=== PATIENT | female | born 1990 | race African-American/Black ===

== ENCOUNTER 2016-11-22 09:21 | Inpatient (IN) | payer OTHER ==
[~2016-11-22] VITALS: Ht 162.6 cm; Wt 89.6 kg
[2016-11-22] VITALS (9 sets, daily range): BP systolic 104–138; BP diastolic 71–83; PULSE 87–123; TEMP 36.5–39.8; O2SAT 94–100; BMI 30.5
[~2016-11-22 09:21] MED LIST: ALBUAER2 INH; GLIP2.5T11 PO; METF-384 PO; PSEU60TA80 PO; SYMIN160 INH; [UNRECOGNIZED DRUG - CODE] PO; [UNRECOGNIZED DRUG - CODE] PO
[2016-11-22] MEDS ORDERED: SODIUM CHLORIDE 0.9% 1000ML 1,000 ML IV STA ×2 (09:39→10:06)
[2016-11-22 09:48] LABS: HEMATOCRIT 37.8 % (37-47); MEAN CELL VOLUME 74.3 fL (80-100); MEAN CORPUSCULAR HEMOGLOBIN 25.1 pg (25-34); MEAN CORPUSCULAR HGB CONC 33.9 g/dl (32-36); MEAN PLATELET VOLUME 9.8 fL (7.4-10.4); PLATELET COUNT 249 K/uL (130-400); RED BLOOD COUNT 5.09 M/uL (4.2-5.4); WHITE BLOOD COUNT 23.49 K/uL (4.8-10.8)
--- NOTE | 2016-11-22 09:56 | DIAGNOSTIC IMAGING REPORT ---
CHEST ONE VIEW PORTABLE CLINICAL HISTORY: EVALUATE WEAKNESS dyspnea COMPARISON STUDY: 05/19/2016 FINDINGS: The bones soft tissues and hemidiaphragms are normal. The cardiomediastinal silhouette is normal. The lungs are clear. The pulmonary vasculature is normal. IMPRESSION: Negative chest. Electronically signed by: Steven Be M.D. 11/22/2016 9:55 AM Dictated Date/Time: 11/22/2016 9:54 AM
[2016-11-22 09:59] LABS: CALCIUM 9.1 mg/dl (8.5-10.1)
[2016-11-22 10:01] LABS: BUN/CREATININE RATIO 8.9 (10-20); POTASSIUM 3.1 mmol/L (3.5-5.1)
[2016-11-22] MEDS ORDERED: SODIUM CHLORIDE 0.9% 500ML 500 ML IV STA (10:06)
[2016-11-22] MEDS ORDERED: ACETAMINOPHEN 500 MG TAB PO STA (10:07)
[2016-11-22 10:13] LABS: THYROID STIMULATING HORMONE 0.262 uIu/ml (0.300-4.500)
[2016-11-22 10:19] LABS: BASO % 0.1 %; BASO ABS # 0.02 K/uL (0-0.2); COMPLETE YES; IG% 0.5 %; LYMPH % 7.8 %; LYMPH ABS # 1.83 K/uL (1.2-3.4); MONO % 9.3 %; NEUT % 82.3 %
[2016-11-22 10:20] LABS: BETA-HYDROXYBUTYRATE 17.79 mg/dL (0.2-2.81)
[2016-11-22 10:34] LABS: URINE APPEARANCE CLOUDY (CLEAR); URINE BILIRUBIN NEG (NEG); URINE COLOR YELLOW; URINE NITRITE NEG (NEG); URINE SPECIFIC GRAVITY 1.028 (1.000-1.030); UROBILINOGEN NEG (NEG)
[2016-11-22] MEDS ORDERED: INSULIN IV INFUSION PROTOCOL STA ×2 (10:34→11:27)
[2016-11-22 10:36] LABS: MANUAL MICROSCOPIC REQUIRED? NO; REVIEW REQ? NO
[2016-11-22 10:39] LABS: PREG INTERNAL NEGATIVE QC NEG CLEAR BACKGROUND; PREG INTERNAL POSITIVE QC POS CONTROL LINE
[2016-11-22] MEDS ORDERED: DAPTOmycin IV 500 MG in SODIUM CHLORIDE 0.9% 50ML 50 ML IV STA (10:39)
[2016-11-22] MEDS ORDERED: PIPERACILLIN/TAZOBACTAM 4.5 GM/100ML D5W IV STA (10:39)
[2016-11-22] MEDS ORDERED: DKA GOAL RANGE 150-250 mg/dl 1 EA ONE ×2 (10:45→11:30)
[2016-11-22] MEDS ORDERED: MODERATE STRESS LEVEL ONE ×2 (10:45→11:30)
[2016-11-22] MEDS ORDERED: OPTIRAY 320 IV PRN (10:45)
[2016-11-22] MEDS ORDERED: INSULIN IV INFUSION PROTOCOL SCH (10:45)
[2016-11-22] MEDS ORDERED: VNTHFA/IN INH (10:46)
[2016-11-22] MEDS ORDERED: BCPILLS PO (10:47)
[2016-11-22] MEDS ORDERED: POTASSIUM CHLORIDE 10 MEQ / 100ML WTR IV STA (11:04)
[2016-11-22] MEDS ORDERED: GLUCAGON FOR INJ 1 MG VIAL SQ PRN (11:15)
[2016-11-22] MEDS ORDERED: GLUCOSE 10 TABS/TUBE PO PRN (11:15)
[2016-11-22] MEDS ORDERED: DEXTROSE 50% 50 ML SYR IV PRN (11:15)
[2016-11-22] MEDS ORDERED: GLUCOSE 40% GEL 15 GM TUBE PO PRN (11:15)
--- NOTE | 2016-11-22 11:17 | DIAGNOSTIC IMAGING REPORT ---
ABDOMEN AND PELVIS CT WITH IV CONTRAST CT DOSE: 859.30 mGycm HISTORY: DKA, right flank and abd pain, 24K wbc, +UA TECHNIQUE: Multiaxial CT images of the abdomen and pelvis were performed following the use of intravenous contrast. COMPARISON STUDY: None. FINDINGS: Lung bases are clear. Fatty infiltration of liver. Spleen and pancreas are unremarkable. Left kidney enhances uniformly. Right kidney is moderately enlarged and heterogeneous in terms of enhancement. Findings of mild right renal hydronephrosis. Mild right renal perinephric changes. Appearances consistent with that of diffuse polyarthritis. Uterus is enlarged heterogeneous and bulky raising the possibility of diffuse fibroid involvement. Pelvic ultrasonography is suggested as follow-up. Extrinsic impact from the enlarged uterus potentially relates in part to the right renal hydronephrosis. An obstructing calculus is not appreciated. The appendix is top limits of normal. Bowel pattern overall is nonobstructive. IMPRESSION: 1. Diffuse heterogeneity and edematous change of the right kidney. 2. Appearance is highly suggestive of right renal pyelonephritis. 3. Mild right renal hydronephrosis and hydroureter possibly on the basis of a rather markedly enlarged and heterogeneous uterus. Fibroid involvement is considered with pelvic ultrasonography is suggested. 4. Top normal appendix in terms of diameter. 5. 1.8 cm left ovarian cyst. Electronically signed by: Steven Be M.D. 11/22/2016 11:16 AM Dictated Date/Time: 11/22/2016 11:10 AM
[2016-11-22] MEDS ORDERED: PENDING NSS+20mEq KCL IVF SCH (11:30)
[2016-11-22] MEDS ORDERED: INSULIN HUMAN REGULAR IV BOLUS 2 UNIT in SYRINGE 0 ML IV ONE (11:30)
[2016-11-22] MEDS ORDERED: PHARMACY GLYCEMIC MGMT CONSULT PRN (11:30)
[2016-11-22] MEDS ORDERED: CONSULT PHARMACY STA (11:33)
[2016-11-22] MEDS: INSULIN REGULAR 250 UNITS in SODIUM CHLORIDE 0.9% 250ML 250 ML IV SCH ×4 (11:36→20:22)
[2016-11-22] MEDS ORDERED: MONT1TAB3 PO (11:37)
[2016-11-22] MEDS ORDERED: PLMINSR5 INH (11:37)
--- NOTE | 2016-11-22 11:55 | History and Physical ---
History & Physical Date & Time of Service: November 22, 2016 at 11:39 Chief Complaint: Illness Primary Care Physician: Jeanette Bailey DO History of Present Illness Source: patient, clinic records, hospital records Patient seen and examined. 26 year old female with PMHx of DM2, and asthma presents to the ED complaining of flu like symptoms x 2 days. Patient reports 2 days ago she began feeling generally weak and lightheaded. She reports she felt fatigued and over heated. She took her temperature and it was 100 F. She states she went to bed and has been trying to rest in bed as much as possible since then. She reports diffuse muscle aches. She also reports nausea and some dry heaving. She states she has been trying to stay hydrated but has noticed very poor urine output. She reports dysuria and suprapubic abdominal cramping. She reports because of the illness she has not taken her DM medications in 2 days. She denies URI symptoms, chest pain, SOB, diarrhea, calf pain and edema. She reports her asthma seems to be at baseline. She reports she has not taken her BSG in the last few days. She states she has had diabetes for about a year but has never really been taught a diabetic diet so she has been trying to do her own research. In the ED patient is febrile, tachycardic. WBC count is 23K, K+ is 3.1, bicarb is 19. Glucose is 331. UA shows infection and +[address] a/p is consistent with right sided pyelonephritis. She received IVFs, potassium and was started on an insulin drip. Blood cultures and urine cultures were obtained and patient was started on daptomycin and zosyn. She will be admitted for further workup and treatment. Past Medical/Surgical History Medical Problems: (1) Asthma, moderate persistent Status: Chronic (2) DM2 (diabetes mellitus, type 2) Status: Chronic (3) Nasal polyp Status: Chronic Surgical Problems: (1) History of nasal surgery Status: Chronic Family History Asthma Social History Smoking Status: Never Smoker Drug Use: none Marital Status: single Housing status: lives alone Occupational Status: student Immunizations History of Influenza Vaccine: N/A History of Tetanus Vaccine?: Unknown History of Pneumococcal: No History of Hepatitis B Vaccine: Unknown Multi-Drug Resistant Organisms History of MDRO: No Allergies Coded Allergies: No Known Allergies (Verified , 11/22/16) Home Medications Scheduled Albuterol Hfa (Ventolin Hfa), 2-4 PUFFS INH Q6H Budesonide (Pulmicort Respules 0.5MG/2ML), 2 ML INH BID Budesonide/Formoterol Fumarate (Symbicort 160/4.5 Inhaler ), 2 PUFFS INH BID Glipizide (Glipizide Er), 5 MG PO DAILY Metformin Hcl (Glucophage), 1,000 MG PO BID Montelukast Sodium (Singulair), 1 TAB PO HS Review of Systems Constitutional: + chills, + fatigue, + fever, + weakness Eyes: No worsening of vision ENT: No nasal symptoms Respiratory: No cough, No shortness of breath Cardiovascular: No chest pain, No edema Abdomen: + nausea, + pain, No constipation, No diarrhea Musculoskeletal: + muscle pain, No calf pain, No swelling Genitourinary - Female: + dysuria Neurologic: No numbness/tingling, No vertigo Psychiatric: No depression symptoms Endocrine: + fatigue, No excessive thirst, No excessive urination Hematologic / Lymphatic: No night sweats, No swollen lymph nodes Integumentary: No itch, No rash Allergic / Immunologic: No environmental allergies Physical Exam Vital Signs Date Time Temp Pulse Resp B/P Pulse Ox O2 Delivery O2 Flow Rate FiO2 11/22/16 10:18 116 20 130/82 99 Room Air 11/22/16 09:26 38.8 130 24 136/84 99 Room Air General Appearance: + pertinent finding (Pleasant WD/WN 26 year old female lying in bed in NAD ) Head: normocephalic, atraumatic Eyes: PERRL, EOMI, sclerae normal ENT: hearing grossly normal, pharynx normal Neck: supple, no JVD Respiratory/Chest: chest non-tender, normal breath sounds, no respiratory distress, no accessory muscle use, + wheezing (scattered ) Cardiovascular: no edema, no gallop, no JVD, no murmur, normal peripheral pulses, + tachycardia (low 100s, regular ) Abdomen/GI: normal bowel sounds, soft, + tenderness (mild suprapubic ) Back: normal inspection, no muscle spasm, + right CVA tenderness Extremities/Musculoskelatal: no calf tenderness, normal capillary refill, no pedal edema Neurologic/Psych: no motor/sensory deficits, alert, oriented x 3 Skin: normal color, warm/dry, no rash Lymphatic: no adenopathy Diagnostics Laboratory Results Results Past 24 Hours Test 11/22/16 09:30 11/22/16 09:37 11/22/16 10:15 11/22/16 10:20 Range/Units White Blood Count 23.49 4.8-10.8 K/uL Red Blood Count 5.09 4.2-5.4 M/uL Hemoglobin 12.8 12.0-16.0 g/dL Hematocrit 37.8 37-47 % Mean Corpuscular Volume 74.3 80-100 fL Mean Corpuscular Hemoglobin 25.1 25-34 pg Mean Corpuscular Hemoglobin Concent 33.9 32-36 g/dl Platelet Count 249 130-400 K/uL Mean Platelet Volume 9.8 7.4-10.4 fL Neutrophils (%) (Auto) 82.3 % Lymphocytes (%) (Auto) 7.8 % Monocytes (%) (Auto) 9.3 % Eosinophils (%) (Auto) 0.0 % Basophils (%) (Auto) 0.1 % Neutrophils # (Auto) 19.34 1.4-6.5 K/uL Lymphocytes # (Auto) 1.83 1.2-3.4 K/uL Monocytes # (Auto) 2.18 0.11-0.59 K/uL Eosinophils # (Auto) 0.00 0-0.5 K/uL Basophils # (Auto) 0.02 0-0.2 K/uL RDW Standard Deviation 40.0 36.4-46.3 fL RDW Coefficient of Variation 14.6 11.5-14.5 % Immature Granulocyte % (Auto) 0.5 % Immature Granulocyte # (Auto) 0.12 0.00-0.02 K/uL Red Blood Cell Morphology Unremarkable Sodium Level 129 136-145 mmol/L Potassium Level 3.1 3.5-5.1 mmol/L Chloride Level 97 98-107 mmol/L Carbon Dioxide Level 19 21-32 mmol/L Anion Gap 13.0 3-11 mmol/L Blood Urea Nitrogen 9 7-18 mg/dl Creatinine 1.00 0.60-1.20 mg/dl Est Creatinine Clear Calc Drug Dose 86.8 ml/min Estimated GFR () 89.4 Estimated GFR (Non- 77.2 BUN/Creatinine Ratio 8.9 10-20 Random Glucose 328 70-99 mg/dl Calcium Level 9.1 8.5-10.1 mg/dl Magnesium Level 2.0 1.8-2.4 mg/dl Total Bilirubin 0.6 0.2-1 mg/dl Direct Bilirubin 0.2 0-0.2 mg/dl Aspartate Amino Transf (AST/SGOT) 11 15-37 U/L Alanine Aminotransferase (ALT/SGPT) 17 12-78 U/L Alkaline Phosphatase 77 45-117 U/L Total Protein 7.6 6.4-8.2 gm/dl Albumin 3.2 3.4-5.0 gm/dl Lipase 119 73-393 U/L Beta-Hydroxybutyric Acid 17.79 0.2-2.81 mg/dL Thyroid Stimulating Hormone (TSH) 0.262 0.300-4.500 uIu/ml Human Chorionic Gonadotropin, Qual NEG NEG Bedside Glucose 331 70-90 mg/dl Influenza Type A Antigen Neg for Influ A NEG Influenza Type B Antigen Neg for Influ B NEG Urine Color YELLOW Urine Appearance CLOUDY CLEAR Urine pH 6.0 4.5-7.5 Urine Specific [place] 1.028 1.000-1.030 Urine Protein 2+ NEG Urine Glucose (UA) 3+ NEG Urine Ketones 3+ NEG Urine Occult Blood 2+ NEG Urine Nitrite NEG NEG Urine Bilirubin NEG NEG Urine Urobilinogen NEG NEG Urine Leukocyte Esterase TRACE NEG Urine WBC (Auto) >30 0-5 /hpf Urine RBC (Auto) 5-10 0-4 /hpf Urine Hyaline Casts (Auto) 1-5 0-5 /lpf Urine Epithelial Cells (Auto) 10-20 0-5 /lpf Urine Bacteria (Auto) 4+ NEG Test 11/22/16 10:45 Range/Units Bedside Glucose 277 70-90 mg/dl Microbiology Results 11/22/16 Blood Culture, Received Pending 11/22/16 Blood Culture, Received Pending 11/22/16 Urine Culture, Received Pending Diagnostic Radiology CXR Per radiologist read: IMPRESSION: Negative chest. CT A/P Per radiologist read: IMPRESSION: 1. Diffuse heterogeneity and edematous change of the right kidney. 2. Appearance is highly suggestive of right renal pyelonephritis. 3. Mild right renal hydronephrosis and hydroureter possibly on the basis of a rather markedly enlarged and heterogeneous uterus. Fibroid involvement is considered with pelvic ultrasonography is suggested. 4. Top normal appendix in terms of diameter. 5. 1.8 cm left ovarian cyst. Impression Assessment and Plan 26 year old female presents to the ED complaining of flu like symptoms, abdominal pain, dysuria. URINARY TRACT INFECTION - ACUTE RIGHT PYELONEPHRITIS -Admit to tele -Presents with fever, tachycardia, leukocytosis, UA with infection, CT a/p consistent with pyelonephritis -Lactate pending -Blood cultures, urine cultures obtained -empirically treat with Zosyn - pharmacy consulted for dosing -received Daptomycin as well in ED, which will cover patient for 24 hours will hold off on additional dosing until cultures come back tomorrow. Defer to day- time attending. -IVF hydration -CBC, PRP, Mg in AM DIABETIC KETOACIDOSIS -known DM2 -presents with BSG 331, bicarb 19, AG 13, UA with + 3 ketones -likely secondary to infection and not taking medications secondary to illness -hold metformin and glipizide -Insulin gtt started in ED, will continue for now -IVF hydration, potassium supplementation -Pharmacy consult placed for glycemic control -follow lytes q6H, and replace as needed - update A1c -Diabetes education consult placed - states she has never had any diabetes education before - Treat UTI as outlined above -monitor in tele HYPOKALEMIA -replace -follow q6H while on insulin drip ASTHMA -stable per patient, does have wheezing on exam -continue home inhalers, nebs, Singulair ENLARGED UTERUS -on CT A/P -radiologist recommends pelvic US - defer to attending for inpatient versus outpatient US DVT PROPHYLAXIS: SCDs, ambulate CODE STATUS: FULL CODE DISPO:In my clinical judgment this beneficiary meets acute admission criteria, established by [facility], that includes being hospitalized through two midnights. Patient seen in collaboration with Dr. Duncan Attending Addendum: The patient was seen and examined in ER Admitted with generalized weakness followed by Dysuria,back pain and chills No chest pain,palpitation or SOB Noted to have Increased WCC,decreased CO2,Tachycardia and Blood sugar of 330 O/E Looks flushed Hemodynamically stable Chest -clear Heart-regular Abdomen-benign,no masses,left renal angle tender Labs and Imaging studies were reviewed Has DKA secondary to pyelonephritis Agree with the assessment and plan. Dr M Perla VTE Prophylaxis VTE Risk Assessment Done? Y/N: Yes Risk Level: Low
[2016-11-22] MEDS ORDERED: PENDING D5NS+20mEq KCL IVF SCH (12:45)
[2016-11-22] MEDS ORDERED: INSULIN ASPART 100 UNITS/ML 3 ML PEN SC SCH (13:00)
--- NOTE | 2016-11-22 13:45 | EMERGENCY ROOM VISIT NOTE ---
History Report prepared by Merlin: Yani Cabral Under the Supervision of: Dr. Mehdi Bell M.D. First contact with patient: 09:39 Chief Complaint: FLU LIKE SX Stated Complaint: ILLNESS History of Present Illness The patient is a 26 year old female who presents to the Emergency Room with complaints of worsening flu-like symptoms starting 2 days ago. The patient reports fevers, chills, headache, sinus congestion, diffuse abdominal cramps, and generalized body aches. She has nausea with eating but denies vomiting. She also reports decreased urinary output even with increased fluid intake. She has a history of diabetes. Her blood sugar level was 238 this morning prior to arrival. She denies any recent known ill-contacts. Pt denies LOC, diaphoresis, visual changes, cough, sore throat, neck pain, chest pain, breathing difficulties, back pain, melena, hematochezia, numbness, weakness, lymphadenopathy, rash, or other complaints. Source of History: patient Onset: 2 days ago Position: other (global) Quality: other (flu-like symptoms) Timing: worsening Associated Symptoms: + abdominal pain, + chills, + fevers, + headache, + nausea Review of Systems See HPI for pertinent positives and negatives. A total of ten systems were reviewed and were otherwise negative. Past Medical & Surgical Medical Problems: (1) Asthma, moderate persistent (2) DKA (diabetic ketoacidoses) (3) DM2 (diabetes mellitus, type 2) (4) Nasal polyp (5) Pyelonephritis Surgical Problems: (1) History of nasal surgery Family History Patient reports no known family medical history. Social History Smoking Status: Never Smoker Alcohol Use: none Drug Use: none Marital Status: single Housing Status: lives with roommate Occupation Status: unemployed Current/Historical Medications Scheduled Albuterol Hfa (Ventolin Hfa), 2-4 PUFFS INH Q6H Budesonide (Pulmicort Respules 0.5MG/2ML), 2 ML INH BID Budesonide/Formoterol Fumarate (Symbicort 160/4.5 Inhaler ), 2 PUFFS INH BID Glipizide (Glipizide Er), 5 MG PO DAILY Metformin Hcl (Glucophage), 1,000 MG PO BID Montelukast Sodium (Singulair), 1 TAB PO HS Allergies Coded Allergies: No Known Allergies (Verified , 11/22/16) Physical Exam Vital Signs Date Time Temp Pulse Resp B/P Pulse Ox O2 Delivery O2 Flow Rate FiO2 11/22/16 13:20 36.9 109 20 107/74 99 Room Air 11/22/16 11:39 38.9 98 18 115/67 97 Room Air 11/22/16 10:18 116 20 130/82 99 Room Air 11/22/16 09:26 38.8 130 24 136/84 99 Room Air Physical Exam GENERAL: Awake, alert, mildly ill appearing, no distress HEAD: Normocephalic, atraumatic. No edema. EYES: Normal conjunctiva. Sclera non-icteric. EARS: Right TM normal. Left TM normal. NOSE: Mild congestion. OROPHARYNX: Lips, tongue, and mucosa unremarkable. No erythema or exudate. NECK: Supple. No nuchal rigidity. FROM. No adenopathy. Negative jolt accentuation test. RESPIRATORY: CTA bilaterally. No wheezes rales or rhonchi. CARDIAC: Tachycardic rate, normal rhythm. ABDOMEN: Soft, non distended. Mild diffuse tenderness to palpation. BACK: Right CVA tenderness to percussion. NEURO: Normal sensorium. SKIN: No rash or jaundice noted Medical Decision & Procedures ER Provider Diagnostic Interpretation: CT results as stated below per my review and radiologist interpretation: ABDOMEN AND PELVIS CT WITH IV CONTRAST CT DOSE: 859.30 mGycm HISTORY: DKA, right flank and abd pain, 24K wbc, +UA TECHNIQUE: Multiaxial CT images of the abdomen and pelvis were performed following the use of intravenous contrast. COMPARISON STUDY: None. FINDINGS: Lung bases are clear. Fatty infiltration of liver. Spleen and pancreas are unremarkable. Left kidney enhances uniformly. Right kidney is moderately enlarged and heterogeneous in terms of enhancement. Findings of mild right renal hydronephrosis. Mild right renal perinephric changes. Appearances consistent with that of diffuse polyarthritis. Uterus is enlarged heterogeneous and bulky raising the possibility of diffuse fibroid involvement. Pelvic ultrasonography is suggested as follow-up. Extrinsic impact from the enlarged uterus potentially relates in part to the right renal hydronephrosis. An obstructing calculus is not appreciated. The appendix is top limits of normal. Bowel pattern overall is nonobstructive. IMPRESSION: 1. Diffuse heterogeneity and edematous change of the right kidney. 2. Appearance is highly suggestive of right renal pyelonephritis. 3. Mild right renal hydronephrosis and hydroureter possibly on the basis of a rather markedly enlarged and heterogeneous uterus. Fibroid involvement is considered with pelvic ultrasonography is suggested. 4. Top normal appendix in terms of diameter. 5. 1.8 cm left ovarian cyst. Electronically signed by: Steven Be M.D. 11/22/2016 11:16 AM Dictated Date/Time: 11/22/2016 11:10 AM Xray results as stated below per my and radiologist interpretation: CHEST ONE VIEW PORTABLE CLINICAL HISTORY: EVALUATE WEAKNESS dyspnea COMPARISON STUDY: 05/19/2016 FINDINGS: The bones soft tissues and hemidiaphragms are normal. The cardiomediastinal silhouette is normal. The lungs are clear. The pulmonary vasculature is normal. IMPRESSION: Negative chest. Electronically signed by: Steven Be M.D. 11/22/2016 9:55 AM Dictated Date/Time: 11/22/2016 9:54 AM Laboratory Results 11/22/16 09:30 Red Blood Count 5.09, Mean Corpuscular Volume 74.3, Mean Corpuscular Hemoglobin 25.1, Mean Corpuscular Hemoglobin Concent 33.9, Mean Platelet Volume 9.8, Neutrophils (%) (Auto) 82.3, Lymphocytes (%) (Auto) 7.8, Monocytes (%) (Auto) 9.3, Eosinophils (%) (Auto) 0.0, Basophils (%) (Auto) 0.1, Neutrophils # (Auto) 19.34, Lymphocytes # (Auto) 1.83, Monocytes # (Auto) 2.18, Eosinophils # (Auto) 0.00, Basophils # (Auto) 0.02 Test 11/22/16 09:30 11/22/16 10:15 11/22/16 10:20 11/22/16 12:33 White Blood Count 23.49 K/uL (4.8-10.8) Red Blood Count 5.09 M/uL (4.2-5.4) Hemoglobin 12.8 g/dL (12.0-16.0) Hematocrit 37.8 % (37-47) Mean Corpuscular Volume 74.3 fL (80-100) Mean Corpuscular Hemoglobin 25.1 pg (25-34) Mean Corpuscular Hemoglobin Concent 33.9 g/dl (32-36) Platelet Count 249 K/uL (130-400) Mean Platelet Volume 9.8 fL (7.4-10.4) Neutrophils (%) (Auto) 82.3 % Lymphocytes (%) (Auto) 7.8 % Monocytes (%) (Auto) 9.3 % Eosinophils (%) (Auto) 0.0 % Basophils (%) (Auto) 0.1 % Neutrophils # (Auto) 19.34 K/uL (1.4-6.5) Lymphocytes # (Auto) 1.83 K/uL (1.2-3.4) Monocytes # (Auto) 2.18 K/uL (0.11-0.59) Eosinophils # (Auto) 0.00 K/uL (0-0.5) Basophils # (Auto) 0.02 K/uL (0-0.2) RDW Standard Deviation 40.0 fL (36.4-46.3) RDW Coefficient of Variation 14.6 % (11.5-14.5) Immature Granulocyte % (Auto) 0.5 % Immature Granulocyte # (Auto) 0.12 K/uL (0.00-0.02) Red Blood Cell Morphology Unremarkable Est Creatinine Clear Calc Drug Dose 86.8 ml/min Total Bilirubin 0.6 mg/dl (0.2-1) Direct Bilirubin 0.2 mg/dl (0-0.2) Aspartate Amino Transf (AST/SGOT) 11 U/L (15-37) Alanine Aminotransferase (ALT/SGPT) 17 U/L (12-78) Alkaline Phosphatase 77 U/L (45-117) Total Protein 7.6 gm/dl (6.4-8.2) Albumin 3.2 gm/dl (3.4-5.0) Lipase 119 U/L (73-393) Beta-Hydroxybutyric Acid 17.79 mg/dL (0.2-2.81) Thyroid Stimulating Hormone (TSH) 0.262 uIu/ml (0.300-4.500) Human Chorionic Gonadotropin, Qual NEG (NEG) Influenza Type A Antigen Neg for Influ A (NEG) Influenza Type B Antigen Neg for Influ B (NEG) Urine Color YELLOW Urine Appearance CLOUDY (CLEAR) Urine pH 6.0 (4.5-7.5) Urine Specific [place] 1.028 (1.000-1.030) Urine Protein 2+ (NEG) Urine Glucose (UA) 3+ (NEG) Urine Ketones 3+ (NEG) Urine Occult Blood 2+ (NEG) Urine Nitrite NEG (NEG) Urine Bilirubin NEG (NEG) Urine Urobilinogen NEG (NEG) Urine Leukocyte Esterase TRACE (NEG) Urine WBC (Auto) >30 /hpf (0-5) Urine RBC (Auto) 5-10 /hpf (0-4) Urine Hyaline Casts (Auto) 1-5 /lpf (0-5) Urine Epithelial Cells (Auto) 10-20 /lpf (0-5) Urine Bacteria (Auto) 4+ (NEG) Bedside Glucose 296 mg/dl (70-90) Test 11/22/16 13:30 Laboratory results reviewed by me Medications Administered Medications (Trade) Dose Ordered Sig/Ronald Route Start Time Stop Time Status Last Admin Dose Admin Sodium Chloride 1,000 ml @ 999 mls/hr Q1H1M STAT IV 11/22/16 09:39 11/22/16 10:39 DC 11/22/16 09:39 999 MLS/HR Sodium Chloride 1,000 ml @ 999 mls/hr Q1H1M STAT IV 11/22/16 10:06 11/22/16 11:06 DC 11/22/16 10:15 999 MLS/HR Sodium Chloride (Nss 500ml) 500 ml @ 999 mls/hr Q31M STAT IV 11/22/16 10:06 11/22/16 10:36 DC 11/22/16 10:06 999 MLS/HR Acetaminophen (Tylenol Tab) 1,000 mg NOW STAT PO 11/22/16 10:07 11/22/16 10:09 DC 11/22/16 10:14 1,000 MG Piperacillin Sod/ Tazobactam Sod 4.5 gm 4.5 gm NOW STAT IV 11/22/16 10:39 11/22/16 10:42 DC 11/22/16 11:36 4.5 GM Daptomycin/Sodium Chloride (Cubicin IV/Nss 50ml) 60 ml @ 100 mls/hr NOW STAT IV 11/22/16 10:39 11/22/16 11:14 DC 11/22/16 11:38 100 MLS/HR Potassium Chloride 10 meq 10 meq NOW STAT IV 11/22/16 11:04 11/22/16 11:05 DC 11/22/16 12:24 10 MEQ Insulin Human Regular 2 unit/ Syringe 2 ml @ 1 mls/min TODAY@1130 ONCE IV 11/22/16 11:30 11/22/16 11:31 DC 11/22/16 11:34 1 MLS/MIN Insulin Human Regular/Sodium Chloride (novoLIN-R/Nss 250ml) 252.5 ml @ 0 mls/hr DAILY@1130 IV 11/22/16 11:30 11/23/16 11:29 11/22/16 11:36 2 MLS/HR ED Course 0939: The patient was evaluated in room A02. A complete history and physical exam was performed. Sodium Chloride 1000 ml @ 999 mls/hr IV 1006: Sodium Chloride 500 ml @ 999 mls/hr IV, Sodium Chloride 1000 ml @ 999 mls/ hr IV 1007: Tylenol Tab 1000 mg PO 1034: Insulin Human Regular 1 ea N/A 1039: Daptomycin 500 mg/Sodium Chloride 60 ml @ 100 mls/hr IV, Zosyn IV 4.5 mg IV 1045: Insulin Human Regular 1 ea N/A, Insulin Protocol Moderate Stress Level 1 ea N/A, Insulin Protocol DKA Goal Range 1 ea N/A 1046: Upon reexamination, the patient was resting comfortably. I discussed the test results and treatment plan with her. The patient will be evaluated for further management. 1051: I discussed the patient's case with Dr. Duncan, from [facility]. 1104: Potassium Chloride 10 meq IV 1115: Glucagon Inj 1 mg SQ, Dextrose 50 ml IV, Glucose 1 tabs PO 1211: I updated the patient on the CT scan results. She is starting to feel better. Medical Decision Triage Nursing notes reviewed. The patient's presentation and history were concerning for flulike symptoms. Etiologies such as viral syndrome, otitis, pharyngitis, pneumonia, urinary tract infection, sepsis, bacteremia, meningitis, as well as others were entertained. The patient was evaluated and she was febrile with tachycardia. She was not hypotensive. She appeared generally ill. The patient was hydrated. Blood work was obtained. She had a marked leukocytosis, hyperglycemia, and acidosis. Beta hydroxybutyrate were elevated. This is concerning for DKA. The patient' s urinalysis was abnormal. She was given additional fluid and also given broad- spectrum antibiotics due to concerns for possible sepsis. CT imaging was performed and revealed pyelonephritis as well as a uterine fibroid. The patient has no history of this but does state that she has heavy menstrual cycles. She was gradually feeling better with the above treatment. She was started on insulin drip and also given IV potassium and she was mildly hypokalemic. Internal medicine was consulted. The patient was evaluated in the Emergency Room for further management. The chart was completed utilizing [employer] Speech voice recognition software. Grammatical errors, random word insertions, pronoun errors, and incomplete sentences are an occasional consequence of this system due to software limitations, ambient noise, and hardware issues. Any formal questions or concerns about the content, text, or information contained within the body of this dictation should be directly addressed to the physician for clarification. Consults Time Called: 1050 Consulting Physician: Dr. Duncan, from [facility] Returned Call: 1051 I discussed the patient's case with Dr. Duncan, from [facility]. Impression Primary Impression: Sepsis Additional Impressions: DKA (diabetic ketoacidoses) UTI (urinary tract infection) Fever Critical Care I have personally spent greater than 30 minutes of critical care time in the direct management of this patient. This includes bedside care, interpretation of diagnostic studies, and testing, discussion with consultants, patient, and other required patient management activities. This 30 minutes is in excess of all separately billable procedures. Scribe Attestation The scribe's documentation has been prepared under my direction and personally reviewed by me in its entirety. I confirm that the note above accurately reflects all work, treatment, procedures, and medical decision making performed by me. Departure Information Dispostion Being Evaluated By Hospitalist Referrals Jeanette Bailey DO (PCP) Patient Instructions My [facility] Problem Qualifiers
[2016-11-22] MEDS ORDERED: DAPTOMYCIN CONSULT ACTIVE PRN ×2 (15:00)
[2016-11-22] MEDS ORDERED: PIPERACILL/TAZOBAC CONSULT ACTIVE PRN (15:00)
--- NOTE | 2016-11-22 15:00 | Pharmacy Progress Note ---
Glycemic Control Intl Consult Date of Service November 22, 2016. Scope Glycemic Pharmacist consulted by Angelica Guerra PA-C on 11/22/16 for glycemic control and to write orders per [facility] inpatient glycemic control protocol Objective Weight (Kilograms): 80.600 Accuchecks BSG (last 24hrs): Test 11/22/16 09:30 11/22/16 09:37 11/22/16 10:45 11/22/16 11:32 Random Glucose 328 mg/dl (70-99) Bedside Glucose 331 mg/dl (70-90) 277 mg/dl (70-90) 310 mg/dl (70-90) Test 11/22/16 12:33 11/22/16 14:15 Bedside Glucose 296 mg/dl (70-90) Laboratory Data (last 24hrs) Test 11/22/16 09:30 11/22/16 14:15 Anion Gap 13.0 mmol/L BUN/Creatinine Ratio 8.9 Blood Urea Nitrogen 9 mg/dl Creatinine 1.00 mg/dl Potassium Level 3.1 mmol/L Sodium Level 129 mmol/L White Blood Count 23.49 K/uL Red Blood Count 5.09 M/uL Hemoglobin 12.8 g/dL Hematocrit 37.8 % Mean Corpuscular Volume 74.3 fL Mean Corpuscular Hemoglobin 25.1 pg Mean Corpuscular Hemoglobin Concent 33.9 g/dl Platelet Count 249 K/uL Mean Platelet Volume 9.8 fL Neutrophils (%) (Auto) 82.3 % Lymphocytes (%) (Auto) 7.8 % Monocytes (%) (Auto) 9.3 % Eosinophils (%) (Auto) 0.0 % Basophils (%) (Auto) 0.1 % Neutrophils # (Auto) 19.34 K/uL Lymphocytes # (Auto) 1.83 K/uL Monocytes # (Auto) 2.18 K/uL Eosinophils # (Auto) 0.00 K/uL Basophils # (Auto) 0.02 K/uL HbA1c Test 11/22/16 14:15 Recent Pertinent Medications Outpatient Anti-diabetic Regimen: * Glipizide ER 5 mg PO daily * Metformin 1000 mg PO BIDM * A1c unknown Risk Factors for Insulin Resistance: * Infection * IVF * Diet Assessment & Plan ASSESSMENT: * 26 yo T2D F presents to the ED with symptoms consistent with pyelonephritis and hyperglycemia * Upon admission, BSG = 331 and insulin drip initiated per provider per moderate stress protocol * Pt admits to not feeling well the past few days, not checking BSGs and not taking oral medications * A1c unknown so baseline resistance not easily assessed * Plan will be to continue insulin drip and fluids at this time * She will likely meet criteria to transition off insulin drip fairly quickly as this is not DKA * If that happens through the evening, I recommend Lantus 15 units BID, CF 30, CR 10 (wt based-stress of 2 basal bolus regimen) * Change drip goal range to 150-200 mg/dL to make transition off drip easier PLAN FOR INPATIENT GLYCEMIC CONTROL: * Continue IV insulin infusion per moderate stress protocol * Goal Range 150 - 200 mg/dl * Transition off insulin drip when: Serum glucose below 200 mg/dL, Serum anion gap <12 meq/L, Serum bicarbonate = 15 meq/L * IF transition occurs between 1500 today and 0700 tomorrow, utilize weight- based dosing with stress of 2 * Hold outpatient oral diabetes medications LOOKING AHEAD TO DISCHARGE: * Patient admits to not checking BSGs past two days or taking medication * She also states she is unfamiliar with diabetic diet * Would recommend at least a CDE visit and once we obtain A1c results, go from there * Please note that the plan above was derived based on current level of insulin resistance and hospital stress. These recommendations are appropriate for inpatient admission only. Plan of care upon discharge will need to be reassessed to avoid potential outpatient hypo/hyperglycemia. Thank you.
[2016-11-22 15:10] LABS: BUN/CREATININE RATIO 10.3 (10-20); CALCIUM 7.8 mg/dl (8.5-10.1); CREATININE 0.92 mg/dl (0.60-1.20); MAGNESIUM 1.8 mg/dl (1.8-2.4); POTASSIUM 3.3 mmol/L (3.5-5.1)
[2016-11-22 15:27] LABS: BETA-HYDROXYBUTYRATE 4.56 mg/dL (0.2-2.81)
[2016-11-22 15:29] LABS: PHOSPHORUS 1.3 mg/dl (2.5-4.9)
[2016-11-22] MEDS: NSS + 20MEQ KCL 1000ML 1,000 ML IV SCH ×2 (15:37→22:09)
[2016-11-22] MEDS: POTASSIUM CHLR 10 MEQ / WTR 10 MEQ in PREMIXED WATER 100 ML IV SCH ×4 (15:38→20:08)
[2016-11-22] MEDS: ONDANSETRON INJ 2 MG/ML 2 ML VIAL IV PRN ×2 (16:48→23:29)
[2016-11-22] MEDS: ACETAMINOPHEN 325 MG TAB PO PRN ×2 (16:49→23:21)
[2016-11-22] MEDS ORDERED: POTASSIUM PHOS 3 MMOL/1 ML INFUSION IV STA (17:11)
[2016-11-22] MEDS ORDERED: POTASSIUM PHOSPHATE INJ 30 MMOL in SODIUM CHLORIDE 0.9% 500ML 500 ML IV ONE (18:00)
[2016-11-22] MEDS: INSULIN ASPART 100 UNITS/ML 3 ML PEN SC SCH ×2 (19:25→21:00)
[2016-11-22] MEDS: BUDESONIDE 0.5 MG/2 ML VIAL (PULMICORT) INH SCH (19:25)
[2016-11-22 20:20] LABS: BUN/CREATININE RATIO 9.6 (10-20); CALCIUM 7.7 mg/dl (8.5-10.1); CREATININE 0.75 mg/dl (0.60-1.20); POTASSIUM 3.7 mmol/L (3.5-5.1)
[2016-11-22 20:26] LABS: PHOSPHORUS 0.8 mg/dl (2.5-4.9)
[2016-11-22 20:32] LABS: BETA-HYDROXYBUTYRATE 8.53 mg/dL (0.2-2.81)
[2016-11-22] MEDS: MONTELUKAST SOD 10 MG TAB PO SCH (21:59)
[2016-11-22] MEDS: PIPERACILL/TAZOBAC IV 3.375 GM in DEXTROSE 5% 100ML IV SCH (21:59)
[2016-11-22] MEDS: BUDESONIDE/FORMOTEROL FUMARATE 160/4.5 60 PUFFS/INHALER INH SCH (22:00)
[2016-11-22] MEDS: POT PHOSPHATE MONOBASIC W/ SOD TAB PO SCH (22:50)
[2016-11-23] VITALS (12 sets, daily range): BP systolic 104–120; BP diastolic 69–78; PULSE 84–109; TEMP 36.9–39.6; O2SAT 92–100
[2016-11-23] MEDS ORDERED: NURSING VERBAL MED ORDER ONE (00:30)
[2016-11-23] MEDS ORDERED: PANTOprazole INJ 40 MG in SYRINGE 0 ML IV ONE (00:45)
[2016-11-23] MEDS: KETOROLAC TROMETHAMINE 30 MG/ML VIAL IV. PRN ×2 (01:10→15:22)
[2016-11-23 01:59] LABS: BUN/CREATININE RATIO 6.1 (10-20); CALCIUM 7.6 mg/dl (8.5-10.1); CREATININE 0.69 mg/dl (0.60-1.20); MAGNESIUM 1.9 mg/dl (1.8-2.4); POTASSIUM 3.4 mmol/L (3.5-5.1)
[2016-11-23] MEDS: D5NSS + 20MEQ KCL 1,000 ML IV SCH ×2 (02:11→09:39)
[2016-11-23] MEDS: PIPERACILL/TAZOBAC IV 3.375 GM in DEXTROSE 5% 100ML IV SCH ×3 (02:16→17:54)
[2016-11-23 02:17] LABS: PHOSPHORUS 1.2 mg/dl (2.5-4.9)
[2016-11-23] MEDS ORDERED: POTASSIUM PHOS 3 MMOL/1 ML INFUSION IV STA (02:40)
[2016-11-23] MEDS ORDERED: POTASSIUM PHOSPHATE INJ 30 MMOL in SODIUM CHLORIDE 0.9% 500ML 500 ML IV SCH (03:00)
[2016-11-23] MEDS: BUDESONIDE 0.5 MG/2 ML VIAL (PULMICORT) INH SCH ×2 (07:10→19:15)
[2016-11-23 07:14] LABS: ESTIMATED AVERAGE GLUCOSE 266 mg/dl; HA1C FLAG Normal (Normal)
[2016-11-23] MEDS ORDERED: INSULIN GLARGINE SOLOSTAR 100 UNITS/ML 3 ML PEN SC SCH (08:00)
[2016-11-23] MEDS: INSULIN ASPART 100 UNITS/ML 3 ML PEN SC SCH ×4 (08:03→21:53)
[2016-11-23 08:12] LABS: HEMATOCRIT 32.2 % (37-47); MEAN CELL VOLUME 72.7 fL (80-100); MEAN CORPUSCULAR HEMOGLOBIN 24.4 pg (25-34); MEAN CORPUSCULAR HGB CONC 33.5 g/dl (32-36); MEAN PLATELET VOLUME 9.9 fL (7.4-10.4); PLATELET COUNT 174 K/uL (130-400); RED BLOOD COUNT 4.43 M/uL (4.2-5.4)
[2016-11-23] MEDS: ACETAMINOPHEN 325 MG TAB PO PRN ×2 (08:12→23:38)
[2016-11-23 09:02] LABS: BLOOD UREA NITROGEN 4 mg/dl (7-18); BUN/CREATININE RATIO 5.5 (10-20); CALCIUM 7.3 mg/dl (8.5-10.1); CARBON DIOXIDE 11 mmol/L (21-32); CHLORIDE 119 mmol/L (98-107); CREATININE 0.73 mg/dl (0.60-1.20); GLUCOSE 149 mg/dl (70-99); SODIUM 142 mmol/L (136-145)
--- NOTE | 2016-11-23 09:23 | Pharmacy Progress Note ---
Glycemic Control: Progress Nt Date of Service November 23, 2016. Scope Glycemic Pharmacist consulted by Mann Guerra on 11/22/16 for glycemic control and to write orders per [facility] inpatient glycemic control protocol. Objective Accuchecks BSG (last 24hrs): Test 11/22/16 09:30 11/22/16 09:37 11/22/16 10:45 11/22/16 11:32 Random Glucose 328 mg/dl (70-99) Bedside Glucose 331 mg/dl (70-90) 277 mg/dl (70-90) 310 mg/dl (70-90) Test 11/22/16 12:33 11/22/16 13:43 11/22/16 14:15 11/22/16 14:48 Bedside Glucose 296 mg/dl (70-90) 326 mg/dl (70-90) 347 mg/dl (70-90) Random Glucose 348 mg/dl (70-99) Test 11/22/16 16:09 11/22/16 17:18 11/22/16 18:15 11/22/16 19:21 Bedside Glucose 310 mg/dl (70-90) 293 mg/dl (70-90) 278 mg/dl (70-90) 299 mg/dl (70-90) Test 11/22/16 19:33 11/22/16 20:19 11/22/16 21:11 11/22/16 22:32 Random Glucose 303 mg/dl (70-99) Bedside Glucose 350 mg/dl (70-90) 299 mg/dl (70-90) 274 mg/dl (70-90) Test 11/22/16 23:31 11/23/16 01:30 11/23/16 01:41 11/23/16 03:23 Bedside Glucose 226 mg/dl (70-90) 182 mg/dl (70-90) 159 mg/dl (70-90) Random Glucose 196 mg/dl (70-99) Test 11/23/16 05:35 11/23/16 07:51 11/23/16 08:04 Bedside Glucose 149 mg/dl (70-90) 140 mg/dl (70-90) Random Glucose 149 mg/dl (70-99) Laboratory Data (last 24hrs) Test 11/22/16 09:30 11/22/16 14:15 11/22/16 19:33 11/23/16 01:30 Anion Gap 13.0 mmol/L 10.0 mmol/L 9.0 mmol/L 9.0 mmol/L BUN/Creatinine Ratio 8.9 10.3 9.6 6.1 Blood Urea Nitrogen 9 mg/dl 9 mg/dl 7 mg/dl 4 mg/dl Creatinine 1.00 mg/dl 0.92 mg/dl 0.75 mg/dl 0.69 mg/dl Potassium Level 3.1 mmol/L 3.3 mmol/L 3.7 mmol/L 3.4 mmol/L Sodium Level 129 mmol/L 135 mmol/L 136 mmol/L 139 mmol/L White Blood Count 23.49 K/uL Red Blood Count 5.09 M/uL Hemoglobin 12.8 g/dL Hematocrit 37.8 % Mean Corpuscular Volume 74.3 fL Mean Corpuscular Hemoglobin 25.1 pg Mean Corpuscular Hemoglobin Concent 33.9 g/dl Platelet Count 249 K/uL Mean Platelet Volume 9.8 fL Neutrophils (%) (Auto) 82.3 % Lymphocytes (%) (Auto) 7.8 % Monocytes (%) (Auto) 9.3 % Eosinophils (%) (Auto) 0.0 % Basophils (%) (Auto) 0.1 % Neutrophils # (Auto) 19.34 K/uL Lymphocytes # (Auto) 1.83 K/uL Monocytes # (Auto) 2.18 K/uL Eosinophils # (Auto) 0.00 K/uL Basophils # (Auto) 0.02 K/uL Hemoglobin A1c 10.9 % Test 11/23/16 08:04 11/23/16 09:01 Anion Gap 12.0 mmol/L BUN/Creatinine Ratio 5.5 Blood Urea Nitrogen 4 mg/dl Creatinine 0.73 mg/dl Potassium Level mmol/L Sodium Level 142 mmol/L White Blood Count 18.30 K/uL HbA1c: Test 11/22/16 14:15 Hemoglobin A1c 10.9 %(4.5-5.6) H Recent Pertinent Medications Outpatient Anti-diabetic Regimen: * Glipizide ER 5mg PO daily * Metformin 1000mg PO BID * A1c = 10.9 % 11/22/16 The patient is currently receiving: * IV insulin infusion * moderate stress protocol * Goal 150-200mg/dL * NovoLog PC and HS to cover PO intake Risk Factors for Insulin Resistance: * Infection: suspected pyelonephritis - current ABX with Zosyn IV, day #2 * IVF: NSS bolus in ED --> NS+20mEq KCl @ 150mL/hr --> D5NW + 20mEq KCl @ 150mL /hr * Diet: T2DM * Other: elevated A1c Assessment & Plan ASSESSMENT: Initial: * 26 yo T2D F presents to the ED with symptoms consistent with pyelonephritis and hyperglycemia * Upon admission, BSG = 331 and insulin drip initiated per provider per moderate stress protocol * Pt admits to not feeling well the past few days, not checking BSGs and not taking oral medications * A1c unknown so baseline resistance not easily assessed * Plan will be to continue insulin drip and fluids at this time * She will likely meet criteria to transition off insulin drip fairly quickly as this is not DKA Currently: * Ms Melendez has met criteria for transitioning off of IV insulin infusion * Anion gap normalized, however is slightly out of range at this time, but patient is euglycemic * BSGs are within desired goal * serum creatinine normalized * Will transition (with continued IV insulin infusion overlap)to SQ basal/bolus insulin regimen based on the patient's weight and a stress of 2 * One time dose of Lantus this AM will be based on a stress of 3 as patients are generally insulin resistant directly following IV insulin administration * NovoLog will be scheduled for AC and HS - may consider overnight Accu-checks if hyperglycemia persists - Goal range will be 140-180mg/dL as patient is not accustomed to having BSG 100-140mg/dL and this may feel hypoglycemic * A1c reviewed - poor outpatient control with two oral agents * will likely need review of medications on discharge * may require insulin PLAN FOR INPATIENT GLYCEMIC CONTROL: * IV insulin infusion per moderate stress protocol until transition complete * Goal Range 150 - 200 mg/dl --> LOWER GOAL RANGE to 140-180mg/dL * Basal insulin: * Lantus 20 units SQ x1 dose now, follow up with further orders once PRP results ~16:00 - consider Lantus 10/15/20 units based on BSG * Bolus insulin: * NovoLog SQ AC and HS - Add Accu-checks overnight PRN - Correction factor: 30mg/dL/unit; if dextrose infusion continues, use 20mg/dL/unit - Carb ratio: 1 unit per 10 g of CHO consumed; if dextrose continues, use 1:7 - Goal range: 140-180mg/dL per ADA recommendations * Oral medications: * Hold at this time. * A1c - * add to discharge instructions LOOKING AHEAD TO DISCHARGE: * Patient admits to not checking BSGs past two days or taking medication * otherwise, BSGs checked and range from 150-170mg/dL per patient --> A1c may reflect higher values * She also states she is unfamiliar with diabetic diet * RD consulted to help discuss DM diet * Consider further review of DM meds at discharge - however, currently not enough data to recommend specific regimen. * Please note that the plan above was derived based on current level of insulin resistance and hospital stress. These recommendations are appropriate for inpatient admission only. Plan of care upon discharge will need to be reassessed to avoid potential outpatient hypo/hyperglycemia. Thank you.
[2016-11-23] MEDS: POT PHOSPHATE MONOBASIC W/ SOD TAB PO SCH ×4 (09:40→21:48)
[2016-11-23] MEDS: BUDESONIDE/FORMOTEROL FUMARATE 160/4.5 60 PUFFS/INHALER INH SCH ×2 (09:41→21:49)
--- NOTE | 2016-11-23 09:42 | Progress Note ---
Internal Med Progress Note Date of Service: November 23, 2016. Provider Documentation: SUBJECTIVE: Patient is seen and examined at bedside. States feeling tired, has nausea and generalized abdominal pain. Had 1 episode of vomiting this morning. Denies chest pain, SOB, wheezing. Offers no other complaints. OBJECTIVE: Vital Signs-as noted below Physical Exam: Vitals signs as noted above General Appearance:Moderately built and nourished, no apparent distress Head: normocephalic, Atraumatic Eyes: normal inspection, EOMI, PERRL Neck: supple, Trachea midline Respiratory/Chest: Normal breath sounds, CTA Cardiovascular: S1, S2, No murmur Abdomen/GI:Soft, Non tender, Bowel sounds present Extremities/Musculoskelatal:normal inspection, no edema Neurologic/Psych:AAOX3, grossly no focal neurological deficits Skin: normal color, warm Lab data as noted below. ASSESSMENT & PLAN: ACUTE PYELONEPHRITIS Presented with fever, tachycardia, leukocytosis, UA with infection, CT a/p consistent with pyelonephritis Urine culture:GNB Blood culture:pending Continue Zosyn Continue IV fluids DIABETIC KETOACIDOSIS known DM II likely secondary to UTI and not taking medications secondary to illness Hold metformin and glipizide Continue Insulin gtt till DKA resolves A1C:10.9 Continue IVF fluids: change to D5 1/2 NSS Monitor electrolytes Appreciate Pharmacy consult for for glycemic control Diabetes education consult HYPOKALEMIA Replace and monitor ASTHMA Stable continue home inhalers, nebs, Singulair ENLARGED UTERUS Incidental finding on CT scan Follow up as outpatient: May need Vaginal USD DVT PX: SCDs, ambulate CODE STATUS: FULL CODE DISPOSITION: Continue to monitor in Tele Vital Signs: Date Time Temp Pulse Resp B/P Pulse Ox O2 Delivery O2 Flow Rate FiO2 11/23/16 07:15 84 14 92 Room Air 11/23/16 04:00 Room Air 11/23/16 03:07 37.3 103 19 107/71 99 Room Air 11/23/16 00:16 39.6 11/22/16 23:59 Room Air 11/22/16 23:11 39.5 123 24 124/81 98 Room Air 11/22/16 21:12 37.4 116 18 118/71 100 Room Air 11/22/16 20:00 Room Air 11/22/16 19:25 118 14 98 Room Air 11/22/16 18:42 39.0 11/22/16 17:00 39.8 120 120/79 11/22/16 16:20 36.5 11/22/16 16:00 98 Room Air 11/22/16 16:00 98 Room Air 11/22/16 15:44 36.8 105 18 104/71 100 Room Air 11/22/16 14:09 36.8 114 18 131/83 96 Room Air 11/22/16 13:20 36.9 109 20 107/74 99 Room Air 11/22/16 11:39 38.9 98 18 115/67 97 Room Air Lab Results: Results Past 24 Hours Test 11/22/16 10:20 11/22/16 10:45 11/22/16 11:32 11/22/16 12:33 Range/Units Urine Color YELLOW Urine Appearance CLOUDY CLEAR Urine pH 6.0 4.5-7.5 Urine Specific [place] 1.028 1.000-1.030 Urine Protein 2+ NEG Urine Glucose (UA) 3+ NEG Urine Ketones 3+ NEG Urine Occult Blood 2+ NEG Urine Nitrite NEG NEG Urine Bilirubin NEG NEG Urine Urobilinogen NEG NEG Urine Leukocyte Esterase TRACE NEG Urine WBC (Auto) >30 0-5 /hpf Urine RBC (Auto) 5-10 0-4 /hpf Urine Hyaline Casts (Auto) 1-5 0-5 /lpf Urine Epithelial Cells (Auto) 10-20 0-5 /lpf Urine Bacteria (Auto) 4+ NEG Bedside Glucose 277 310 296 70-90 mg/dl Test 11/22/16 13:43 11/22/16 14:15 11/22/16 14:48 11/22/16 16:09 Range/Units Bedside Glucose 326 347 310 70-90 mg/dl Venous Blood pH 7.39 7.36-7.41 Sodium Level 135 136-145 mmol/L Potassium Level 3.3 3.5-5.1 mmol/L Chloride Level 108 98-107 mmol/L Carbon Dioxide Level 17 21-32 mmol/L Anion Gap 10.0 3-11 mmol/L Blood Urea Nitrogen 9 7-18 mg/dl Creatinine 0.92 0.60-1.20 mg/dl Est Creatinine Clear Calc Drug Dose 94.4 ml/min Estimated GFR () 98.9 Estimated GFR (Non- 85.3 BUN/Creatinine Ratio 10.3 10-20 Random Glucose 348 70-99 mg/dl Estimated Average Glucose 266 mg/dl Hemoglobin A1c 10.9 4.5-5.6 % Calcium Level 7.8 8.5-10.1 mg/dl Phosphorus Level 1.3 2.5-4.9 mg/dl Magnesium Level 1.8 1.8-2.4 mg/dl Beta-Hydroxybutyric Acid 4.56 0.2-2.81 mg/dL Free Thyroxine 0.95 0.80-1.60 ng/dl Free Triiodothyronine 1.04 2.30-4.20 pg/ml Test 11/22/16 17:18 11/22/16 18:15 11/22/16 19:21 11/22/16 19:33 Range/Units Bedside Glucose 293 278 299 70-90 mg/dl Venous Blood pH 7.45 7.36-7.41 Sodium Level 136 136-145 mmol/L Potassium Level 3.7 3.5-5.1 mmol/L Chloride Level 108 98-107 mmol/L Carbon Dioxide Level 19 21-32 mmol/L Anion Gap 9.0 3-11 mmol/L Blood Urea Nitrogen 7 7-18 mg/dl Creatinine 0.75 0.60-1.20 mg/dl Est Creatinine Clear Calc Drug Dose 115.8 ml/min Estimated GFR () 126.6 Estimated GFR (Non- 109.2 BUN/Creatinine Ratio 9.6 -20 Random Glucose 303 70-99 mg/dl Calcium Level 7.7 8.5-10.1 mg/dl Phosphorus Level 0.8 2.5-4.9 mg/dl Magnesium Level 2.0 1.8-2.4 mg/dl Beta-Hydroxybutyric Acid 8.53 0.2-2.81 mg/dL Test 11/22/16 20:19 11/22/16 21:11 11/22/16 22:32 11/22/16 23:31 Range/Units Bedside Glucose 350 299 274 226 70-90 mg/dl Test 11/23/16 01:30 11/23/16 01:41 11/23/16 03:23 11/23/16 05:35 Range/Units Venous Blood pH 7.46 7.36-7.41 Sodium Level 139 136-145 mmol/L Potassium Level 3.4 3.5-5.1 mmol/L Chloride Level 110 98-107 mmol/L Carbon Dioxide Level 20 21-32 mmol/L Anion Gap 9.0 3-11 mmol/L Blood Urea Nitrogen 4 7-18 mg/dl Creatinine 0.69 0.60-1.20 mg/dl Est Creatinine Clear Calc Drug Dose 125.8 ml/min Estimated GFR () 138.3 Estimated GFR (Non- 119.3 BUN/Creatinine Ratio 6.1 10-20 Random Glucose 196 70-99 mg/dl Calcium Level 7.6 8.5-10.1 mg/dl Phosphorus Level 1.2 2.5-4.9 mg/dl Magnesium Level 1.9 1.8-2.4 mg/dl Bedside Glucose 182 159 149 70-90 mg/dl Test 11/23/16 07:45 11/23/16 07:51 11/23/16 08:04 11/23/16 09:37 Range/Units Venous Blood pH 7.25 7.36-7.41 Bedside Glucose 140 200 70-90 mg/dl White Blood Count 18.30 4.8-10.8 K/uL Red Blood Count 4.43 4.2-5.4 M/uL Hemoglobin 10.8 12.0-16.0 g/dL Hematocrit 32.2 37-47 % Mean Corpuscular Volume 72.7 80-100 fL Mean Corpuscular Hemoglobin 24.4 25-34 pg Mean Corpuscular Hemoglobin Concent 33.5 32-36 g/dl RDW Standard Deviation 40.7 36.4-46.3 fL RDW Coefficient of Variation 15.1 11.5-14.5 % Platelet Count 174 130-400 K/uL Mean Platelet Volume 9.9 7.4-10.4 fL Sodium Level 142 136-145 mmol/L Potassium Level 3.5-5.1 mmol/L Chloride Level 119 98-107 mmol/L Carbon Dioxide Level 11 21-32 mmol/L Anion Gap 12.0 3-11 mmol/L Blood Urea Nitrogen 4 7-18 mg/dl Creatinine 0.73 0.60-1.20 mg/dl Est Creatinine Clear Calc Drug Dose 124.3 ml/min Estimated GFR () 130.8 Estimated GFR (Non- 112.9 BUN/Creatinine Ratio 5.5 10-20 Random Glucose 149 70-99 mg/dl Calcium Level 7.3 8.5-10.1 mg/dl Phosphorus Level 2.0 2.5-4.9 mg/dl Magnesium Level 1.8-2.4 mg/dl Test 11/23/16 10:06 Range/Units Microbiology Results 11/22/16 Urine Culture - Preliminary, Resulted Gram Negative Bacilli
[2016-11-23] MEDS: INSULIN REGULAR 250 UNITS in SODIUM CHLORIDE 0.9% 250ML 250 ML IV SCH ×3 (10:00→19:18)
[2016-11-23] MEDS: D5W AND 1/2NSS + 20MEQ KCL 1,000 ML IV SCH ×2 (10:08→20:05)
[2016-11-23 10:33] LABS: MAGNESIUM 1.8 mg/dl (1.8-2.4); POTASSIUM 3.4 mmol/L (3.5-5.1)
[2016-11-23] MEDS: FAMOTIDINE IV INJ 20 MG in DEXTROSE 5% 100ML 100 ML IV SCH ×2 (10:50→23:37)
[2016-11-23] MEDS ORDERED: INSULIN ASPART 100 UNITS/ML 3 ML PEN SC SCH (11:00)
[2016-11-23] MEDS ORDERED: PANTOprazole INJ 40 MG in SYRINGE 0 ML IV SCH (11:00)
[2016-11-23 16:29] LABS: BUN/CREATININE RATIO 6.5 (10-20); CALCIUM 7.1 mg/dl (8.5-10.1); CREATININE 0.68 mg/dl (0.60-1.20); MAGNESIUM 1.7 mg/dl (1.8-2.4); POTASSIUM 3.1 mmol/L (3.5-5.1)
[2016-11-23 16:45] LABS: PHOSPHORUS 0.9 mg/dl (2.5-4.9)
[2016-11-23] MEDS ORDERED: SODIUM PHOSPHATE 3 MMOL/1 ML INFUSION IV ONE (17:00)
[2016-11-23] MEDS ORDERED: MAGNESIUM SULFATE 1GM / D5W 1 GM in PREMIXED IN D5W 100 ML IV ONE (17:00)
[2016-11-23] MEDS ORDERED: POTASSIUM CHLORIDE 10 MEQ TABCR PO ONE (17:00)
[2016-11-23] MEDS ORDERED: SODIUM PHOSPHATE INJ 21 MMOL in SODIUM CHLORIDE 0.9% 500ML 500 ML IV SCH (17:15)
[2016-11-23] MEDS: INSULIN GLARGINE SOLOSTAR 100 UNITS/ML 3 ML PEN SC SCH (17:56)
[2016-11-23 20:56] LABS: BUN/CREATININE RATIO 6.9 (10-20); CALCIUM 6.8 mg/dl (8.5-10.1); CREATININE 0.67 mg/dl (0.60-1.20); MAGNESIUM 2.1 mg/dl (1.8-2.4); POTASSIUM 3.1 mmol/L (3.5-5.1)
[2016-11-23 21:01] LABS: PHOSPHORUS 1.6 mg/dl (2.5-4.9)
[2016-11-23] MEDS: MONTELUKAST SOD 10 MG TAB PO SCH (21:47)
[2016-11-24] VITALS (10 sets, daily range): BP systolic 99–136; BP diastolic 68–82; PULSE 86–111; TEMP 36.7–39.4; O2SAT 96–100
[2016-11-24] MEDS: INSULIN ASPART 100 UNITS/ML 3 ML PEN SC SCH ×6 (00:55→21:07)
[2016-11-24] MEDS: PIPERACILL/TAZOBAC IV 3.375 GM in DEXTROSE 5% 100ML IV SCH ×2 (02:40→09:46)
[2016-11-24] MEDS: D5W AND 1/2NSS + 20MEQ KCL 1,000 ML IV SCH (05:39)
[2016-11-24 06:55] LABS: BASO % 0.1 %; BASO ABS # 0.01 K/uL (0-0.2); COMPLETE YES; EOS % 0.6 %; IG% 0.7 %; LYMPH % 11.9 %; LYMPH ABS # 1.27 K/uL (1.2-3.4); MEAN CORPUSCULAR HEMOGLOBIN 24.9 pg (25-34); MEAN CORPUSCULAR HGB CONC 34.1 g/dl (32-36); MEAN PLATELET VOLUME 10.2 fL (7.4-10.4); MONO % 7.2 %; NEUT % 79.5 %; PLATELET COUNT 164 K/uL (130-400); WHITE BLOOD COUNT 10.65 K/uL (4.8-10.8)
[2016-11-24] MEDS: BUDESONIDE 0.5 MG/2 ML VIAL (PULMICORT) INH SCH (07:06)
[2016-11-24 07:38] LABS: BUN/CREATININE RATIO 5.4 (10-20); CALCIUM 6.6 mg/dl (8.5-10.1); CREATININE 0.58 mg/dl (0.60-1.20); POTASSIUM 3.2 mmol/L (3.5-5.1)
[2016-11-24] MEDS: ACETAMINOPHEN 325 MG TAB PO PRN ×3 (07:39→23:34)
[2016-11-24] MEDS: INSULIN GLARGINE SOLOSTAR 100 UNITS/ML 3 ML PEN SC SCH ×2 (08:00→21:06)
[2016-11-24 08:08] LABS: PHOSPHORUS 1.3 mg/dl (2.5-4.9)
[2016-11-24] MEDS ORDERED: POTASSIUM CHLORIDE 10 MEQ TABCR PO ONE (08:45)
[2016-11-24] MEDS: BUDESONIDE/FORMOTEROL FUMARATE 160/4.5 60 PUFFS/INHALER INH SCH ×2 (08:53→21:01)
[2016-11-24] MEDS: POT PHOSPHATE MONOBASIC W/ SOD TAB PO SCH ×4 (08:54→21:03)
[2016-11-24] MEDS: KETOROLAC TROMETHAMINE 30 MG/ML VIAL IV. PRN (08:54)
--- NOTE | 2016-11-24 08:55 | Progress Note ---
Internal Med Progress Note Date of Service: November 24, 2016. Provider Documentation: SUBJECTIVE: Patient is seen and examined at bedside. States feeling better today. Able to tolerate diet. Denies chest pain, SOB, wheezing. Offers no other complaints. OBJECTIVE: Vital Signs-as noted below Physical Exam: Vitals signs as noted above General Appearance:Moderately built and nourished, no apparent distress Head: normocephalic, Atraumatic Eyes: normal inspection, EOMI, PERRL Neck: supple, Trachea midline Respiratory/Chest: Normal breath sounds, CTA Cardiovascular: S1, S2, + Tachycardia, No murmur Abdomen/GI:Soft, Non tender, Bowel sounds present Extremities/Musculoskelatal:normal inspection, no edema Neurologic/Psych:AAOX3, grossly no focal neurological deficits Skin: normal color, warm Lab data as noted below. ASSESSMENT & PLAN: ACUTE PYELONEPHRITIS Presented with fever, tachycardia, leukocytosis, UA with infection, CT a/p consistent with pyelonephritis Urine culture:Klebsiella Blood culture:No growth to date On Zosyn >>>Rocephin DC IV fluids DIABETIC KETOACIDOSIS known DM II likely secondary to UTI and not taking medications secondary to illness Hold metformin and glipizide Continue Insulin gtt till DKA resolves A1C:10.9 S/P IVF fluids Monitor electrolytes Appreciate Pharmacy consult for for glycemic control Diabetes education consult HYPOKALEMIA/HYPOPHOSPHATEMIA Replace and monitor ASTHMA Stable continue home inhalers, nebs, Singulair ENLARGED UTERUS Incidental finding on CT scan ? fibroid and 1.8 cm left ovarian cyst Follow up as outpatient with OBGYN DVT PX: SCDs, ambulate CODE STATUS: FULL CODE DISPOSITION: Continue to monitor in Tele Vital Signs: Date Time Temp Pulse Resp B/P Pulse Ox O2 Delivery O2 Flow Rate FiO2 11/24/16 12:00 97 Room Air 11/24/16 11:04 36.7 86 17 99/68 97 Room Air 11/24/16 08:00 96 Room Air 11/24/16 07:25 38.9 101 20 114/77 96 Room Air 11/24/16 07:08 101 14 98 Room Air 11/24/16 04:00 Room Air 11/24/16 03:50 37.1 104 20 115/78 100 Room Air 11/23/16 23:59 Room Air 11/23/16 23:07 38.0 101 20 120/78 99 Room Air 11/23/16 20:00 Room Air 11/23/16 19:15 99 14 98 Room Air 11/23/16 19:07 36.9 96 16 104/69 100 Room Air 11/23/16 16:00 98 Room Air 11/23/16 15:42 109 18 116/78 98 Room Air 11/23/16 15:18 37.9 Lab Results: Results Past 24 Hours Test 11/23/16 15:12 11/23/16 15:58 11/23/16 16:15 11/23/16 16:49 Range/Units Bedside Glucose 145 108 103 70-90 mg/dl Sodium Level 142 136-145 mmol/L Potassium Level 3.1 3.5-5.1 mmol/L Chloride Level 113 98-107 mmol/L Carbon Dioxide Level 18 21-32 mmol/L Anion Gap 11.0 3-11 mmol/L Blood Urea Nitrogen 4 7-18 mg/dl Creatinine 0.68 0.60-1.20 mg/dl Est Creatinine Clear Calc Drug Dose 133.5 ml/min Estimated GFR () 138.9 Estimated GFR (Non- 119.9 BUN/Creatinine Ratio 6.5 10-20 Random Glucose 117 70-99 mg/dl Calcium Level 7.1 8.5-10.1 mg/dl Phosphorus Level 0.9 2.5-4.9 mg/dl Magnesium Level 1.7 1.8-2.4 mg/dl Test 11/23/16 17:52 11/23/16 19:04 11/23/16 20:16 11/23/16 20:24 Range/Units Bedside Glucose 164 216 226 70-90 mg/dl Sodium Level 141 136-145 mmol/L Potassium Level 3.1 3.5-5.1 mmol/L Chloride Level 111 98-107 mmol/L Carbon Dioxide Level 19 21-32 mmol/L Anion Gap 11.0 3-11 mmol/L Blood Urea Nitrogen 5 7-18 mg/dl Creatinine 0.67 0.60-1.20 mg/dl Est Creatinine Clear Calc Drug Dose 135.5 ml/min Estimated GFR () 139.6 Estimated GFR (Non- 120.5 BUN/Creatinine Ratio 6.9 10-20 Random Glucose 227 70-99 mg/dl Calcium Level 6.8 8.5-10.1 mg/dl Phosphorus Level 1.6 2.5-4.9 mg/dl Magnesium Level 2.1 1.8-2.4 mg/dl Test 11/23/16 21:26 11/23/16 22:21 11/23/16 23:14 11/24/16 00:18 Range/Units Bedside Glucose 231 202 165 189 70-90 mg/dl Test 11/24/16 01:20 11/24/16 02:27 11/24/16 03:15 11/24/16 04:29 Range/Units Bedside Glucose 194 183 186 187 70-90 mg/dl Test 11/24/16 05:21 11/24/16 06:15 11/24/16 07:06 11/24/16 11:02 Range/Units Bedside Glucose 213 222 223 70-90 mg/dl White Blood Count 10.65 4.8-10.8 K/uL Red Blood Count 3.70 4.2-5.4 M/uL Hemoglobin 9.2 12.0-16.0 g/dL Hematocrit 27.0 37-47 % Mean Corpuscular Volume 73.0 80-100 fL Mean Corpuscular Hemoglobin 24.9 25-34 pg Mean Corpuscular Hemoglobin Concent 34.1 32-36 g/dl Platelet Count 164 130-400 K/uL Mean Platelet Volume 10.2 7.4-10.4 fL Neutrophils (%) (Auto) 79.5 % Lymphocytes (%) (Auto) 11.9 % Monocytes (%) (Auto) 7.2 % Eosinophils (%) (Auto) 0.6 % Basophils (%) (Auto) 0.1 % Neutrophils # (Auto) 8.47 1.4-6.5 K/uL Lymphocytes # (Auto) 1.27 1.2-3.4 K/uL Monocytes # (Auto) 0.77 0.11-0.59 K/uL Eosinophils # (Auto) 0.06 0-0.5 K/uL Basophils # (Auto) 0.01 0-0.2 K/uL RDW Standard Deviation 41.8 36.4-46.3 fL RDW Coefficient of Variation 15.5 11.5-14.5 % Immature Granulocyte % (Auto) 0.7 % Immature Granulocyte # (Auto) 0.07 0.00-0.02 K/uL Sodium Level 137 136-145 mmol/L Potassium Level 3.2 3.5-5.1 mmol/L Chloride Level 108 98-107 mmol/L Carbon Dioxide Level 18 21-32 mmol/L Anion Gap 11.0 3-11 mmol/L Blood Urea Nitrogen 3 7-18 mg/dl Creatinine 0.58 0.60-1.20 mg/dl Est Creatinine Clear Calc Drug Dose 157.0 ml/min Estimated GFR () 146.4 Estimated GFR (Non- 126.3 BUN/Creatinine Ratio 5.4 10-20 Random Glucose 218 70-99 mg/dl Calcium Level 6.6 8.5-10.1 mg/dl Phosphorus Level 1.3 2.5-4.9 mg/dl Magnesium Level 2.0 1.8-2.4 mg/dl
[2016-11-24] MEDS ORDERED: SODIUM PHOSPHATE 3 MMOL/1 ML INFUSION IV ONE (09:00)
[2016-11-24] MEDS ORDERED: SODIUM PHOSPHATE INJ 15 MMOL in SODIUM CHLORIDE 0.9% 250ML 250 ML IV SCH (09:15)
[2016-11-24] MEDS: FAMOTIDINE IV INJ 20 MG in DEXTROSE 5% 100ML 100 ML IV SCH ×2 (11:10→23:34)
[2016-11-24] MEDS ORDERED: INSULIN REGULAR 5 UNITS in SYRINGE 4.95 ML IV SCH ×2 (13:00→15:30)
--- NOTE | 2016-11-24 13:50 | Pharmacy Progress Note ---
Glycemic Control: Progress Nt Date of Service November 24, 2016. Scope Glycemic Pharmacist consulted by Mann Guerra on 11/22/16 for glycemic control and to write orders per [facility] inpatient glycemic control protocol. Objective Accuchecks BSG (last 24hrs): Test 11/23/16 14:11 11/23/16 15:12 11/23/16 15:58 11/23/16 16:15 Bedside Glucose 157 mg/dl (70-90) 145 mg/dl (70-90) 108 mg/dl (70-90) Random Glucose 117 mg/dl (70-99) Test 11/23/16 16:49 11/23/16 17:52 11/23/16 19:04 11/23/16 20:16 Bedside Glucose 103 mg/dl (70-90) 164 mg/dl (70-90) 216 mg/dl (70-90) 226 mg/dl (70-90) Test 11/23/16 20:24 11/23/16 21:26 11/23/16 22:21 11/23/16 23:14 Random Glucose 227 mg/dl (70-99) Bedside Glucose 231 mg/dl (70-90) 202 mg/dl (70-90) 165 mg/dl (70-90) Test 11/24/16 00:18 11/24/16 01:20 11/24/16 02:27 11/24/16 03:15 Bedside Glucose 189 mg/dl (70-90) 194 mg/dl (70-90) 183 mg/dl (70-90) 186 mg/dl (70-90) Test 11/24/16 04:29 11/24/16 05:21 11/24/16 06:15 11/24/16 07:06 Bedside Glucose 187 mg/dl (70-90) 213 mg/dl (70-90) 222 mg/dl (70-90) Random Glucose 218 mg/dl (70-99) Test 11/24/16 11:02 Bedside Glucose 223 mg/dl (70-90) Laboratory Data (last 24hrs) Test 11/23/16 15:58 11/23/16 20:24 11/24/16 06:15 Anion Gap 11.0 mmol/L 11.0 mmol/L 11.0 mmol/L BUN/Creatinine Ratio 6.5 6.9 5.4 Blood Urea Nitrogen 4 mg/dl 5 mg/dl 3 mg/dl Creatinine 0.68 mg/dl 0.67 mg/dl 0.58 mg/dl Potassium Level 3.1 mmol/L 3.1 mmol/L 3.2 mmol/L Sodium Level 142 mmol/L 141 mmol/L 137 mmol/L White Blood Count 10.65 K/uL Red Blood Count 3.70 M/uL Hemoglobin 9.2 g/dL Hematocrit 27.0 % Mean Corpuscular Volume 73.0 fL Mean Corpuscular Hemoglobin 24.9 pg Mean Corpuscular Hemoglobin Concent 34.1 g/dl Platelet Count 164 K/uL Mean Platelet Volume 10.2 fL Neutrophils (%) (Auto) 79.5 % Lymphocytes (%) (Auto) 11.9 % Monocytes (%) (Auto) 7.2 % Eosinophils (%) (Auto) 0.6 % Basophils (%) (Auto) 0.1 % Neutrophils # (Auto) 8.47 K/uL Lymphocytes # (Auto) 1.27 K/uL Monocytes # (Auto) 0.77 K/uL Eosinophils # (Auto) 0.06 K/uL Basophils # (Auto) 0.01 K/uL HbA1c: Test 11/22/16 14:15 Hemoglobin A1c 10.9 % (4.5-5.6) H Recent Pertinent Medications Outpatient Anti-diabetic Regimen: * Glipizide ER 5mg PO daily * Metformin 1000mg PO BID * A1c = 10.9 % 11/22/16 The patient is currently receiving: * IV insulin infusion * moderate stress protocol * Goal 150-200mg/dL * NovoLog PC and HS to cover PO intake * Transition to SQ basal/bolus regimen last evening (around dinner time) * Lantus 20 units SQ BID * NovoLog AC/HS/ - CF: 20 mg/dL/unit - CR: 1 unit per 7g of CHO consumed - Goal: 140-180mg/dL Risk Factors for Insulin Resistance: * Infection: suspected pyelonephritis - current ABX with Zosyn IV, day #3 * IVF: Pepcid (mixed in dextrose); D5 1/2NS + 20mEq KCl @ 100mL/hr --> d/c'd today ~09:00 * Diet: T2DM * Other: elevated A1c Assessment & Plan ASSESSMENT: Initial: * 26 yo T2D F presents to the ED with symptoms consistent with pyelonephritis and hyperglycemia * Upon admission, BSG = 331 and insulin drip initiated per provider per moderate stress protocol * Pt admits to not feeling well the past few days, not checking BSGs and not taking oral medications * A1c unknown so baseline resistance not easily assessed * Plan will be to continue insulin drip and fluids at this time Currently: * Ms Melendez met criteria for transitioning off of IV insulin infusion and has begun SQ basal/bolus insulin * BSGs continue to be elevated - It is not abnormal to have high level of insulin resistance post insulin infusion * Dextrose IV fluids stopped this AM * this will likely help with insulin resistance * Currently, BSGs elevated * continue to increase insulin accordingly - will likely reach a point where insulin resistance is overcome and titration down is warranted - not yet there. * A1c reviewed - poor outpatient control with two oral agents * will likely need review of medications on discharge * may require insulin PLAN FOR INPATIENT GLYCEMIC CONTROL: * Basal insulin: * Lantus SQ BID - 10 units if BSG is below 100mg/dL - 15 units if BSG is 100-140mg/dL - 20 units if BSG is above 140mg/dL * Bolus insulin: * NovoLog SQ AC/HS/ - Correction factor: 18mg/dL/unit - Carb ratio: 1 unit per 6g of CHO consumed - Goal range: 140-180mg/dL per ADA recommendations * Elevated BSG pre-lunch despite additional NovoLog * give a one time dose of IV regular insulin 5 units to help augment SQ insulin * re-check BSG at 15:00 (2 hours after last dose to ensure we are heading in the right direction) * Oral medications: * Hold at this time. * A1c - * add to discharge instructions RECOMMENDATIONS FOR DISCHARGE: * Patient admits to not checking BSGs past two days or taking medication * otherwise, BSGs checked and range from 150-170mg/dL per patient --> A1c may reflect higher values * She also states she is unfamiliar with diabetic diet * RD consulted to help discuss DM diet * Consider further review of DM meds at discharge - however, currently not enough data to recommend specific regimen. * Please note that the plan above was derived based on current level of insulin resistance and hospital stress. These recommendations are appropriate for inpatient admission only. Plan of care upon discharge will need to be reassessed to avoid potential outpatient hypo/hyperglycemia. Thank you.
[2016-11-24] MEDS ORDERED: INSULIN ASPART 100 UNITS/ML 3 ML PEN SC SCH (15:00)
[2016-11-24] MEDS: CEFTRIAXONE SOD INJ 1000 MG in DEXTROSE 5% 50ML IV SCH (15:31)
[2016-11-24] MEDS ORDERED: INSULIN GLARGINE SOLOSTAR 100 UNITS/ML 3 ML PEN SC SCH (16:45)
[2016-11-24] MEDS: MONTELUKAST SOD 10 MG TAB PO SCH (21:02)
[2016-11-24 21:35] LABS: BUN/CREATININE RATIO 6.1 (10-20); CREATININE 0.67 mg/dl (0.60-1.20); POTASSIUM 3.1 mmol/L (3.5-5.1)
[2016-11-25] VITALS (12 sets, daily range): BP systolic 99–119; BP diastolic 64–78; PULSE 94–102; TEMP 36.8–39.5; O2SAT 90–99; BMI 33.9
[2016-11-25] MEDS: ACETAMINOPHEN 325 MG TAB PO PRN ×3 (03:57→21:33)
[2016-11-25] MEDS: INSULIN ASPART 100 UNITS/ML 3 ML PEN SC SCH ×7 (04:00→23:50)
[2016-11-25 06:53] LABS: BASO % 0.1 %; BASO ABS # 0.01 K/uL (0-0.2); COMPLETE YES; EOS % 0.7 %; HEMATOCRIT 26.6 % (37-47); IG% 0.7 %; LYMPH % 19.4 %; LYMPH ABS # 1.67 K/uL (1.2-3.4); MEAN CELL VOLUME 72.3 fL (80-100); MEAN CORPUSCULAR HEMOGLOBIN 24.7 pg (25-34); MEAN CORPUSCULAR HGB CONC 34.2 g/dl (32-36); MEAN PLATELET VOLUME 10.4 fL (7.4-10.4); MONO % 7.3 %; NEUT % 71.8 %; PLATELET COUNT 205 K/uL (130-400); RED BLOOD COUNT 3.68 M/uL (4.2-5.4)
[2016-11-25 07:31] LABS: BUN/CREATININE RATIO 5.3 (10-20); CALCIUM 7.1 mg/dl (8.5-10.1); CREATININE 0.6 mg/dl (0.60-1.20); PHOSPHORUS 1.6 mg/dl (2.5-4.9); POTASSIUM 2.8 mmol/L (3.5-5.1)
[2016-11-25] MEDS: INSULIN GLARGINE SOLOSTAR 100 UNITS/ML 3 ML PEN SC SCH ×2 (07:53→18:27)
[2016-11-25] MEDS: BUDESONIDE/FORMOTEROL FUMARATE 160/4.5 60 PUFFS/INHALER INH SCH ×2 (07:57→20:00)
[2016-11-25] MEDS: POT PHOSPHATE MONOBASIC W/ SOD TAB PO SCH ×4 (07:57→21:28)
[2016-11-25] MEDS: KETOROLAC TROMETHAMINE 30 MG/ML VIAL IV. PRN (08:00)
[2016-11-25] MEDS ORDERED: SODIUM PHOSPHATE 3 MMOL/1 ML INFUSION IV ONE (09:30)
--- NOTE | 2016-11-25 09:30 | Progress Note ---
Internal Med Progress Note Date of Service: November 25, 2016. Provider Documentation: SUBJECTIVE: Seen and examined at bedside. Has been febrile overnight and this morning. States feeling well otherwise. Denies chest pain, SOB, wheezing, cough. Tolerating diet. Offers no other complaints. OBJECTIVE: Vital Signs-as noted below Physical Exam: Vitals signs as noted above General Appearance:Moderately built and nourished, no apparent distress Head: normocephalic, Atraumatic Eyes: normal inspection, EOMI, PERRL Neck: supple, Trachea midline Respiratory/Chest: Normal breath sounds, CTA Cardiovascular: S1, S2, + Tachycardia, No murmur Abdomen/GI:Soft, Non tender, Bowel sounds present Extremities/Musculoskelatal:normal inspection, no edema Neurologic/Psych:AAOX3, grossly no focal neurological deficits Skin: normal color, warm Lab data as noted below. ASSESSMENT & PLAN: ACUTE PYELONEPHRITIS Presented with fever, tachycardia, leukocytosis, UA with infection, CT a/p consistent with pyelonephritis Urine culture:Klebsiella Blood culture:No growth to date On Zosyn >>>Rocephin Persistent fever: Check lactate, procalcitonin, repeat blood cultures Check renal USD DIABETIC KETOACIDOSIS known DM II likely secondary to UTI and not taking medications secondary to illness Hold metformin and glipizide Continue Insulin gtt till DKA resolves A1C:10.9 S/P IVF fluids Monitor electrolytes Appreciate Pharmacy consult for for glycemic control Diabetes education consult HYPOKALEMIA/HYPOPHOSPHATEMIA Replace and monitor ASTHMA Stable continue home inhalers, nebs, Singulair ENLARGED UTERUS Incidental finding on CT scan ? fibroid and 1.8 cm left ovarian cyst Follow up as outpatient with OBGYN DVT PX: SCDs, ambulate CODE STATUS: FULL CODE DISPOSITION: Transfer to medical floor Vital Signs: Date Time Temp Pulse Resp B/P Pulse Ox O2 Delivery O2 Flow Rate FiO2 11/25/16 08:00 95 Room Air 11/25/16 07:18 38.3 97 18 110/72 95 Room Air 11/25/16 04:00 Room Air 11/25/16 03:28 38.6 98 22 119/78 94 Room Air 11/25/16 00:33 37.2 11/24/16 23:59 Room Air 11/24/16 23:20 39.4 111 20 136/82 98 Room Air 11/24/16 20:00 Room Air 11/24/16 19:27 37.3 104 16 116/75 97 Room Air 11/24/16 16:00 100 Room Air 11/24/16 15:29 36.9 105 16 120/76 100 Room Air 11/24/16 12:00 97 Room Air 11/24/16 11:04 36.7 86 17 99/68 97 Room Air Lab Results: Results Past 24 Hours Test 11/24/16 11:02 11/24/16 15:00 11/24/16 16:15 11/24/16 20:11 Range/Units Bedside Glucose 223 283 220 204 70-90 mg/dl Test 11/24/16 21:08 11/25/16 00:29 11/25/16 04:26 11/25/16 06:45 Range/Units Sodium Level 140 139 136-145 mmol/L Potassium Level 3.1 2.8 3.5-5.1 mmol/L Chloride Level 107 108 98-107 mmol/L Carbon Dioxide Level 22 23 21-32 mmol/L Anion Gap 11.0 8.0 3-11 mmol/L Blood Urea Nitrogen 4 3 7-18 mg/dl Creatinine 0.67 0.60 0.60-1.20 mg/dl Est Creatinine Clear Calc Drug Dose 136.0 152.7 ml/min Estimated GFR () 139.6 144.8 Estimated GFR (Non- 120.5 124.9 BUN/Creatinine Ratio 6.1 5.3 10-20 Random Glucose 199 131 70-99 mg/dl Calcium Level 7.0 7.1 8.5-10.1 mg/dl Bedside Glucose 158 127 70-90 mg/dl White Blood Count 8.60 4.8-10.8 K/uL Red Blood Count 3.68 4.2-5.4 M/uL Hemoglobin 9.1 12.0-16.0 g/dL Hematocrit 26.6 37-47 % Mean Corpuscular Volume 72.3 80-100 fL Mean Corpuscular Hemoglobin 24.7 25-34 pg Mean Corpuscular Hemoglobin Concent 34.2 32-36 g/dl Platelet Count 205 130-400 K/uL Mean Platelet Volume 10.4 7.4-10.4 fL Neutrophils (%) (Auto) 71.8 % Lymphocytes (%) (Auto) 19.4 % Monocytes (%) (Auto) 7.3 % Eosinophils (%) (Auto) 0.7 % Basophils (%) (Auto) 0.1 % Neutrophils # (Auto) 6.17 1.4-6.5 K/uL Lymphocytes # (Auto) 1.67 1.2-3.4 K/uL Monocytes # (Auto) 0.63 0.11-0.59 K/uL Eosinophils # (Auto) 0.06 0-0.5 K/uL Basophils # (Auto) 0.01 0-0.2 K/uL RDW Standard Deviation 41.9 36.4-46.3 fL RDW Coefficient of Variation 15.5 11.5-14.5 % Immature Granulocyte % (Auto) 0.7 % Immature Granulocyte # (Auto) 0.06 0.00-0.02 K/uL Venous Blood pH 7.48 7.36-7.41 Phosphorus Level 1.6 2.5-4.9 mg/dl Magnesium Level 2.0 1.8-2.4 mg/dl Test 11/25/16 06:53 11/25/16 09:28 Range/Units Bedside Glucose 136 70-90 mg/dl Microbiology Results 11/25/16 Blood Culture, Krysta Batch Pending 11/25/16 Blood Culture, Krysta Batch Pending
[2016-11-25] MEDS ORDERED: SODIUM PHOSPHATE INJ 15 MMOL in SODIUM CHLORIDE 0.9% 250ML 250 ML IV SCH (10:15)
[2016-11-25] MEDS: FAMOTIDINE IV INJ 20 MG in DEXTROSE 5% 100ML 100 ML IV SCH ×2 (11:00→23:08)
[2016-11-25] MEDS: POTASSIUM CHLORIDE 10 MEQ TABCR PO SCH ×2 (11:08→21:28)
--- NOTE | 2016-11-25 14:35 | Pharmacy Progress Note ---
Glycemic Control: Progress Nt Date of Service November 25, 2016. Scope Glycemic Pharmacist consulted by Mann Guerra PA-C on 11/22/16 for glycemic control and to write orders per [facility] inpatient glycemic control protocol. Objective Accuchecks BSG (last 24hrs): Test 11/24/16 15:00 11/24/16 16:15 11/24/16 20:11 11/24/16 21:08 Bedside Glucose 283 mg/dl (70-90) 220 mg/dl (70-90) 204 mg/dl (70-90) Random Glucose 199 mg/dl (70-99) Test 11/25/16 00:29 11/25/16 04:26 11/25/16 06:45 11/25/16 06:53 Bedside Glucose 158 mg/dl (70-90) 127 mg/dl (70-90) 136 mg/dl (70-90) Random Glucose 131 mg/dl (70-99) Test 11/25/16 11:39 Bedside Glucose 141 mg/dl (70-90) Laboratory Data (last 24hrs) Test 11/24/16 21:08 11/25/16 06:45 Anion Gap 11.0 mmol/L 8.0 mmol/L BUN/Creatinine Ratio 6.1 5.3 Blood Urea Nitrogen 4 mg/dl 3 mg/dl Creatinine 0.67 mg/dl 0.60 mg/dl Potassium Level 3.1 mmol/L 2.8 mmol/L Sodium Level 140 mmol/L 139 mmol/L White Blood Count 8.60 K/uL Red Blood Count 3.68 M/uL Hemoglobin 9.1 g/dL Hematocrit 26.6 % Mean Corpuscular Volume 72.3 fL Mean Corpuscular Hemoglobin 24.7 pg Mean Corpuscular Hemoglobin Concent 34.2 g/dl Platelet Count 205 K/uL Mean Platelet Volume 10.4 fL Neutrophils (%) (Auto) 71.8 % Lymphocytes (%) (Auto) 19.4 % Monocytes (%) (Auto) 7.3 % Eosinophils (%) (Auto) 0.7 % Basophils (%) (Auto) 0.1 % Neutrophils # (Auto) 6.17 K/uL Lymphocytes # (Auto) 1.67 K/uL Monocytes # (Auto) 0.63 K/uL Eosinophils # (Auto) 0.06 K/uL Basophils # (Auto) 0.01 K/uL HbA1c: Test 11/22/16 14:15 Hemoglobin A1c 10.9 % (4.5-5.6) H Recent Pertinent Medications Outpatient Anti-diabetic Regimen: * Glipizide ER 5mg PO daily * Metformin 1000mg PO BID * A1c = 10.9 % 11/22/16 The patient is currently receiving: * Basal insulin: Lantus 20 units every 12 hours (plus additional 5 units around dinnertime) * Correctional Insulin: Novolog Correction per scale ACHS Goal Range: Low 140 mg/dL - High 180 mg/dL Correction Factor: 15 mg/dL/unit * Prandial insulin: Per carb ratio of 1 unit per 5 grams CHO consumed * Oral Agents: on hold Risk Factors for Insulin Resistance: * Infection: suspected pyelonephritis - antibiotics changed to ceftriaxone IV on 11/24 * Diet: T2DM * Other: elevated A1c Assessment & Plan ASSESSMENT: * 26 yr T2DM F admitted with pyelonephritis & severe hyperglycemia. * Patient was started on an insulin drip per moderate stress protocol. She was titrated off the insulin drip on 11/24. * ADA & AACE recommend a goal blood sugar range 140-180 mg/dl for the majority of critically ill & non-critically ill patients. However, more stringent targets may be selected in individual cases. Will utilize more stringent goal of 120-160 mg/dl based on patient age & comorbidities. Additionally, tighter glycemic control is warranted to facilitate wound/infection healing. 11/25/16 * Glycemic control improved today. * Patient required 81 units of insulin over the last 24 hours. BSGs ranging 158 to 283 over the past 24hrs * Insulin resistance has been overcome since Lantus dose is now at steady state. * Infection is being adequately treated/Pt status improving * Anticipating insulin regimen will need decreased for the next 24hrs d/t : * AM Fasting BSG = 146 - value remains elevated, however, it has significantly improved since fasting on 11/24. There is concern for hypoglycemia with marked downward trend. Will empirically decrease basal insulin and change to once daily dosing as we prepare for discharge. * BSGs trending downwards throughout the day (insulin stacking) therefore Loosen CF/CR PLAN FOR INPATIENT GLYCEMIC CONTROL: * Holding outpatient oral diabetes medications - will consider resuming metformin on 11/26 * Basal insulin with LANTUS SQ BID * 12 units for BSG 120 mg/dL or less * 15 units for BSG 121 - 180 mg/dL * 18 units for BSG greater than 180 mg/dL * Bolus insulin with NOVOLOG per scale ACHS * Goal Range: Low 120 mg/dL - High 160 mg/dL * Correction Factor: 20 mg/dL/unit * Nutritional / Prandial insulin per carb ratio of 1 unit per 7 grams CHO consumed * Continue overnight checks with coverage at 00 and 04 RECOMMENDATIONS FOR DISCHARGE: * Patient evaluated by Java Developer and Certified Diabetes Educators and is willing to utilize basal/bolus insulin regimen as an outpatient * Glycemic Pharmacist will finalize discharge recommendations on 11/26 * Please note that the plan above was derived based on current level of insulin resistance and hospital stress. These recommendations are appropriate for inpatient admission only. Plan of care upon discharge will need to be reassessed to avoid potential outpatient hypo/hyperglycemia. Thank you.
[2016-11-25] MEDS: CEFTRIAXONE SOD INJ 1000 MG in DEXTROSE 5% 50ML IV SCH (14:54)
--- NOTE | 2016-11-25 14:55 | DIAGNOSTIC IMAGING REPORT ---
RENAL ULTRASOUND HISTORY: Pyelonephritis. Pain. Pyelonephritis COMPARISON: None. FINDINGS: Right kidney: Maximum dimension 14 cm. Slight fullness right renal collecting system and renal pelvis. Normal corticomedullary differentiation and cortical thickness. Left kidney: Maximum dimension 13.6 cm. No evidence for hydronephrosis Bladder: No bladder wall thickening. The bilateral ureteral jets were identified. IMPRESSION: Slight fullness right renal collecting system. Otherwise negative study of the kidneys. Electronically signed by: Steven Be M.D. 11/25/2016 2:54 PM Dictated Date/Time: 11/25/2016 2:53 PM
[2016-11-25] MEDS ORDERED: IBUPROFEN 200 MG TAB PO ONE (16:15)
[2016-11-25] MEDS ORDERED: SODIUM CHLORIDE 0.9% 500ML 500 ML IV SCH (16:15)
[2016-11-25] MEDS ORDERED: POTASSIUM CHLORIDE 10 MEQ TABCR PO ONE (21:00)
[2016-11-25] MEDS: ALBUTEROL HFA 8 GM INHALER INH PRN (21:26)
[2016-11-25] MEDS: MONTELUKAST SOD 10 MG TAB PO SCH (21:34)
[2016-11-26] VITALS (9 sets, daily range): BP systolic 106–133; BP diastolic 50–83; PULSE 73–99; TEMP 36.7–37.8; O2SAT 93–97; Ht 162.6 cm; Wt 89.6 kg
[2016-11-26] MEDS: INSULIN ASPART 100 UNITS/ML 3 ML PEN SC SCH ×5 (04:00→20:39)
[2016-11-26] MEDS: BUDESONIDE/FORMOTEROL FUMARATE 160/4.5 60 PUFFS/INHALER INH SCH ×2 (07:33→20:26)
[2016-11-26] MEDS: POT PHOSPHATE MONOBASIC W/ SOD TAB PO SCH ×4 (07:33→20:25)
[2016-11-26] MEDS: ALBUTEROL HFA 8 GM INHALER INH PRN ×2 (07:34→20:26)
[2016-11-26] MEDS: ACETAMINOPHEN 325 MG TAB PO PRN ×2 (07:36→17:02)
[2016-11-26 08:32] LABS: HEMATOCRIT 27.4 % (37-47); MEAN CELL VOLUME 72.3 fL (80-100); MEAN CORPUSCULAR HEMOGLOBIN 24.8 pg (25-34); MEAN CORPUSCULAR HGB CONC 34.3 g/dl (32-36); MEAN PLATELET VOLUME 10.3 fL (7.4-10.4); PLATELET COUNT 260 K/uL (130-400); RED BLOOD COUNT 3.79 M/uL (4.2-5.4); WHITE BLOOD COUNT 9.22 K/uL (4.8-10.8)
[2016-11-26] MEDS: INSULIN GLARGINE SOLOSTAR 100 UNITS/ML 3 ML PEN SC SCH (08:38)
[2016-11-26 08:57] LABS: BASO % 0.1 %; BASO ABS # 0.01 K/uL (0-0.2); COMPLETE YES; EOS % 0.5 %; IG% 0.8 %; LYMPH % 20.5 %; LYMPH ABS # 1.89 K/uL (1.2-3.4); MONO % 8.6 %; NEUT % 69.5 %
[2016-11-26 09:00] LABS: CALCIUM 7.8 mg/dl (8.5-10.1); CREATININE 0.65 mg/dl (0.60-1.20); PHOSPHORUS 1.7 mg/dl (2.5-4.9); POTASSIUM 2.9 mmol/L (3.5-5.1)
[2016-11-26] MEDS ORDERED: POTASSIUM PHOS 3 MMOL/1 ML INFUSION IV STA (09:17)
[2016-11-26] MEDS ORDERED: INSULIN GLARGINE SOLOSTAR 100 UNITS/ML 3 ML PEN SC ONE (09:45)
[2016-11-26] MEDS: POTASSIUM CHLORIDE 10 MEQ TABCR PO SCH ×2 (09:53→12:07)
[2016-11-26] MEDS ORDERED: POTASSIUM PHOSPHATE INJ 15 MMOL in SODIUM CHLORIDE 0.9% 250ML 250 ML IV SCH (10:00)
--- NOTE | 2016-11-26 10:10 | Pharmacy Progress Note ---
Glycemic Control: Progress Nt Date of Service November 26, 2016. Scope Glycemic Pharmacist consulted by Maria Del Rosario Guerra PA-C on 11/22/16 for glycemic control and to write orders per [facility] inpatient glycemic control protocol. Objective Accuchecks BSG (last 24hrs): Test 11/25/16 11:39 11/25/16 16:19 11/25/16 20:04 11/25/16 23:47 Bedside Glucose 141 mg/dl (70-90) 159 mg/dl (70-90) 163 mg/dl (70-90) 153 mg/dl (70-90) Test 11/26/16 04:50 11/26/16 08:11 Bedside Glucose 148 mg/dl (70-90) Random Glucose 135 mg/dl (70-99) Laboratory Data (last 24hrs) HbA1c: Test 11/22/16 14:15 Hemoglobin A1c 10.9 % (4.5-5.6) H Recent Pertinent Medications Outpatient Anti-diabetic Regimen: * Glipizide ER 5mg PO daily * Metformin 1000mg PO BID * A1c = 10.9 % 11/22/16 The patient is currently receiving: * Basal insulin: Lantus 18 units every morning and 15 units at bedtime * Correctional Insulin: Novolog Correction per scale ACHS Goal Range: Low 120 mg/dL - High 160 mg/dL Correction Factor: 20 mg/dL/unit * Prandial insulin: Per carb ratio of 1 unit per 7 grams CHO consumed * Oral Agents: on hold Risk Factors for Insulin Resistance: * Infection: suspected pyelonephritis - antibiotics changed to ceftriaxone IV on 11/24 * Diet: T2DM * Other: elevated A1c Assessment & Plan ASSESSMENT: * 26 yr T2DM F admitted with pyelonephritis & severe hyperglycemia. * Patient was started on an insulin drip per moderate stress protocol. She was titrated off the insulin drip on 11/24. SQ basal bolus insulin dosing regimen has been titrated daily based on risk factors for hyperglycemia/insulin resistance, total daily insulin dose, and BSG trends. * Lantus dosing now reaching steady state and empirically reducing dosing to prevent hypoglycemia. * Pt seems to be requiring ~ 50 units of insulin per day with adequate glycemic control * BSGs over the past 24hrs; 127,136,141,159,163,148,135 * A1c is > 10% patient will need combination injectable insulin therapy in addition to metformin at discharge * Will start preparing for discharge; convert to once daily Lantus dosing for less injections as an outpatient & change CR 10 for easier calculations of CHO coverage. PLAN FOR INPATIENT GLYCEMIC CONTROL: Change regimen based on total daily dose of ~ 50 units. Change Lantus to once daily dosing to minimize injections. * Holding outpatient oral diabetes medications - will consider resuming metformin on 11/26 * Basal insulin * Lantus 25 units SQ Daily in AM * Bolus insulin * NovoLog per scale ACHS * LOWER Goal Range: Low 110 mg/dL - High 140 mg/dL * LOOSEN Correction Factor: 30 mg/dL/unit * LOOSEN Nutritional / Prandial insulin per carb ratio of 1 unit per 10 grams CHO consumed RECOMMENDATIONS FOR DISCHARGE: * Patient evaluated by Digital Learning Platforms Manager and Certified Diabetes Educators and is willing to utilize basal/bolus insulin regimen as an outpatient * Pt is receptive to starting both basal and prandial insulin. DM educator met with patient yesterday and discussed CHO counting. Pt is comfortable with this technique and willing to continue as an outpatient. Pt administered her own insulin yesterday. OUTPATIENT ANTIDIABETIC REGIMEN RECOMMENDATIONS: * Continuing Metformin 1,000mg PO BIDM (typically the ER version is better tolerated and is still on $4 list at [facility]) * Discontinuing Glipizide since NovoLog is being started * Basal insulin: Lantus 25 units SQ daily in AM * Bolus insulin: Apidra (Insulin Glulisine) three times daily with meals and at bedtime {if willing to do 4 injections/day, otherwise just 2-3 times per day with meals} DM educator checked pt insurance and Apidra is covered under her insurance (novoLog is not) Copay card provided to patient for Lantus & Apidra to help with cost. * Meal coverage: Administer 1 unit for every 10g carbohydrate consumed * Administer additional insulin for pre-meal hyperglycemia per scale: Blood Sugar 70-130 Administer 0 units Apidra Blood Sugar 131-180 Administer 4 units Apidra Blood Sugar 181-240 Administer 8 units Apidra Blood Sugar 241-300 Administer 10 units Apidra Blood Sugar 301-350 Administer 12 units Apidra Blood Sugar 351-400 Administer 16 units Apidra Blood Sugar >400 Administer 20 units Apidra and call Thank you.
[2016-11-26] MEDS: FAMOTIDINE IV INJ 20 MG in DEXTROSE 5% 100ML 100 ML IV SCH (11:00)
[2016-11-26] MEDS: CEFTRIAXONE SOD INJ 1000 MG in DEXTROSE 5% 50ML IV SCH (14:15)
--- NOTE | 2016-11-26 15:59 | Progress Note ---
Internal Med Progress Note Date of Service: November 26, 2016. Provider Documentation: SUBJECTIVE: Patient still has fever with Tmax 38 C overnight, trending down now. C/o diarrhea since yesterday- few times yesterday and since today AM 4 times No abdominal pain, chills, urinary symptoms, cough, chest pain, SOB. Blood sugars are better controlled OBJECTIVE: Vital Signs-as noted below Exam: General Appearance:Moderately built and nourished, no apparent distress Neck: supple Respiratory/Chest: Normal breath sounds, CTA Cardiovascular: S1, S2, + Tachycardia, No murmur Abdomen/GI:Soft, Slightly distended +, Non tender, Bowel sounds present Extremities/Musculoskelatal:normal inspection, no edema Lab data as noted below. ASSESSMENT & PLAN: ASSESSMENT & PLAN: ACUTE PYELONEPHRITIS (KLEBSIELLA) : Presented with fever, tachycardia, leukocytosis, UA with infection, CT a/p consistent with pyelonephritis -Persistent fever with Tmax 39 C overnight. Has received antibiotics > 72 hours and still febrile, so looking for a new source of infection. -IV Rocephin -Urine cx- Klebsiella, Blood culture x 2 negative -Procalcitonin 2.13- high, Urine /Blood cx - repeated on 11/25/16- still pending- --> Follow up. Will order C diff as developed diarrhea with persistent fever after > 72 hours rx with IV Rocephin. DIABETIC KETOACIDOSIS : Known DM II -Likely secondary to UTI and not taking medications secondary to illness - Hold metformin and glipizide - S/P Insulin Drip - IVF - Insulin Lantus 25 units Q AM, Novolog per pharmacy. Appreciate inputs. - A1C:10.9 HYPOKALEMIA/HYPOPHOSPHATEMIA Replaced. -Monitor ASTHMA Stable -Continue home inhalers, nebs, Singulair ENLARGED UTERUS Incidental finding on CT scan ? fibroid and 1.8 cm left ovarian cyst -Follow up as outpatient with OBGYN DVT PX: SCDs, ambulate CODE STATUS: FULL CODE DISPOSITION: Expected discharge home when stable.- in 2-3 days as still febrile Vital Signs: Date Time Temp Pulse Resp B/P Pulse Ox O2 Delivery O2 Flow Rate FiO2 11/26/16 15:38 37.6 97 18 133/83 97 Room Air 11/26/16 14:48 37.3 11/26/16 10:32 36.8 11/26/16 09:08 37.3 11/26/16 08:00 Room Air 11/26/16 07:32 37.8 11/26/16 07:00 37.7 99 20 106/50 93 Room Air 11/26/16 00:03 95 Room Air 11/25/16 23:42 37.7 94 20 99/64 96 Room Air 11/25/16 21:30 39.0 11/25/16 16:04 39.5 11/25/16 16:00 Room Air Lab Results: Results Past 24 Hours Test 11/25/16 16:19 11/25/16 20:04 11/25/16 23:47 11/26/16 04:50 Range/Units Bedside Glucose 159 163 153 148 70-90 mg/dl Test 11/26/16 07:42 11/26/16 08:11 11/26/16 11:18 Range/Units Bedside Glucose 140 179 70-90 mg/dl White Blood Count 9.22 4.8-10.8 K/uL Red Blood Count 3.79 4.2-5.4 M/uL Hemoglobin 9.4 12.0-16.0 g/dL Hematocrit 27.4 37-47 % Mean Corpuscular Volume 72.3 80-100 fL Mean Corpuscular Hemoglobin 24.8 25-34 pg Mean Corpuscular Hemoglobin Concent 34.3 32-36 g/dl Platelet Count 260 130-400 K/uL Mean Platelet Volume 10.3 7.4-10.4 fL Neutrophils (%) (Auto) 69.5 % Lymphocytes (%) (Auto) 20.5 % Monocytes (%) (Auto) 8.6 % Eosinophils (%) (Auto) 0.5 % Basophils (%) (Auto) 0.1 % Neutrophils # (Auto) 6.41 1.4-6.5 K/uL Lymphocytes # (Auto) 1.89 1.2-3.4 K/uL Monocytes # (Auto) 0.79 0.11-0.59 K/uL Eosinophils # (Auto) 0.05 0-0.5 K/uL Basophils # (Auto) 0.01 0-0.2 K/uL RDW Standard Deviation 42.2 36.4-46.3 fL RDW Coefficient of Variation 15.8 11.5-14.5 % Immature Granulocyte % (Auto) 0.8 % Immature Granulocyte # (Auto) 0.07 0.00-0.02 K/uL Sodium Level 142 136-145 mmol/L Potassium Level 2.9 3.5-5.1 mmol/L Chloride Level 110 98-107 mmol/L Carbon Dioxide Level 25 21-32 mmol/L Anion Gap 7.0 3-11 mmol/L Blood Urea Nitrogen 3 7-18 mg/dl Creatinine 0.65 0.60-1.20 mg/dl Est Creatinine Clear Calc Drug Dose 141.0 ml/min Estimated GFR () 141.0 Estimated GFR (Non- 121.7 BUN/Creatinine Ratio 5.0 10-20 Random Glucose 135 70-99 mg/dl Calcium Level 7.8 8.5-10.1 mg/dl Phosphorus Level 1.7 2.5-4.9 mg/dl Magnesium Level 2.0 1.8-2.4 mg/dl Microbiology Results 11/25/16 Urine Culture, Received Pending
[2016-11-26] MEDS: POTASSIUM CHLORIDE INJ 40 MEQ in SODIUM CHLORIDE 0.9% 1000ML 1,000 ML IV SCH (17:02)
[2016-11-26] MEDS: MONTELUKAST SOD 10 MG TAB PO SCH (20:25)
[2016-11-27] VITALS: O2SAT 97
[2016-11-27] MEDS: POTASSIUM CHLORIDE INJ 40 MEQ in SODIUM CHLORIDE 0.9% 1000ML 1,000 ML IV SCH ×2 (02:27→12:00)
[2016-11-27] MEDS: INSULIN ASPART 100 UNITS/ML 3 ML PEN SC SCH ×6 (04:00→21:37)
[2016-11-27] MEDS: POT PHOSPHATE MONOBASIC W/ SOD TAB PO SCH ×4 (07:45→21:26)
[2016-11-27] MEDS: BUDESONIDE/FORMOTEROL FUMARATE 160/4.5 60 PUFFS/INHALER INH SCH ×2 (07:45→21:25)
[2016-11-27 08:13] VITALS: BP 111/72; PULSE 92; TEMP 37.6; O2SAT 98
[2016-11-27] MEDS: INSULIN GLARGINE SOLOSTAR 100 UNITS/ML 3 ML PEN SC SCH (09:01)
--- NOTE | 2016-11-27 11:31 | Pharmacy Progress Note ---
Glycemic Control: Progress Nt Date of Service November 27, 2016. Scope Glycemic Pharmacist consulted by Maria Del Rosario Guerra on 11/22/16 for glycemic control and to write orders per [facility] inpatient glycemic control protocol. Objective Accuchecks BSG (last 24hrs): Test 11/26/16 16:26 11/26/16 19:48 11/27/16 00:08 11/27/16 04:02 Bedside Glucose 161 mg/dl (70-90) 186 mg/dl (70-90) 95 mg/dl (70-90) 91 mg/dl (70-90) Test 11/27/16 07:34 Bedside Glucose 127 mg/dl (70-90) HbA1c: Test 11/22/16 14:15 Hemoglobin A1c 10.9 % (4.5-5.6) H Recent Pertinent Medications Outpatient Anti-diabetic Regimen: * Glipizide ER 5 mg PO daily and metformin 1000 mg PO BID The patient is currently receiving: * Basal insulin: Lantus 25 units every 24 hours (in morning) * Correctional Insulin: Novolog Correction per scale ACHS Goal Range: Low 110 mg/dL - High 140 mg/dL Correction Factor: 30 mg/dL/unit * Prandial insulin: Per carb ratio of 1 unit per 10 grams CHO consumed Risk Factors for Insulin Resistance: * Steroids: * Infection: Klebsiella pyelonephritis on Rocephin since 11/24/16 * Diet:type 2 diet Assessment & Plan ASSESSMENT: * ADA & AACE recommend a goal blood sugar range 140-180 mg/dl for the majority of critically ill & non-critically ill patients. However, more stringent targets may be selected in individual cases. Will utilize more stringent goal of 110-140mg/dl based on patient age & comorbidities. Additionally, tighter glycemic control is warranted to facilitate wound/infection healing. * Ms Melendez is a 26 y/o F who was admitted 11/22/16 for pyelonephritis and hyperglycemia. She was originally started on an insulin gtt which was titrated off and basal-bolus insulin started. She has required ~50 units/day the past two days. Blood sugars yesterday ranged from 95-181 yesterday. Morning blood sugar is 127 mg/dL. * Will continue current regimen with appropriate 50/50 basal/bolus split. Consider starting metformin tomorrow if patient remains afebrile. * Updated discharge recommendations as patient has appeared to lilian at ~50 units/day of insulin. PLAN FOR INPATIENT GLYCEMIC CONTROL: * Continuing Lantus 25 units SQ daily * Continuing correction factor of 30 mg/dl/unit * Continuing carb ratio of 1 unit per 10 grams CHO consumed * Continuing goal range of Low 110 mg/dL - High 140 mg/dL RECOMMENDATIONS FOR DISCHARGE: * Patient evaluated by Deputy Grand Jury and Certified Diabetes Educators and is willing to utilize basal/bolus insulin regimen as an outpatient * Pt is receptive to starting both basal and prandial insulin. DM educator met with patient yesterday and discussed CHO counting. Pt is comfortable with this technique and willing to continue as an outpatient. Pt administered her own insulin yesterday. OUTPATIENT ANTIDIABETIC REGIMEN RECOMMENDATIONS: * Continuing Metformin 1,000mg PO BIDM (typically the ER version is better tolerated and is still on $4 list at [facility]) * Discontinuing Glipizide since NovoLog is being started * Basal insulin: Lantus 25 units SQ daily in AM * Bolus insulin: Apidra (Insulin Glulisine) three times daily with meals and at bedtime {if willing to do 4 injections/day, otherwise just 2-3 times per day with meals} DM educator checked pt insurance and Apidra is covered under her insurance (novoLog is not) Copay card provided to patient for Lantus & Apidra to help with cost. * Meal coverage: Administer 1 unit for every 10g carbohydrate consumed * Administer additional insulin for pre-meal hyperglycemia per scale: Blood Sugar 70-130 Administer 0 units Apidra Blood Sugar 131-180 Administer 2 units Apidra Blood Sugar 181-240 Administer 6 units Apidra Blood Sugar 241-300 Administer 8 units Apidra Blood Sugar 301-350 Administer 10 units Apidra Blood Sugar 351-400 Administer 12 units Apidra Blood Sugar >400 Administer 15 units Apidra and call MD Thank you.
--- NOTE | 2016-11-27 13:03 | Progress Note ---
Internal Med Progress Note Date of Service: November 27, 2016. Provider Documentation: SUBJECTIVE: Patient 's fever is trending down. No more significant spikes since yesterday. C/o diarrhea- improved frequency No abdominal pain, chills, urinary symptoms, cough, chest pain, SOB. Blood sugars are better controlled OBJECTIVE: Vital Signs-as noted below Exam: General Appearance:Moderately built and nourished, no apparent distress Neck: supple Respiratory/Chest: Normal breath sounds, CTA Cardiovascular: S1, S2, No murmur Abdomen/GI:Soft, Slightly distended +, Non tender, Bowel sounds present Extremities/Musculoskelatal:normal inspection, no edema Lab data as noted below. ASSESSMENT & PLAN: ASSESSMENT & PLAN: ACUTE PYELONEPHRITIS (KLEBSIELLA) : Presented with fever, tachycardia, leukocytosis, UA with infection, CT a/p consistent with pyelonephritis -Had persistent fever after receiving antibiotics > 72 hours, but now trending down. No significant spikes since yesterday -Tolerating PO well -IV Rocephin (Day 4) -Urine cx- Klebsiella, Blood culture x 2 negative -Procalcitonin 2.13- high, Urine /Blood cx - repeated on 11/25/16- Negative with no significant growth . C diff ordered due to diarrhea- but negative and diarrhea improved. DIABETIC KETOACIDOSIS : Known DM II -Likely secondary to UTI and not taking medications secondary to illness - Hold metformin and glipizide - S/P Insulin Drip - IVF- okay to discontinue - Insulin Lantus 25 units Q AM, Novolog per pharmacy. Appreciate inputs. - A1C:10.9 HYPOKALEMIA/HYPOPHOSPHATEMIA Replaced. -Monitor BMP today ASTHMA Stable -Continue home inhalers, nebs, Singulair ENLARGED UTERUS Incidental finding on CT scan ? fibroid and 1.8 cm left ovarian cyst -Follow up as outpatient with OBGYN DVT PX: SCDs, ambulate CODE STATUS: FULL CODE DISPOSITION: Expected discharge home -likely tomorrow is continues to remain afebrile and diarrhea improves Eager to be discharged Follow up BMP today Vital Signs: Date Time Temp Pulse Resp B/P Pulse Ox O2 Delivery O2 Flow Rate FiO2 11/27/16 08:13 37.6 92 18 111/72 98 Room Air 11/27/16 08:00 Room Air 11/27/16 00:00 97 Room Air 11/26/16 23:44 36.7 73 20 115/78 97 Room Air 11/26/16 16:10 97 Room Air 11/26/16 15:38 37.6 97 18 133/83 97 Room Air 11/26/16 14:48 37.3 Lab Results: Results Past 24 Hours Test 11/26/16 16:26 11/26/16 19:48 11/27/16 00:08 11/27/16 04:02 Range/Units Bedside Glucose 161 186 95 91 70-90 mg/dl Test 11/27/16 07:34 Range/Units Bedside Glucose 127 70-90 mg/dl Microbiology Results 11/26/16 C.difficile Toxin B Gene (PCR) - Final, Complete No C. difficile toxin B gene detected
[2016-11-27] MEDS: CEFTRIAXONE SOD INJ 1000 MG in DEXTROSE 5% 50ML IV SCH (14:00)
[2016-11-27 14:19] LABS: BUN/CREATININE RATIO 9.7 (10-20); CALCIUM 8.2 mg/dl (8.5-10.1); CREATININE 0.62 mg/dl (0.60-1.20); POTASSIUM 3.7 mmol/L (3.5-5.1)
[2016-11-27 15:18] VITALS: BP 131/84; PULSE 83; TEMP 37.7; O2SAT 98
[2016-11-27 16:10] VITALS: O2SAT 97
[2016-11-27] MEDS: ACETAMINOPHEN 325 MG TAB PO PRN (16:16)
[2016-11-27] MEDS: ALBUTEROL HFA 8 GM INHALER INH PRN (21:26)
[2016-11-27] MEDS: MONTELUKAST SOD 10 MG TAB PO SCH (21:27)
[2016-11-28] VITALS: BP 119/78; PULSE 89; TEMP 37.1; O2SAT 95; O2SAT 97
[2016-11-28 07:12] VITALS: BP 109/71; PULSE 80; TEMP 37.3; O2SAT 96
[2016-11-28] MEDS: BUDESONIDE/FORMOTEROL FUMARATE 160/4.5 60 PUFFS/INHALER INH SCH (08:19)
[2016-11-28] MEDS: POT PHOSPHATE MONOBASIC W/ SOD TAB PO SCH (08:19)
[2016-11-28] MEDS: INSULIN GLARGINE SOLOSTAR 100 UNITS/ML 3 ML PEN SC SCH (08:26)
[2016-11-28] MEDS: INSULIN ASPART 100 UNITS/ML 3 ML PEN SC SCH (08:26)
[2016-11-28] MEDS: ACETAMINOPHEN 325 MG TAB PO PRN (08:33)
--- NOTE | 2016-11-28 11:15 | Progress Note ---
Internal Med Progress Note Date of Service: November 28, 2016. Provider Documentation: SUBJECTIVE: Patient is doing better. No more significant spikes > 72 hours Diarrhea has resolved. No abdominal pain, chills, urinary symptoms, cough, chest pain, SOB. Blood sugars are better controlled OBJECTIVE: Vital Signs-as noted below Exam: General Appearance:Moderately built and nourished, no apparent distress Neck: supple Respiratory/Chest: Normal breath sounds, CTA Cardiovascular: S1, S2, No murmur Abdomen/GI:Soft, Slightly distended +, Non tender, Bowel sounds present Extremities/Musculoskelatal:normal inspection, no edema Lab data as noted below. ASSESSMENT & PLAN: ASSESSMENT & PLAN: ACUTE PYELONEPHRITIS (KLEBSIELLA) : Presented with fever, tachycardia, leukocytosis, UA with infection, CT a/p consistent with pyelonephritis -Had persistent fever after receiving antibiotics > 72 hours, but now trending down and no significant spikes > 72 hours. -Tolerating PO well -IV Rocephin (Day 4)--> Change to Ciprofloxacin x 6 more days to complete course of 10 days of antibiotics -Urine cx- Klebsiella, Blood culture x 2 negative -Procalcitonin 2.13- high, Urine /Blood cx - repeated on 11/25/16- Negative with no significant growth . C diff ordered due to diarrhea- but negative and diarrhea improved (This was repeat evaluation done due to persistent fever > 72 hours). DIABETIC KETOACIDOSIS : Resolved Known DM II -Likely secondary to UTI and not taking medications secondary to illness - Hold metformin and glipizide - S/P Insulin Drip - S/P IVF - Insulin Lantus 25 units Q AM, Novolog per pharmacy. Diabetes/Insulin Education given. Instructions written on discharge instructions for patient - A1C:10.9 HYPOKALEMIA/HYPOPHOSPHATEMIA Resolved -Monitor BMP today ASTHMA Stable -Continue home inhalers, nebs, Singulair ENLARGED UTERUS Incidental finding on CT scan ? Fibroid and 1.8 cm left ovarian cyst -Follow up as outpatient with OBGYN DVT PX: SCDs, ambulate CODE STATUS: FULL CODE DISPOSITION: Eager to be discharged OK to discharge home today Vital Signs: Date Time Temp Pulse Resp B/P Pulse Ox O2 Delivery O2 Flow Rate FiO2 11/28/16 08:00 Room Air 11/28/16 07:12 37.3 80 16 109/71 96 Room Air 11/28/16 00:00 37.1 89 20 119/78 95 Room Air 11/28/16 00:00 97 Room Air 11/27/16 16:10 97 Room Air 11/27/16 15:18 37.7 83 18 131/84 98 Room Air Lab Results: Results Past 24 Hours Test 11/27/16 11:35 11/27/16 13:08 11/27/16 16:30 11/27/16 20:43 Range/Units Bedside Glucose 150 140 163 70-90 mg/dl Sodium Level 140 136-145 mmol/L Potassium Level 3.7 3.5-5.1 mmol/L Chloride Level 108 98-107 mmol/L Carbon Dioxide Level 23 21-32 mmol/L Anion Gap 9.0 3-11 mmol/L Blood Urea Nitrogen 6 7-18 mg/dl Creatinine 0.62 0.60-1.20 mg/dl Est Creatinine Clear Calc Drug Dose 147.8 ml/min Estimated GFR () 143.2 Estimated GFR (Non- 123.6 BUN/Creatinine Ratio 9.7 10-20 Random Glucose 175 70-99 mg/dl Calcium Level 8.2 8.5-10.1 mg/dl
[2016-11-28] MEDS ORDERED: VNTHFA/IN INH (11:18)
[2016-11-28] MEDS ORDERED: INSDGIPEN SC (11:18)
[2016-11-28] MEDS ORDERED: NVLGIPEN SC (11:18)
[2016-11-28] MEDS ORDERED: APDI SQ (11:22)
--- NOTE | 2016-11-28 11:22 | Discharge Instructions ---
Discharge Instructions Date of Service November 28, 2016. Admission Reason for Admission: Dka, Pyelonephritis Discharge Discharge Diagnosis / Problem: 1. DKA 2. Pyelnonephritis Discharge Goals Goal(s): Improve disease control Activity Recommendations Activity Limitations: resume your previous activity . Instructions / Follow-Up Instructions / Follow-Up MEDICATION CHANGES: 1. New medication; Insulin as mentioned below in detail 2. Discontinue Glipizide as you will be on Insulin 3. Ciprofloxacin 500 mg PO BID x 6 more days to complete course of 10 days of antibiotics INSULIN INSTRUCTIONS: 1. Insulin Lantus 25 units daily (Basal insulin) in the morning 2. Insulin Apidra (Bolus insulin) to be taken three times a day with meals as follows. 3. Home blood glucose monitoring three times a day with meals * Meal coverage: Administer 1 unit for every 10g carbohydrate consumed * Administer additional insulin for pre-meal hyperglycemia per scale: Blood Sugar 70-130 Administer 0 units Apidra Blood Sugar 131-180 Administer 2 units Apidra Blood Sugar 181-240 Administer 6 units Apidra Blood Sugar 241-300 Administer 8 units Apidra Blood Sugar 301-350 Administer 10 units Apidra Blood Sugar 351-400 Administer 12 units Apidra Blood Sugar >400 Administer 15 units Apidra and call MD FOLLOW UP 1. Follow up with Dr Bailey on 12/02/16 at 9:05 AM 2. Follow up with FLE[facility] SERVICE CLERK recommended for fibroid evaluation Current Hospital Diet Patient's current hospital diet: Diabetes Type 2 Diet Discharge Diet Recommended Diet: Regular Diet Pending Studies Studies pending at discharge: no Laboratory Results Hemoglobin A1c Test 11/22/16 14:15 Range/Units Estimated Average Glucose 266 mg/dl Hemoglobin A1c 10.9 H 4.5-5.6 % Medical Emergencies . Who to Call and When: Medical Emergencies: If at any time you feel your situation is an emergency, please call 911 immediately. . Non-Emergent Contact Non-Emergency issues call your: Primary Care Provider . . "Provider Documentation" section prepared by Mona Ellis. . VTE Core Measure Inpt VTE Proph given/why not?: SCD's
[2016-11-28] MEDS ORDERED: CPR500 PO (11:27)
--- NOTE | 2016-11-28 11:33 | Discharge Summary ---
Discharge Summary Date of Service November 28, 2016. Discharge Summary Admission Date: November 22, 2016 at 11:26 Discharge Date: November 28, 2016 Discharge Disposition: Home Principal Diagnosis: 1. DKA 2. Acute pyelonephritis 3. Hypokalemia/Hypophosphatemia Secondary Diagnoses/Problems: 1. Asthma Procedures: DKA protocol IV Antibiotics CT scan abdomen/pelvis CXR Renal US IVF Consultations: None Pending Studies/Follow-Up: Instructions / Follow-Up Instructions / Follow-Up MEDICATION CHANGES: 1. New medication; Insulin as mentioned below in detail 2. Discontinue Glipizide as you will be on Insulin 3. Ciprofloxacin 500 mg PO BID x 6 more days to complete course of 10 days of antibiotics INSULIN INSTRUCTIONS: 1. Insulin Lantus 25 units daily (Basal insulin) in the morning 2. Insulin Apidra (Bolus insulin) to be taken three times a day with meals as follows. 3. Home blood glucose monitoring three times a day with meals * Meal coverage: Administer 1 unit for every 10g carbohydrate consumed * Administer additional insulin for pre-meal hyperglycemia per scale: Blood Sugar 70-130 Administer 0 units Apidra Blood Sugar 131-180 Administer 2 units Apidra Blood Sugar 181-240 Administer 6 units Apidra Blood Sugar 241-300 Administer 8 units Apidra Blood Sugar 301-350 Administer 10 units Apidra Blood Sugar 351-400 Administer 12 units Apidra Blood Sugar >400 Administer 15 units Apidra and call MD FOLLOW UP 1. Follow up with Dr Bailey on 12/02/16 at 9:05 AM 2. Follow up with [facility] recommended for Enlarged uterus on CT scan /pelvis - ? ? fibroid, 1.8 cm left ovarian cyst and further evaluation. Need pelvic ultrasound outpatient Medication Reconciliation New Medications: Ciprofloxacin (Ciprofloxacin HCl) 500 Mg Tab 500 MG PO BID for 6 Days Insulin Glulisine (Apidra Solostar) 100 Units/Ml Inj 2 UNITS SQ UD for 30 Days Meal coverage: Administer 1 unit for every 10g carbohydrate consumed Administer additional insulin for pre-meal hyperglycemia per scale: Blood Sugar 70-130 Administer 0 units Apidra Blood Sugar 131-180 Administer 2 units Apidra Blood Sugar 181-240 Administer 6 units Apidra Blood Sugar 241-300 Administer 8 units Apidra Blood Sugar 301-350 Administer 10 units Apidra Blood Sugar 351-400 Administer 12 units Apidra Blood Sugar >400 Administer 15 units Apidra and call Insulin Glargine (Lantus Solostar) 100 Unit/Ml Inj 25 UNIT SC DAILY for 30 Days Changed Medications: Albuterol Hfa (Ventolin Hfa) 200 Puffs/21349 Mcg Aers 2-4 PUFFS INH Q6H PRN for sob/wheezing, #1 INHALER (Medication details modified) Continued Medications: Budesonide (Pulmicort Respules 0.5MG/2ML) 0.5 Mg/2 Ml Nebu 2 ML INH BID, EA Budesonide/Formoterol Fumarate (Symbicort 160/4.5 Inhaler ) Aero 2 PUFFS INH BID, 0 Refills Metformin Hcl (Glucophage) 1,000 Mg Tab 1000 MG PO BID Montelukast Sodium (Singulair) 10 Mg Tab 1 TAB PO HS for 90 Days, TAB 1 Refill Discontinued Medications: Glipizide (Glipizide Er) 2.5 Mg Tab 5 MG PO DAILY Admission Information HPI (per Admitting provider): Patient seen and examined. 26 year old female with PMHx of DM2, and asthma presents to the ED complaining of flu like symptoms x 2 days. Patient reports 2 days ago she began feeling generally weak and lightheaded. She reports she felt fatigued and over heated. She took her temperature and it was 100 F. She states she went to bed and has been trying to rest in bed as much as possible since then. She reports diffuse muscle aches. She also reports nausea and some dry heaving. She states she has been trying to stay hydrated but has noticed very poor urine output. She reports dysuria and suprapubic abdominal cramping. She reports because of the illness she has not taken her DM medications in 2 days. She denies URI symptoms, chest pain, SOB, diarrhea, calf pain and edema. She reports her asthma seems to be at baseline. She reports she has not taken her BSG in the last few days. She states she has had diabetes for about a year but has never really been taught a diabetic diet so she has been trying to do her own research. In the ED patient is febrile, tachycardic. WBC count is 23K, K+ is 3.1, bicarb is 19. Glucose is 331. UA shows infection and +[address] a/p is consistent with right sided pyelonephritis. She received IVFs, potassium and was started on an insulin drip. Blood cultures and urine cultures were obtained and patient was started on daptomycin and zosyn. She will be admitted for further workup and treatment. Physical Exam (per Admitting): General Appearance: + pertinent finding Head: normocephalic, atraumatic Eyes: PERRL, EOMI, sclerae normal ENT: hearing grossly normal, pharynx normal Neck: supple, no JVD Respiratory/Chest: chest non-tender, normal breath sounds, no respiratory distress, no accessory muscle use, + wheezing Cardiovascular: no edema, no gallop, no JVD, no murmur, normal peripheral pulses, + tachycardia Abdomen/GI: normal bowel sounds, soft, + tenderness Back: normal inspection, no muscle spasm, + right CVA tenderness Extremities/Musculoskelatal: no calf tenderness, normal capillary refill, no pedal edema Neurologic/Psych: no motor/sensory deficits, alert, oriented x 3 Skin: normal color, warm/dry, no rash Lymphatic: no adenopathy Hospital Course ASSESSMENT & PLAN: ACUTE PYELONEPHRITIS (KLEBSIELLA) : Presented with fever, tachycardia, leukocytosis, UA with infection, CT a/p consistent with pyelonephritis -Had persistent fever after receiving antibiotics > 72 hours, but now trending down and no significant spikes > 72 hours. -Tolerating PO well -IV Rocephin (Day 4)--> Change to Ciprofloxacin x 6 more days to complete course of 10 days of antibiotics -Urine cx- Klebsiella, Blood culture x 2 negative -Procalcitonin 2.13- high, Urine /Blood cx - repeated on 11/25/16- Negative with no significant growth . C diff ordered due to diarrhea- but negative and diarrhea improved (This was repeat evaluation done due to persistent fever > 72 hours). DIABETIC KETOACIDOSIS : Resolved Known DM II -Likely secondary to UTI and not taking medications secondary to illness - Hold metformin and glipizide - S/P Insulin Drip - S/P IVF - Insulin Lantus 25 units Q AM, Novolog per pharmacy. Diabetes/Insulin Education given. Instructions written on discharge instructions for patient - A1C:10.9 HYPOKALEMIA/HYPOPHOSPHATEMIA Resolved -Monitor BMP today ASTHMA Stable -Continue home inhalers, nebs, Singulair ENLARGED UTERUS Incidental finding on CT scan ? Fibroid and 1.8 cm left ovarian cyst -Follow up as outpatient with OBGYN DVT PX: SCDs, ambulate CODE STATUS: FULL CODE DISPOSITION: Eager to be discharged OK to discharge home today Total time spent on discharge = 35 minutes This includes examination of the patient, discharge planning, medication reconciliation, and communication with other providers. Discharge Instructions Activity Recommendations Activity Limitations: resume your previous activity . Instructions / Follow-Up Instructions / Follow-Up MEDICATION CHANGES: 1. New medication; Insulin as mentioned below in detail 2. Discontinue Glipizide as you will be on Insulin 3. Ciprofloxacin 500 mg PO BID x 6 more days to complete course of 10 days of antibiotics INSULIN INSTRUCTIONS: 1. Insulin Lantus 25 units daily (Basal insulin) in the morning 2. Insulin Apidra (Bolus insulin) to be taken three times a day with meals as follows. 3. Home blood glucose monitoring three times a day with meals * Meal coverage: Administer 1 unit for every 10g carbohydrate consumed * Administer additional insulin for pre-meal hyperglycemia per scale: Blood Sugar 70-130 Administer 0 units Apidra Blood Sugar 131-180 Administer 2 units Apidra Blood Sugar 181-240 Administer 6 units Apidra Blood Sugar 241-300 Administer 8 units Apidra Blood Sugar 301-350 Administer 10 units Apidra Blood Sugar 351-400 Administer 12 units Apidra Blood Sugar >400 Administer 15 units Apidra and call MD FOLLOW UP 1. Follow up with Dr Bailey on 12/02/16 at 9:05 AM 2. Follow up with [facility] recommended for fibroid evaluation Current Hospital Diet Patient's current hospital diet: Diabetes Type 2 Diet Discharge Diet Recommended Diet: Regular Diet Pending Studies Studies pending at discharge: no Laboratory Results Hemoglobin A1c Test 11/22/16 14:15 Range/Units Estimated Average Glucose 266 mg/dl Hemoglobin A1c 10.9 H 4.5-5.6 % Medical Emergencies . Who to Call and When: Medical Emergencies: If at any time you feel your situation is an emergency, please call 911 immediately. . Non-Emergent Contact Non-Emergency issues call your: Primary Care Provider . . "Provider Documentation" section prepared by Mona Ellis. . VTE Core Measure Inpt VTE Proph given/why not?: SCD's
[2016-11-28 11:49] VITALS: BP 109/71; PULSE 80; TEMP 37.3; O2SAT 96
== END 2016-11-28 12:57 | disposition home or self-care (01) | DRG 638 ==
LOC: ENRESERVDT → ENRESERVTM → EDBD 09:21 → C.EDA 09:22 → C.2T 11:26 → EDBEDREQ 11:53 → C.MS4W 11-25 11:20
PROVIDERS: ADMIT Internal Medicine; ATTEND Internal Medicine
DX: E13.10 Other specified diabetes mellitus with ketoacidosis without coma (principal); N10 Acute pyelonephritis; J45.30 Mild persistent asthma, uncomplicated; J33.9 Nasal polyp, unspecified; B96.1 Klebsiella pneumoniae [K. pneumoniae] as the cause of diseases classified elsewhere; N83.202 Unspecified ovarian cyst, left side; E87.6 Hypokalemia; N85.2 Hypertrophy of uterus; E83.39 Other disorders of phosphorus metabolism; R19.7 Diarrhea, unspecified; Z82.5 Family history of asthma and other chronic lower respiratory diseases

== ENCOUNTER 2017-10-17 08:55 | Inpatient (IN) | payer OTHER ==
[2017-09-24 15:04] VITALS: BMI 32.0
--- NOTE | 2017-09-24 15:38 | PAT Medication Instructions ---
Service Date Sep 24, 2017. Current Home Medication List Albuterol Hfa (Ventolin Hfa), 2 PUFFS INH Q6H PRN for PRN Budesonide (Pulmicort Respules 0.5MG/2ML), 2 ML INH BID Dextromethorphan-Guaifenesin (Mucinex Dm Maximum Streng), 1 TAB PO HS PRN for RN Drospirenone-Ethinyl Estradiol (Beyaz), 1 TAB PO HS Ferrous Sulfate (Kp Ferrous Sulfate), 1 TAB PO PRN Insulin Glargine (Basaglar Kwikpen), 64 UNITS INJ HS Insulin Glulisine (Apidra), INJ SLIDING SCALE Metformin Hcl (Glucophage), 500 MG PO QAM Montelukast Sodium (Singulair), 1 TAB PO HS [Albuterol Nebulizer], 1 PUFF INH PRN Medication Instructions For Your Scheduled Surgery -Contact your surgeon for instructions for: Drospirenone-Ethinyl Estradiol (Beyaz), 1 TAB PO HS - Hold the following medications the morning of surgery: Dextromethorphan-Guaifenesin (Mucinex Dm Maximum Streng), 1 TAB PO HS PRN for RN Ferrous Sulfate (Kp Ferrous Sulfate), 1 TAB PO PRN Metformin Hcl (Glucophage), 500 MG PO QAM Insulin Glulisine (Apidra), INJ SLIDING SCALE - Take the following medications the morning of surgery with a sip of water: Albuterol Hfa (Ventolin Hfa), 2 PUFFS INH Q6H PRN for PRN (if needed, and bring it with you to the hospital) Budesonide (Pulmicort Respules 0.5MG/2ML), 2 ML INH BID [Albuterol Nebulizer], 1 PUFF INH PRN (if needed) - Take the following medications as scheduled the night before surgery: Albuterol Hfa (Ventolin Hfa), 2 PUFFS INH Q6H PRN for PRN (if needed) Budesonide (Pulmicort Respules 0.5MG/2ML), 2 ML INH BID Dextromethorphan-Guaifenesin (Mucinex Dm Maximum Streng), 1 TAB PO HS PRN for RN (if needed) Ferrous Sulfate (Kp Ferrous Sulfate), 1 TAB PO PRN (if needed) Insulin Glargine (Basaglar Kwikpen), 64 UNITS INJ HS Montelukast Sodium (Singulair), 1 TAB PO HS [Albuterol Nebulizer], 1 PUFF INH PRN (if needed) Insulin Glulisine (Apidra), INJ SLIDING SCALE If you have any questions please call us at [phone] or [phone] or [phone]
[2017-09-24 16:18] LABS: BASO % 0.3 %; BASO ABS # 0.03 K/uL (0-0.2); EOS % 15.4 %; EOS ABS # 1.74 K/uL (0-0.5); HEMATOCRIT 35.7 % (37-47); HEMOGLOBIN 11.7 g/dL (12.0-16.0); IG# 0.05 K/uL (0.00-0.02); LYMPH % 41.3 %; LYMPH ABS # 4.66 K/uL (1.2-3.4); MEAN CELL VOLUME 72.1 fL (80-100); MEAN CORPUSCULAR HEMOGLOBIN 23.6 pg (25-34); MEAN CORPUSCULAR HGB CONC 32.8 g/dl (32-36); MEAN PLATELET VOLUME 9.6 fL (7.4-10.4); MONO % 5.1 %; MONO ABS # 0.58 K/uL (0.11-0.59); NEUT % 37.5 %; NEUT ABS # 4.22 K/uL (1.4-6.5); PLATELET COUNT 320 K/uL (130-400); RED CELL DISTRIBUTION WIDTH CV 15.3 % (11.5-14.5); RED CELL DISTRIBUTION WIDTH SD 40.8 fL (36.4-46.3); WHITE BLOOD COUNT 11.28 K/uL (4.8-10.8)
[2017-09-24 17:12] LABS: CALCIUM 9.3 mg/dl (8.5-10.1); CREATININE 0.62 mg/dl (0.60-1.20); POTASSIUM 3.8 mmol/L (3.5-5.1)
[2017-10-17] VITALS (7 sets, daily range): BP systolic 116–141; BP diastolic 82–94; PULSE 71–95; TEMP 36.9–37.3; O2SAT 93–98
[~2017-10-17] VITALS: Ht 162.6 cm; Wt 85.0 kg
[~2017-10-17 08:55] MED LIST changes: -ALBUAER2 INH; +ALBUTEROL NEBULIZER INH; +ATROPINE SULFATE 0.1 MG/ML 5ML SYR IV PRN; +DEXT1TAB50 PO; +EpHEDrine SULFATE INJ 50 MG/ML AMP IV PRN; +FERR1TAB13 PO; +FLUMAZENIL 0.1 MG/1 ML 10 ML VIAL IV PRN; +GLC/500 PO; -GLIP2.5T11 PO; +HYDROmorphone INJ 0.5 MG/0.5 ML SYR IV PRN; +INSU100I23 INJ; +INSUINJ5 INJ; +LABETALOL HCL IV 5 MG/ML 20ML IV PRN; +LACTATED RINGER'S 1000ML 1,000 ML IV SCH; +MEPERIDINE HCL 25 MG/ML CARP IV PRN; -METF-384 PO; +MONT1TAB3 PO; +MoRPHine SULFATE 4 MG/ML 1 ML CARP\\VIAL IV PRN; +NALOXONE HCL 0.4 MG/1 ML VIAL/CARP IV PRN; +ONDANSETRON INJ 2 MG/ML 2 ML VIAL IV PRN; +PHENYLEPHRINE 100MCG/ML 5ML SYR IV PRN; +PLMINSR5 INH; -PSEU60TA80 PO; -SYMIN160 INH; +VNTHFA/IN INH; +[UNRECOGNIZED DRUG - CODE] PO; -[UNRECOGNIZED DRUG - CODE] PO; -[UNRECOGNIZED DRUG - CODE] PO
[2017-10-17] MEDS ORDERED: SYMIN160 INH (09:35)
[2017-10-17] MEDS: LACTATED RINGER'S 1000ML 1,000 ML IV SCH (10:13)
[2017-10-17] MEDS ORDERED: NURSING VERBAL MED ORDER ONE ×5 (10:15→19:35)
[2017-10-17] MEDS ORDERED: NovoLIN-R INSULIN PER UNIT CHARGE ONE ×4 (10:20→19:34)
[2017-10-17] MEDS ORDERED: MISOPROSTOLTAB 50 MCG TAB PV SCH (12:00)
[2017-10-17] MEDS ORDERED: LIDOCAINE HCL 2% 2 ML VIAL (20MG/ML) ONE (13:38)
[2017-10-17] MEDS ORDERED: DEXAMETHASONE SOD INJ 4 MG/ML VIAL ONE (13:38)
[2017-10-17] MEDS ORDERED: ONDANSETRON INJ 2 MG/ML 2 ML VIAL ONE ×2 (13:38→18:30)
[2017-10-17] MEDS ORDERED: PROPOFOL IV EMULSION 10 MG/ML 20 ML VIAL IV ONE (13:38)
[2017-10-17] MEDS ORDERED: FENTANYL CITRATE INJ 50 MCG/1 ML 2 ML VIAL ONE ×2 (13:39→17:25)
[2017-10-17] MEDS ORDERED: MIDAZOLAM HCL 1 MG/ML 2ML VIAL ONE (13:39)
[2017-10-17] MEDS ORDERED: EpHEDrine SULFATE INJ 50 MG/ML AMP IV PRN (15:45)
[2017-10-17] MEDS ORDERED: ATROPINE SULFATE 0.1 MG/ML 5ML SYR IV PRN (15:45)
[2017-10-17] MEDS ORDERED: LABETALOL HCL IV 5 MG/ML 20ML IV PRN (15:45)
[2017-10-17] MEDS ORDERED: ONDANSETRON INJ 2 MG/ML 2 ML VIAL IV PRN ×2 (15:45→18:45)
[2017-10-17] MEDS ORDERED: MEPERIDINE HCL 25 MG/ML CARP IV PRN (15:45)
[2017-10-17] MEDS ORDERED: HYDROmorphone INJ 2 MG/ML SYR/VIAL IV PRN (15:45)
--- NOTE | 2017-10-17 15:59 | History & Physical Bridge Note ---
H&P Re-Evaluation Bridge Note: I have examined the patient, reviewed the History & Physical and in the interval since the performance of the History & Physical I have noted the following changes of clinical significance: No changes noted
[2017-10-17] MEDS ORDERED: SODIUM CHLORIDE 0.9% PF 50 ML VIAL ONE (16:23)
[2017-10-17] MEDS ORDERED: SCOPOLAMINE 1.5 MG TDSY TD ONE (16:26)
[2017-10-17] MEDS ORDERED: HYDROmorphone INJ 2 MG/ML SYR/VIAL ONE (17:00)
[2017-10-17] MEDS ORDERED: SODIUM CHLORIDE 0.9% INJ 10 ML VIAL ONE (17:00)
[2017-10-17] MEDS ORDERED: VASOPRESSIN 20 UNIT/ML VIAL ONE (17:33)
[2017-10-17] MEDS ORDERED: ALBUTEROL HFA INHALER 8.5 GM INH ONE (17:54)
[2017-10-17] MEDS ORDERED: NEOSTIGMINE METHYLSULFATE 5 MG/5 ML SYR ONE (18:16)
[2017-10-17] MEDS ORDERED: GLYCOPYRROLATE INJ 0.2 MG/ML VIAL ONE (18:16)
[2017-10-17] MEDS ORDERED: SUCCINYLCHOLINE CHLORIDE 20 MG/ML 10 ML VIAL IV ONE (18:20)
[2017-10-17] MEDS ORDERED: ROCURONIUM BROMIDE 10 MG/ML 5 ML VIAL IV ONE (18:20)
[2017-10-17] MEDS ORDERED: BACITRACIN OINT 15 GM TUBE ONE (18:22)
--- NOTE | 2017-10-17 18:35 | [facility] Post Operative Brief Note ---
Immediate Operative Summary Operative Date Oct 17, 2017. Pre-Operative Diagnosis Heavy menstrual bleeding, uterine fibroids Post-Operative Diagnosis same Procedure(s) Performed Operative Laparotomy, myomectomies Surgeon Dr Brown Deckhand Clam Dredge Surgeon(s) Dr Moore Estimated Blood Loss 150ml Findings Consistent with Post-Op Diagnosis Fluids (cc crystalloids) 1200 Specimens a. uterine fibroids Drains None Anesthesia Type General Disposition Disposition: Surgical ICU
[2017-10-17] MEDS: FENTANYL CITRATE INJ 50 MCG/1 ML 2 ML VIAL IV PRN ×3 (19:19→19:44)
[2017-10-17] MEDS ORDERED: PROMETHAZINE HCL INJ 25 MG in SODIUM CHLORIDE 0.9% 50ML 50 ML IV PRN (21:00)
[2017-10-17] MEDS ORDERED: LACTATED RINGER'S 1000ML 1,000 ML IV SCH (21:00)
--- NOTE | 2017-10-17 21:01 | Medical Consult ---
Consultation Date of Consultation: Oct 17, 2017. Attending Physician: Viky Brown M.D. Reason for Consultation: Post-op medical management History of Present Illness This is a 27yo F with a PMH of DM II, asthma, nasal polyps and uterine fibroids who is POD #0 s/p laparoscopic myomectomies by Dr. Brown. Patient is doing well post-operatively. States that abdominal pain is a 5/10 and feels like a constant "pressure". Denies any fever, chills, lightheadedness, headache, visual changes, sore throat, CP, SOB, abdominal pain, nausea, vomiting, dysuria or LE swelling. PCP is Dr. Bailey. Has DM II. Most recent hgb a1c was 9 in May 2017. Was instructed to take half of her Lantus dose last night (32 units) and has not taken metformin in a few days. Post operatively, patient's blood glucose was elevated to 356 and she was given 20 units Novolin-R SQ insulin. Repeat BSG pending. Past Medical/Surgical History Medical Problems: (1) Asthma, moderate persistent Status: Chronic (2) DM2 (diabetes mellitus, type 2) Status: Chronic (3) Heavy menstrual bleeding Status: Chronic (4) Nasal polyp Status: Chronic (5) Uterine fibroid Status: Chronic Surgical Problems: (1) History of nasal surgery Status: Chronic Family History Asthma Social History Smoking Status: Never Smoker Alcohol Use: none Drug Use: none Marital Status: single Housing Status: lives with roommate Occupation Status: student Allergies Coded Allergies: No Known Allergies (Verified , 10/17/17) Home Medications Reported Home Medications Medications Dose Route/Sig Max Daily Dose Days Date Category Dose Instructions Mucinex Dm Maximum Streng (Dextromethorphan-Guaifenesin) 1 Tab Tab 1 Tab PO HS PRN 10 09/24/17 Reported Glucophage (Metformin Hcl) 500 Mg Tab 500 Mg PO QAM 09/24/17 Reported Basaglar Kwikpen (Insulin Glargine) 100 Unit/Ml Inj 64 Units INJ HS 09/24/17 Reported Kp Ferrous Sulfate (Ferrous Sulfate) 325 Mg Tab 1 Tab PO PRN 30 09/24/17 Reported Beyaz (Drospirenone-Ethinyl Estradiol) 1 Tab Tab 1 Tab PO HS 28 09/24/17 Reported Pulmicort Respules 0.5MG/2ML (Budesonide) 0.5 Mg/2 Ml Nebu 2 Ml INH BID 09/24/17 Reported Apidra (Insulin Glulisine) 100 Unit/Ml Inj INJ SLIDING SCALE 09/24/17 Reported 1 UNITS PER 10 CARBS [Albuterol Nebulizer] 1 Puff INH PRN 09/24/17 Reported Ventolin Hfa (Albuterol) 200 Puffs/69029 Mcg Aers 2 Puffs INH Q6H PRN 09/24/17 Reported Singulair (Montelukast Sodium) 10 Mg Tab 1 Tab PO HS 90 11/22/16 Reported Current Inpatient Medications Current Inpatient Medications Medications (Trade) Dose Ordered Sig/Ronald Route Start Time Stop Time Status Last Admin Dose Admin Lactated Ringer's 1,000 ml @ 15 mls/hr Q24H IV 10/17/17 06:00 10/18/17 05:59 Oxycodone/ Acetaminophen (Percocet 5-325mg Tab) 1 tab for pain scale 1-5 2 t... Q4H PRN PO 10/17/17 18:45 10/31/17 18:44 Ibuprofen (Motrin Tab) 600 mg Q4H PO 10/17/17 00:00 11/16/17 00:00 Ondansetron HCl (Zofran Inj) 4 mg Q4H PRN IV 10/17/17 18:45 11/16/17 18:44 Promethazine HCl 25 mg/Sodium Chloride 51 ml @ 204 mls/hr Q4H PRN IV 10/17/17 21:00 11/16/17 20:59 Lactated Ringer's 1,000 ml @ 125 mls/hr Q8H IV 10/17/17 21:00 11/16/17 20:59 Acetaminophen (Tylenol Tab) 325 mg Q4H PO 10/17/17 21:00 11/16/17 20:59 Docusate Sodium (coLACE CAP) 100 mg BID PO 10/17/17 21:00 11/16/17 20:59 Simethicone (Mylicon Chew Tab) 80 mg Q6H PO 10/17/17 21:00 11/16/17 20:59 Review of Systems Ten systems reviewed and negative except as noted in the HPI. Physical Exam Date Time Temp Pulse Resp B/P (MAP) Pulse Ox O2 Delivery O2 Flow Rate FiO2 10/17/17 20:07 77 23 10/17/17 20:07 76 23 98 10/17/17 20:06 132/96 10/17/17 20:03 137/90 10/17/17 20:02 95 24 10/17/17 20:02 96 24 100 10/17/17 19:57 77 23 97 10/17/17 19:57 77 23 10/17/17 19:56 125/84 10/17/17 19:54 71 16 100 10/17/17 19:54 72 16 10/17/17 19:53 36.3 96 Nasal Cannula 2 10/17/17 19:51 134/82 10/17/17 19:49 77 20 98 10/17/17 19:49 79 20 10/17/17 19:48 74 19 98 10/17/17 19:48 74 19 10/17/17 19:46 138/87 10/17/17 19:43 73 14 10/17/17 19:43 73 14 100 10/17/17 19:41 144/98 10/17/17 19:38 88 20 10/17/17 19:38 87 20 100 10/17/17 19:33 75 24 10/17/17 19:33 75 24 98 10/17/17 19:31 147/98 10/17/17 19:28 70 19 10/17/17 19:28 70 19 100 10/17/17 19:27 73 23 98 10/17/17 19:27 73 23 10/17/17 19:26 145/94 10/17/17 19:22 69 23 10/17/17 19:22 68 23 99 18 19:21 142/92 10/17/17 19:18 144/92 10/17/17 19:17 81 27 100 10/17/17 19:17 82 27 10/17/17 19:12 70 23 100 10/17/17 19:12 70 23 10/17/17 19:11 141/93 10/17/17 19:07 71 26 99 18 19:07 71 26 10/17/17 19:06 142/94 10/17/17 19:04 75 25 10/17/17 19:04 76 25 100 10/17/17 19:01 139/95 10/17/17 18:59 74 31 10/17/17 18:59 74 31 99 10/17/17 18:56 139/84 10/17/17 18:55 148/92 10/17/17 18:54 82 17 10/17/17 18:54 82 17 100 10/17/17 18:54 36.1 66 16 139/85 100 Oxymask 10 10/17/17 10:37 95 15 98 Room Air 10/17/17 09:47 36.9 88 18 116/82 97 Room Air General Appearance: WD/WN, no apparent distress, + pertinent finding (resting comfortably ) Head: normocephalic, atraumatic Eyes: normal inspection, PERRL, sclerae normal ENT: normal ENT inspection, hearing grossly normal, pharynx normal (dry mucous membranes ) Neck: supple, thyroid normal, no carotid bruits Respiratory/Chest: chest non-tender, lungs clear, normal breath sounds, no respiratory distress, no accessory muscle use Cardiovascular: regular rate, rhythm, no murmur, normal peripheral pulses Abdomen/GI: soft, + tenderness (Diffuse TTP but no guarding or distension ), + pertinent finding (Abdominal dressing intact. Clean, without drainage. ) Genitourinary - Female: + pertinent finding (velasquez) Back: normal inspection Extremities/Musculoskelatal: normal inspection, no calf tenderness, no pedal edema Neurologic/Psych: no motor/sensory deficits, alert, normal mood/affect, oriented x 3 Skin: normal color, warm/dry, no rash Laboratory Results Last 24 Hours Test 10/17/17 09:39 10/17/17 09:43 10/17/17 11:01 10/17/17 13:06 Bedside Glucose 258 mg/dl 184 mg/dl 207 mg/dl Test 10/17/17 13:41 10/17/17 16:34 10/17/17 18:56 10/17/17 19:31 Bedside Glucose 158 mg/dl 192 mg/dl 325 mg/dl 356 mg/dl Test 10/17/17 20:00 Bedside Glucose 318 mg/dl Assessment & Plan This is a 27yo F with a PMH of DM II, asthma, nasal polyps and uterine fibroids who is POD #0 s/p laparoscopic myomectomies by Dr. Brown. Uterine fibroids s/p myomectomies: -POD #[address] Brown -Pt is doing well post-operatively -Per obgyn for pain control, wound care, anticoagulation and activities -Monitor H&H, continue incentive spirometry, PT/OT when appropriate DM II: uncontrolled -Last a1c of 9 in May 2017 -Repeat a1c -BSG elevated to 356 post-operatively -Given 20 units SQ Novolin -Give half of home Lantus dose (32 units) tonight -SSI while in-patient -BSG AC HS Asthma: -Stable -No wheezing/SOB -Continue Pulmicort inhaler, Singulair -Albuterol inhaler, Mucinex DM PRN FLORENCIO: -Hgb of 11.7 -Continue iron supplement PCP: Leo Dispo: Per obgyn Patient seen in collaboration with Dr. Duncan. Please see addendum. Thank you for this consultation. We will follow the patient with you during their hospital stay. You can reach a [facility] via pager @ [phone]. Attending addendum: The patient was seen and examined. She was admitted through outpatient surgery following myomectomy and laparoscopy. History of insulin dependent diabetes and to half of her usual dose last night. The blood sugar is high at around more than 400 at the point the medicine was consult consulted. She received 20 of regular insulin subcu at the time of consultation. 1 examination in the medical flow she was a little drowsy but no other acute distress. Hemodynamically stable. Chest clear to auscultate bilaterally, heart regular S1 and S2 no murmur, abdomen mildly tender distended bowel sounds present. MIG TIG WELDER a little drowsy otherwise no focal neuro deficit Her blood sugar came out 300 range during the examination We will give half of the dose of Lantus tonight and continue with sliding scale insulin coverage while in the hospital. Agree with assessment and plan as mentioned above. Dr. Kartik Duncan DVT Ppx: Code status: PCP: Dispo: Plan to return home once medically stable/ SW consulted to help with discharge placement... Patient seen in collaboration with . Please see addendum.
[2017-10-17] MEDS: DOCUSATE SODIUM 100 MG CAP PO SCH (21:14)
[2017-10-17] MEDS: SIMETHICONE 80 MG CHEW PO SCH (21:15)
[2017-10-17] MEDS: ACETAMINOPHEN 325 MG TAB PO SCH (21:15)
[2017-10-17] MEDS: IBUPROFEN 600 MG TAB PO SCH (21:16)
--- NOTE | 2017-10-17 21:22 | Anesthesiology Progress Note ---
Anesthesia Post Op Note Date & Time Oct 17, 2017 at 21:22 Vital Signs Pain Intensity: 5.0 Vital Signs Past 12 Hours Date Time Temp Pulse Resp B/P (MAP) Pulse Ox O2 Delivery O2 Flow Rate FiO2 10/17/17 20:07 77 23 10/17/17 20:07 76 23 98 10/17/17 20:06 132/96 10/17/17 20:03 137/90 10/17/17 20:02 95 24 10/17/17 20:02 96 24 100 10/17/17 19:57 77 23 97 10/17/17 19:57 77 23 10/17/17 19:56 125/84 10/17/17 19:54 71 16 100 10/17/17 19:54 72 16 10/17/17 19:53 36.3 96 Nasal Cannula 2 10/17/17 19:51 134/82 10/17/17 19:49 77 20 98 10/17/17 19:49 79 20 10/17/17 19:48 74 19 98 10/17/17 19:48 74 19 10/17/17 19:46 138/87 10/17/17 19:43 73 14 10/17/17 19:43 73 14 100 10/17/17 19:41 144/98 10/17/17 19:38 88 20 10/17/17 19:38 87 20 100 10/17/17 19:33 75 24 10/17/17 19:33 75 24 98 10/17/17 19:31 147/98 10/17/17 19:28 70 19 10/17/17 19:28 70 19 100 10/17/17 19:27 73 23 98 10/17/17 19:27 73 23 10/17/17 19:26 145/94 10/17/17 19:22 69 23 10/17/17 19:22 68 23 99 10/17/17 19:21 142/92 10/17/17 19:18 144/92 10/17/17 19:17 81 27 100 10/17/17 19:17 82 27 10/17/17 19:12 70 23 100 10/17/17 19:12 70 23 10/17/17 19:11 141/93 10/17/17 19:07 71 26 99 10/17/17 19:07 71 26 10/17/17 19:06 142/94 10/17/17 19:04 75 25 10/17/17 19:04 76 25 100 10/17/17 19:01 139/95 10/17/17 18:59 74 31 10/17/17 18:59 74 31 99 10/17/17 18:56 139/84 10/17/17 18:55 148/92 10/17/17 18:54 82 17 10/17/17 18:54 82 17 100 10/17/17 18:54 36.1 66 16 139/85 100 Oxymask 10 10/17/17 10:37 95 15 98 Room Air 10/17/17 09:47 36.9 88 18 116/82 97 Room Air Notes Mental Status: alert / awake / arousable, participated in evaluation Pt Amnestic to Procedure: Yes Nausea / Vomiting: adequately controlled Pain: adequately controlled Airway Patency, RR, SpO2: stable & adequate BP & HR: stable & adequate Hydration State: stable & adequate Anesthetic Complications: no major complications apparent
[2017-10-17] MEDS ORDERED: GLUCOSE 40% GEL 15 GM TUBE PO PRN (21:45)
[2017-10-17] MEDS ORDERED: GLUCOSE 10 TABS/TUBE PO PRN (21:45)
[2017-10-17] MEDS ORDERED: GLUCAGON FOR INJ 1 MG VIAL SQ PRN (21:45)
[2017-10-17] MEDS ORDERED: DEXTROSE 50% 50 ML SYR IV PRN (21:45)
[2017-10-17] MEDS ORDERED: INSULIN GLARGINE SOLOSTAR 100 UNITS/ML 3 ML PEN SC SCH (22:15)
[2017-10-17] MEDS ORDERED: ALBUTEROL HFA 8 GM INHALER INH PRN (22:15)
[2017-10-17] MEDS ORDERED: GUAIFENESIN/DEXTROM SYRUP 200MG/20MG 10ML UDC PO PRN (22:15)
[2017-10-17] MEDS: INSULIN ASPART 100 UNITS/ML 3 ML PEN SC SCH (22:25)
[2017-10-18] MEDS ORDERED: NURSING VERBAL MED ORDER ONE ×2 (00:45→12:00)
[2017-10-18] MEDS: ALBUTEROL HFA INHALER 8.5 GM INH PRN ×2 (01:00→08:02)
[2017-10-18] MEDS: ACETAMINOPHEN 325 MG TAB PO SCH ×3 (01:01→09:00)
[2017-10-18] MEDS: IBUPROFEN 600 MG TAB PO SCH ×4 (03:28→12:53)
[2017-10-18] MEDS: SIMETHICONE 80 MG CHEW PO SCH ×2 (03:29→08:41)
[2017-10-18 03:30] VITALS: BP 132/83; PULSE 87; TEMP 37.7; O2SAT 96
[2017-10-18 05:45] VITALS: TEMP 37.5
[2017-10-18 07:20] VITALS: PULSE 106; O2SAT 94
[2017-10-18] MEDS ORDERED: MYL80 PO (07:48)
[2017-10-18] MEDS ORDERED: CLC100 PO (07:48)
[2017-10-18] MEDS ORDERED: MTR600X PO (07:48)
[2017-10-18] MEDS ORDERED: ACET-1047 PO (07:48)
[2017-10-18] MEDS ORDERED: OXYC-57 PO (07:48)
--- NOTE | 2017-10-18 07:52 | Discharge Instructions ---
Discharge Instructions Date of Service Oct 18, 2017. Admission Reason for Admission: Uterine Fibroids Discharge Discharge Diagnosis / Problem: Post-op Discharge Goals Goal(s): Routine recovery after surgery Activity Recommendations Activity Limitations: as noted below POST OPERATIVE: BOWEL FUNCTION/MEDICATIONS: 1. Constipation pain and discomfort are the most common complaints 5-7 days after surgery. Points 2-6 address the things that can help. 2. Chewing gum can help stimulate the gut and help improve digestion and motility. 3. Milk of Magnesia 1-2 times per day until return of bowel function. 4. Colace is a stool softener that helps. Taking this 2-3 times per day until bowel function returns to normal is highly recommended. 5. Dulcolax is a laxative that may be used if several days have passed without a bowel movement. Alternatively Miralax may be used daily instead. 6. Drink plenty of fluids as this will also reduce constipation. 7. Narcotic pain medications will be prescribed by your physician. They are safe to use and we encourage you to use them. If you are not allergic, ibuprofen will also be prescribed. Many patients will be able to transition off of the narcotic medications to ibuprofen by postoperative day 3. ACTIVITY RECOMMENDATIONS: 1. Get plenty of rest and listen to your body. If you are tired, take a nap. 2. You may shower, but do not take a tub bath until you see your doctor at the 2 week post operative visit. 3. Absolutely NO intercourse and nothing in the vagina until you are examined by your doctor at the 6 week visit. At that visit it will be determined when such activities can be resumed. This can range from 6-12 weeks after your surgery depending on healing time. 4. The main physical activity in the first week should be walking. By the second week you can slowly increase activity. There are no limits on walking up and down stairs. 5. Do not lift more than 5-10 lbs for 4 weeks. Remember the "one-handed rule", i.e. if you can lift something with only one hand it's likely okay. 6. Minimize maintenance director like vacuuming and exercising for 4 weeks. "Overdoing it" can lead to incisions not healing, pain and vaginal bleeding , so again, listen to your body. 7. Driving can be resumed when you feel able. Do not drive within 24 hours of taking a narcotic medication. EXPECTATIONS: 1. Vaginal spotting, bleeding and discharge are common after surgery. There may even be an odor to the discharge which is often related to sutures used in the vagina. If you experience heavy vaginal bleeding, call the office number day or night [phone]. 2. Bladder discomfort is common after surgery from the catheter. This usually resolves in 1-2 weeks. 3. By the end of the 3rd or 4th week you should be feeling much better. It may take up to 6 weeks for your energy levels to return to normal. 4. Narcotic medications have side effects such as: dizziness, headache, nausea and/or vomiting. If you suspect your pain medication is causing problems, call our office and we may be able to prescribe an alternate medication. 5. The skin incisions are often covered with steri-strips. This will gradually peel off over time. CALL THE OFFICE IF YOU HAVE ANY OF THE FOLLOWIN. Temperature of 101 degrees or higher. 2. Severe abdominal or pelvic pain not relieved by pain medication. 3. Persistent nausea or vomiting. 4. Increased pain with urination or difficulty urinating. 5. Bright red bleeding that soaks more than 1 pad per hour. CONTACT PHONE NUMBERS: Main Office: [phone] FOLLOW-UP: Post-Operative Appointments: * Individual instructions will have been given about the timing of your first examination, but this is usually at the end of the second week home. * You will need to call the office at soon after discharge to make the appointment for your post-op check-up if it has not already been scheduled. * Additional information regarding activity, sexual intercourse and when to return to work will be given at this appointment. WE WISH YOU A SPEEDY RECOVERY! . Current Hospital Diet Patient's current hospital diet: Clear Liquid Diet, Diabetes Type 1 Diet Discharge Diet Recommended Diet: Diabetes Type 1 Diet Procedures Procedures Performed: Operative Laparotomy, myomectomies Pending Studies Studies pending at discharge: no Laboratory Results Hemoglobin A1c Test 10/18/17 04:44 Range/Units Medical Emergencies . Who to Call and When: Medical Emergencies: If at any time you feel your situation is an emergency, please call 911 immediately. . Non-Emergent Contact Non-Emergency issues call your: Specialist . . "Provider Documentation" section prepared by Viky Andrade. .
[2017-10-18 08:00] VITALS: BP 121/81; PULSE 93; TEMP 37.8; O2SAT 95
[2017-10-18] MEDS ORDERED: CHECK SCOPOLAMINE PATCH PLACEMENT SCH (08:00)
--- NOTE | 2017-10-18 08:03 | [facility] Operative Report ---
Operative Report Operative Date Oct 18, 2017. Pre-Operative Diagnosis Heavy menstrual bleeding, uterine fibroids Post-Operative Diagnosis same Procedure(s) Performed Operative Laparotomy, Abdominal myomectomies Surgeon Dr Brown Federal Law Clerk Surgeon(s) Dr Moore Estimated Blood Loss 150ml Fluids 1200 Specimens a. uterine fibroids Drains None Anesthesia Type General Complication(s) none Disposition Recovery Room / PACU Indications The patient had a uterus that measured about 16 cm in size, grossly normal- appearing tubes and ovaries bilaterally. However, she had two large uterine fibroids approximately 8-10 cm each located in than anterior and posterior lower uterine segments. Description of Procedure The patient was taken to the operating room when anesthesia was found to be adequate for the abdominal myomectomy procedure. She was prepared and draped in a normal sterile fashion, in dorsal lithotomy position. A velasquez catheter was placed without difficulty. Attention was turned to the patients abdomen, at which time a Pfannenstiel skin incision was made with a scalpel and carried down to the underlying fascia with a Bovie. This incision was extended laterally using Noe scissors. The superior and inferior aspects of this incision were grasped with the Lakisha clamps, elevated, and the rectus muscles were dissected off. Access was gained to the peritoneal cavity through a separation of the rectus muscles. At that time, a survey of the upper abdomen revealed no gross abnormalities palpated. The pelvis showed an enlarged multiple fibroid uterus. At that time, the bowel was packed away with large moist lap pads. The uterus was manually elevated out of the pelvis. Once there was proper visualization of the uterus, the anterior surface of the uterus was then evaluated and a dilute soulution of vasopressin (10U in 100 ml saline) was injected along the myoma surfaces. Once the myomas were isolated, they were grasped with the towel clip and between blunt dissection and needle tip Bovie cautery, that was used to be shelled out of the myometrium completely. Once the anterior fibroid were removed, each remaining surface was closed in three layers using 0 V-loc suture. Attention was then turned to the patients posterior uterus, where in a similar fashion a large 8-10 cm fibroid located in the lower posterior uterine segment was palpated. That one was also injected with vasopressin solution, incised with the needle tip Bovie cautery, double towel clips were used to grasp this fibroid and to dissect it out of the myometrium. This fibroid was also closed in three layers using 0 V-loc. Hemostasis was ensured throughout each incision site. Once all fibroids were removed, there were a total of 2 fibroids. The pelvis was then irrigated with warm normal saline and again hemostasis was ensured. All packs were removed from the patients abdomen. She was flattened out of the Trendelenburg position. The fascia was reapproximated using 0 Vicryl x2. The subcutaneous tissue was closed using 3-0 Vicryl suture and finally the skin was closed with 4-0 Monocryl in a subcuticular fashion. Sponge, lap, and needle counts were correct x2 and she was taken to the recovery room in stable condition. I attest to the content of the Intraoperative Record and any orders documented therein. Any exceptions are noted below.
[2017-10-18] MEDS: DOCUSATE SODIUM 100 MG CAP PO SCH (08:04)
[2017-10-18 08:27] LABS: BASO % 0.1 %; BASO ABS # 0.01 K/uL (0-0.2); EOS % 0.1 %; EOS ABS # 0.01 K/uL (0-0.5); HEMATOCRIT 32.2 % (37-47); HEMOGLOBIN 10.3 g/dL (12.0-16.0); IG# 0.05 K/uL (0.00-0.02); LYMPH % 14.3 %; LYMPH ABS # 1.83 K/uL (1.2-3.4); MEAN CELL VOLUME 71.4 fL (80-100); MEAN CORPUSCULAR HEMOGLOBIN 22.8 pg (25-34); MEAN PLATELET VOLUME 9.4 fL (7.4-10.4); MONO % 9.3 %; MONO ABS # 1.19 K/uL (0.11-0.59); NEUT % 75.8 %; PLATELET COUNT 325 K/uL (130-400); RED CELL DISTRIBUTION WIDTH CV 15.6 % (11.5-14.5); RED CELL DISTRIBUTION WIDTH SD 41.4 fL (36.4-46.3); WHITE BLOOD COUNT 12.79 K/uL (4.8-10.8)
[2017-10-18] MEDS: INSULIN ASPART 100 UNITS/ML 3 ML PEN SC SCH ×2 (08:43→12:54)
--- NOTE | 2017-10-18 08:43 | Consultant Recommendations ---
Technical Sales Specialist Recommendations Date of Service Oct 18, 2017. Technical Sales Specialist Recommendations Subjective: Patient seen this AM. She has just finished her breakfast. IV fluids are running. Patient reports pain of abdomen after post-op but is not in acute pain currently. Overnight the T max was 37.7 C (99.86 F) Physical Exam General: no acute distress, Neuro: speaks in full sentences, no aphasia, awake and alert Lungs: Clear to auscultation, no wheezing Heart: mild tachycardia Abdomen: abdominal binder dressings This is a 27 year female patient with history of Type II Diabetes Mellitus, Asthma under OBGYN service and s/p Operative Laparotomy, Abdominal myomectomies on 10/17/17 and hospitalist medicine was consulted primarily for hyperglycemia management Hospitalist Consultation recommendations: Diabetes -AM labs are pending -last recorded Glucose was 222 around 3 AM and 185 at 8 AM -expect that insulin requirements will increase after patient is eating regularly after the surgery -Patient likely can return back to typical diabetes regimen after discharge for which is is on metformin and insulin. Unless otherwise contraindicated after a surgery, it is possible that patient can resume her oral metformin today unless the risk of lactic acidosis is deemed to be high risk as per the OBGYN surgical service Pain control and anemia management as per OBGYN surgical service s/p abdominal myomectomies, patient can continue ferrous supplements for iron deficiency anemia, Hgb 10.3 on 10/18/17 which is comparable to previous baseline of 11.3 and no transfusion indicated at this time Asthma: -Stable -No wheezing/SOB -Continue Pulmicort inhaler, Singulair -Albuterol inhaler, Mucinex DM PRN
[2017-10-18] MEDS ORDERED: FERROUS SULFATE 325 MG TAB PO PRN (09:00)
[2017-10-18] MEDS ORDERED: BUDESONIDE 0.5 MG/2 ML VIAL (PULMICORT) INH SCH (09:00)
[2017-10-18 09:01] LABS: CALCIUM 8.9 mg/dl (8.5-10.1); CREATININE 0.65 mg/dl (0.60-1.20); POTASSIUM 3.4 mmol/L (3.5-5.1)
[2017-10-18] MEDS: OXYCODONE/ACETAMINOPHEN 5-325 TAB PO PRN ×2 (09:09→12:53)
--- NOTE | 2017-10-18 09:15 | Surgery Progress Note ---
Surgery Progress Note Date of Service Oct 18, 2017. Subjective Post OP Day: 1 Overall doing well. Pain not completely controlled with oral NSAIDs. Objective Vital Signs: Date Time Temp Pulse Resp B/P (MAP) Pulse Ox O2 Delivery O2 Flow Rate FiO2 10/18/17 07:20 106 16 94 Room Air 10/18/17 05:45 37.5 10/18/17 03:30 37.7 87 18 132/83 (99) 96 Room Air 10/17/17 23:25 37.3 94 18 138/90 (106) 95 Room Air 10/17/17 23:25 95 Room Air 10/17/17 22:25 71 16 141/94 (110) 93 Room Air 10/17/17 21:25 79 16 131/90 (104) 95 10/17/17 20:55 80 18 130/85 (100) 95 Room Air 10/17/17 20:15 98 Room Air 10/17/17 20:15 37.2 90 16 134/84 (101) 98 Room Air 10/17/17 20:07 77 23 10/17/17 20:07 76 23 98 10/17/17 20:06 132/96 10/17/17 20:03 137/90 10/17/17 20:02 95 24 10/17/17 20:02 96 24 100 10/17/17 19:57 77 23 97 10/17/17 19:57 77 23 10/17/17 19:56 125/84 10/17/17 19:54 71 16 100 10/17/17 19:54 72 16 10/17/17 19:53 36.3 96 Nasal Cannula 2 10/17/17 19:51 134/82 10/17/17 19:49 77 20 98 10/17/17 19:49 79 20 10/17/17 19:48 74 19 98 10/17/17 19:48 74 19 10/17/17 19:46 138/87 10/17/17 19:43 73 14 10/17/17 19:43 73 14 100 10/17/17 19:41 144/98 10/17/17 19:38 88 20 10/17/17 19:38 87 20 100 10/17/17 19:33 75 24 10/17/17 19:33 75 24 98 10/17/17 19:31 147/98 10/17/17 19:28 70 19 10/17/17 19:28 70 19 100 10/17/17 19:27 73 23 98 10/17/17 19:27 73 23 10/17/17 19:26 145/94 10/17/17 19:22 69 23 10/17/17 19:22 68 23 99 10/17/17 19:21 142/92 10/17/17 19:18 144/92 10/17/17 19:17 81 27 100 10/17/17 19:17 82 27 10/17/17 19:12 70 23 100 10/17/17 19:12 70 23 10/17/17 19:11 141/93 10/17/17 19:07 71 26 99 10/17/17 19:07 71 26 10/17/17 19:06 142/94 10/17/17 19:04 75 25 10/17/17 19:04 76 25 100 10/17/17 19:01 139/95 10/17/17 18:59 74 31 10/17/17 18:59 74 31 99 10/17/17 18:56 139/84 10/17/17 18:55 148/92 10/17/17 18:54 82 17 10/17/17 18:54 82 17 100 10/17/17 18:54 36.1 66 16 139/85 100 Oxymask 10 10/17/17 10:37 95 15 98 Room Air 10/17/17 09:47 36.9 88 18 116/82 97 Room Air General Appearance: WD/WN, no apparent distress Respiratory/Chest: chest non-tender, lungs clear, normal breath sounds, no respiratory distress, no accessory muscle use Cardiovascular: regular rate, rhythm Abdomen: normal bowel sounds, + distended (Slightly distended), + tenderness ( appropriatley tender to palpation along the incision site. Bandage removed.) Incision(s): clean, dry, intact, no erythema, no drainage Laboratory Results: Results Past 24 Hours Test 10/17/17 09:39 10/17/17 09:43 10/17/17 11:01 10/17/17 13:06 Range/Units Bedside Glucose 258 184 207 70-90 mg/dl Test 10/17/17 13:41 10/17/17 16:34 10/17/17 18:56 10/17/17 19:31 Range/Units Bedside Glucose 158 192 325 356 70-90 mg/dl Test 10/17/17 20:00 10/17/17 21:13 10/18/17 03:34 10/18/17 08:09 Range/Units Bedside Glucose 318 282 222 185 70-90 mg/dl Test 10/18/17 08:14 Range/Units White Blood Count 12.79 4.8-10.8 K/uL Red Blood Count 4.51 4.2-5.4 M/uL Hemoglobin 10.3 12.0-16.0 g/dL Hematocrit 32.2 37-47 % Mean Corpuscular Volume 71.4 80-100 fL Mean Corpuscular Hemoglobin 22.8 25-34 pg Mean Corpuscular Hemoglobin Concent 32.0 32-36 g/dl Platelet Count 325 130-400 K/uL Mean Platelet Volume 9.4 7.4-10.4 fL Neutrophils (%) (Auto) 75.8 % Lymphocytes (%) (Auto) 14.3 % Monocytes (%) (Auto) 9.3 % Eosinophils (%) (Auto) 0.1 % Basophils (%) (Auto) 0.1 % Neutrophils # (Auto) 9.70 1.4-6.5 K/uL Lymphocytes # (Auto) 1.83 1.2-3.4 K/uL Monocytes # (Auto) 1.19 0.11-0.59 K/uL Eosinophils # (Auto) 0.01 0-0.5 K/uL Basophils # (Auto) 0.01 0-0.2 K/uL RDW Standard Deviation 41.4 36.4-46.3 fL RDW Coefficient of Variation 15.6 11.5-14.5 % Immature Granulocyte % (Auto) 0.4 % Immature Granulocyte # (Auto) 0.05 0.00-0.02 K/uL Sodium Level 136 136-145 mmol/L Potassium Level 3.4 3.5-5.1 mmol/L Chloride Level 101 98-107 mmol/L Carbon Dioxide Level 26 21-32 mmol/L Anion Gap 9.0 3-11 mmol/L Blood Urea Nitrogen 6 7-18 mg/dl Creatinine 0.65 0.60-1.20 mg/dl Est Creatinine Clear Calc Drug Dose 136.0 ml/min Estimated GFR () 140.0 Estimated GFR (Non- 120.8 BUN/Creatinine Ratio 9.8 10-20 Random Glucose 184 70-99 mg/dl Calcium Level 8.9 8.5-10.1 mg/dl Assessment & Plan 27 yo G0 s/p Abdominal Myomectomy. Advance diet (diabetic) as tolerated. Administer Percocet prn if pain not controlled with oral NSAIDs. Discharge home once criteria met.
[2017-10-18 09:46] LABS: HEMOGLOBIN A1C 11.7 % (4.5-5.6)
[2017-10-18 11:40] VITALS: BP 108/70; PULSE 80; TEMP 37.4; O2SAT 96
[2017-10-18] MEDS: LACTATED RINGER'S 1000ML 1,000 ML IV SCH (11:50)
[2017-10-18 14:14] VITALS: BP 108/70; PULSE 80; TEMP 37.4; O2SAT 96
[2017-10-18] MEDS ORDERED: INSULIN GLARGINE SOLOSTAR 100 UNITS/ML 3 ML PEN SC SCH (21:00)
[2017-10-18] MEDS ORDERED: MONTELUKAST SOD 10 MG TAB PO SCH (21:00)
[2017-10-20 12:05] VITALS: Ht 162.6 cm; Wt 85.0 kg
--- NOTE | 2017-10-23 16:22 | DISCHARGE SUMMARY ---
CHIEF COMPLAINT: Heavy menstrual bleeding and uterine fibroids. HISTORY OF PRESENT ILLNESS: Ms. Melendez is a 27-year-old G0, using oral contraceptive pills for contraception with a multifibroid uterus. The patient was hospitalized in November for kidney infection and uncontrolled diabetes mellitus. During hospitalization, the patient had a CT scan which had an incidental finding of uterine fibroids. The patient had a subsequent ultrasound in January 2017, which confirmed a multifibroid uterus. MRI in June 2017 confirmed multifibroid uterus. GYNECOLOGIC HISTORY: Menarche approximately 10-10 years of age. Menses every 28-30 days, lasting 4-7 days with heavy menstrual bleeding. Positive for clots. Occasional dysmenorrhea, but worsening in the last couple of cycles. Occasional intermenstrual bleeding. Denies postcoital spotting. PAST MEDICAL HISTORY: 1. Asthma. 2. Chronic sinusitis. 3. Diabetes. 4. Nasal polyps. PAST SURGICAL HISTORY: 1. Nasal endoscopy x5. 2. Removal of nose polyp. FAMILY HISTORY: Mother with asthma. Maternal grandmother with asthma. SOCIAL HISTORY: The patient is single. She denies tobacco, alcohol, or recreational drug use. REVIEW OF SYMPTOMS: CONSTITUTIONAL: Negative for fever, chills, sweats, or weight loss. CARDIOVASCULAR: Negative for chest pain, dyspnea, syncope, or palpitations. PULMONARY: Negative for cough, wheezing, or shortness of breath. ABDOMINAL/GASTROINTESTINAL: Negative for pain, heartburn, dysphagia, bleeding, change in bowel habits, nausea, or vomiting. FEMALE/GENITOURINARY: Positive for irregular menses and heavy menstrual bleeding, positive for uterine fibroids. PHYSICAL EXAMINATION: CONSTITUTIONAL: Normal. Well-nourished, well-developed, in no acute distress. LUNGS: Normal. HEART: Normal. ABDOMEN: Soft, nontender, normal bowel sounds. No masses or organomegaly. Uterus is palpable 2-3 cm below the umbilicus. External genitalia is normal. The vagina was normal. Cervix normal and nulliparous. The uterus is enlarged to 16 weeks, firm and nontender. The adnexa right nonpalpable and nontender. Adnexa left nonpalpable and nontender. Labs and vital signs were within normal limits. CONDITION ON DISCHARGE: Stable. The patient was discharged to home. OPERATION: Abdominal myomectomies with removal of 2 large myomas approximately 8-10 cm each. DISCHARGE DIAGNOSES: Heavy menstrual bleeding and uterine fibroids. PLAN ON DISCHARGE: Included instructions regarding activity, diet. The patient was provided followup appointments and medications. KATHIE
== END 2017-10-18 14:39 | disposition home or self-care (01) | DRG 743 ==
LOC: C.ACU 08:55 → C.MS4N 09:30 → ENRESERV 20:12 → C.MS4N 21:04
PROVIDERS: ADMIT Obstetrics & Gynecology Obstetrics; ATTEND Obstetrics & Gynecology Obstetrics
PROC: 0UB90ZZ Excision of Uterus, Open Approach (ICD-10-PCS; principal; 2017-10-18)
DX: D25.9 Leiomyoma of uterus, unspecified (principal); N94.6 Dysmenorrhea, unspecified; E11.9 Type 2 diabetes mellitus without complications; J45.909 Unspecified asthma, uncomplicated; Z79.84 Long term (current) use of oral hypoglycemic drugs; Z79.3 Long term (current) use of hormonal contraceptives; Z82.5 Family history of asthma and other chronic lower respiratory diseases

== ENCOUNTER 2017-11-21 13:25 | Inpatient (IN) | payer OTHER ==
[~2017-11-21] VITALS: Ht 162.6 cm; Wt 80.0 kg
[~2017-11-21 13:25] MED LIST changes: +ACET-1047 PO; -ATROPINE SULFATE 0.1 MG/ML 5ML SYR IV PRN; +CLC100 PO; -EpHEDrine SULFATE INJ 50 MG/ML AMP IV PRN; -FLUMAZENIL 0.1 MG/1 ML 10 ML VIAL IV PRN; -HYDROmorphone INJ 0.5 MG/0.5 ML SYR IV PRN; -LABETALOL HCL IV 5 MG/ML 20ML IV PRN; -LACTATED RINGER'S 1000ML 1,000 ML IV SCH; -MEPERIDINE HCL 25 MG/ML CARP IV PRN; +MTR600X PO; +MYL80 PO; -MoRPHine SULFATE 4 MG/ML 1 ML CARP\\VIAL IV PRN; -NALOXONE HCL 0.4 MG/1 ML VIAL/CARP IV PRN; -ONDANSETRON INJ 2 MG/ML 2 ML VIAL IV PRN; +OXYC-57 PO; -PHENYLEPHRINE 100MCG/ML 5ML SYR IV PRN
[2017-11-21] MEDS ORDERED: SODIUM CHLORIDE 0.9% 1000ML 1,000 ML IV ONE (14:01)
[2017-11-21] MEDS ORDERED: MoRPHine SULFATE 4 MG/ML 1 ML CARP\\VIAL IV STA (14:05)
[2017-11-21] MEDS ORDERED: ONDANSETRON INJ 2 MG/ML 2 ML VIAL IV STA (14:05)
[2017-11-21] MEDS ORDERED: ALBINS/ INH (14:10)
[2017-11-21] MEDS ORDERED: FERR1TAB13 PO (14:10)
[2017-11-21 14:15] LABS: BASO % 0.1 %; BASO ABS # 0.02 K/uL (0-0.2); EOS % 1.3 %; EOS ABS # 0.26 K/uL (0-0.5); HEMATOCRIT 26.9 % (37-47); HEMOGLOBIN 8.7 g/dL (12.0-16.0); LYMPH % 10.3 %; LYMPH ABS # 2.09 K/uL (1.2-3.4); MEAN CELL VOLUME 65.8 fL (80-100); MEAN CORPUSCULAR HEMOGLOBIN 21.3 pg (25-34); MEAN CORPUSCULAR HGB CONC 32.3 g/dl (32-36); MEAN PLATELET VOLUME 9.1 fL (7.4-10.4); MONO % 6.2 %; MONO ABS # 1.27 K/uL (0.11-0.59); NEUT % 81.6 %; PLATELET COUNT 503 K/uL (130-400); RED CELL DISTRIBUTION WIDTH CV 17.3 % (11.5-14.5); WHITE BLOOD COUNT 20.34 K/uL (4.8-10.8)
[2017-11-21] MEDS ORDERED: OPTIRAY 320 IV PRN (14:15)
[2017-11-21 14:21] LABS: ISTAT CREATININE 0.3 mg/dl (0.6-1.3); ISTAT IONIZED CALCIUM 1.13 mmol/l (1.12-1.32)
--- NOTE | 2017-11-21 14:25 | DIAGNOSTIC IMAGING REPORT ---
CHEST ONE VIEW PORTABLE CLINICAL HISTORY: 27 years-old Female presenting with Sepsis. TECHNIQUE: Portable upright AP view of the chest was obtained. COMPARISON: 11/22/2016. FINDINGS: Cardiomediastinal silhouette normal. Lungs and pleural spaces clear. Osseous structures normal. Upper abdomen normal. IMPRESSION: 1. No acute cardiopulmonary disease. Electronically signed by: Pierre Whipple M.D. 11/21/2017 2:24 PM Dictated Date/Time: 11/21/2017 2:23 PM
[2017-11-21] MEDS ORDERED: SODIUM CHLORIDE 0.9% 500ML 500 ML IV STA (14:28)
[2017-11-21] MEDS ORDERED: SODIUM CHLORIDE 0.9% 1000ML 1,000 ML IV STA (14:28)
[2017-11-21 14:30] LABS: PTT PATIENT 24.7 SECONDS (21.0-31.0)
[2017-11-21] MEDS ORDERED: PIPERACILLIN/TAZOBACTAM 4.5 GM/100ML D5W IV STA (14:31)
[2017-11-21] MEDS ORDERED: VANCOMYCIN IV 1,000 MG in SODIUM CHLORIDE 0.9% 250ML 250 ML IV STA (14:31)
--- NOTE | 2017-11-21 14:31 | EMERGENCY ROOM VISIT NOTE ---
History First contact with patient: 13:49 Chief Complaint: ABDOMINAL PAIN Stated Complaint: GROIN PAIN Nursing Triage Summary: PT HERE WITH LLQ PAIN INTO SIDE THAT BEGAN TODAY AT HOME. PT STATES HAD SX IN OCTOBER TO REMOVE FIBROIDS, HAS HAD NO PROBLEMS WITH THAT PROCEDURE. PT STATES NO NOTICABLE URINARY SX. PT HAS HX OF KIDNEY INFECTION. SOME DRY HEAVES. History of Present Illness The patient is a 27 year old female who presents to the Emergency Room via ambulance with complaints of "abdominal pain". The patient states that she underwent a removal of a fibroid October 17 of this past year by Dr. Brown. The patient states that her postoperative progress has been well up until this morning she awoke with excruciating left lower quadrant abdominal pain and fever. The pain is a 9/10. She states that she followed up with Dr. Brown yesterday, and has an ultrasound pending. She states that there is crampy sensation with urination as well. She denies any chest pain but does have shortness of breath as a deep breath causes referred pain in the left lower quadrant. She denies any vaginal discharge or bleeding. No recent constitutional symptoms. She notes that around 11 AM she had Tylenol as well as ibuprofen. She had a total of 650 mg of Tylenol at that time. Review of Systems A complete 10-point Review of Systems was discussed with the patient, with pertinent positives and negatives listed in the History of Present Illness. All remaining Review of Systems questions can be considered negative unless otherwise specified. Past Medical/Surgical History Medical Problems: (1) Asthma, moderate persistent (2) DM2 (diabetes mellitus, type 2) (3) Heavy menstrual bleeding (4) Nasal polyp (5) Uterine fibroid Surgical Problems: (1) History of nasal surgery Family History Asthma Social History Smoking Status: Never Smoker Alcohol Use: none Drug Use: none Marital Status: single Housing Status: lives with roommate Occupation Status: student Current/Historical Medications Scheduled Budesonide (Pulmicort Respules 0.5MG/2ML), 2 ML INH BID Docusate Sodium (Docusate Sodium), 100 MG PO BID Ferrous Sulfate (Kp Ferrous Sulfate), 1 TAB PO PRN Insulin Glargine (Basaglar Kwikpen), 64 UNITS INJ HS Insulin Glulisine (Apidra), INJ SLIDING SCALE Metformin Hcl (Glucophage), 500 MG PO QAM Montelukast Sodium (Singulair), 10 MG PO HS Simethicone (Mi-Acid Gas Relief), 80 MG PO Q6H Scheduled PRN Acetaminophen (Mapap), 325 MG PO Q4H PRN for Pain Albuterol Hfa (Ventolin Hfa), 2 PUFFS INH Q6H PRN for PRN Albuterol Sulf (Proventil 0.083% 2.5MG/3ML), 2.5 MG INH DAILY PRN for SOB/ Wheezing Dextromethorphan-Guaifenesin (Mucinex Dm Maximum Streng), 1 TAB PO HS PRN for RN Ferrous Sulfate ( Ferrous Sulfate), 325 MG PO DAILY PRN for anemia Oxycodone/Acetaminophen 5MG/325MG (Percocet 5MG/325MG), 1-2 TAB PO Q4H PRN for DONNELLY, Cramping, edema Physical Exam Vital Signs Date Time Temp Pulse Resp B/P (MAP) Pulse Ox O2 Delivery O2 Flow Rate FiO2 11/21/17 16:30 96 16 119/80 99 Room Air 11/21/17 16:29 90 11/21/17 16:00 92 16 116/77 97 Room Air 11/21/17 15:13 98 Room Air 11/21/17 13:33 39.2 104 16 142/97 98 Room Air Physical Exam VITAL SIGNS - Vital signs and nursing notes were reviewed. Stable. GENERAL - 27-year-old female appearing her stated age who is in no acute distress. Communicates well with provider and answers questions appropriately. SKIN - Without rashes. No meningeal or petechial rash. Well-healed midline lower abdominal surgical scar. HEAD - NC/AT. EYES - PERRL with EOMI bilaterally. Sclera anicteric. EARS - No deformities of external structures noted on gross examination bilaterally. No pain elicited with palpation of the tragus bilaterally. NOSE - Midline and without cyanosis. No epistaxis or purulent drainage noted. MOUTH/OROPHARYNX - Without perioral cyanosis. Buccal mucosa pink and moist and without leukoplakia. Tongue midline with equal elevation of palate bilaterally. No tonsillar hypertrophy, erythema, or exudates noted. [] dentition noted. NECK - Neck with FROM. Supple to palpation. no lymphadenopathy noted. No nuchal rigidity. LUNGS - Chest wall symmetric without accessory muscle use, intercostals retractions, or central cyanosis. Normal vesicular breath sounds CTA B/L. No wheezes, rales, or rhonchi appreciated. CARDIAC - RRR with S1/S2. No murmur, rubs, or gallops appreciated. ABDOMEN - Abdominal contour normal without pulsations or visible masses. Diffuse abdominal tenderness in lower quadrants. Normal bowel sounds. EXTREMITIES - No clubbing or peripheral cyanosis. No pretibial edema present. + 5/5 strength noted in UE/LE bilaterally. NEUROLOGIC - Cranial nerves II through XII grossly intact. Sensory intact to light touch throughout. PSYCH - A&O, and cooperates fully with examiner. Pt is very pleasant and interacts well with examiner. Medical Decision & Procedures ER Provider Diagnostic Interpretation: CHEST ONE VIEW PORTABLE CLINICAL HISTORY: 27 years-old Female presenting with Sepsis. TECHNIQUE: Portable upright AP view of the chest was obtained. COMPARISON: 11/22/2016. FINDINGS: Cardiomediastinal silhouette normal. Lungs and pleural spaces clear. Osseous structures normal. Upper abdomen normal. IMPRESSION: 1. No acute cardiopulmonary disease. Electronically signed by: Pierre Whipple M.D. 11/21/2017 2:24 PM Dictated Date/Time: 11/21/2017 2:23 PM Laboratory Results 11/21/17 13:55 Red Blood Count 4.09, Mean Corpuscular Volume 65.8, Mean Corpuscular Hemoglobin 21.3, Mean Corpuscular Hemoglobin Concent 32.3, Mean Platelet Volume 9.1, Neutrophils (%) (Auto) 81.6, Lymphocytes (%) (Auto) 10.3, Monocytes (%) (Auto) 6.2, Eosinophils (%) (Auto) 1.3, Basophils (%) (Auto) 0.1, Neutrophils # (Auto) 16.60, Lymphocytes # (Auto) 2.09, Monocytes # (Auto) 1.27, Eosinophils # (Auto) 0.26, Basophils # (Auto) 0.02 11/21/17 13:55 11/21/17 15:48 Test 11/21/17 13:55 11/21/17 14:01 11/21/17 14:06 11/21/17 14:10 White Blood Count 20.34 K/uL (4.8-10.8) Red Blood Count 4.09 M/uL (4.2-5.4) Hemoglobin 8.7 g/dL (12.0-16.0) Hematocrit 26.9 % (37-47) Mean Corpuscular Volume 65.8 fL (80-100) Mean Corpuscular Hemoglobin 21.3 pg (25-34) Mean Corpuscular Hemoglobin Concent 32.3 g/dl (32-36) Platelet Count 503 K/uL (130-400) Mean Platelet Volume 9.1 fL (7.4-10.4) Neutrophils (%) (Auto) 81.6 % Lymphocytes (%) (Auto) 10.3 % Monocytes (%) (Auto) 6.2 % Eosinophils (%) (Auto) 1.3 % Basophils (%) (Auto) 0.1 % Neutrophils # (Auto) 16.60 K/uL (1.4-6.5) Lymphocytes # (Auto) 2.09 K/uL (1.2-3.4) Monocytes # (Auto) 1.27 K/uL (0.11-0.59) Eosinophils # (Auto) 0.26 K/uL (0-0.5) Basophils # (Auto) 0.02 K/uL (0-0.2) RDW Standard Deviation 42.0 fL (36.4-46.3) RDW Coefficient of Variation 17.3 % (11.5-14.5) Immature Granulocyte % (Auto) 0.5 % Immature Granulocyte # (Auto) 0.10 K/uL (0.00-0.02) Hypochromasia PRESENT Microcytosis PRESENT Prothrombin Time 10.7 SECONDS (9.0-12.0) Prothromb Time International Ratio 1.0 (0.9-1.1) Activated Partial Thromboplast Time 24.7 SECONDS (21.0-31.0) Partial Thromboplastin Ratio 1.0 Est Creatinine Clear Calc Drug Dose 136.1 ml/min Estimated GFR () 141.5 Estimated GFR (Non- 122.1 BUN/Creatinine Ratio 13.4 (10-20) Calcium Level 8.6 mg/dl (8.5-10.1) Total Bilirubin 0.3 mg/dl (0.2-1) Alanine Aminotransferase (ALT/SGPT) 15 U/L (12-78) Alkaline Phosphatase 105 U/L (45-117) Total Protein 8.7 gm/dl (6.4-8.2) Albumin 3.3 gm/dl (3.4-5.0) Globulin 5.4 gm/dl (2.5-4.0) Albumin/Globulin Ratio 0.6 (0.9-2) Bedside Lactic Acid Venous 0.98 mmol/L (0.90-1.70) Bedside Hemoglobin 9.9 g/dl (12.0-16.0) Bedside Hematocrit 29 % (37-47) Bedside Sodium 137 mEq/L (135-144) Bedside Potassium 4.0 mEq/L (3.3-5.0) Bedside Chloride 101 mEq/L (101-112) Bedside Total CO2 25 mEq/l (24-31) Anion Gap 16.0 mmol/L (16-25) Bedside Blood Urea Nitrogen 8 mg/dl (7-18) Bedside Creatinine 0.3 mg/dl (0.6-1.3) Bedside Glucose (other) 354 mg/dl (70-99) Bedside Ionized Calcium (Gamal) 1.13 mmol/l (1.12-1.32) Influenza Type A Antigen Neg for Influ A (NEG) Influenza Type B Antigen Neg for Influ B (NEG) Test 11/21/17 15:48 11/21/17 16:30 Aspartate Amino Transf (AST/SGOT) 6 U/L (15-37) Beta-Hydroxybutyric Acid 4.91 mg/dL (0.2-2.81) Urine Color YELLOW Urine Appearance CLEAR (CLEAR) Urine pH 6.5 (4.5-7.5) Urine Specific [place] <= 1.005 (1.000-1.030) Urine Protein TRACE (NEG) Urine Glucose (UA) 2+ (NEG) Urine Ketones 1+ (NEG) Urine Occult Blood NEG (NEG) Urine Nitrite NEG (NEG) Urine Bilirubin NEG (NEG) Urine Urobilinogen NEG (NEG) Urine Leukocyte Esterase NEG (NEG) Urine RBC 0-4 /hpf (0-4) Urine WBC 0 /hpf (0-5) Urine Epithelial Cells 10-20 /lpf (0-5) Urine Bacteria NEG (NEG) Urine Test NEG (NEG) Medications Administered Medications (Trade) Dose Ordered Sig/Ronald Route Start Time Stop Time Status Last Admin Dose Admin Sodium Chloride 1,000 ml @ 999 mls/hr Q1H1M ONCE IV 11/21/17 14:01 11/21/17 15:01 DC 11/21/17 14:21 999 MLS/HR Morphine Sulfate (MoRPHine SULFATE INJ) 4 mg NOW STAT IV 11/21/17 14:05 11/21/17 14:06 DC 11/21/17 14:20 4 MG Ondansetron HCl (Zofran Inj) 4 mg NOW STAT IV 11/21/17 14:05 11/21/17 14:06 DC 11/21/17 14:21 4 MG Sodium Chloride 1,000 ml @ 999 mls/hr Q1H1M STAT IV 11/21/17 14:28 11/21/17 15:28 DC 11/21/17 15:27 999 MLS/HR Sodium Chloride 500 ml @ 999 mls/hr Q31M STAT IV 11/21/17 14:28 11/21/17 14:58 DC 11/21/17 16:30 999 MLS/HR Piperacillin Sod/ Tazobactam Sod (Zosyn Iv) 4.5 gm NOW STAT IV 11/21/17 14:31 11/21/17 14:33 DC 11/21/17 15:27 4.5 GM Vancomycin HCl 1000 mg/Sodium Chloride 270 ml @ 125 mls/hr NOW STAT IV 11/21/17 14:31 11/21/17 16:40 DC 11/21/17 15:27 125 MLS/HR Medical Decision Patient was seen and evaluated as above in room A3. Review was performed of nursing notes and vital signs. After obtaining a thorough history and physical examination the above work up was performed. She recently had surgery which involved removal of a left uterine fibroid. This was on October 172017. She has had an uneventful postoperative course until this morning when she woke with exquisite left lower quadrant abdominal pain as well as fever. She is also diabetic. She has tried ibuprofen and Tylenol for this. Her presentation is concerning for that of potential sepsis with fever, tachycardia, leukocytosis. I spoke with Dr. Brown (ASSISTIVE TECHNOLOGY SPECIALIST) who performed her surgery regarding the patient case at 2:30 PM. This is pending CT scan. She was given appropriate fluids per sepsis protocol as well as broad-spectrum antibiotics after blood cultures were obtained. She does have a significant leukocytosis around 20,000 with hemoglobin around 8-9. Type and screen was ordered. Vancomycin and Zosyn ordered. Chest x-ray negative. Lactic normal. UA pending. Pt declined UA cath. I informed the patient how important is to obtain a urine. At this time the source of the infection is unknown, but flu swab and urine are pending. I do believe that further evaluation and management in the inpatient setting is warranted secondary to her presentation here today. I did discuss whether or not pelvic exam should be performed with the patient, and at this time she has no pelvic discharge or pelvic complaints. The pain is in the left lower quadrant. The CT scan does not appear to reveal any surgical process at this given time. There is mild to moderate free fluid however there is no evidence of any abscess or perforation. I discussed the case with the attending physician, and subsequently the hospitalist, Dr. Duncan. He is referred for the documentation regarding the patient's stay. In the evaluation and treatment of this patient the following differential diagnoses were entertained: Sepsis, UTI, perforation, intra-abdominal abscess, pneumonia, influenza, among others. Impression Primary Impression: Abdominal pain Additional Impressions: Anemia Fever Departure Information Dispostion Admitted as an inpatient Condition GOOD Referrals Jeanette Bailey DO (PCP) Patient Instructions My [facility] [address] Problem Qualifiers
[2017-11-21 14:38] LABS: ALBUMIN 3.3 gm/dl (3.4-5.0); CALCIUM 8.6 mg/dl (8.5-10.1); CREATININE 0.63 mg/dl (0.60-1.20); TOTAL PROTEIN 8.7 gm/dl (6.4-8.2)
[2017-11-21] MEDS ORDERED: VANCOMYCIN CONSULT ACTIVE PRN ×2 (14:45→17:00)
--- NOTE | 2017-11-21 15:16 | DIAGNOSTIC IMAGING REPORT ---
ABDOMEN AND PELVIS CT WITH IV CONTRAST CT DOSE: 425.83 mGy.cm HISTORY: Acute left lower quadrant abdominal pain with history of recent abdominal surgery LLQ abd pain s/p surgery last month. Febrile. TECHNIQUE: Multiaxial CT images of the abdomen and pelvis were performed following the use of intravenous contrast. A dose lowering technique was utilized adhering to the principles of ALARA. COMPARISON STUDY: CT abdomen and pelvis 11/22/2016 FINDINGS: Lung bases appear clear. There is no pneumatosis or pneumoperitoneum. Imaged inferior cardiac chambers are unremarkable. There appears to be slightly decreased attenuation of the liver which may reflect hepatic steatosis. No focal hepatic mass lesion or intrahepatic biliary ductal dilation. Gallbladder, pancreas and adrenal glands are within normal limits. Low attenuating lesion of the anterior spleen measuring 4 mm is indeterminate and is likely benign. The spleen is otherwise within normal limits. Contrast within the bilateral renal collecting system is noted with otherwise unremarkable appearance of the kidneys. No hydronephrosis. The ureters appear normal in caliber. Contrast opacification of the distal right ureter with minimal contrast layering within the dependent urinary bladder. Moderate bladder wall thickening with perivesicular stranding. Mild to moderate free fluid within the dependent pelvis. Enlarged anteflexed uterus with multiple low attenuating lesions again seen suggesting intramural fibroids measuring up to 4.5 cm in size. Cystic changes about the left ovary redemonstrated measuring up to 2.7 cm. Aorta is unremarkable. No bulky adenopathy. IVC is within normal limits. No bowel obstruction or focal bowel wall thickening identified. Mild to moderate stool volume throughout the colon. No evidence of acute appendicitis. Scarring about the deep subcutaneous tissues of the lower anterior abdominal wall is noted with mildly increased attenuation is seen on image 361 series 3 is noted within a linear distribution measuring up to 0.7 x 9.0 cm. Soft tissues are otherwise unremarkable. The bones appear to be intact. IMPRESSION: 1. Enlarged fibroid uterus redemonstrated. 2. Cystic changes about the left adnexum again noted with mild to moderate amount of free fluid within the pelvis, possibly on a physiologic basis. 3. Scar formation along the lower anterior abdominal wall without evidence of drainable fluid collection. 4. No bowel obstruction or focal bowel wall thickening. Normal appendix. Electronically signed by: Jax Liao M.D. 11/21/2017 3:15 PM Dictated Date/Time: 11/21/2017 3:05 PM
[2017-11-21 15:53] LABS: INFLUENZA B ANTIGEN Neg for Influ B (NEG)
[2017-11-21 16:22] LABS: POTASSIUM 3.7 mmol/L (3.5-5.1)
[2017-11-21] MEDS ORDERED: GLUCAGON FOR INJ 1 MG VIAL SQ PRN (16:45)
[2017-11-21] MEDS ORDERED: DEXTROSE 50% 50 ML SYR IV PRN (16:45)
[2017-11-21] MEDS ORDERED: GLUCOSE 40% GEL 15 GM TUBE PO PRN (16:45)
[2017-11-21] MEDS ORDERED: ONDANSETRON INJ 2 MG/ML 2 ML VIAL IV PRN (16:45)
[2017-11-21] MEDS ORDERED: CARBOHYDRATES FOR HYPOGLYCEMIA PO PRN (16:45)
[2017-11-21] MEDS ORDERED: ALUMINUM/MAGNESIUM/SIMETH (MAALOX MAX) 30 ML UDC PO PRN (16:45)
[2017-11-21] MEDS ORDERED: GLUCOSE 10 TABS/TUBE PO PRN (16:45)
[2017-11-21] MEDS ORDERED: PIPERACILL/TAZOBAC CONSULT ACTIVE PRN (17:00)
[2017-11-21] MEDS ORDERED: ALBUTEROL HFA 8 GM INHALER INH PRN (17:00)
[2017-11-21 18:10] VITALS: BP 124/76; PULSE 100; TEMP 36.8; O2SAT 98; BMI 30.3
[2017-11-21] MEDS ORDERED: SODIUM CHLORIDE 0.9% 1000ML 1,000 ML IV SCH (18:30)
--- NOTE | 2017-11-21 18:46 | History and Physical ---
History & Physical Date & Time of Service: November 21, 2017 at 18:39 Chief Complaint: Abdominal Pain; Fever Primary Care Physician: Jeanette Bailey DO History of Present Illness Source: patient, clinic records, hospital records This is a 27 year old female with a past medical history of insulin dependent, uncontrolled type 2 diabetes, hx of asthma, allergic rhinitis, nasal polyps, recent myomectomy secondary to uterine fibroids on October 17 - presents with abdominal pain; +fevers. States that she had fevers for a few days and abdominal pain worsened over the past few days. She was seen by Dealer Sales Rep on 11/20 as an outpatient; and had some blood work, urine tests done with no findings. Due to fevers, she presented to the ER. Had a myomectomy done on October 17 and had been doing well post-operatively. Has some burning with urination. No nausea/ vomiting/diarrhea. Past Medical/Surgical History Medical Problems: (1) Asthma, moderate persistent (2) DM2 (diabetes mellitus, type 2) (3) Fever (4) Heavy menstrual bleeding (5) Nasal polyp (6) Sepsis (7) Uterine fibroid (8) UTI (urinary tract infection) Surgical Problems: (1) History of nasal surgery (2) S/P myomectomy Family History Asthma Social History Smoking Status: Never Smoker Drug Use: none Marital Status: single Housing status: lives alone Occupational Status: student Immunizations History of Influenza Vaccine: N/A History of Tetanus Vaccine?: Unknown History of Pneumococcal: No History of Hepatitis B Vaccine: Unknown Allergies Coded Allergies: No Known Allergies (Verified , 11/21/17) Home Medications Scheduled Budesonide (Pulmicort Respules 0.5MG/2ML), 2 ML INH BID Docusate Sodium (Docusate Sodium), 100 MG PO BID Ferrous Sulfate (Kp Ferrous Sulfate), 1 TAB PO PRN Insulin Glargine (Basaglar Kwikpen), 64 UNITS INJ HS Insulin Glulisine (Apidra), INJ SLIDING SCALE Metformin Hcl (Glucophage), 500 MG PO QAM Montelukast Sodium (Singulair), 10 MG PO HS Simethicone (Mi-Acid Gas Relief), 80 MG PO Q6H Scheduled PRN Acetaminophen (Mapap), 325 MG PO Q4H PRN for Pain Albuterol Hfa (Ventolin Hfa), 2 PUFFS INH Q6H PRN for PRN Albuterol Sulf (Proventil 0.083% 2.5MG/3ML), 2.5 MG INH DAILY PRN for SOB/ Wheezing Dextromethorphan-Guaifenesin (Mucinex Dm Maximum Streng), 1 TAB PO HS PRN for RN Ferrous Sulfate (Kp Ferrous Sulfate), 325 MG PO DAILY PRN for anemia Oxycodone/Acetaminophen 5MG/325MG (Percocet 5MG/325MG), 1-2 TAB PO Q4H PRN for DONNELLY, Cramping, edema Review of Systems Constitutional: + fever, + chills, + sweats, + weakness, + fatigue, No weight loss Eyes: No worsening of vision ENT: No hearing loss Respiratory: No cough, No sputum, No wheezing, No shortness of breath, No dyspnea on exertion, No dyspnea at rest, No hemoptysis Cardiovascular: No chest pain Abdomen: + pain, No nausea, No vomiting, No diarrhea, No constipation, No GI bleeding Genitourinary - Female: + dysuria, + urinary frequency, No urinary urgency, No urinary incontinence, No urinary retention, No hematuria Neurologic: No weakness, No numbness/tingling, No vertigo, No balance problems Psychiatric: No depression symptoms, No anxiety, No insomnia Endocrine: No fatigue Hematologic / Lymphatic: No abnormal bleeding/bruising Integumentary: No rash Allergic / Immunologic: + environmental allergies, + seasonal allergies, + pet sensitivities, + food allergies, No hives, No frequent infections, No poor healing Physical Exam Vital Signs Date Time Temp Pulse Resp B/P (MAP) Pulse Ox O2 Delivery O2 Flow Rate FiO2 11/21/17 17:30 37.2 90 16 122/88 99 Room Air 11/21/17 17:00 90 18 132/86 97 Room Air 11/21/17 16:30 96 16 119/80 99 Room Air 11/21/17 16:29 90 11/21/17 16:00 92 16 116/77 97 Room Air 11/21/17 15:13 98 Room Air 11/21/17 13:33 39.2 104 16 142/97 98 Room Air General Appearance: no apparent distress Head: normocephalic, atraumatic Eyes: normal inspection ENT: hearing grossly normal Neck: supple Respiratory/Chest: chest non-tender, lungs clear, normal breath sounds, no respiratory distress, no accessory muscle use Cardiovascular: regular rate, rhythm, no edema, no gallop, no JVD, no murmur, normal peripheral pulses Abdomen/GI: normal bowel sounds, soft, no organomegaly, + tenderness Back: normal inspection, no CVA tenderness, no muscle spasm, normal range of motion Extremities/Musculoskelatal: normal inspection, no calf tenderness, normal capillary refill, no pedal edema, normal range of motion Neurologic/Psych: 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 and 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 II-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 nml as tested, no motor/sensory deficits, alert, normal mood/affect, oriented x 3 Skin: normal color, warm/dry, no rash Lymphatic: no adenopathy Diagnostics Laboratory Results Results Past 24 Hours Test 11/21/17 13:55 11/21/17 14:01 11/21/17 14:06 11/21/17 14:10 Range/Units White Blood Count 20.34 4.8-10.8 K/uL Red Blood Count 4.09 4.2-5.4 M/uL Hemoglobin 8.7 12.0-16.0 g/dL Hematocrit 26.9 37-47 % Mean Corpuscular Volume 65.8 80-100 fL Mean Corpuscular Hemoglobin 21.3 25-34 pg Mean Corpuscular Hemoglobin Concent 32.3 32-36 g/dl Platelet Count 503 130-400 K/uL Mean Platelet Volume 9.1 7.4-10.4 fL Neutrophils (%) (Auto) 81.6 % Lymphocytes (%) (Auto) 10.3 % Monocytes (%) (Auto) 6.2 % Eosinophils (%) (Auto) 1.3 % Basophils (%) (Auto) 0.1 % Neutrophils # (Auto) 16.60 1.4-6.5 K/uL Lymphocytes # (Auto) 2.09 1.2-3.4 K/uL Monocytes # (Auto) 1.27 0.11-0.59 K/uL Eosinophils # (Auto) 0.26 0-0.5 K/uL Basophils # (Auto) 0.02 0-0.2 K/uL RDW Standard Deviation 42.0 36.4-46.3 fL RDW Coefficient of Variation 17.3 11.5-14.5 % Immature Granulocyte % (Auto) 0.5 % Immature Granulocyte # (Auto) 0.10 0.00-0.02 K/uL Hypochromasia PRESENT Microcytosis PRESENT Prothrombin Time 10.7 9.0-12.0 SECONDS Prothromb Time International Ratio 1.0 0.9-1.1 Activated Partial Thromboplast Time 24.7 21.0-31.0 SECONDS Partial Thromboplastin Ratio 1.0 Sodium Level 134 136-145 mmol/L Potassium Level 3.5-5.1 mmol/L Chloride Level 103 98-107 mmol/L Carbon Dioxide Level 24 21-32 mmol/L Anion Gap 7.0 16.0 16-25 mmol/L Blood Urea Nitrogen 8 7-18 mg/dl Creatinine 0.63 0.60-1.20 mg/dl Est Creatinine Clear Calc Drug Dose 136.1 ml/min Estimated GFR () 141.5 Estimated GFR (Non- 122.1 BUN/Creatinine Ratio 13.4 10-20 Random Glucose 338 70-99 mg/dl Calcium Level 8.6 8.5-10.1 mg/dl Total Bilirubin 0.3 0.2-1 mg/dl Aspartate Amino Transf (AST/SGOT) 15-37 U/L Alanine Aminotransferase (ALT/SGPT) 15 12-78 U/L Alkaline Phosphatase 105 45-117 U/L Total Protein 8.7 6.4-8.2 gm/dl Albumin 3.3 3.4-5.0 gm/dl Globulin 5.4 2.5-4.0 gm/dl Albumin/Globulin Ratio 0.6 0.9-2 Beta-Hydroxybutyric Acid 0.2-2.81 mg/dL Bedside Lactic Acid Venous 0.98 0.90-1.70 mmol/L Bedside Hemoglobin 9.9 12.0-16.0 g/dl Bedside Hematocrit 29 37-47 % Bedside Sodium 137 135-144 mEq/L Bedside Potassium 4.0 3.3-5.0 mEq/L Bedside Chloride 101 101-112 mEq/L Bedside Total CO2 25 24-31 mEq/l Bedside Blood Urea Nitrogen 8 7-18 mg/dl Bedside Creatinine 0.3 0.6-1.3 mg/dl Bedside Glucose (other) 354 70-99 mg/dl Bedside Ionized Calcium (Gamal) 1.13 1.12-1.32 mmol/l Influenza Type A Antigen Neg for Influ A NEG Influenza Type B Antigen Neg for Influ B NEG Test 11/21/17 15:48 11/21/17 16:30 Range/Units Potassium Level 3.7 3.5-5.1 mmol/L Aspartate Amino Transf (AST/SGOT) 6 15-37 U/L Beta-Hydroxybutyric Acid 4.91 0.2-2.81 mg/dL Urine Color YELLOW Urine Appearance CLEAR CLEAR Urine pH 6.5 4.5-7.5 Urine Specific [place] <= 1.005 1.000-1.030 Urine Protein TRACE NEG Urine Glucose (UA) 2+ NEG Urine Ketones 1+ NEG Urine Occult Blood NEG NEG Urine Nitrite NEG NEG Urine Bilirubin NEG NEG Urine Urobilinogen NEG NEG Urine Leukocyte Esterase NEG NEG Urine RBC 0-4 0-4 /hpf Urine WBC 0 0-5 /hpf Urine Epithelial Cells 10-20 0-5 /lpf Urine Bacteria NEG NEG Urine Test NEG NEG Microbiology Results 11/21/17 Blood Culture, Received Pending 11/21/17 Blood Culture, Received Pending Diagnostic Radiology ABDOMEN AND PELVIS CT WITH IV CONTRAST CT DOSE: 425.83 mGy.cm HISTORY: Acute left lower quadrant abdominal pain with history of recent abdominal surgery LLQ abd pain s/p surgery last month. Febrile. TECHNIQUE: Multiaxial CT images of the abdomen and pelvis were performed following the use of intravenous contrast. A dose lowering technique was utilized adhering to the principles of ALARA. COMPARISON STUDY: CT abdomen and pelvis 11/22/2016 FINDINGS: Lung bases appear clear. There is no pneumatosis or pneumoperitoneum. Imaged inferior cardiac chambers are unremarkable. There appears to be slightly decreased attenuation of the liver which may reflect hepatic steatosis. No focal hepatic mass lesion or intrahepatic biliary ductal dilation. Gallbladder, pancreas and adrenal glands are within normal limits. Low attenuating lesion of the anterior spleen measuring 4 mm is indeterminate and is likely benign. The spleen is otherwise within normal limits. Contrast within the bilateral renal collecting system is noted with otherwise unremarkable appearance of the kidneys. No hydronephrosis. The ureters appear normal in caliber. Contrast opacification of the distal right ureter with minimal contrast layering within the dependent urinary bladder. Moderate bladder wall thickening with perivesicular stranding. Mild to moderate free fluid within the dependent pelvis. Enlarged anteflexed uterus with multiple low attenuating lesions again seen suggesting intramural fibroids measuring up to 4.5 cm in size. Cystic changes about the left ovary redemonstrated measuring up to 2.7 cm. Aorta is unremarkable. No bulky adenopathy. IVC is within normal limits. No bowel obstruction or focal bowel wall thickening identified. Mild to moderate stool volume throughout the colon. No evidence of acute appendicitis. Scarring about the deep subcutaneous tissues of the lower anterior abdominal wall is noted with mildly increased attenuation is seen on image 361 series 3 is noted within a linear distribution measuring up to 0.7 x 9.0 cm. Soft tissues are otherwise unremarkable. The bones appear to be intact. IMPRESSION: 1. Enlarged fibroid uterus redemonstrated. 2. Cystic changes about the left adnexum again noted with mild to moderate amount of free fluid within the pelvis, possibly on a physiologic basis. 3. Scar formation along the lower anterior abdominal wall without evidence of drainable fluid collection. 4. No bowel obstruction or focal bowel wall thickening. Normal appendix CXR normal Impression Assessment and Plan This is a 27 year old female with a past medical history of insulin dependent, uncontrolled type 2 diabetes, hx of asthma, allergic rhinitis, nasal polyps, recent myomectomy secondary to uterine fibroids on October 17 - presents with abdominal pain; +fevers. Sepsis - unsure of underlying cause, possible urinary source - will consult volunteer patient representative due to hx. of myomectomy and urinary pain - will use broad spectrum Vanc + Zosyn for now - cultures are pending - +fevers, +WBC, will check lactic acid Insulin Dependent, Uncontrolled DM2 - will use Lantus and Novolog - check Ha1c - glycemic pharmacy consulted Asthma - use home regimen FULL CODE Resuscitation Status VTE Prophylaxis Will order VTE Prophylaxis: No Reason for no VTE drug order: Treatment not indicated Reason no Mechanical VTE Order: Treatment not indicated
[2017-11-21] MEDS: BUDESONIDE 0.5 MG/2 ML VIAL (PULMICORT) INH SCH (19:43)
[2017-11-21] MEDS ORDERED: PHARMACY GLYCEMIC MGMT CONSULT PRN (19:59)
--- NOTE | 2017-11-21 20:20 | Pharmacy Progress Note ---
Pharmacy Abx Dose Short Note Date of Service November 21, 2017. Assessment & Plan Item Value Date Time Creatinine 0.63 mg/dl 11/21/17 1355 Est Creatinine Clear Calc Drug Dose 136.1 ml/min 11/21/17 1355 White Blood Count 20.34 K/uL H 11/21/17 1355 Tmax=39.2 Assessment 27 year old female receiving broad spectrum antibiotics for empiric coverage for possible sepsis. * Day # 1 of antimicrobial therapy. Pertinent PMH: Type-2 DM and myomectomy 10/17/17. Plan Vancomycin * Estimated p'kinetics: Ke~0.104hr-1, T1/2~6.5hrs, Vd~0.7L/kg * Vanc 1 gram (~12mg/kg) IV in ED @1527 * Maintenance Dose: VANC 1250mg (~15mg/kg) IV every 8 hours * Goal trough level: ~15 * If Vanc is to continue beyond empiric 48 hours, will order trough level Zosyn: 4.5g IV x 1 in ED, 3.375g IV every 8 hours for est GFR>20mL/min. Pharmacy will continue to follow and will adjust dose/frequency as necessary. Thank you.
--- NOTE | 2017-11-21 20:28 | Pharmacy Progress Note ---
Glycemic Control Intl Consult Date of Service November 21, 2017. Scope Glycemic Pharmacist consulted by Dr Degroot on 11/21/17 for glycemic control and to write orders per [facility] inpatient glycemic control protocol Objective Weight (Kilograms): 80.000 Accuchecks BSG (last 24hrs): Test 11/21/17 13:55 Random Glucose 338 mg/dl (70-99) Laboratory Data (last 24hrs) Test 11/21/17 13:55 11/21/17 14:06 11/21/17 15:48 Anion Gap 7.0 mmol/L 16.0 mmol/L BUN/Creatinine Ratio 13.4 Blood Urea Nitrogen 8 mg/dl Creatinine 0.63 mg/dl Potassium Level mmol/L 3.7 mmol/L Sodium Level 134 mmol/L White Blood Count 20.34 K/uL Red Blood Count 4.09 M/uL Hemoglobin 8.7 g/dL Hematocrit 26.9 % Mean Corpuscular Volume 65.8 fL Mean Corpuscular Hemoglobin 21.3 pg Mean Corpuscular Hemoglobin Concent 32.3 g/dl Platelet Count 503 K/uL Mean Platelet Volume 9.1 fL Neutrophils (%) (Auto) 81.6 % Lymphocytes (%) (Auto) 10.3 % Monocytes (%) (Auto) 6.2 % Eosinophils (%) (Auto) 1.3 % Basophils (%) (Auto) 0.1 % Neutrophils # (Auto) 16.60 K/uL Lymphocytes # (Auto) 2.09 K/uL Monocytes # (Auto) 1.27 K/uL Eosinophils # (Auto) 0.26 K/uL Basophils # (Auto) 0.02 K/uL Recent Pertinent Medications Outpatient Anti-diabetic Regimen: * Basaglar 64 units Q HS (however pt states she has not been using due to pain when injecting in abdomen) * Apridra 1 unit per 10 grams carbs, also uses correctional insulin 4-6 units if BSGs in 200's, 10 units if BSGs in 300's Risk Factors for Insulin Resistance: * Infection: sepsis, possible urinary source vs intraabd * Diet: ordered T2DM diet Assessment & Plan ASSESSMENT: * Type 2 diabetic admitted w/ c/o fever, abd pain, recent myomectomy, sepsis from urinary vs intraabd source * Patient states she has not been using her basal insulin due to painful injections in the abdomen following surgery * Glu in the 300's on admission * Will initiate basal/bolus SQ regimen based upon expected high level of insulin resistance. * Will split basal insulin dose BID as pt c/o pain from larger SQ insulin doses in the abd and arms. This will permit more flexibility with dose titration. * Would anticipate the patient to require 80+ units per day per patient's reports of glycemic control when fully compliant with her outpt regimen. PLAN FOR INPATIENT GLYCEMIC CONTROL: * Holding metformin at this time * Continue Lantus 25 units SQ BID - may need to titrate up in the next 24-48 hours * Novolog SQ ACHS and at 00+04 tonight given severe hyperglycemia * Correction factor 20 mg/dl/unit * Carb ratio 1 unit per 8 grams CHO consumed * Goal range Low 120 mg/dL - High 150 mg/dL * Please note that the plan above was derived based on current level of insulin resistance and hospital stress. These recommendations are appropriate for inpatient admission only. Plan of care upon discharge will need to be reassessed to avoid potential outpatient hypo/hyperglycemia. Thank you.
[2017-11-21] MEDS: VANCOMYCIN IV 1,250 MG in SODIUM CHLORIDE 0.9% 250ML 250 ML IV SCH (20:38)
[2017-11-21] MEDS: PIPERACILL/TAZOBAC IV 3.375 GM in DEXTROSE 5% 100ML 100 ML IV SCH (20:39)
[2017-11-21] MEDS: MONTELUKAST SOD 10 MG TAB PO SCH (20:39)
[2017-11-21] MEDS: DOCUSATE SODIUM 100 MG CAP PO SCH (20:39)
[2017-11-21] MEDS: OXYCODONE/ACETAMINOPHEN 5-325 TAB PO PRN (20:46)
[2017-11-21] MEDS: INSULIN GLARGINE SOLOSTAR 100 UNITS/ML 3 ML PEN SC SCH (21:20)
[2017-11-21] MEDS: INSULIN ASPART 100 UNITS/ML 3 ML PEN SC SCH (22:19)
[2017-11-22] VITALS (13 sets, daily range): BP systolic 108–128; BP diastolic 72–86; PULSE 79–102; TEMP 36.9–38.5; O2SAT 96–99
[2017-11-22] MEDS: INSULIN ASPART 100 UNITS/ML 3 ML PEN SC SCH ×5 (00:26→17:39)
[2017-11-22] MEDS: ACETAMINOPHEN 325 MG TAB PO PRN ×2 (00:27→07:45)
[2017-11-22] MEDS: VANCOMYCIN IV 1,250 MG in SODIUM CHLORIDE 0.9% 250ML 250 ML IV SCH ×3 (04:24→20:01)
[2017-11-22] MEDS: OXYCODONE/ACETAMINOPHEN 5-325 TAB PO PRN ×3 (04:24→20:17)
[2017-11-22] MEDS: PIPERACILL/TAZOBAC IV 3.375 GM in DEXTROSE 5% 100ML 100 ML IV SCH ×3 (04:24→20:01)
[2017-11-22] MEDS ORDERED: NURSING VERBAL MED ORDER ONE ×2 (05:15→20:00)
[2017-11-22] MEDS: IBUPROFEN 600 MG TAB PO PRN ×2 (05:21→20:17)
[2017-11-22 06:44] LABS: BASO % 0.1 %; BASO ABS # 0.03 K/uL (0-0.2); EOS ABS # 0.22 K/uL (0-0.5); HEMATOCRIT 23.9 % (37-47); HEMOGLOBIN 7.7 g/dL (12.0-16.0); IG# 0.09 K/uL (0.00-0.02); LYMPH % 14.2 %; LYMPH ABS # 3.03 K/uL (1.2-3.4); MEAN CELL VOLUME 65.1 fL (80-100); MEAN CORPUSCULAR HGB CONC 32.2 g/dl (32-36); MEAN PLATELET VOLUME 8.7 fL (7.4-10.4); MONO % 4.8 %; MONO ABS # 1.03 K/uL (0.11-0.59); NEUT % 79.5 %; NEUT ABS # 16.88 K/uL (1.4-6.5); PLATELET COUNT 441 K/uL (130-400); RED CELL DISTRIBUTION WIDTH CV 17.4 % (11.5-14.5); WHITE BLOOD COUNT 21.28 K/uL (4.8-10.8)
[2017-11-22 07:01] LABS: CALCIUM 8.3 mg/dl (8.5-10.1); CREATININE 0.58 mg/dl (0.60-1.20); POTASSIUM 3.3 mmol/L (3.5-5.1)
[2017-11-22] MEDS: BUDESONIDE 0.5 MG/2 ML VIAL (PULMICORT) INH SCH ×2 (07:19→19:23)
[2017-11-22 08:22] LABS: HEMOGLOBIN A1C 12.4 % (4.5-5.6)
[2017-11-22] MEDS: DOCUSATE SODIUM 100 MG CAP PO SCH ×2 (08:37→20:34)
[2017-11-22] MEDS: INSULIN GLARGINE SOLOSTAR 100 UNITS/ML 3 ML PEN SC SCH (08:41)
--- NOTE | 2017-11-22 14:12 | Pharmacy Progress Note ---
Pharmacy Glycemic Short Note 2 Date of Service November 22, 2017. OUTPATIENT ANTIDIABETIC REGIMEN: * Lantus 64 units HS plus Apidra (CR 1:10 and CF 4-60 if BSG greater than 200 mg /dL) ASSESSMENT: * Ms Melendez is a 27 y/o F with a PMH of myomectomy secondary to uterine fibroids in October, asthma, and uncontrolled type 2 diabetes who presents with fevers and abdominal pain. Patient's blood sugar was 354 mg/dL on admission. She admits to non-compliance. HbA1C is 12.4%. She cannot tolerate larger doses of Lantus (such as the 64 units she was prescribed at home) secondary to pain at injection site. * Patient's blood sugars decreased well over night [phone]. Fasting this morning was 210 mg/dL and lunch 206 mg/dL. This steady decline is appropriate for an individual with elevated HbA1C. Continue with Lantus 25 units twice daily and expect fasting to decrease over the next few days. Continue Novolog parameters as correction factor appears appropriate secondary to decline overnight as well as carbohydrate ratio secondary to decline from breakfast to lunch. Add one overnight check to ensure Lantus should not be increased. PLAN FOR INPATIENT GLYCEMIC CONTROL: * Basal insulin * Lantus 25 units SQ BID * Bolus insulin * NovoLog per scale ACHS or Q6hrs while NPO * Goal Range: Low 120 mg/dL - High 150 mg/dL * Correction Factor: 20 mg/dL/unit * Nutritional / Prandial insulin per carb ratio of 1 unit per 8 grams CHO consumed
[2017-11-22] MEDS ORDERED: MAGNESIUM SULFATE 1GM / D5W 100 ML IV STA (16:45)
[2017-11-22] MEDS ORDERED: POTASSIUM CHLORIDE 20 MEQ TABCR PO STA (16:45)
[2017-11-22] MEDS ORDERED: SODIUM CHLORIDE 0.9% 1000ML 1,000 ML IV SCH (16:45)
--- NOTE | 2017-11-22 16:47 | Progress Note ---
Subjective Date of Service: November 22, 2017. Subjective Pt evaluation today including: conversation w/ patient, physical exam, lab review, review of studies, review of inpatient medication list Saw/examined the patient in room 479 LLQ worsening, abdominal pain persists No diarrhea, no urinary symptoms Fever this morning Problem List Medical Problems: (1) Abdominal pain Status: Acute (2) Anemia Status: Acute (3) Fever Status: Acute (4) Fever Status: Acute (5) Sepsis Status: Acute (6) UTI (urinary tract infection) Status: Acute Review of Systems Constitutional: + fever, + chills, + weakness Respiratory: No cough, No sputum, No shortness of breath Cardiac: No chest pain Abdomen: + pain, No nausea, No vomiting, No diarrhea, No constipation, No GI bleeding Female : No dysuria, No urinary frequency Medications Current Inpatient Medications Medications (Trade) Dose Ordered Sig/Ronald Route Start Time Stop Time Status Last Admin Dose Admin Ioversol (Optiray 320) 100 ml UD PRN IV 11/21/17 14:15 11/25/17 14:14 Acetaminophen (Tylenol Tab) 650 mg Q4H PRN PO 11/21/17 16:45 12/21/17 16:44 11/22/17 07:45 650 MG Al Hydrox/Mg Hydrox/Simethicone (Maalox Max Susp) 15 ml Q4H PRN PO 11/21/17 16:45 12/21/17 16:44 Magnesium Hydroxide (Milk Of Magnesia Susp) 30 ml Q6H PRN PO 11/21/17 16:45 12/21/17 16:44 Ondansetron HCl (Zofran Inj) 4 mg Q6H PRN IV 11/21/17 16:45 12/21/17 16:44 Insulin Glargine (Lantus Solostar Pen) 25 units Q12 SC 11/21/17 21:00 12/21/17 20:59 11/22/17 08:41 25 UNITS Insulin Aspart (novoLOG ASPART) SLIDING SCALE If C... ACHS SC 11/21/17 22:00 12/21/17 21:59 11/22/17 12:20 10 UNITS Glucose (Glucose 40% Gel) 15-30 GRAMS 15 GRAMS... UD PRN PO 11/21/17 16:45 12/21/17 16:44 Glucose (Glucose Chew Tab) 4-8 Tablets 4 Tabl... UD PRN PO 11/21/17 16:45 12/21/17 16:44 Dextrose (Dextrose 50% 50ML Syringe) 25-50ML 25ML FOR ... UD PRN IV 11/21/17 16:45 12/21/17 16:44 Glucagon (Glucagon Inj) 1 mg UD PRN SQ 11/21/17 16:45 12/21/17 16:44 Carbohydrates (Carbohydrates For Hypoglycemia) 15-30 GRAMS 15 grams if BSG 54-69... UD PRN PO 11/21/17 16:45 12/21/17 16:44 Miscellaneous Information (Consult Glycemic Management Pharmacy) 1 ea UD PRN N/A 11/21/17 19:59 12/21/17 19:58 Morphine Sulfate (MoRPHine SULFATE INJ) 1 mg Q4 PRN IV 11/21/17 16:45 12/05/17 16:44 Piperacillin Sod/ Tazobactam Sod 3.375 gm/Dextrose 115 ml @ 28.75 mls/ hr Q8H IV 11/21/17 20:00 11/23/17 19:59 11/22/17 12:06 28.75 MLS/HR Miscellaneous Information (Consult) 1 ea UD PRN N/A 11/21/17 17:00 12/21/17 16:59 Vancomycin HCl 1250 mg/Sodium Chloride 275 ml @ 125 mls/hr Q8H IV 11/21/17 20:00 11/23/17 19:59 11/22/17 12:06 125 MLS/HR Miscellaneous Information (Consult) 1 ea UD PRN N/A 11/21/17 17:00 12/21/17 16:59 Albuterol (Ventolin Hfa Inhaler) 2 puffs Q6H PRN INH 11/21/17 17:00 12/21/17 16:59 Budesonide (Pulmicort Respules 0.5MG/ 2ML Neb Soln) 0.5 mg BIDR INH 11/21/17 20:00 12/21/17 19:59 Docusate Sodium (coLACE CAP) 100 mg BID PO 11/21/17 21:00 12/21/17 20:59 11/22/17 08:37 100 MG Montelukast Sodium (Singulair Tab) 10 mg HS PO 11/21/17 21:00 12/21/17 20:59 11/21/17 20:39 10 MG Oxycodone/ Acetaminophen (Percocet 5-325mg Tab) 1 tab Q4H PRN PO 11/21/17 17:00 12/05/17 16:59 11/22/17 16:11 1 TAB Ibuprofen (Motrin Tab) 600 mg Q6H PRN PO 11/22/17 05:30 12/22/17 05:29 11/22/17 05:21 600 MG Insulin Aspart (novoLOG ASPART) SLIDING SCALE If C... TODAY@0200 ME 11/23/17 02:00 11/23/17 02:01 Objective Vital Signs Date Time Temp Pulse Resp B/P (MAP) Pulse Ox O2 Delivery O2 Flow Rate FiO2 11/22/17 15:30 Room Air 11/22/17 15:30 36.9 81 20 108/73 (85) Room Air 11/22/17 12:10 98 Room Air 11/22/17 12:10 37.3 79 18 120/81 (94) 98 Room Air 11/22/17 08:35 37.1 11/22/17 07:45 98 Room Air 11/22/17 07:45 38.0 98 16 116/73 (87) 98 Room Air 11/22/17 06:15 37.7 11/22/17 04:35 38.2 82 18 112/72 (85) 98 Room Air 11/22/17 01:37 37.7 11/22/17 00:05 Room Air 11/22/17 00:05 38.5 102 16 128/79 (95) 97 Room Air 11/21/17 18:10 36.8 100 17 124/76 (92) 98 Room Air 11/21/17 18:10 36.8 100 17 124/76 98 Room Air 11/21/17 18:10 36.8 100 17 124/76 (92) 98 Room Air 11/21/17 18:10 98 Room Air 11/21/17 17:30 37.2 90 16 122/88 99 Room Air 11/21/17 17:00 90 18 132/86 97 Room Air Physical Exam General Appearance: no apparent distress Respiratory/Chest: chest non-tender, lungs clear, normal breath sounds, no respiratory distress, no accessory muscle use Cardiovascular: regular rate, rhythm, no edema, no murmur Extremities: normal inspection, no pedal edema Neurologic/Psychiatric: no motor/sensory deficits, alert, normal mood/affect Laboratory Results Last 24 Hours Test 11/21/17 20:02 11/22/17 04:20 11/22/17 06:29 11/22/17 06:34 Bedside Glucose 253 mg/dl 143 mg/dl White Blood Count 21.28 K/uL Red Blood Count 3.67 M/uL Hemoglobin 7.7 g/dL Hematocrit 23.9 % Mean Corpuscular Volume 65.1 fL Mean Corpuscular Hemoglobin 21.0 pg Mean Corpuscular Hemoglobin Concent 32.2 g/dl Platelet Count 441 K/uL Mean Platelet Volume 8.7 fL Neutrophils (%) (Auto) 79.5 % Lymphocytes (%) (Auto) 14.2 % Monocytes (%) (Auto) 4.8 % Eosinophils (%) (Auto) 1.0 % Basophils (%) (Auto) 0.1 % Neutrophils # (Auto) 16.88 K/uL Lymphocytes # (Auto) 3.03 K/uL Monocytes # (Auto) 1.03 K/uL Eosinophils # (Auto) 0.22 K/uL Basophils # (Auto) 0.03 K/uL RDW Standard Deviation 42.0 fL RDW Coefficient of Variation 17.4 % Immature Granulocyte % (Auto) 0.4 % Immature Granulocyte # (Auto) 0.09 K/uL Hypochromasia PRESENT Microcytosis PRESENT Sodium Level 136 mmol/L Potassium Level 3.3 mmol/L Chloride Level 103 mmol/L Carbon Dioxide Level 23 mmol/L Anion Gap 10.0 mmol/L Blood Urea Nitrogen 4 mg/dl Creatinine 0.58 mg/dl Est Creatinine Clear Calc Drug Dose 147.8 ml/min Estimated GFR () 145.4 Estimated GFR (Non- 125.4 BUN/Creatinine Ratio 7.5 Random Glucose 183 mg/dl Estimated Average Glucose 309 mg/dl Hemoglobin A1c 12.4 % Lactic Acid Level 1.3 mmol/L Calcium Level 8.3 mg/dl Magnesium Level 1.6 mg/dl Triglycerides Level 63 mg/dl Cholesterol Level 97 mg/dl HDL Cholesterol 44 mg/dl LDL Cholesterol, Calculated 40 mg/dl VLDL Cholesterol, Calculated 13 mg/dl Cholesterol/HDL Ratio 2.2 Lipase 92 U/L Thyroid Stimulating Hormone (TSH) 1.040 uIu/ml Assessment and Plan This is a 27 year old female with a past medical history of insulin dependent, uncontrolled type 2 diabetes, hx of asthma, allergic rhinitis, nasal polyps, recent myomectomy secondary to uterine fibroids on October 17 - presents with abdominal pain; +fevers. Sepsis 11/22 - broad spectrum abx. - fevers persist - giving NS - ID consulted 11/21 - unsure of underlying cause, possible urinary source - will consult emergency room technician due to hx. of myomectomy and urinary pain - will use broad spectrum Vanc + Zosyn for now - cultures are pending - +fevers, +WBC, will check lactic acid Insulin Dependent, Uncontrolled DM2 - will use Lantus and Novolog - Ha1c = 12.5% - significantly uncontrolled - glycemic pharmacy consulted Asthma - use home regimen FULL CODE
[2017-11-22] MEDS ORDERED: INSULIN ASPART 100 UNITS/ML 3 ML PEN SC ONE (20:30)
[2017-11-22] MEDS: MONTELUKAST SOD 10 MG TAB PO SCH (20:34)
[2017-11-22] MEDS ORDERED: INSULIN GLARGINE SOLOSTAR 100 UNITS/ML 3 ML PEN SC ONE (21:30)
[2017-11-23] MEDS ORDERED: INSULIN ASPART 100 UNITS/ML 3 ML PEN SC SCH (02:00)
[2017-11-23] MEDS ORDERED: VANCOMYCIN TROUGH ONE (03:30)
[2017-11-23 04:16] LABS: CREATININE 0.48 mg/dl (0.60-1.20)
[2017-11-23] MEDS: VANCOMYCIN IV 1,250 MG in SODIUM CHLORIDE 0.9% 250ML 250 ML IV SCH (04:18)
[2017-11-23] MEDS: PIPERACILL/TAZOBAC IV 3.375 GM in DEXTROSE 5% 100ML 100 ML IV SCH ×3 (04:18→18:01)
[2017-11-23] MEDS: MoRPHine SULFATE 4 MG/ML 1 ML CARP\\VIAL IV PRN (04:19)
--- NOTE | 2017-11-23 07:06 | Progress Note ---
Progress Note Date of Service November 23, 2017. Progress Note ID Consult Dictated #[id number] A/P: 1. Post op fever -Continue abx ,follow cultures -Will follow, thank you
[2017-11-23] MEDS: BUDESONIDE 0.5 MG/2 ML VIAL (PULMICORT) INH SCH ×2 (07:16→19:47)
[2017-11-23 07:25] VITALS: BP 118/84; PULSE 99; TEMP 38.1; O2SAT 97
--- NOTE | 2017-11-23 07:59 | INFECT. DISEASE CONSULTATION ---
DATE OF CONSULTATION: 11/23/2017 Consultation is as follows: HISTORY OF PRESENT ILLNESS: This is a 27-year-old female who recently had a fibroid surgery on 10/17/2017. She was doing well postoperatively. She did have a postop visit last and she states that she had a normal visit. At that time, she was not having pain. On Friday, she woke up with right-sided abdominal pain which then radiated to the left side of her abdomen throughout the day and was not getting better with ibuprofen and Tylenol. She did call her physician's office and was told to go to the Emergency Room. In the ER, she did have a fever. She had a CAT scan of the abdomen and pelvis which did show fibroids and some fluid, but does not appear to be a collection. She did have postoperative changes. Her chest x-ray was negative. She was febrile with a T-max of 38.5 on the . She has been afebrile overnight, however, she does feel fevers. UA and flu swab were negative. She was started on vancomycin and Zosyn empirically. Blood cultures were checked in the ER and are pending. She also has a leukocytosis of 21,000. She denies any diarrhea and in fact states she is constipated secondary to Percocet. Her appetite is poor. She denies any fevers this morning, but feels warm. She denies any chest pain, cough, shortness of breath, or wheezing. She does have a history of asthma. MEDICAL HISTORY: Significant for asthma, type 2 diabetes which is uncontrolled, nasal polyps, uterine fibroids. SURGICAL HISTORY: Significant for myomectomy on 10/17/2017 and a nasal surgery in the past. FAMILY HISTORY: Noncontributory. SOCIAL HISTORY: Negative for tobacco use, alcohol use, or drug use. 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 ALLERGIES: She denies any allergies. MEDICATIONS: Ibuprofen, insulin, Colace, Singulair, Zosyn, vancomycin, Pulmicort, albuterol, oxycodone, Tylenol, Maalox, Milk of Magnesia , Zofran, and morphine. PHYSICAL EXAMINATION: VITAL SIGNS: She is currently afebrile. Her last documented fever was at 7:45 yesterday morning when it was 38 degrees, pulse 85, respiratory rate 16, blood pressure 110/75, oxygen saturation is 97-99% on room air. GENERAL: She is awake, alert, and oriented x3. She is in no acute distress. HEENT: Mucous membranes are moist. Extraocular muscles are intact. HEART: Regular. LUNGS: Clear. ABDOMEN: Tender to light palpation. There is minimal distention. There is no edema. SKIN: Without rash. LABORATORY STUDIES: CBC on the 12th, white blood cell count 21.2, hemoglobin 7.7, platelets 441. Chemistry panel on the 12th, sodium 136, potassium 3.3, chloride 103, bicarbonate 23, BUN 4, creatinine 0.5, glucose 210. LFTs were normal on admission. Beta hydroxybutyrate was elevated at 4.9. UA was negative. A vancomycin level on the was 6. Flu swab was negative. Blood cultures are pending. IMAGING: As above. ASSESSMENT AND PLAN: Postoperative fever. Certainly, she will remain on empiric antibiotics pending blood culture results. Other considerations would be lower extremity ultrasound for DVT, however, does not appear that the patient has been particularly sedentary at home. I do not see any risk factor for atelectasis or pulmonary infection. I would consider repeating a CAT scan of the abdomen and pelvis if leukocytosis and fever persist. We will follow along with you. Thank you for this consultation.
[2017-11-23] MEDS: INSULIN ASPART 100 UNITS/ML 3 ML PEN SC SCH ×4 (08:00→21:00)
--- NOTE | 2017-11-23 09:16 | Pharmacy Progress Note ---
Pharmacy Glycemic Short Note 2 Date of Service November 23, 2017. OUTPATIENT ANTIDIABETIC REGIMEN: * Lantus 64 units HS plus Apidra (CR 1:10 and CF 4-60 if BSG greater than 200 mg /dL) ASSESSMENT: * Ms Melendez is a 27 y/o F with a PMH of myomectomy secondary to uterine fibroids in October, asthma, and uncontrolled type 2 diabetes who presents with fevers and abdominal pain. Patient's blood sugar was 354 mg/dL on admission. She admits to non-compliance. HbA1C is 12.4%. She cannot tolerate larger doses of Lantus (such as the 64 units she was prescribed at home) secondary to pain at injection site. * Patient's blood sugars yesterday were [phone]. Fasting this morning was 198 mg/dL. Yesterday at dinner it was not clear if nurse actually administered insulin correctly. The patient's blood sugar increased ~2000 to 280s and 6 of Novolog was ordered. Recheck at 2200 was 217 mg/dL. The pharmacist last night spoke with the patient who stated that she wanted 32 units of Lantus. * Patient received 82 units of insulin yesterday (57 units of basal insulin). This morning patient refused dose of Lantus and Novolog because she was not going to eat. Patient was very adamant about this - waited until lunchtime to give Lantus (blood sugar already up to 298 mg/dL). Patient was amenable to taking both Lantus and Novolog. Expect blood sugars to be higher this evening secondary to late administrations of both Lantus and Novolog. Also tightened Novolog to provide more carbohydrate coverage. PLAN FOR INPATIENT GLYCEMIC CONTROL: * Basal insulin * Lantus 30 units SQ BID * Bolus insulin * NovoLog per scale ACHS or Q6hrs while NPO * Goal Range: Low 120 mg/dL - High 150 mg/dL * Correction Factor: 20 mg/dL/unit * Nutritional / Prandial insulin per carb ratio of 1 unit per 7 grams CHO consumed -tighten
--- NOTE | 2017-11-23 09:31 | Pharmacy Progress Note ---
Pharmacy Abx Dose Short Note Date of Service November 23, 2017. Assessment & Plan Assessment * 27 year old female receiving VANCOMYCIN 1250mg IV Q 8 hours and ZOSYN 3.375gm ext infusion Q 8 hrs for treatment of possible intra-abd infxn * Day # 3 of antimicrobial therapy * UA negative, no growth in blcx's to date * Tmax 38.1 this AM, no CBC today however WBC was 21.3 yesterday * VS: HR 80-90s, no hypotension noted, sat well on room air * Renal fxn stable - good U.O. Plan Vancomycin * Trough level of 6 mcg/mL is subtherapeutic. This level was drawn prior to the 4th maint dose. Prior doses hung on schedule and level drawn at the appropriate time. * Patient is clearing vancomycin at a rate much higher than population kinetics would estimate. In order to achieve a trough > 10 she will require a Q 6 hr dosing interval and a dose of 1750mg Q 6 hours (7000mg per day). Will initiate this regimen now, however I have concerns with using such a regimen. Perhaps an alternative MRSA agent would be more appropriate for her, i.e. daptomycin? Will discuss with ID if they are available this weekend. If not, will discuss with hospitalist. * Goal trough level for intraabd infxn : 10 to 20 mcg/mL * Will check trough level w/ 4th maint dose if this therapy is to continue Zosyn * eCrCl > 120cc/min; BMI 30, continue 3.375gm ext-infusion Q 8 hours Pharmacy will continue to follow and will adjust dose/frequency as necessary. Thank you.
[2017-11-23] MEDS: IBUPROFEN 600 MG TAB PO PRN ×2 (09:38→20:32)
[2017-11-23] MEDS: MAGNESIUM HYDROXIDE SUSP 30 ML UDC PO PRN ×2 (09:39→20:28)
[2017-11-23] MEDS: OXYCODONE/ACETAMINOPHEN 5-325 TAB PO PRN ×2 (09:39→20:32)
[2017-11-23] MEDS ORDERED: VANCOMYCIN IV 1,750 MG in SODIUM CHLORIDE 0.9% 500ML 500 ML IV SCH (10:00)
[2017-11-23 11:03] VITALS: BP 120/74; PULSE 94; TEMP 36.9; O2SAT 94
[2017-11-23] MEDS: DOCUSATE SODIUM 100 MG CAP PO SCH ×2 (11:03→20:32)
[2017-11-23] MEDS ORDERED: DAPTOMYCIN CONSULT ACTIVE PRN (12:15)
[2017-11-23 12:28] LABS: HEMOGLOBIN 7.1 g/dL (12.0-16.0); MEAN CELL VOLUME 65.7 fL (80-100); MEAN CORPUSCULAR HEMOGLOBIN 20.3 pg (25-34); MEAN CORPUSCULAR HGB CONC 30.9 g/dl (32-36); MEAN PLATELET VOLUME 8.4 fL (7.4-10.4); PLATELET COUNT 417 K/uL (130-400); RED CELL DISTRIBUTION WIDTH CV 17.5 % (11.5-14.5); RED CELL DISTRIBUTION WIDTH SD 42.4 fL (36.4-46.3); WHITE BLOOD COUNT 13.76 K/uL (4.8-10.8)
[2017-11-23 12:47] LABS: ALBUMIN 2.7 gm/dl (3.4-5.0); CALCIUM 8.4 mg/dl (8.5-10.1); CREATININE 0.57 mg/dl (0.60-1.20); POTASSIUM 3.7 mmol/L (3.5-5.1)
[2017-11-23 12:50] LABS: TOTAL PROTEIN 7.3 gm/dl (6.4-8.2)
[2017-11-23] MEDS: INSULIN GLARGINE SOLOSTAR 100 UNITS/ML 3 ML PEN SC SCH ×2 (13:09→20:46)
[2017-11-23] MEDS ORDERED: BISACODYL 5 MG TABEC PO ONE (13:15)
--- NOTE | 2017-11-23 14:51 | Progress Note ---
Subjective Date of Service: November 23, 2017. Subjective Pt evaluation today including: conversation w/ patient, physical exam, lab review, review of studies, review of inpatient medication list Saw/examined the patient in room 383 She has a depressed mood due to her spiking fevers Denies abdominal pain/shortness of breath No cough, no urinary symptoms Problem List Medical Problems: (1) Abdominal pain Status: Acute (2) Anemia Status: Acute (3) Fever Status: Acute (4) Fever Status: Acute (5) Sepsis Status: Acute (6) UTI (urinary tract infection) Status: Acute Review of Systems Constitutional: + fever, + weakness, No chills Respiratory: No cough, No sputum, No wheezing, No shortness of breath, No dyspnea on exertion, No dyspnea at rest, No hemoptysis Cardiac: No chest pain, No edema, No palpitations Abdomen: + pain, No nausea, No vomiting, No diarrhea Medications Current Inpatient Medications Medications (Trade) Dose Ordered Sig/Ronald Route Start Time Stop Time Status Last Admin Dose Admin Ioversol (Optiray 320) 100 ml UD PRN IV 11/21/17 14:15 11/25/17 14:14 Acetaminophen (Tylenol Tab) 650 mg Q4H PRN PO 11/21/17 16:45 12/21/17 16:44 11/22/17 07:45 650 MG Al Hydrox/Mg Hydrox/Simethicone (Maalox Max Susp) 15 ml Q4H PRN PO 11/21/17 16:45 12/21/17 16:44 Magnesium Hydroxide (Milk Of Magnesia Susp) 30 ml Q6H PRN PO 11/21/17 16:45 12/21/17 16:44 11/23/17 09:39 30 ML Ondansetron HCl (Zofran Inj) 4 mg Q6H PRN IV 11/21/17 16:45 12/21/17 16:44 11/23/17 04:19 4 MG Insulin Aspart (novoLOG ASPART) SLIDING SCALE If C... ACHS SC 11/21/17 22:00 12/21/17 21:59 11/23/17 13:09 11 UNITS Glucose (Glucose 40% Gel) 15-30 GRAMS 15 GRAMS... UD PRN PO 11/21/17 16:45 12/21/17 16:44 Glucose (Glucose Chew Tab) 4-8 Tablets 4 Tabl... UD PRN PO 11/21/17 16:45 12/21/17 16:44 Dextrose (Dextrose 50% 50ML Syringe) 25-50ML 25ML FOR ... UD PRN IV 11/21/17 16:45 12/21/17 16:44 Glucagon (Glucagon Inj) 1 mg UD PRN SQ 11/21/17 16:45 12/21/17 16:44 Carbohydrates (Carbohydrates For Hypoglycemia) 15-30 GRAMS 15 grams if BSG 54-69... UD PRN PO 11/21/17 16:45 12/21/17 16:44 Miscellaneous Information (Consult Glycemic Management Pharmacy) 1 ea UD PRN N/A 11/21/17 19:59 12/21/17 19:58 Morphine Sulfate (MoRPHine SULFATE INJ) 1 mg Q4 PRN IV 11/21/17 16:45 12/05/17 16:44 11/23/17 04:19 1 MG Piperacillin Sod/ Tazobactam Sod 3.375 gm/Dextrose 115 ml @ 28.75 mls/ hr Q8H IV 11/21/17 20:00 11/23/17 19:59 11/23/17 12:56 28.75 MLS/HR Miscellaneous Information (Consult) 1 ea UD PRN N/A 11/21/17 17:00 12/21/17 16:59 Albuterol (Ventolin Hfa Inhaler) 2 puffs Q6H PRN INH 11/21/17 17:00 12/21/17 16:59 Budesonide (Pulmicort Respules 0.5MG/ 2ML Neb Soln) 0.5 mg BIDR INH 11/21/17 20:00 12/21/17 19:59 Docusate Sodium (coLACE CAP) 100 mg BID PO 11/21/17 21:00 12/21/17 20:59 11/23/17 11:03 100 MG Montelukast Sodium (Singulair Tab) 10 mg HS PO 11/21/17 21:00 12/21/17 20:59 11/22/17 20:34 10 MG Oxycodone/ Acetaminophen (Percocet 5-325mg Tab) 1 tab Q4H PRN PO 11/21/17 17:00 12/05/17 16:59 11/23/17 09:39 1 TAB Ibuprofen (Motrin Tab) 600 mg Q6H PRN PO 11/22/17 05:30 12/22/17 05:29 11/23/17 09:38 600 MG Insulin Glargine (Lantus Solostar Pen) 30 units Q12 SC 11/23/17 09:00 12/23/17 08:59 11/23/17 13:09 30 UNITS Daptomycin 225 mg/ Syringe 4.5 ml @ 2.25 mls/ min Q24H IV 11/23/17 16:00 12/03/17 15:59 Daptomycin (Consult) 1 ea UD PRN N/A 11/23/17 12:15 12/23/17 12:14 Senna (Senokot Tab) 8.6 mg QAM PO 11/24/17 09:00 12/24/17 08:59 Objective Vital Signs Date Time Temp Pulse Resp B/P (MAP) Pulse Ox O2 Delivery O2 Flow Rate FiO2 11/23/17 11:03 36.9 94 18 120/74 (89) 94 Room Air 11/23/17 07:25 Room Air 11/23/17 07:25 38.1 99 16 118/84 (95) 97 Room Air 11/22/17 23:50 97 Room Air 11/22/17 23:05 37.1 85 16 110/75 (87) 97 Room Air 11/22/17 22:05 37.0 88 16 121/77 (92) 96 Room Air 11/22/17 21:13 37.1 89 18 99 11/22/17 20:10 37.1 89 18 128/86 (100) 99 Room Air 11/22/17 15:30 Room Air 11/22/17 15:30 36.9 81 20 108/73 (85) Room Air Physical Exam General Appearance: no apparent distress Respiratory/Chest: lungs clear, normal breath sounds, no respiratory distress, no accessory muscle use Cardiovascular: regular rate, rhythm, no edema, no murmur Abdomen: + tenderness Extremities: normal inspection, no pedal edema Neurologic/Psychiatric: no motor/sensory deficits, alert, normal mood/affect Laboratory Results Last 24 Hours Test 11/22/17 17:04 11/22/17 22:00 11/23/17 02:03 11/23/17 03:31 Bedside Glucose 263 mg/dl 217 mg/dl 163 mg/dl Creatinine 0.48 mg/dl Est Creatinine Clear Calc Drug Dose 178.6 ml/min Estimated GFR () > 150.0 Estimated GFR (Non- 133.5 Procalcitonin 0.12 ng/ml Vancomycin Level Trough 6.0 mcg/ml Test 11/23/17 08:18 11/23/17 12:13 11/23/17 12:15 Bedside Glucose 198 mg/dl 281 mg/dl White Blood Count 13.76 K/uL Red Blood Count 3.50 M/uL Hemoglobin 7.1 g/dL Hematocrit 23.0 % Mean Corpuscular Volume 65.7 fL Mean Corpuscular Hemoglobin 20.3 pg Mean Corpuscular Hemoglobin Concent 30.9 g/dl RDW Standard Deviation 42.4 fL RDW Coefficient of Variation 17.5 % Platelet Count 417 K/uL Mean Platelet Volume 8.4 fL Sodium Level 137 mmol/L Potassium Level 3.7 mmol/L Chloride Level 105 mmol/L Carbon Dioxide Level 25 mmol/L Anion Gap 7.0 mmol/L Blood Urea Nitrogen 4 mg/dl Creatinine 0.57 mg/dl Est Creatinine Clear Calc Drug Dose 150.4 ml/min Estimated GFR () 146.2 Estimated GFR (Non- 126.2 BUN/Creatinine Ratio 6.1 Random Glucose 250 mg/dl Calcium Level 8.4 mg/dl Total Bilirubin 0.2 mg/dl Aspartate Amino Transf (AST/SGOT) 8 U/L Alanine Aminotransferase (ALT/SGPT) 12 U/L Alkaline Phosphatase 96 U/L Total Protein 7.3 gm/dl Albumin 2.7 gm/dl Globulin 4.6 gm/dl Albumin/Globulin Ratio 0.6 Assessment and Plan This is a 27 year old female with a past medical history of insulin dependent, uncontrolled type 2 diabetes, hx of asthma, allergic rhinitis, nasal polyps, recent myomectomy secondary to uterine fibroids on October 17 - presents with abdominal pain; +fevers. Sepsis 11/23 - meets sepsis criteria - on dapto and Zosyn - lower the fluid rate, check Lyme, monospot - peripheral smear ordered 11/22 - broad spectrum abx. - fevers persist - giving NS - ID consulted 11/21 - unsure of underlying cause, possible urinary source - will consult rubber thread spooler due to hx. of myomectomy and urinary pain - will use broad spectrum Vanc + Zosyn for now - cultures are pending - +fevers, +WBC, will check lactic acid Microcytic Anemia - peripheral smear pending Insulin Dependent, Uncontrolled DM2 - will use Lantus and Novolog - Ha1c = 12.5% - significantly uncontrolled - glycemic pharmacy consulted Asthma - use home regimen FULL CODE
[2017-11-23 17:09] VITALS: BP 103/69; PULSE 83; TEMP 36.7; O2SAT 95
[2017-11-23] MEDS: SODIUM CHLORIDE 0.9% 1000ML 1,000 ML IV SCH (17:25)
[2017-11-23 17:30] VITALS: O2SAT 95
[2017-11-23] MEDS: DAPTOmycin IV 225 MG in SYRINGE 0 ML IV SCH (17:55)
--- NOTE | 2017-11-23 18:57 | DIAGNOSTIC IMAGING REPORT ---
BILATERAL LOWER EXTREMITY VENOUS DOPPLER HISTORY: Leg swelling. COMPARISON STUDY: None. FINDINGS: There is normal compressibility, flow, and augmentation within the bilateral lower extremity deep venous systems. IMPRESSION: No DVT within the right or left lower extremity. Electronically signed by: Zana Frias M.D. 11/23/2017 6:56 PM Dictated Date/Time: 11/23/2017 6:56 PM
[2017-11-23] MEDS: MONTELUKAST SOD 10 MG TAB PO SCH (20:32)
[2017-11-23 23:05] VITALS: BP 115/71; PULSE 86; TEMP 36.7; O2SAT 97
[2017-11-24] MEDS: SODIUM CHLORIDE 0.9% 1000ML 1,000 ML IV SCH (04:06)
[2017-11-24 06:36] LABS: BASO % 0.1 %; BASO ABS # 0.01 K/uL (0-0.2); EOS % 3.7 %; EOS ABS # 0.54 K/uL (0-0.5); HEMATOCRIT 25.2 % (37-47); HEMOGLOBIN 7.9 g/dL (12.0-16.0); IG# 0.08 K/uL (0.00-0.02); LYMPH ABS # 4.92 K/uL (1.2-3.4); MEAN CELL VOLUME 66.1 fL (80-100); MEAN CORPUSCULAR HEMOGLOBIN 20.7 pg (25-34); MEAN CORPUSCULAR HGB CONC 31.3 g/dl (32-36); MEAN PLATELET VOLUME 8.3 fL (7.4-10.4); MONO % 5.9 %; MONO ABS # 0.86 K/uL (0.11-0.59); NEUT % 55.7 %; NEUT ABS # 8.07 K/uL (1.4-6.5); PLATELET COUNT 491 K/uL (130-400); RED CELL DISTRIBUTION WIDTH CV 17.7 % (11.5-14.5); RED CELL DISTRIBUTION WIDTH SD 43.3 fL (36.4-46.3); WHITE BLOOD COUNT 14.48 K/uL (4.8-10.8)
[2017-11-24 07:03] LABS: CALCIUM 8.7 mg/dl (8.5-10.1); CREATININE 0.59 mg/dl (0.60-1.20); POTASSIUM 2.8 mmol/L (3.5-5.1)
[2017-11-24] MEDS: BUDESONIDE 0.5 MG/2 ML VIAL (PULMICORT) INH SCH ×2 (07:08→18:47)
[2017-11-24 07:25] VITALS: BP 113/75; PULSE 96; TEMP 37.5; O2SAT 96
[2017-11-24] MEDS: OXYCODONE/ACETAMINOPHEN 5-325 TAB PO PRN ×2 (07:46→15:21)
[2017-11-24] MEDS ORDERED: POTASSIUM CHLORIDE 20 MEQ TABCR PO STA (08:09)
[2017-11-24] MEDS: INSULIN ASPART 100 UNITS/ML 3 ML PEN SC SCH ×5 (09:10→21:00)
[2017-11-24] MEDS: INSULIN GLARGINE SOLOSTAR 100 UNITS/ML 3 ML PEN SC SCH ×2 (09:11→20:53)
[2017-11-24] MEDS: NSS + 20MEQ KCL 1000ML 1,000 ML IV SCH ×2 (09:11→20:50)
[2017-11-24] MEDS: DOCUSATE SODIUM 100 MG CAP PO SCH ×2 (09:14→20:50)
[2017-11-24] MEDS: SENNA 8.6 MG TAB PO SCH (09:15)
[2017-11-24] MEDS: POTASSIUM CHLR 10 MEQ / WTR 100 ML IV SCH ×4 (09:19→12:20)
--- NOTE | 2017-11-24 10:31 | Progress Note ---
Subjective Date of Service: November 24, 2017. Subjective blood cultures negative, afebrile overnight, tolerating abx. wbc improving. changed to dapto yesterday. Problem List Medical Problems: (1) Abdominal pain Status: Acute (2) Anemia Status: Acute (3) Fever Status: Acute (4) Fever Status: Acute (5) Sepsis Status: Acute (6) UTI (urinary tract infection) Status: Acute Objective Vital Signs Date Time Temp Pulse Resp B/P (MAP) Pulse Ox O2 Delivery O2 Flow Rate FiO2 11/24/17 07:30 Room Air 11/24/17 07:25 37.5 96 18 113/75 (88) 96 Room Air 11/23/17 23:30 Room Air 11/23/17 23:05 36.7 86 16 115/71 (86) 97 Room Air 11/23/17 17:30 95 Room Air 11/23/17 17:09 36.7 83 16 103/69 (80) 95 Room Air 11/23/17 11:03 36.9 94 18 120/74 (89) 94 Room Air Laboratory Results Item Value Date Time Blood Culture - Preliminary Resulted 11/21/17 1355 Blood NO GROWTH TO DATE. Blood Culture - Preliminary Resulted 11/21/17 1417 Blood NO GROWTH TO DATE. Last 24 Hours Test 11/23/17 12:13 11/23/17 12:15 11/23/17 15:42 11/23/17 17:06 White Blood Count 13.76 K/uL Red Blood Count 3.50 M/uL Hemoglobin 7.1 g/dL Hematocrit 23.0 % Mean Corpuscular Volume 65.7 fL Mean Corpuscular Hemoglobin 20.3 pg Mean Corpuscular Hemoglobin Concent 30.9 g/dl RDW Standard Deviation 42.4 fL RDW Coefficient of Variation 17.5 % Platelet Count 417 K/uL Mean Platelet Volume 8.4 fL Sodium Level 137 mmol/L Potassium Level 3.7 mmol/L Chloride Level 105 mmol/L Carbon Dioxide Level 25 mmol/L Anion Gap 7.0 mmol/L Blood Urea Nitrogen 4 mg/dl Creatinine 0.57 mg/dl Est Creatinine Clear Calc Drug Dose 150.4 ml/min Estimated GFR () 146.2 Estimated GFR (Non- 126.2 BUN/Creatinine Ratio 6.1 Random Glucose 250 mg/dl Calcium Level 8.4 mg/dl Total Bilirubin 0.2 mg/dl Aspartate Amino Transf (AST/SGOT) 8 U/L Alanine Aminotransferase (ALT/SGPT) 12 U/L Alkaline Phosphatase 96 U/L Total Protein 7.3 gm/dl Albumin 2.7 gm/dl Globulin 4.6 gm/dl Albumin/Globulin Ratio 0.6 Bedside Glucose 281 mg/dl 133 mg/dl Lyme Disease IgM Antibody NEG Monoscreen NEG Test 11/23/17 20:21 11/24/17 06:25 Bedside Glucose 238 mg/dl White Blood Count 14.48 K/uL Red Blood Count 3.81 M/uL Hemoglobin 7.9 g/dL Hematocrit 25.2 % Mean Corpuscular Volume 66.1 fL Mean Corpuscular Hemoglobin 20.7 pg Mean Corpuscular Hemoglobin Concent 31.3 g/dl Platelet Count 491 K/uL Mean Platelet Volume 8.3 fL Neutrophils (%) (Auto) 55.7 % Lymphocytes (%) (Auto) 34.0 % Monocytes (%) (Auto) 5.9 % Eosinophils (%) (Auto) 3.7 % Basophils (%) (Auto) 0.1 % Neutrophils # (Auto) 8.07 K/uL Lymphocytes # (Auto) 4.92 K/uL Monocytes # (Auto) 0.86 K/uL Eosinophils # (Auto) 0.54 K/uL Basophils # (Auto) 0.01 K/uL RDW Standard Deviation 43.3 fL RDW Coefficient of Variation 17.7 % Immature Granulocyte % (Auto) 0.6 % Immature Granulocyte # (Auto) 0.08 K/uL Hypochromasia PRESENT Microcytosis PRESENT Sodium Level 141 mmol/L Potassium Level 2.8 mmol/L Chloride Level 107 mmol/L Carbon Dioxide Level 26 mmol/L Anion Gap 8.0 mmol/L Blood Urea Nitrogen 4 mg/dl Creatinine 0.59 mg/dl Est Creatinine Clear Calc Drug Dose 145.3 ml/min Estimated GFR () 144.6 Estimated GFR (Non- 124.7 BUN/Creatinine Ratio 6.0 Random Glucose 98 mg/dl Calcium Level 8.7 mg/dl Magnesium Level 1.9 mg/dl Assessment and Plan (1) Fever Assessment & Plan: continue abx, follow cultures, negative to date.
[2017-11-24] MEDS: PIPERACILL/TAZOBAC IV 3.375 GM in DEXTROSE 5% 100ML 100 ML IV SCH ×2 (12:17→18:48)
[2017-11-24 13:06] VITALS: Ht 162.6 cm; Wt 80.0 kg
--- NOTE | 2017-11-24 14:12 | Progress Note ---
Subjective Date of Service: November 24, 2017. Subjective Pt evaluation today including: conversation w/ patient, physical exam, lab review, review of studies, review of inpatient medication list Saw/examined the patient in room 383 She is upset today; is not eating because "it's not enough" and she states that she's never heard of diabetics being on a carb restriction When she was told about her sugars being uncontrolled here even while on a carb controlled diet - she blamed nursing for not injecting the insulin correctly Numerous efforts made to talk to her about controlled her diet, but she was not interesting in listening at this time. Refusing testing until she can get a better diet. Problem List Medical Problems: (1) Abdominal pain Status: Acute (2) Anemia Status: Acute (3) Fever Status: Acute (4) Fever Status: Acute (5) Sepsis Status: Acute (6) UTI (urinary tract infection) Status: Acute Review of Systems Constitutional: No fever, No chills, No weakness Respiratory: No cough, No sputum, No shortness of breath Cardiac: No chest pain, No edema, No palpitations Medications Current Inpatient Medications Medications (Trade) Dose Ordered Sig/Ronald Route Start Time Stop Time Status Last Admin Dose Admin Ioversol (Optiray 320) 100 ml UD PRN IV 11/21/17 14:15 11/25/17 14:14 Acetaminophen (Tylenol Tab) 650 mg Q4H PRN PO 11/21/17 16:45 12/21/17 16:44 11/22/17 07:45 650 MG Al Hydrox/Mg Hydrox/Simethicone (Maalox Max Susp) 15 ml Q4H PRN PO 11/21/17 16:45 12/21/17 16:44 Magnesium Hydroxide (Milk Of Magnesia Susp) 30 ml Q6H PRN PO 11/21/17 16:45 12/21/17 16:44 11/23/17 20:28 30 ML Ondansetron HCl (Zofran Inj) 4 mg Q6H PRN IV 11/21/17 16:45 12/21/17 16:44 11/23/17 04:19 4 MG Insulin Aspart (novoLOG ASPART) SLIDING SCALE If C... ACHS SC 11/21/17 22:00 12/21/17 21:59 11/24/17 09:10 7 UNITS Glucose (Glucose 40% Gel) 15-30 GRAMS 15 GRAMS... UD PRN PO 11/21/17 16:45 12/21/17 16:44 Glucose (Glucose Chew Tab) 4-8 Tablets 4 Tabl... UD PRN PO 11/21/17 16:45 12/21/17 16:44 Dextrose (Dextrose 50% 50ML Syringe) 25-50ML 25ML FOR ... UD PRN IV 11/21/17 16:45 12/21/17 16:44 Glucagon (Glucagon Inj) 1 mg UD PRN SQ 11/21/17 16:45 12/21/17 16:44 Carbohydrates (Carbohydrates For Hypoglycemia) 15-30 GRAMS 15 grams if BSG 54-69... UD PRN PO 11/21/17 16:45 12/21/17 16:44 Miscellaneous Information (Consult Glycemic Management Pharmacy) 1 ea UD PRN N/A 11/21/17 19:59 12/21/17 19:58 Morphine Sulfate (MoRPHine SULFATE INJ) 1 mg Q4 PRN IV 11/21/17 16:45 12/05/17 16:44 11/23/17 04:19 1 MG Miscellaneous Information (Consult) 1 ea UD PRN N/A 11/21/17 17:00 12/21/17 16:59 Albuterol (Ventolin Hfa Inhaler) 2 puffs Q6H PRN INH 11/21/17 17:00 12/21/17 16:59 Budesonide (Pulmicort Respules 0.5MG/ 2ML Neb Soln) 0.5 mg BIDR INH 11/21/17 20:00 12/21/17 19:59 Docusate Sodium (coLACE CAP) 100 mg BID PO 11/21/17 21:00 12/21/17 20:59 11/24/17 09:14 100 MG Montelukast Sodium (Singulair Tab) 10 mg HS PO 11/21/17 21:00 12/21/17 20:59 11/23/17 20:32 10 MG Oxycodone/ Acetaminophen (Percocet 5-325mg Tab) 1 tab Q4H PRN PO 11/21/17 17:00 12/05/17 16:59 11/24/17 07:46 1 TAB Ibuprofen (Motrin Tab) 600 mg Q6H PRN PO 11/22/17 05:30 12/22/17 05:29 11/23/17 20:32 600 MG Insulin Glargine (Lantus Solostar Pen) 30 units Q12 SC 11/23/17 09:00 12/23/17 08:59 11/24/17 09:11 30 UNITS Daptomycin 225 mg/ Syringe 4.5 ml @ 2.25 mls/ min Q24H IV 11/23/17 16:00 12/03/17 15:59 11/23/17 17:55 2.25 MLS/MIN Daptomycin (Consult) 1 ea UD PRN N/A 11/23/17 12:15 12/23/17 12:14 Senna (Senokot Tab) 8.6 mg QAM PO 11/24/17 09:00 12/24/17 08:59 11/24/17 09:15 8.6 MG Potassium Chloride/Sodium Chloride 1,000 ml @ 80 mls/hr [id number] IV 11/24/17 08:30 12/24/17 08:29 11/24/17 09:11 80 MLS/HR Piperacillin Sod/ Tazobactam Sod 3.375 gm/Dextrose 115 ml @ 28.75 mls/ hr Q8H IV 11/24/17 11:00 11/26/17 10:59 11/24/17 12:17 28.75 MLS/HR Objective Vital Signs Date Time Temp Pulse Resp B/P (MAP) Pulse Ox O2 Delivery O2 Flow Rate FiO2 11/24/17 07:30 Room Air 11/24/17 07:25 37.5 96 18 113/75 (88) 96 Room Air 11/23/17 23:30 Room Air 11/23/17 23:05 36.7 86 16 115/71 (86) 97 Room Air 11/23/17 17:30 95 Room Air 11/23/17 17:09 36.7 83 16 103/69 (80) 95 Room Air Physical Exam General Appearance: no apparent distress, + obese Respiratory/Chest: chest non-tender, lungs clear, normal breath sounds, no respiratory distress, no accessory muscle use Cardiovascular: regular rate, rhythm, no edema, no murmur Abdomen: + tenderness Laboratory Results Last 24 Hours Test 11/23/17 15:42 11/23/17 17:06 11/23/17 20:21 11/24/17 06:25 Lyme Disease IgM Antibody NEG Monoscreen NEG Bedside Glucose 133 mg/dl 238 mg/dl White Blood Count 14.48 K/uL Red Blood Count 3.81 M/uL Hemoglobin 7.9 g/dL Hematocrit 25.2 % Mean Corpuscular Volume 66.1 fL Mean Corpuscular Hemoglobin 20.7 pg Mean Corpuscular Hemoglobin Concent 31.3 g/dl Platelet Count 491 K/uL Mean Platelet Volume 8.3 fL Neutrophils (%) (Auto) 55.7 % Lymphocytes (%) (Auto) 34.0 % Monocytes (%) (Auto) 5.9 % Eosinophils (%) (Auto) 3.7 % Basophils (%) (Auto) 0.1 % Neutrophils # (Auto) 8.07 K/uL Lymphocytes # (Auto) 4.92 K/uL Monocytes # (Auto) 0.86 K/uL Eosinophils # (Auto) 0.54 K/uL Basophils # (Auto) 0.01 K/uL RDW Standard Deviation 43.3 fL RDW Coefficient of Variation 17.7 % Immature Granulocyte % (Auto) 0.6 % Immature Granulocyte # (Auto) 0.08 K/uL Hypochromasia PRESENT Microcytosis PRESENT Sodium Level 141 mmol/L Potassium Level 2.8 mmol/L Chloride Level 107 mmol/L Carbon Dioxide Level 26 mmol/L Anion Gap 8.0 mmol/L Blood Urea Nitrogen 4 mg/dl Creatinine 0.59 mg/dl Est Creatinine Clear Calc Drug Dose 145.3 ml/min Estimated GFR () 144.6 Estimated GFR (Non- 124.7 BUN/Creatinine Ratio 6.0 Random Glucose 98 mg/dl Calcium Level 8.7 mg/dl Magnesium Level 1.9 mg/dl Test 11/24/17 12:01 Bedside Glucose 145 mg/dl Assessment and Plan This is a 27 year old female with a past medical history of insulin dependent, uncontrolled type 2 diabetes, hx of asthma, allergic rhinitis, nasal polyps, recent myomectomy secondary to uterine fibroids on October 17 - presents with abdominal pain; +fevers. Sepsis 11/24 - currently on Dapto and Zosyn - checked monospot, Lyme and flu which are negative - continue abx. and monitor for cultures - ID consulted for further input 11/23 - meets sepsis criteria - on dapto and Zosyn - lower the fluid rate, check Lyme, monospot - peripheral smear ordered 11/22 - broad spectrum abx. - fevers persist - giving NS - ID consulted 11/21 - unsure of underlying cause, possible urinary source - will consult ordnance artificer helper due to hx. of myomectomy and urinary pain - will use broad spectrum Vanc + Zosyn for now - cultures are pending - +fevers, +WBC, will check lactic acid Insulin Dependent, Uncontrolled DM2 11/24 - Ha1c > 12% - appreciate diabetic eduction trying to talk to patient; she is refusing to listen at this time - states she will do what she wants in terms of her diet - non-compliant at home with her insulin - chance of infection, kidney injury, blindness and were discussed but patient not interesting in a conversation at this time 11/23 - will use Lantus and Novolog - Ha1c = 12.5% - significantly uncontrolled - glycemic pharmacy consulted Microcytic Anemia - peripheral smear pending Asthma - use home regimen FULL CODE
[2017-11-24 15:06] VITALS: BP 128/82; PULSE 101; TEMP 38.9; O2SAT 96
[2017-11-24] MEDS: IBUPROFEN 600 MG TAB PO PRN (15:22)
[2017-11-24] MEDS: DAPTOmycin IV 225 MG in SYRINGE 0 ML IV SCH (15:22)
[2017-11-24 15:28] VITALS: TEMP 37
[2017-11-24] MEDS: MONTELUKAST SOD 10 MG TAB PO SCH (20:50)
--- NOTE | 2017-11-24 22:52 | DIAGNOSTIC IMAGING REPORT ---
TRANSVAG-FEMALE PELVIS CLINICAL HISTORY: 27 years-old Female presenting with L adnexal pain, , last menstrual period 11/15/2017, no abnormal bleeding, history of fibroid removal 6 weeks ago, pelvic pain. TECHNIQUE: Real-time grayscale and color and spectral Doppler ultrasound imaging of the pelvis was performed using a transvaginal probe. COMPARISON: 06/24/[address] from 11/21/2017. FINDINGS: Uterus: Enlarged uterus with heterogeneous appearance secondary to the presence of multiple rounded heterogeneous masses, likely multiple fibroids measuring 4.8 x 4.1 x 5.3 cm and 4.2 x 2.8 x 4.1 cm. Hyperechogenic foci may represent calcifications within the fibroids. Anteverted. The uterus measures 11.8 x 7.2 x 9.2 cm. Endometrial stripe measures 7 mm in thickness. Endometrium normal-appearing. Right adnexa: Right ovary not visualized.3.2 x 1.9 x 1.9 cm cystic structure in the right adnexa, possibly peritoneal inclusion cyst, paraovarian cyst or dilated fallopian tube. Left adnexa: Left ovary enlarged and containing a 2.7 x 1.9 x 2.2 cm hypoechoic lesion. Left ovary measures 5.3 x 5.2 x 5.0 cm. Relatively normal color Doppler flow and venous waveforms within the ovarian parenchyma. Arterial waveforms are not apparent. Other: Trace free fluid, likely physiologic. IMPRESSION: 1. Enlarged left ovary without arterial waveforms. This is highly concerning for ovarian torsion. Alternatively, this could represent an exophytic fibroid rather than ovarian parenchyma although this is considered less likely. Correlate with surgical history. Gynecologic consultation recommended. 2. Enlarged uterus with multiple fibroids. 3. Nonvisualization of the right ovary. The report will be called/faxed according to standard departmental protocol. Electronically signed by: Pierre Whipple M.D. 11/24/2017 10:50 PM Dictated Date/Time: 11/24/2017 10:42 PM
[2017-11-24 22:53] VITALS: BP 113/77; PULSE 67; TEMP 37; O2SAT 98
[2017-11-24 23:50] VITALS: O2SAT 98
[2017-11-25] MEDS: IBUPROFEN 600 MG TAB PO PRN ×2 (00:29→17:58)
[2017-11-25] MEDS: PIPERACILL/TAZOBAC IV 3.375 GM in DEXTROSE 5% 100ML 100 ML IV SCH ×3 (03:10→19:33)
[2017-11-25 06:50] LABS: HEMATOCRIT 24.4 % (37-47); HEMOGLOBIN 7.6 g/dL (12.0-16.0); MEAN CELL VOLUME 65.1 fL (80-100); MEAN CORPUSCULAR HEMOGLOBIN 20.3 pg (25-34); MEAN CORPUSCULAR HGB CONC 31.1 g/dl (32-36); MEAN PLATELET VOLUME 8.3 fL (7.4-10.4); PLATELET COUNT 484 K/uL (130-400); RED CELL DISTRIBUTION WIDTH CV 17.7 % (11.5-14.5); RED CELL DISTRIBUTION WIDTH SD 42.4 fL (36.4-46.3); WHITE BLOOD COUNT 13.87 K/uL (4.8-10.8)
[2017-11-25] MEDS: BUDESONIDE 0.5 MG/2 ML VIAL (PULMICORT) INH SCH ×2 (07:02→19:42)
[2017-11-25 07:12] LABS: CALCIUM 8.9 mg/dl (8.5-10.1); CREATININE 0.54 mg/dl (0.60-1.20); POTASSIUM 3.8 mmol/L (3.5-5.1)
[2017-11-25 07:34] VITALS: BP 116/73; PULSE 93; TEMP 37.6; O2SAT 95
[2017-11-25] MEDS: INSULIN ASPART 100 UNITS/ML 3 ML PEN SC SCH ×4 (08:00→20:38)
[2017-11-25] MEDS: SENNA 8.6 MG TAB PO SCH (09:00)
[2017-11-25] MEDS: DOCUSATE SODIUM 100 MG CAP PO SCH ×2 (09:00→20:38)
--- NOTE | 2017-11-25 09:31 | OB/GYN Progress Note ---
[employer] Progress Note Date of Service November 25, 2017. Subjective conversation w/ patient, physical exam Ambulation: ambulating normally Voiding: no voiding problems Notes: Patient was admitted on 11/21/17 for left sided abdominal pain and sepsis. She is s/p laparotomy with myomectomy on 10/17/[address] Brown. Please see official consult from Dr. Moore. Today she continues to have significant left sided pain. Has been tolerating a regular diet but having issues with controlling her BS's. She denies nausea/vomiting but does continue to have left lower abdominal pain that wraps towards her low back. She continues to spike fevers with last being this morning at 37.6 despite being on antibiotics, WBC is trending down, this morning at 13.87. Review of Systems Constitutional: No fever, No chills, No sweats, No weight loss, No weakness, No fatigue, No problem reported Respiratory: No cough, No sputum, No wheezing, No shortness of breath, No dyspnea on exertion, No dyspnea at rest, No hemoptysis, No problem reported Cardiac: No chest pain, No orthopnea, No PND, No edema, No claudication, No palpitations, No problem reported Abdomen: + pain (left lower abdominal pain) Female : No see HPI, No dysuria, No urinary frequency, No hematuria, No incontinence, No abnormal vaginal bleeding, No vaginal discharge, No problem reported Objective Vital Signs Date Time Temp Pulse Resp B/P (MAP) Pulse Ox O2 Delivery O2 Flow Rate FiO2 11/25/17 07:34 37.6 93 18 116/73 (87) 95 Room Air 11/24/17 23:50 98 Room Air 11/24/17 22:53 37.0 67 16 113/77 (89) 98 Room Air 11/24/17 20:00 Room Air 11/24/17 15:28 37.0 11/24/17 15:06 38.9 101 18 128/82 (97) 96 Room Air Physical Exam General Appearance: WELL-APPEARING Respiratory/Chest: chest non-tender, lungs clear Cardiovascular: regular rate, rhythm Abdomen: normal bowel sounds, soft, + guarding, + tenderness (left lower abdominal pain and guarding) Extremities: normal range of motion, non-tender, no calf tenderness Transvaginal Pelvic US 11/24/17: IMPRESSION: 1. Enlarged left ovary without arterial waveforms. This is highly concerning for ovarian torsion. Alternatively, this could represent an exophytic fibroid rather than ovarian parenchyma although this is considered less likely. Correlate with surgical history. Gynecologic consultation recommended. 2. Enlarged uterus with multiple fibroids. 3. Nonvisualization of the right ovary. Laboratory Results Last 24 Hours Test 11/24/17 12:01 11/24/17 17:08 11/24/17 20:18 11/25/17 06:40 Bedside Glucose 145 mg/dl 275 mg/dl 256 mg/dl White Blood Count 13.87 K/uL Red Blood Count 3.75 M/uL Hemoglobin 7.6 g/dL Hematocrit 24.4 % Mean Corpuscular Volume 65.1 fL Mean Corpuscular Hemoglobin 20.3 pg Mean Corpuscular Hemoglobin Concent 31.1 g/dl RDW Standard Deviation 42.4 fL RDW Coefficient of Variation 17.7 % Platelet Count 484 K/uL Mean Platelet Volume 8.3 fL Sodium Level 137 mmol/L Potassium Level 3.8 mmol/L Chloride Level 107 mmol/L Carbon Dioxide Level 24 mmol/L Anion Gap 6.0 mmol/L Blood Urea Nitrogen 5 mg/dl Creatinine 0.54 mg/dl Est Creatinine Clear Calc Drug Dose 158.8 ml/min Estimated GFR () 148.8 Estimated GFR (Non- 128.4 BUN/Creatinine Ratio 9.1 Random Glucose 137 mg/dl Calcium Level 8.9 mg/dl Magnesium Level 1.8 mg/dl Test 11/25/17 08:09 Bedside Glucose 152 mg/dl Assessment and Plan (1) Fever Status: Acute Assessment & Plan: Patient is s/p laparotomy with myomectomies on October 17, possible left ovarian torsion -Will make patient NPO -Repeat Pelvic US -Discussed with the patient the findings on her US and the concern for left ovarian torsion, discussed her options including a diagnostic laparoscopy with possible LSO vs continuing observation -She wants to talk to her mom and see what the repeat US shows at which time she will make a decision. -Will notify patients surgeon (Dr. Brown) of her status.
--- NOTE | 2017-11-25 09:41 | Pharmacy Progress Note ---
Pharmacy Glycemic Short Note 2 Date of Service November 25, 2017. OUTPATIENT ANTIDIABETIC REGIMEN: * Lantus 64 units SQ qHS * Apidra (CR 1:10 and CF 4-60 if BSG greater than 200 mg/dL) * Metformin 500mg PO qAM * HbA1c: 12.4% (11/22/17) ASSESSMENT: 11/25/17: * Patient's BSGs remain poorly controlled. Patient has been unhappy and non- compliant with her carb-controlled diet while admitted. * She often refuses insulin doses (especially correction for hyperglycemia at bedtime). * Patient has been compliant with Lantus doses thus far, which appear to be appropriate, based on fasting BSGs. May be able to go up on the doses slightly. * For now, will continue to control BSGs as tightly as possible, limited by patient's unwillingness to comply with regimen. 11/23/17 * Ms Melendez is a 27 y/o F with a PMH of myomectomy secondary to uterine fibroids in October, asthma, and uncontrolled type 2 diabetes who presents with fevers and abdominal pain. Patient's blood sugar was 354 mg/dL on admission. She admits to non-compliance. HbA1C is 12.4%. She cannot tolerate larger doses of Lantus (such as the 64 units she was prescribed at home) secondary to pain at injection site. * Patient's blood sugars yesterday were [phone]. Fasting this morning was 198 mg/dL. Yesterday at dinner it was not clear if nurse actually administered insulin correctly. The patient's blood sugar increased @~2000 to 280s and 6 of Novolog was ordered. Recheck at 2200 was 217 mg/dL. The pharmacist last night spoke with the patient who stated that she wanted 32 units of Lantus. * Patient received 82 units of insulin yesterday (57 units of basal insulin). This morning patient refused dose of Lantus and Novolog because she was not going to eat. Patient was very adamant about this - waited until lunchtime to give Lantus (blood sugar already up to 298 mg/dL). Patient was amenable to taking both Lantus and Novolog. Expect blood sugars to be higher this evening secondary to late administrations of both Lantus and Novolog. Also tightened Novolog to provide more carbohydrate coverage. PLAN FOR INPATIENT GLYCEMIC CONTROL: * Basal insulin * Lantus 30 units SQ BID * Bolus insulin * NovoLog per scale ACHS or Q6hrs while NPO * Goal Range: Low 120 mg/dL - High 150 mg/dL * Correction Factor: 20 mg/dL/unit * Nutritional / Prandial insulin per carb ratio of 1 unit per 7 grams CHO consumed -tighten PLANS FOR DISCHARGE: * Outpatient glycemic control is extremely poor, as evidenced by A1c 12.4%. * Largest contributing factor seems to be patient non-compliance. * Patient should work toward adapting diet after discharge, however, despite counseling from CDE and hospitalist, she does not appear to be interested in doing so. * It seems patient does not tolerate high dose of Lantus once daily, so she likely needs to be dosing this twice daily at home. * Patient will need f/u with outpatient provider QI after discharge to develop a good strategy to optimize A1c.
[2017-11-25] MEDS: NSS + 20MEQ KCL 1000ML 1,000 ML IV SCH (10:10)
[2017-11-25] MEDS: INSULIN GLARGINE SOLOSTAR 100 UNITS/ML 3 ML PEN SC SCH ×2 (10:14→20:41)
--- NOTE | 2017-11-25 11:36 | DIAGNOSTIC IMAGING REPORT ---
PELVIC ULTRASOUND, TRANSABDOMINAL AND TRANSVAGINAL HISTORY: Pelvic pain. Reassess possible left ovarian torsion COMPARISON: Abdomen and pelvis CT 11/21/2017. Pelvic ultrasound 11/24/2017. FINDINGS: Uterus: There is again noted a heterogeneous area within the uterus suggestive of a fibroids. This distorts the endometrium. However, the endometrium appears to be normal thickness measuring 7 mm. Right adnexa: There is a cystic area within the right adnexa measuring 3.2 x 1.8 x 2.2 cm. This is indeterminate but could represent a right ovary. Left adnexa: The left third measures 5.7 x 3.9 x 4.5 cm. There is venous and arterial flow identified within the left ovary. The left ovary may be slightly edematous. Multiple follicle/cyst within the left ovary with the largest measuring 2.1 cm. This cyst demonstrates internal echoes and is thick-walled suggestive of a corpus luteum or hemorrhagic cyst. Miscellaneous:Trace pelvic free fluid. IMPRESSION: 1. No significant change compared to the prior study. 2. Mildly enlarged left ovary. This demonstrates vascular flow but may be slightly edematous. Therefore, ovarian torsion is considered less likely but not entirely excluded. It should be noted that ovarian torsion is considered a clinical diagnosis. 3. No change in the heterogeneous appearance to the uterus suggestive of fibroids. 4. Trace pelvic free fluid. Electronically signed by: Zana Frias M.D. 11/25/2017 11:35 AM Dictated Date/Time: 11/25/2017 11:26 AM
--- NOTE | 2017-11-25 12:13 | Progress Note ---
Progress Note Date of Service November 25, 2017. Progress Note Patient seen. Discussed repeat US results showing no significant change from yesterday. Vascular flow present. Less likely ovarian torsion. Her pain is still present but not nearly as severe as the day of her admission. We discussed the possibility of intermittent torsion and that this could possibly happen again. At this time she does not want to proceed with a diagnostic laparoscopy as her pain is better and US does not show active torsion. We discussed precautions and she is to call the office or go to the ER if her pain returns. She may be discharged upon IM discretion. Patient agreeable and all questions answered.
--- NOTE | 2017-11-25 14:33 | Progress Note ---
Subjective Date of Service: November 25, 2017. Subjective pt still with intermittent fevers. cultures negative, remains on IV abx. ultrasound with ? torsion, pt does not wish for diagnostic procedure. wbc improving. Problem List Medical Problems: (1) Abdominal pain Status: Acute (2) Anemia Status: Acute (3) Fever Status: Acute (4) Fever Status: Acute (5) Sepsis Status: Acute (6) UTI (urinary tract infection) Status: Acute Objective Vital Signs Date Time Temp Pulse Resp B/P (MAP) Pulse Ox O2 Delivery O2 Flow Rate FiO2 11/25/17 08:00 Room Air 11/25/17 07:34 37.6 93 18 116/73 (87) 95 Room Air 11/24/17 23:50 98 Room Air 11/24/17 22:53 37.0 67 16 113/77 (89) 98 Room Air 11/24/17 20:00 Room Air 11/24/17 15:28 37.0 11/24/17 15:06 38.9 101 18 128/82 (97) 96 Room Air Laboratory Results Item Value Date Time Blood Culture - Preliminary Resulted 11/21/17 1417 Blood NO GROWTH TO DATE. Blood Culture - Preliminary Resulted 11/21/17 1355 Blood NO GROWTH TO DATE. Last 24 Hours Test 11/24/17 17:08 11/24/17 20:18 11/25/17 06:40 11/25/17 08:09 Bedside Glucose 275 mg/dl 256 mg/dl 152 mg/dl White Blood Count 13.87 K/uL Red Blood Count 3.75 M/uL Hemoglobin 7.6 g/dL Hematocrit 24.4 % Mean Corpuscular Volume 65.1 fL Mean Corpuscular Hemoglobin 20.3 pg Mean Corpuscular Hemoglobin Concent 31.1 g/dl RDW Standard Deviation 42.4 fL RDW Coefficient of Variation 17.7 % Platelet Count 484 K/uL Mean Platelet Volume 8.3 fL Sodium Level 137 mmol/L Potassium Level 3.8 mmol/L Chloride Level 107 mmol/L Carbon Dioxide Level 24 mmol/L Anion Gap 6.0 mmol/L Blood Urea Nitrogen 5 mg/dl Creatinine 0.54 mg/dl Est Creatinine Clear Calc Drug Dose 158.8 ml/min Estimated GFR () 148.8 Estimated GFR (Non- 128.4 BUN/Creatinine Ratio 9.1 Random Glucose 137 mg/dl Calcium Level 8.9 mg/dl Magnesium Level 1.8 mg/dl Assessment and Plan (1) Fever Assessment & Plan: continue abx, follow cultures, negative to date. If remain negative and fever improves, hopefully can transition to augmentin x 7 days.
[2017-11-25 14:52] LABS: EBV EARLY ANTIGEN AB < 9.00 U/ML
[2017-11-25] MEDS: DAPTOmycin IV 225 MG in SYRINGE 0 ML IV SCH (15:25)
[2017-11-25 15:35] VITALS: BP 113/75; PULSE 94; TEMP 36.9; O2SAT 95
[2017-11-25] MEDS ORDERED: MAGNESIUM SULFATE 1GM / D5W 100 ML IV STA (16:32)
--- NOTE | 2017-11-25 16:37 | Progress Note ---
Internal Med Progress Note Date of Service: November 25, 2017. Provider Documentation: SUBJECTIVE: Patient denies acute pain. Patient had repeat vaginal ultrasound today. OBGYN service has completed their evaluation. Hospitalist medicine physician suggested that patient should get blood culture repeated today given she had multiple days of antibiotics and temperature of 38.9 C (102 F) was recorded yesterday afternoon around 3 PM. Patient declined blood culture. OBJECTIVE: Exam: General- no distress Eyes- EOMI Neck- no JVD Lungs- CTABL, no wheezing Heart- regular rate Abdomen- soft, nontender, + bowel sounds Extremities- no edema Neuro- awake and alert ASSESSMENT & PLAN: This is a 27 year old female with a past medical history of insulin dependent, uncontrolled type 2 diabetes, hx of asthma, allergic rhinitis, nasal polyps, recent myomectomy secondary to uterine fibroids on October 2017 presented on this admission with abdominal pain; +fevers. Patient has been treated for SEPSIS -Initially on broad spectrum Vancomycin and Zosyn with regimen changed to daptomycin and Zosyn on 11/23/17 -Blood cultures from 11/21/17 with no growth to date -WBC downtrended from 21,000 on 11/22/17 to around 14,000 by 11/25/17 -Patient declined repeat blood culture -Patient has been evaluated by OBGYN on this admission because of recent myomectomy secondary to uterine fibroids on October 17, 2017 -Initial concern for ovarian pathology such as ovarian torsion on pelvic/ transvaginal ultrasound on 11/24/17 and repeat pelvic/transvaginal ultrasound with no significant change and vascular flow present so less likely ovarian torsion. -will continue daptomycin and Zosyn for now and possible hospital discharge by tomorrow if patient is afebrile and if WBC downtrending Insulin Dependent, Uncontrolled DM2 - Hba1c 12.4 - patient's admitting hospitalist has expressed concerns with the patient in regards to diabetes control - will continue insulin and being followed as inpatient by glycemic pharmacy control, and will need outpatient follow up for diabetes management Microcytic Anemia - peripheral smear suggestive of iron deficiency - will start patient on iron supplements if she accepts Asthma - no acute exacerbations - use home regimen FULL CODE Vital Signs: Date Time Temp Pulse Resp B/P (MAP) Pulse Ox O2 Delivery O2 Flow Rate FiO2 11/25/17 15:35 36.9 94 18 113/75 (88) 95 Room Air 11/25/17 15:20 Room Air 11/25/17 08:00 Room Air 11/25/17 07:34 37.6 93 18 116/73 (87) 95 Room Air 11/24/17 23:50 98 Room Air 11/24/17 22:53 37.0 67 16 113/77 (89) 98 Room Air 11/24/17 20:00 Room Air Lab Results: Results Past 24 Hours Test 11/24/17 17:08 11/24/17 20:18 11/25/17 06:40 11/25/17 08:09 Range/Units Bedside Glucose 275 256 152 70-90 mg/dl White Blood Count 13.87 4.8-10.8 K/uL Red Blood Count 3.75 4.2-5.4 M/uL Hemoglobin 7.6 12.0-16.0 g/dL Hematocrit 24.4 37-47 % Mean Corpuscular Volume 65.1 80-100 fL Mean Corpuscular Hemoglobin 20.3 25-34 pg Mean Corpuscular Hemoglobin Concent 31.1 32-36 g/dl RDW Standard Deviation 42.4 36.4-46.3 fL RDW Coefficient of Variation 17.7 11.5-14.5 % Platelet Count 484 130-400 K/uL Mean Platelet Volume 8.3 7.4-10.4 fL Sodium Level 137 136-145 mmol/L Potassium Level 3.8 3.5-5.1 mmol/L Chloride Level 107 98-107 mmol/L Carbon Dioxide Level 24 21-32 mmol/L Anion Gap 6.0 3-11 mmol/L Blood Urea Nitrogen 5 7-18 mg/dl Creatinine 0.54 0.60-1.20 mg/dl Est Creatinine Clear Calc Drug Dose 158.8 ml/min Estimated GFR () 148.8 Estimated GFR (Non- 128.4 BUN/Creatinine Ratio 9.1 10-20 Random Glucose 137 70-99 mg/dl Calcium Level 8.9 8.5-10.1 mg/dl Magnesium Level 1.8 1.8-2.4 mg/dl
[2017-11-25] MEDS: ACETAMINOPHEN 325 MG TAB PO PRN (17:58)
[2017-11-25] MEDS: FERROUS SULFATE 325 MG TAB PO SCH (18:00)
--- NOTE | 2017-11-25 19:00 | OB/GYN Progress Note ---
ELECTRIC MOTORMAN Progress Note Date of Service November 25, 2017. Subjective conversation w/ patient Ambulation: ambulating normally Voiding: no voiding problems Passing Gas: Yes Review of Systems Constitutional: + sweats, No fever, No chills, No weight loss, No weakness, No fatigue, No problem reported Respiratory: No cough, No sputum, No wheezing, No shortness of breath, No dyspnea on exertion, No dyspnea at rest, No hemoptysis, No problem reported Cardiac: No chest pain, No orthopnea, No PND, No edema, No claudication, No palpitations, No problem reported Abdomen: + pain (Left lower quadrant pain (improving)) Female : No see HPI, No dysuria, No urinary frequency, No hematuria, No incontinence, No abnormal vaginal bleeding, No vaginal discharge, No problem reported Objective Vital Signs Date Time Temp Pulse Resp B/P (MAP) Pulse Ox O2 Delivery O2 Flow Rate FiO2 11/25/17 15:35 36.9 94 18 113/75 (88) 95 Room Air 11/25/17 15:20 Room Air 11/25/17 08:00 Room Air 11/25/17 07:34 37.6 93 18 116/73 (87) 95 Room Air 11/24/17 23:50 98 Room Air 11/24/17 22:53 37.0 67 16 113/77 (89) 98 Room Air 11/24/17 20:00 Room Air Physical Exam General Appearance: NO APPARENT DISTRESS Respiratory/Chest: chest non-tender, lungs clear Cardiovascular: regular rate, rhythm Abdomen: normal bowel sounds, non tender, soft Incision Description: Clean, Dry & Intact Extremities: normal range of motion Laboratory Results Last 24 Hours Test 11/24/17 20:18 11/25/17 06:40 11/25/17 08:09 Bedside Glucose 256 mg/dl 152 mg/dl White Blood Count 13.87 K/uL Red Blood Count 3.75 M/uL Hemoglobin 7.6 g/dL Hematocrit 24.4 % Mean Corpuscular Volume 65.1 fL Mean Corpuscular Hemoglobin 20.3 pg Mean Corpuscular Hemoglobin Concent 31.1 g/dl RDW Standard Deviation 42.4 fL RDW Coefficient of Variation 17.7 % Platelet Count 484 K/uL Mean Platelet Volume 8.3 fL Sodium Level 137 mmol/L Potassium Level 3.8 mmol/L Chloride Level 107 mmol/L Carbon Dioxide Level 24 mmol/L Anion Gap 6.0 mmol/L Blood Urea Nitrogen 5 mg/dl Creatinine 0.54 mg/dl Est Creatinine Clear Calc Drug Dose 158.8 ml/min Estimated GFR () 148.8 Estimated GFR (Non- 128.4 BUN/Creatinine Ratio 9.1 Random Glucose 137 mg/dl Calcium Level 8.9 mg/dl Magnesium Level 1.8 mg/dl Assessment and Plan (1) Fever Status: Acute Assessment & Plan: 27 yo G0 s/p Abdominal myomectomy on 10/17/17 now admitted for sepsis and abdominal pain. CT abdomen and pelvis in the ER did not reveal any etiology for abdominal pain. Patient followed by Medicine for sepsis and glucose control. Treated with IV antibiotics (orginally Vanocomycin and Zosyn) then changed to daptomycin and Zosyn on 11/23/17. NGTD of blood cultures. Downtrending WBC. Patient continued with LLQ pain unrelieved with narcotic medication. TVUS last night was concerning for an enlarged left ovary with possible ovarian torsion. Repeat TVUS this morning revealed no significant change and vascular flow present so less likely ovarian torsion. Benign abdominal exam this evening. Discuss with Patient expectant management vs surgical management via diagnostic laparoscopy and possible left ovarian cystectomy/LSO. Patient pain is currently controlled and Patient does not desire surgical intervention at this time. Will continue to follow during hospitalization.
[2017-11-25] MEDS: MONTELUKAST SOD 10 MG TAB PO SCH (20:38)
[2017-11-25 23:10] VITALS: BP 108/72; PULSE 72; TEMP 36.8; O2SAT 98
[2017-11-26 00:05] VITALS: O2SAT 98
--- NOTE | 2017-11-26 01:54 | GYNECOLOGICAL CONSULTATION ---
DATE OF CONSULTATION: 11/21/2017 This is a SKI TECHNICIAN consult placed by Dr. Degroot. Note, patient was seen on the day of consult, 11/21/2017. Consult was, however, not dictated. CHIEF COMPLAINT: Abdominal pain and fever. HISTORY OF PRESENT ILLNESS: This is a 27-year-old with history of insulin-dependent diabetes type 2, asthma who underwent recent myomectomy on 10/17/2017. Patient postop has been doing well. She has been seen several times in the office for pain control, however. She was seen on 11/20/2017, a day before prior to admission date and was doing well. The patient, however, presented to the Emergency Room because she now had fever in addition to her pain. Decision was therefore made to admit patient. The patient was admitted under medicine consult. Consult was placed, patient was seen. She does complain as stated above of abdominal pain on and off since surgery, she has been on pain medicine. The patient describes the pain as generalized abdominal pain. On admission, blood work including CBC, complete chemistry, and a CT scan is done. She denies nausea, vomiting, diarrhea, or change in bowel movements. She did note that the difference in her pain since surgery was the fever. PAST MEDICAL HISTORY: History of asthma, diabetes, menorrhagia, nasal polyp, uterine fibroids. PAST SURGICAL HISTORY: History of nasal surgery and myomectomy. FAMILY HISTORY: History of asthma. SOCIAL HISTORY: Patient denies tobacco, drug, or alcohol use. ALLERGIES: Patient denies any drug allergies. MEDICATIONS: Patient is on Colace, iron, insulin, metformin, simethicone, and Singulair. PHYSICAL EXAMINATION: VITAL SIGNS: Vitals on admission T-max is 39.2, pulse is 90, respirations 16, blood pressure is 123/80. Pulse ox in room air is 99%. GENERAL: Well-developed, well-nourished black female, patient is comfortably resting in bed and was on cell phone texting when I arrived to the room. HEART: S1, S2, regular rhythm and rate. LUNGS: Clear to auscultation bilaterally. ABDOMEN: Patient had generalized abdominal pain. Pain is more severe on the left mid abdomen. There is no rebound or guarding. Incision appears clean, dry, and intact and seems to be healing nicely. EXTREMITIES: No cyanosis, clubbing, or edema. There is no CVA tenderness. PELVIC: Deferred. EXTREMITIES: No cyanosis, clubbing, or edema. NEUROLOGIC: Patient is alert, awake, and oriented x3. LABS: CBC is reviewed. Significance is that her white count is in the 20s. Complete chemistry shows glucose in the 300-350 range. ALT and AST are unremarkable. Chest x-ray is unremarkable. CT scan of the abdomen and pelvis showed enlarged fibroid uterus with cystic changes about the left adnexa, which are mild to moderate amount of fluid, possibly physiologic. Scar formation of the lower abdomen without evidence of drainage or fluid collection is reported. There is no bowel obstruction or focal wall thickening. The appendix was described as normal. ASSESSMENT AND PLAN: A 27-year-old status post myomectomy on 10/17/2017. The patient has history of type 2 diabetes. She is seen in the ER, but the fevers at this point diagnosis as possible sepsis. The pelvic CT scan is unremarkable. The patient has already been started on broad spectrum antibiotic that is vancomycin and Zosyn. Cultures are pending. At this point, the plan will be continued to monitor patient's vitals including CBC and fevers. Hopefully, this will improve with the ongoing antibiotic therapy. Patient is also receiving treatment for her uncontrolled insulin diabetes. She is receiving Lantus and NovoLog. Hopefully after her sugars improve, patient will also feel better. At this point, because the CT scan is unremarkable, I do not think there is anything to be done from a SKI TECHNICIAN standpoint. We are, however, available and so please do not hesitate to reconsult SKI TECHNICIAN at any time. ASHKAND
[2017-11-26] MEDS: PIPERACILL/TAZOBAC IV 3.375 GM in DEXTROSE 5% 100ML 100 ML IV SCH ×3 (03:05→18:53)
[2017-11-26 07:21] LABS: BASO % 0.1 %; BASO ABS # 0.01 K/uL (0-0.2); EOS % 2.4 %; EOS ABS # 0.34 K/uL (0-0.5); HEMATOCRIT 24.7 % (37-47); HEMOGLOBIN 7.9 g/dL (12.0-16.0); IG# 0.07 K/uL (0.00-0.02); LYMPH % 20.7 %; LYMPH ABS # 2.93 K/uL (1.2-3.4); MEAN CELL VOLUME 64.8 fL (80-100); MEAN CORPUSCULAR HEMOGLOBIN 20.7 pg (25-34); MEAN PLATELET VOLUME 8.6 fL (7.4-10.4); MONO % 5.5 %; MONO ABS # 0.78 K/uL (0.11-0.59); NEUT % 70.8 %; PLATELET COUNT 543 K/uL (130-400); RED CELL DISTRIBUTION WIDTH CV 18.1 % (11.5-14.5); RED CELL DISTRIBUTION WIDTH SD 43.2 fL (36.4-46.3); WHITE BLOOD COUNT 14.13 K/uL (4.8-10.8)
[2017-11-26 07:24] VITALS: BP 120/78; PULSE 89; TEMP 38.2; O2SAT 96
[2017-11-26] MEDS: BUDESONIDE 0.5 MG/2 ML VIAL (PULMICORT) INH SCH ×2 (07:50→20:00)
[2017-11-26] MEDS: OXYCODONE/ACETAMINOPHEN 5-325 TAB PO PRN ×2 (07:52→16:28)
[2017-11-26] MEDS: ACETAMINOPHEN 325 MG TAB PO PRN ×2 (07:53→16:29)
[2017-11-26 07:54] LABS: ALBUMIN 2.9 gm/dl (3.4-5.0); CALCIUM 9.1 mg/dl (8.5-10.1); CREATININE 0.6 mg/dl (0.60-1.20); POTASSIUM 3.5 mmol/L (3.5-5.1)
[2017-11-26 07:56] LABS: TOTAL PROTEIN 8.2 gm/dl (6.4-8.2)
[2017-11-26] MEDS: INSULIN GLARGINE SOLOSTAR 100 UNITS/ML 3 ML PEN SC SCH (09:58)
[2017-11-26] MEDS: INSULIN ASPART 100 UNITS/ML 3 ML PEN SC SCH ×4 (09:59→21:00)
[2017-11-26] MEDS: FERROUS SULFATE 325 MG TAB PO SCH ×2 (10:00→17:40)
[2017-11-26] MEDS: SENNA 8.6 MG TAB PO SCH (10:00)
[2017-11-26] MEDS: DOCUSATE SODIUM 100 MG CAP PO SCH ×2 (10:00→21:38)
[2017-11-26] MEDS ORDERED: ENOXAPARIN 40 MG/0.4 ML SYR SQ ONE (11:00)
--- NOTE | 2017-11-26 14:12 | Progress Note ---
Subjective Date of Service: November 26, 2017. Subjective isolated fever this am, blood cultures remain negative, refused repeat cultures but then agreeable, results pending. ultrasound with questions ovary torsion, decline additional workup, tolerating abx. wbc remains slightly elevated. Problem List Medical Problems: (1) Abdominal pain Status: Acute (2) Anemia Status: Acute (3) Fever Status: Acute (4) Fever Status: Acute (5) Sepsis Status: Acute (6) UTI (urinary tract infection) Status: Acute Objective Vital Signs Date Time Temp Pulse Resp B/P (MAP) Pulse Ox O2 Delivery O2 Flow Rate FiO2 11/26/17 07:30 Room Air 11/26/17 07:24 38.2 89 18 120/78 (92) 96 Room Air 11/26/17 00:05 98 Room Air 11/25/17 23:10 36.8 72 15 108/72 (84) 98 Room Air 11/25/17 15:35 36.9 94 18 113/75 (88) 95 Room Air 11/25/17 15:20 Room Air Laboratory Results Item Value Date Time Blood Culture - Preliminary Resulted 11/21/17 1417 Blood NO GROWTH TO DATE. Blood Culture - Preliminary Resulted 11/21/17 1355 Blood NO GROWTH TO DATE. Last 24 Hours Test 11/25/17 17:05 11/25/17 20:13 11/26/17 06:43 11/26/17 08:04 Bedside Glucose 145 mg/dl 276 mg/dl 180 mg/dl White Blood Count 14.13 K/uL Red Blood Count 3.81 M/uL Hemoglobin 7.9 g/dL Hematocrit 24.7 % Mean Corpuscular Volume 64.8 fL Mean Corpuscular Hemoglobin 20.7 pg Mean Corpuscular Hemoglobin Concent 32.0 g/dl Platelet Count 543 K/uL Mean Platelet Volume 8.6 fL Neutrophils (%) (Auto) 70.8 % Lymphocytes (%) (Auto) 20.7 % Monocytes (%) (Auto) 5.5 % Eosinophils (%) (Auto) 2.4 % Basophils (%) (Auto) 0.1 % Neutrophils # (Auto) 10.00 K/uL Lymphocytes # (Auto) 2.93 K/uL Monocytes # (Auto) 0.78 K/uL Eosinophils # (Auto) 0.34 K/uL Basophils # (Auto) 0.01 K/uL RDW Standard Deviation 43.2 fL RDW Coefficient of Variation 18.1 % Immature Granulocyte % (Auto) 0.5 % Immature Granulocyte # (Auto) 0.07 K/uL Hypochromasia PRESENT Microcytosis PRESENT Sodium Level 138 mmol/L Potassium Level 3.5 mmol/L Chloride Level 103 mmol/L Carbon Dioxide Level 27 mmol/L Anion Gap 8.0 mmol/L Blood Urea Nitrogen 5 mg/dl Creatinine 0.60 mg/dl Est Creatinine Clear Calc Drug Dose 142.9 ml/min Estimated GFR () 143.8 Estimated GFR (Non- 124.0 BUN/Creatinine Ratio 8.8 Random Glucose 166 mg/dl Calcium Level 9.1 mg/dl Magnesium Level 1.9 mg/dl Total Bilirubin 0.2 mg/dl Aspartate Amino Transf (AST/SGOT) 7 U/L Alanine Aminotransferase (ALT/SGPT) 14 U/L Alkaline Phosphatase 127 U/L Total Protein 8.2 gm/dl Albumin 2.9 gm/dl Globulin 5.3 gm/dl Albumin/Globulin Ratio 0.6 Test 11/26/17 10:30 11/26/17 11:53 Urine Color YELLOW Urine Appearance CLOUDY Urine pH 6.5 Urine Specific [place] 1.024 Urine Protein NEG Urine Glucose (UA) NEG Urine Ketones NEG Urine Occult Blood NEG Urine Nitrite NEG Urine Bilirubin NEG Urine Urobilinogen NEG Urine Leukocyte Esterase NEG Urine WBC (Auto) 1-5 /hpf Urine RBC (Auto) 0-4 /hpf Urine Hyaline Casts (Auto) 1-5 /lpf Urine Epithelial Cells (Auto) >30 /lpf Urine Bacteria (Auto) NEG Bedside Glucose 197 mg/dl Assessment and Plan (1) Fever Assessment & Plan: continue abx, follow cultures, negative to date. If remain negative and fever improves, hopefully can transition to augmentin x 7 days.
--- NOTE | 2017-11-26 15:07 | Progress Note ---
Internal Med Progress Note Date of Service: November 26, 2017. Provider Documentation: SUBJECTIVE: Today patient had low grade fever. Patient agreed to repeat blood culture culture and urine culture. Also re-discussed case with OBGYN Dr. Andrade. Patient has agreed tentatively that if the fevers continue and no sources identified with repeat labs then she is willing to go to operating room on Friday for possible exploratory surgery of abdomen OBJECTIVE: Exam: General- no distress Eyes- EOMI Neck- no JVD Lungs- CTABL, no wheezing Heart- regular rate Abdomen- soft, nontender, + bowel sounds Extremities- no edema Neuro- awake and alert ASSESSMENT & PLAN: This is a 27 year old female with a past medical history of insulin dependent, uncontrolled type 2 diabetes, hx of asthma, allergic rhinitis, nasal polyps, recent myomectomy secondary to uterine fibroids on October 2017 presented on this admission with abdominal pain; +fevers. Patient has been treated for SEPSIS -Initially on broad spectrum Vancomycin and Zosyn with regimen changed to daptomycin and Zosyn on 11/23/17 -Blood cultures from 11/21/17 with no growth to date -WBC downtrended from 21,000 on 11/22/17 to around 14,000 by 11/25/17 -Patient declined repeat blood culture -Patient has been evaluated by OBGYN on this admission because of recent myomectomy secondary to uterine fibroids on October 17, 2017 -Initial concern for ovarian pathology such as ovarian torsion on pelvic/ transvaginal ultrasound on 11/24/17 and repeat pelvic/transvaginal ultrasound with no significant change and vascular flow present so less likely ovarian torsion. -Blood cultures repeated on 11/26/17 because of low grade fevers, follow cultures , repeat UA is negative. -will continue daptomycin and Zosyn for now -re-discussed case with OBGYN Dr. Andrade. Patient has agreed tentatively that if the fevers continue and no sources identified with repeat labs then she is willing to go to operating room on Friday for possible exploratory surgery of abdomen Insulin Dependent, Uncontrolled DM2 - Hba1c 12.4 - patient's admitting hospitalist has expressed concerns with the patient in regards to diabetes control - will continue insulin and being followed as inpatient by glycemic pharmacy control, and will need outpatient follow up for diabetes management Microcytic Anemia - peripheral smear suggestive of iron deficiency - will start patient on iron supplements if she accepts Asthma - no acute exacerbations - use home regimen DVT ppx: lovenox FULL CODE Vital Signs: Date Time Temp Pulse Resp B/P (MAP) Pulse Ox O2 Delivery O2 Flow Rate FiO2 11/26/17 07:30 Room Air 11/26/17 07:24 38.2 89 18 120/78 (92) 96 Room Air 11/26/17 00:05 98 Room Air 11/25/17 23:10 36.8 72 15 108/72 (84) 98 Room Air 11/25/17 15:35 36.9 94 18 113/75 (88) 95 Room Air 11/25/17 15:20 Room Air Lab Results: Results Past 24 Hours Test 11/25/17 17:05 11/25/17 20:13 11/26/17 06:43 11/26/17 08:04 Range/Units Bedside Glucose 145 276 180 70-90 mg/dl White Blood Count 14.13 4.8-10.8 K/uL Red Blood Count 3.81 4.2-5.4 M/uL Hemoglobin 7.9 12.0-16.0 g/dL Hematocrit 24.7 37-47 % Mean Corpuscular Volume 64.8 80-100 fL Mean Corpuscular Hemoglobin 20.7 25-34 pg Mean Corpuscular Hemoglobin Concent 32.0 32-36 g/dl Platelet Count 543 130-400 K/uL Mean Platelet Volume 8.6 7.4-10.4 fL Neutrophils (%) (Auto) 70.8 % Lymphocytes (%) (Auto) 20.7 % Monocytes (%) (Auto) 5.5 % Eosinophils (%) (Auto) 2.4 % Basophils (%) (Auto) 0.1 % Neutrophils # (Auto) 10.00 1.4-6.5 K/uL Lymphocytes # (Auto) 2.93 1.2-3.4 K/uL Monocytes # (Auto) 0.78 0.11-0.59 K/uL Eosinophils # (Auto) 0.34 0-0.5 K/uL Basophils # (Auto) 0.01 0-0.2 K/uL RDW Standard Deviation 43.2 36.4-46.3 fL RDW Coefficient of Variation 18.1 11.5-14.5 % Immature Granulocyte % (Auto) 0.5 % Immature Granulocyte # (Auto) 0.07 0.00-0.02 K/uL Hypochromasia PRESENT Microcytosis PRESENT Sodium Level 138 136-145 mmol/L Potassium Level 3.5 3.5-5.1 mmol/L Chloride Level 103 98-107 mmol/L Carbon Dioxide Level 27 21-32 mmol/L Anion Gap 8.0 3-11 mmol/L Blood Urea Nitrogen 5 7-18 mg/dl Creatinine 0.60 0.60-1.20 mg/dl Est Creatinine Clear Calc Drug Dose 142.9 ml/min Estimated GFR () 143.8 Estimated GFR (Non- 124.0 BUN/Creatinine Ratio 8.8 10-20 Random Glucose 166 70-99 mg/dl Calcium Level 9.1 8.5-10.1 mg/dl Magnesium Level 1.9 1.8-2.4 mg/dl Total Bilirubin 0.2 0.2-1 mg/dl Aspartate Amino Transf (AST/SGOT) 7 15-37 U/L Alanine Aminotransferase (ALT/SGPT) 14 12-78 U/L Alkaline Phosphatase 127 45-117 U/L Total Protein 8.2 6.4-8.2 gm/dl Albumin 2.9 3.4-5.0 gm/dl Globulin 5.3 2.5-4.0 gm/dl Albumin/Globulin Ratio 0.6 0.9-2 Test 11/26/17 10:30 11/26/17 11:53 Range/Units Urine Color YELLOW Urine Appearance CLOUDY CLEAR Urine pH 6.5 4.5-7.5 Urine Specific [place] 1.024 1.000-1.030 Urine Protein NEG NEG Urine Glucose (UA) NEG NEG Urine Ketones NEG NEG Urine Occult Blood NEG NEG Urine Nitrite NEG NEG Urine Bilirubin NEG NEG Urine Urobilinogen NEG NEG Urine Leukocyte Esterase NEG NEG Urine WBC (Auto) 1-5 0-5 /hpf Urine RBC (Auto) 0-4 0-4 /hpf Urine Hyaline Casts (Auto) 1-5 0-5 /lpf Urine Epithelial Cells (Auto) >30 0-5 /lpf Urine Bacteria (Auto) NEG NEG Bedside Glucose 197 70-90 mg/dl Microbiology Results 11/26/17 Blood Culture, Received Pending 11/26/17 Blood Culture, Received Pending
[2017-11-26 15:45] VITALS: O2SAT 99
[2017-11-26 16:00] VITALS: BP 112/70; PULSE 100; TEMP 37.2; O2SAT 96
[2017-11-26] MEDS: DAPTOmycin IV 225 MG in SYRINGE 0 ML IV SCH (16:26)
--- NOTE | 2017-11-26 18:16 | OB/GYN Progress Note ---
ENTRY LEVEL ACCOUNT REPRESENTATIVE Progress Note Date of Service November 26, 2017. Subjective conversation w/ patient Ambulation: ambulating normally Voiding: no voiding problems Passing Gas: Yes Diet Tolerance: Regular Diet (Diabetic Diet) Review of Systems Constitutional: No fever (low grade temperature this morning, no current fever) , No chills, No sweats, No weight loss, No weakness, No fatigue, No problem reported Respiratory: No cough, No sputum, No wheezing, No dyspnea on exertion, No hemoptysis, No problem reported Cardiac: No chest pain, No palpitations Abdomen: + pain (LLQ pain with radiation to the back) Female : No see HPI, No dysuria, No urinary frequency, No hematuria, No incontinence, No abnormal vaginal bleeding, No vaginal discharge, No problem reported Objective Vital Signs Date Time Temp Pulse Resp B/P (MAP) Pulse Ox O2 Delivery O2 Flow Rate FiO2 11/26/17 16:00 37.2 100 16 112/70 (84) 96 Room Air 11/26/17 07:30 Room Air 11/26/17 07:24 38.2 89 18 120/78 (92) 96 Room Air 11/26/17 00:05 98 Room Air 11/25/17 23:10 36.8 72 15 108/72 (84) 98 Room Air Physical Exam General Appearance: NO APPARENT DISTRESS Respiratory/Chest: chest non-tender, lungs clear, normal breath sounds Cardiovascular: regular rate, rhythm Abdomen: normal bowel sounds, soft, + tenderness (LLQ) Incision Description: Clean, Dry & Intact (No signs of edema or erythema) Extremities: normal range of motion Laboratory Results Last 24 Hours Test 11/25/17 20:13 11/26/17 06:43 11/26/17 08:04 11/26/17 10:30 Bedside Glucose 276 mg/dl 180 mg/dl White Blood Count 14.13 K/uL Red Blood Count 3.81 M/uL Hemoglobin 7.9 g/dL Hematocrit 24.7 % Mean Corpuscular Volume 64.8 fL Mean Corpuscular Hemoglobin 20.7 pg Mean Corpuscular Hemoglobin Concent 32.0 g/dl Platelet Count 543 K/uL Mean Platelet Volume 8.6 fL Neutrophils (%) (Auto) 70.8 % Lymphocytes (%) (Auto) 20.7 % Monocytes (%) (Auto) 5.5 % Eosinophils (%) (Auto) 2.4 % Basophils (%) (Auto) 0.1 % Neutrophils # (Auto) 10.00 K/uL Lymphocytes # (Auto) 2.93 K/uL Monocytes # (Auto) 0.78 K/uL Eosinophils # (Auto) 0.34 K/uL Basophils # (Auto) 0.01 K/uL RDW Standard Deviation 43.2 fL RDW Coefficient of Variation 18.1 % Immature Granulocyte % (Auto) 0.5 % Immature Granulocyte # (Auto) 0.07 K/uL Hypochromasia PRESENT Microcytosis PRESENT Sodium Level 138 mmol/L Potassium Level 3.5 mmol/L Chloride Level 103 mmol/L Carbon Dioxide Level 27 mmol/L Anion Gap 8.0 mmol/L Blood Urea Nitrogen 5 mg/dl Creatinine 0.60 mg/dl Est Creatinine Clear Calc Drug Dose 142.9 ml/min Estimated GFR () 143.8 Estimated GFR (Non- 124.0 BUN/Creatinine Ratio 8.8 Random Glucose 166 mg/dl Calcium Level 9.1 mg/dl Magnesium Level 1.9 mg/dl Total Bilirubin 0.2 mg/dl Aspartate Amino Transf (AST/SGOT) 7 U/L Alanine Aminotransferase (ALT/SGPT) 14 U/L Alkaline Phosphatase 127 U/L Total Protein 8.2 gm/dl Albumin 2.9 gm/dl Globulin 5.3 gm/dl Albumin/Globulin Ratio 0.6 Urine Color YELLOW Urine Appearance CLOUDY Urine pH 6.5 Urine Specific [place] 1.024 Urine Protein NEG Urine Glucose (UA) NEG Urine Ketones NEG Urine Occult Blood NEG Urine Nitrite NEG Urine Bilirubin NEG Urine Urobilinogen NEG Urine Leukocyte Esterase NEG Urine WBC (Auto) 1-5 /hpf Urine RBC (Auto) 0-4 /hpf Urine Hyaline Casts (Auto) 1-5 /lpf Urine Epithelial Cells (Auto) >30 /lpf Urine Bacteria (Auto) NEG Test 11/26/17 11:53 11/26/17 17:23 Bedside Glucose 197 mg/dl 273 mg/dl Assessment and Plan (1) Fever Status: Acute Assessment & Plan: 27 yo G0 s/p Abdominal myomectomy on 10/17/17 now admitted for sepsis and abdominal pain. CT abdomen and pelvis in the ER did not reveal any etiology for abdominal pain. Patient followed by Medicine for sepsis and glucose control. Treated with IV antibiotics (orginally Vanocomycin and Zosyn) then changed to daptomycin and Zosyn on 11/23/17. NGTD of blood cultures. [place] [address] [place] [address] [address]. Patient continued with LLQ pain unrelieved with narcotic medication. TVUS on 11/24/17 was concerning for an enlarged left ovary with possible ovarian torsion. Repeat TVUS on 2017 revealed no significant change and vascular flow present so less likely ovarian torsion. LLQ tenderness on abdominal exam this evening with mild palpation. Pt with a low grade temp this morning, blood cultures redrawn and pending. If no etiology of fevers, possible repeat of CT Abd/Pelvis. Pt started on Lovenox 40 mg daily for DVT prophylaxis. If no change in pelvic pain, plan for diagnostic laparoscopy and possible left ovarian cystectomy on 11/28/2017.
[2017-11-26] MEDS ORDERED: INSULIN GLARGINE SOLOSTAR 100 UNITS/ML 3 ML PEN SC STA ×2 (21:31→21:49)
[2017-11-26] MEDS: MONTELUKAST SOD 10 MG TAB PO SCH (21:38)
[2017-11-26 22:47] VITALS: BP 114/73; PULSE 97; TEMP 37.7; O2SAT 93
[2017-11-26 23:40] VITALS: O2SAT 93
[2017-11-27] MEDS: IBUPROFEN 600 MG TAB PO PRN ×2 (02:00→15:40)
[2017-11-27] MEDS: OXYCODONE/ACETAMINOPHEN 5-325 TAB PO PRN ×2 (02:00→15:40)
[2017-11-27] MEDS: PIPERACILL/TAZOBAC IV 3.375 GM in DEXTROSE 5% 100ML 100 ML IV SCH ×5 (03:15→21:18)
[2017-11-27] MEDS: INSULIN ASPART 100 UNITS/ML 3 ML PEN SC SCH ×6 (04:00→21:25)
[2017-11-27 06:26] LABS: BASO % 0.2 %; BASO ABS # 0.03 K/uL (0-0.2); EOS % 2.3 %; EOS ABS # 0.36 K/uL (0-0.5); HEMATOCRIT 24.5 % (37-47); HEMOGLOBIN 7.8 g/dL (12.0-16.0); IG# 0.12 K/uL (0.00-0.02); LYMPH % 21.4 %; LYMPH ABS # 3.39 K/uL (1.2-3.4); MEAN CELL VOLUME 65.5 fL (80-100); MEAN CORPUSCULAR HEMOGLOBIN 20.9 pg (25-34); MEAN CORPUSCULAR HGB CONC 31.8 g/dl (32-36); MEAN PLATELET VOLUME 8.6 fL (7.4-10.4); MONO % 6.1 %; MONO ABS # 0.96 K/uL (0.11-0.59); NEUT % 69.2 %; NEUT ABS # 10.98 K/uL (1.4-6.5); PLATELET COUNT 520 K/uL (130-400); RED CELL DISTRIBUTION WIDTH SD 43.2 fL (36.4-46.3); WHITE BLOOD COUNT 15.84 K/uL (4.8-10.8)
[2017-11-27 07:01] VITALS: BP 104/70; PULSE 80; TEMP 36.7; O2SAT 96
[2017-11-27 07:03] LABS: CREATININE 0.55 mg/dl (0.60-1.20); POTASSIUM 3.6 mmol/L (3.5-5.1); TOTAL PROTEIN 8.2 gm/dl (6.4-8.2)
[2017-11-27] MEDS: BUDESONIDE 0.5 MG/2 ML VIAL (PULMICORT) INH SCH (07:38)
--- NOTE | 2017-11-27 08:48 | Pharmacy Progress Note ---
Pharmacy Glycemic Short Note 2 Date of Service November 27, 2017. OUTPATIENT ANTIDIABETIC REGIMEN: * Lantus 64 units SQ qHS * Apidra (CR 1:10 and CF 4-60 if BSG greater than 200 mg/dL) * Metformin 500mg PO qAM * HbA1c: 12.4% (11/22/17) ASSESSMENT: 11/27/17: * Patient's glycemic control remains poor. Patient is still intermittently compliant with ordered regimen. * Pt may be going to OR for exploratory laparotomy tomorrow. * No changes at this time. 11/25/17 * Patient's BSGs remain poorly controlled. Patient has been unhappy and non- compliant with her carb-controlled diet while admitted. * She often refuses insulin doses (especially correction for hyperglycemia at bedtime). * Patient has been compliant with Lantus doses thus far, which appear to be appropriate, based on fasting BSGs. May be able to go up on the doses slightly. * For now, will continue to control BSGs as tightly as possible, limited by patient's unwillingness to comply with regimen. PLAN FOR INPATIENT GLYCEMIC CONTROL: * Basal insulin * Lantus 30 units SQ BID ----> incr to 32 units SQ BID per provider * Bolus insulin * NovoLog per scale ACHS or Q6hrs while NPO * Goal Range: Low 120 mg/dL - High 150 mg/dL * Correction Factor: 20 mg/dL/unit * Nutritional / Prandial insulin per carb ratio of 1 unit per 7 grams CHO consumed -tighten PLANS FOR DISCHARGE: * Outpatient glycemic control is extremely poor, as evidenced by A1c 12.4%. * Largest contributing factor seems to be patient non-compliance. * Patient should work toward adapting diet after discharge, however, despite counseling from CDE and hospitalist, she does not appear to be interested in doing so. * It seems patient does not tolerate high dose of Lantus once daily, so she likely needs to be dosing this twice daily at home. * Patient will need f/u with outpatient provider QI after discharge to develop a good strategy to optimize A1c.
[2017-11-27] MEDS: ENOXAPARIN 40 MG/0.4 ML SYR SQ SCH (09:00)
[2017-11-27] MEDS: DOCUSATE SODIUM 100 MG CAP PO SCH ×2 (09:22→21:18)
[2017-11-27] MEDS: FERROUS SULFATE 325 MG TAB PO SCH (09:22)
[2017-11-27] MEDS: SENNA 8.6 MG TAB PO SCH (09:22)
[2017-11-27] MEDS: INSULIN GLARGINE SOLOSTAR 100 UNITS/ML 3 ML PEN SC SCH ×2 (09:26→21:26)
[2017-11-27] MEDS ORDERED: ALBUT/IPRATROP 3MG/0.5MG NEB 3 ML VIAL INH PRN (10:45)
[2017-11-27] MEDS ORDERED: NURSING VERBAL MED ORDER ONE ×2 (11:00→13:15)
[2017-11-27] MEDS ORDERED: POLYETHYLENE (MIRALAX) 17 GM PACK PO STA (13:01)
[2017-11-27] MEDS ORDERED: MAGNESIUM HYDROXIDE SUSP 30 ML UDC PO PRN (13:15)
--- NOTE | 2017-11-27 14:51 | Progress Note ---
Subjective Date of Service: November 27, 2017. Subjective blood cultures negative and final. repeats pending. remains on abx. still with intermittent fevers. wbc remains elevated. Problem List Medical Problems: (1) Abdominal pain Status: Acute (2) Anemia Status: Acute (3) Fever Status: Acute (4) Fever Status: Acute (5) Sepsis Status: Acute (6) UTI (urinary tract infection) Status: Acute Objective Vital Signs Date Time Temp Pulse Resp B/P (MAP) Pulse Ox O2 Delivery O2 Flow Rate FiO2 11/27/17 07:30 Room Air 11/27/17 07:01 36.7 80 18 104/70 (81) 96 Room Air 11/26/17 23:40 93 Room Air 11/26/17 22:47 37.7 97 17 114/73 (87) 93 Room Air 11/26/17 16:25 Room Air 11/26/17 16:00 37.2 100 16 112/70 (84) 96 Room Air Laboratory Results Item Value Date Time Blood Culture - Final Complete 11/21/17 1417 Blood NO GROWTH Blood Culture - Preliminary Resulted 11/21/17 1355 Blood NO GROWTH TO DATE. Last 24 Hours Test 11/26/17 17:23 11/26/17 20:21 11/27/17 04:08 11/27/17 06:00 Bedside Glucose 273 mg/dl 303 mg/dl 147 mg/dl White Blood Count 15.84 K/uL Red Blood Count 3.74 M/uL Hemoglobin 7.8 g/dL Hematocrit 24.5 % Mean Corpuscular Volume 65.5 fL Mean Corpuscular Hemoglobin 20.9 pg Mean Corpuscular Hemoglobin Concent 31.8 g/dl Platelet Count 520 K/uL Mean Platelet Volume 8.6 fL Neutrophils (%) (Auto) 69.2 % Lymphocytes (%) (Auto) 21.4 % Monocytes (%) (Auto) 6.1 % Eosinophils (%) (Auto) 2.3 % Basophils (%) (Auto) 0.2 % Neutrophils # (Auto) 10.98 K/uL Lymphocytes # (Auto) 3.39 K/uL Monocytes # (Auto) 0.96 K/uL Eosinophils # (Auto) 0.36 K/uL Basophils # (Auto) 0.03 K/uL RDW Standard Deviation 43.2 fL RDW Coefficient of Variation 18.0 % Immature Granulocyte % (Auto) 0.8 % Immature Granulocyte # (Auto) 0.12 K/uL Anisocytosis PRESENT Microcytosis PRESENT Sodium Level 138 mmol/L Potassium Level 3.6 mmol/L Chloride Level 105 mmol/L Carbon Dioxide Level 26 mmol/L Anion Gap 8.0 mmol/L Blood Urea Nitrogen 7 mg/dl Creatinine 0.55 mg/dl Est Creatinine Clear Calc Drug Dose 155.9 ml/min Estimated GFR () 147.9 Estimated GFR (Non- 127.6 BUN/Creatinine Ratio 13.3 Random Glucose 117 mg/dl Calcium Level 9.0 mg/dl Total Bilirubin 0.2 mg/dl Aspartate Amino Transf (AST/SGOT) 5 U/L Alanine Aminotransferase (ALT/SGPT) 13 U/L Alkaline Phosphatase 98 U/L Total Protein 8.2 gm/dl Albumin 3.0 gm/dl Globulin 5.2 gm/dl Albumin/Globulin Ratio 0.6 Test 11/27/17 08:06 11/27/17 12:16 Bedside Glucose 107 mg/dl 177 mg/dl Assessment and Plan (1) Fever Assessment & Plan: continue abx but suspect noninfectious source, some concern for torsion of ovary. If fever/ leukocytosis persists, would repeat ct abd/ pelvis.
[2017-11-27 15:12] VITALS: BP 119/72; PULSE 106; TEMP 37.3; O2SAT 93
[2017-11-27] MEDS: DAPTOmycin IV 225 MG in SYRINGE 0 ML IV SCH (15:36)
[2017-11-27] MEDS: MAGNESIUM HYDROXIDE SUSP 30 ML UDC PO PRN ×2 (15:43→23:38)
--- NOTE | 2017-11-27 18:38 | OB/GYN Progress Note ---
[facility] Progress Note Date of Service November 27, 2017. Subjective conversation w/ patient Ambulation: ambulating normally Voiding: no voiding problems Diet Tolerance: Regular Diet (Diabetic diet) Notes: No bowel movement x 4-5 days Review of Systems Constitutional: No fever (low grade temperature throughout the day. Currently afebrile.), No chills, No sweats, No weight loss, No weakness, No fatigue, No problem reported Respiratory: No cough, No sputum, No wheezing, No shortness of breath, No dyspnea on exertion, No dyspnea at rest, No hemoptysis, No problem reported Cardiac: No chest pain, No palpitations, No problem reported Abdomen: + pain (LLQ pain (Patient unable to distinguish if pain is from constipation or pelvic pain)), + constipation Female : No see HPI, No dysuria, No urinary frequency, No hematuria, No incontinence, No abnormal vaginal bleeding, No vaginal discharge, No problem reported Objective Vital Signs Date Time Temp Pulse Resp B/P (MAP) Pulse Ox O2 Delivery O2 Flow Rate FiO2 11/27/17 15:30 Room Air 11/27/17 15:12 37.3 106 16 119/72 (88) 93 Room Air 11/27/17 07:30 Room Air 11/27/17 07:01 36.7 80 18 104/70 (81) 96 Room Air 11/26/17 23:40 93 Room Air 11/26/17 22:47 37.7 97 17 114/73 (87) 93 Room Air Physical Exam General Appearance: NO APPARENT DISTRESS Respiratory/Chest: chest non-tender, lungs clear Cardiovascular: regular rate, rhythm Abdomen: normal bowel sounds, soft, + tenderness (LLQ pain) Incision Description: Clean, Dry & Intact Extremities: normal range of motion Laboratory Results Last 24 Hours Test 11/26/17 20:21 11/27/17 04:08 11/27/17 06:00 11/27/17 08:06 Bedside Glucose 303 mg/dl 147 mg/dl 107 mg/dl White Blood Count 15.84 K/uL Red Blood Count 3.74 M/uL Hemoglobin 7.8 g/dL Hematocrit 24.5 % Mean Corpuscular Volume 65.5 fL Mean Corpuscular Hemoglobin 20.9 pg Mean Corpuscular Hemoglobin Concent 31.8 g/dl Platelet Count 520 K/uL Mean Platelet Volume 8.6 fL Neutrophils (%) (Auto) 69.2 % Lymphocytes (%) (Auto) 21.4 % Monocytes (%) (Auto) 6.1 % Eosinophils (%) (Auto) 2.3 % Basophils (%) (Auto) 0.2 % Neutrophils # (Auto) 10.98 K/uL Lymphocytes # (Auto) 3.39 K/uL Monocytes # (Auto) 0.96 K/uL Eosinophils # (Auto) 0.36 K/uL Basophils # (Auto) 0.03 K/uL RDW Standard Deviation 43.2 fL RDW Coefficient of Variation 18.0 % Immature Granulocyte % (Auto) 0.8 % Immature Granulocyte # (Auto) 0.12 K/uL Anisocytosis PRESENT Microcytosis PRESENT Sodium Level 138 mmol/L Potassium Level 3.6 mmol/L Chloride Level 105 mmol/L Carbon Dioxide Level 26 mmol/L Anion Gap 8.0 mmol/L Blood Urea Nitrogen 7 mg/dl Creatinine 0.55 mg/dl Est Creatinine Clear Calc Drug Dose 155.9 ml/min Estimated GFR () 147.9 Estimated GFR (Non- 127.6 BUN/Creatinine Ratio 13.3 Random Glucose 117 mg/dl Calcium Level 9.0 mg/dl Total Bilirubin 0.2 mg/dl Aspartate Amino Transf (AST/SGOT) 5 U/L Alanine Aminotransferase (ALT/SGPT) 13 U/L Alkaline Phosphatase 98 U/L Total Protein 8.2 gm/dl Albumin 3.0 gm/dl Globulin 5.2 gm/dl Albumin/Globulin Ratio 0.6 Test 11/27/17 12:16 Bedside Glucose 177 mg/dl Assessment and Plan (1) Fever Status: Acute Assessment & Plan: 27 yo G0 s/p Abdominal myomectomy on 10/17/17 now admitted for sepsis and abdominal pain. CT abdomen and pelvis in the ER did not reveal any etiology for abdominal pain. Patient followed by Medicine for sepsis and glucose control. Treated with IV antibiotics (orginally Vanocomycin and Zosyn) then changed to daptomycin and Zosyn on 11/23/17. Initial blood cultures negative. Repeat blood cultures final results still pending. [place] [address] ([place] [address] [address], [place] [address]. Patient continued with LLQ pain unrelieved with narcotic medication. TVUS on was concerning for an enlarged left ovary with possible ovarian torsion. Repeat TVUS on 11/25/2017 revealed no significant change and vascular flow present so less likely ovarian torsion. LLQ tenderness on abdominal exam this evening, however Pt without a BM for 4-5 days. Pt unsure if symptoms from actual pelvic pain or constipation. Pt with a low grade temp throughout the day. Pt started on Lovenox 40 mg daily for DVT prophylaxis on 11/26/17. Pt declined lovenox treatment today. Plan for diagnostic laparoscopy and possible left ovarian cystectomy on 11/28/2017. NPO after midnight.
--- NOTE | 2017-11-27 18:47 | Progress Note ---
Internal Med Progress Note Date of Service: November 27, 2017. Provider Documentation: SUBJECTIVE: Patient's white blood cell count increased today. Patient reports to hospitalist that she is agreeable for exploratory surgery with OBGYN tomorrow. Patient's mother also updated about the health care plans to date. OBJECTIVE: Exam: General- no distress Eyes- EOMI Neck- no JVD Lungs- CTABL, no wheezing Heart- regular rate Abdomen- soft, + bowel sounds, tenderness when examiner presses on abdomen primarily of left abdomen Extremities- no edema Neuro- awake and alert ASSESSMENT & PLAN: This is a 27 year old female with a past medical history of insulin dependent, uncontrolled type 2 diabetes, hx of asthma, allergic rhinitis, nasal polyps, recent myomectomy secondary to uterine fibroids on October 2017 presented on this admission with abdominal pain; +fevers. Patient has been treated for SEPSIS -Initially on broad spectrum Vancomycin and Zosyn with regimen changed to daptomycin and Zosyn on 11/23/17 -Blood cultures from 11/21/17 with no growth to date -WBC downtrended from 21,000 on 11/22/17 to around 14,000 by 11/25/17 -Patient declined repeat blood culture -Patient has been evaluated by OBGYN on this admission because of recent myomectomy secondary to uterine fibroids on October 17, 2017 -Initial concern for ovarian pathology such as ovarian torsion on pelvic/ transvaginal ultrasound on 11/24/17 and repeat pelvic/transvaginal ultrasound with no significant change and vascular flow present so less likely ovarian torsion. -Blood cultures repeated on 11/26/17 because of low grade fevers, follow cultures , repeat UA is negative. -WBC increased from 14,000 pn 11/26/17 to 15,800 on 11/27/17 -will continue daptomycin and Zosyn for now -had re-discussed case with OBGYN Dr. Andrade. Patient had agreed tentatively that if the fevers continue and no sources identified with repeat labs then she is willing to go to operating room on Friday for possible exploratory surgery of abdomen Insulin Dependent, Uncontrolled DM2 - Hba1c 12.4 -on insulin longa acting/short acting -will hold tonight's long acting insulin while anticipating NPO after midnight for possible surgery tomorrow Microcytic Anemia - peripheral smear suggestive of iron deficiency - holding iron supplements for now because of constipation Constipation -more aggressive bowel regimen started Asthma - no acute exacerbations - use home regimen DVT ppx: lovenox FULL CODE Vital Signs: Date Time Temp Pulse Resp B/P (MAP) Pulse Ox O2 Delivery O2 Flow Rate FiO2 11/27/17 15:30 Room Air 11/27/17 15:12 37.3 106 16 119/72 (88) 93 Room Air 11/27/17 07:30 Room Air 11/27/17 07:01 36.7 80 18 104/70 (81) 96 Room Air 11/26/17 23:40 93 Room Air 11/26/17 22:47 37.7 97 17 114/73 (87) 93 Room Air Lab Results: Results Past 24 Hours Test 11/26/17 20:21 11/27/17 04:08 11/27/17 06:00 11/27/17 08:06 Range/Units Bedside Glucose 303 147 107 70-90 mg/dl White Blood Count 15.84 4.8-10.8 K/uL Red Blood Count 3.74 4.2-5.4 M/uL Hemoglobin 7.8 12.0-16.0 g/dL Hematocrit 24.5 37-47 % Mean Corpuscular Volume 65.5 80-100 fL Mean Corpuscular Hemoglobin 20.9 25-34 pg Mean Corpuscular Hemoglobin Concent 31.8 32-36 g/dl Platelet Count 520 130-400 K/uL Mean Platelet Volume 8.6 7.4-10.4 fL Neutrophils (%) (Auto) 69.2 % Lymphocytes (%) (Auto) 21.4 % Monocytes (%) (Auto) 6.1 % Eosinophils (%) (Auto) 2.3 % Basophils (%) (Auto) 0.2 % Neutrophils # (Auto) 10.98 1.4-6.5 K/uL Lymphocytes # (Auto) 3.39 1.2-3.4 K/uL Monocytes # (Auto) 0.96 0.11-0.59 K/uL Eosinophils # (Auto) 0.36 0-0.5 K/uL Basophils # (Auto) 0.03 0-0.2 K/uL RDW Standard Deviation 43.2 36.4-46.3 fL RDW Coefficient of Variation 18.0 11.5-14.5 % Immature Granulocyte % (Auto) 0.8 % Immature Granulocyte # (Auto) 0.12 0.00-0.02 K/uL Anisocytosis PRESENT Microcytosis PRESENT Sodium Level 138 136-145 mmol/L Potassium Level 3.6 3.5-5.1 mmol/L Chloride Level 105 98-107 mmol/L Carbon Dioxide Level 26 21-32 mmol/L Anion Gap 8.0 3-11 mmol/L Blood Urea Nitrogen 7 7-18 mg/dl Creatinine 0.55 0.60-1.20 mg/dl Est Creatinine Clear Calc Drug Dose 155.9 ml/min Estimated GFR () 147.9 Estimated GFR (Non- 127.6 BUN/Creatinine Ratio 13.3 10-20 Random Glucose 117 70-99 mg/dl Calcium Level 9.0 8.5-10.1 mg/dl Total Bilirubin 0.2 0.2-1 mg/dl Aspartate Amino Transf (AST/SGOT) 5 15-37 U/L Alanine Aminotransferase (ALT/SGPT) 13 12-78 U/L Alkaline Phosphatase 98 45-117 U/L Total Protein 8.2 6.4-8.2 gm/dl Albumin 3.0 3.4-5.0 gm/dl Globulin 5.2 2.5-4.0 gm/dl Albumin/Globulin Ratio 0.6 0.9-2 Test 11/27/17 12:16 Range/Units Bedside Glucose 177 70-90 mg/dl
[2017-11-27] MEDS ORDERED: INSULIN GLARGINE SOLOSTAR 100 UNITS/ML 3 ML PEN SC SCH (21:00)
[2017-11-27] MEDS: MONTELUKAST SOD 10 MG TAB PO SCH (21:18)
[2017-11-27 22:53] VITALS: BP 107/70; PULSE 84; TEMP 36.9; O2SAT 97
[2017-11-27 23:30] VITALS: O2SAT 97
[2017-11-28] VITALS (8 sets, daily range): BP systolic 113–130; BP diastolic 73–82; PULSE 86–118; TEMP 36.5–38; O2SAT 96–100
[2017-11-28] MEDS ORDERED: NURSING DECISION MEDICATION ORDER SCH ×3 (00:30→16:00)
[2017-11-28] MEDS: PIPERACILL/TAZOBAC IV 3.375 GM in DEXTROSE 5% 100ML 100 ML IV SCH ×3 (05:04→23:21)
[2017-11-28] MEDS: INSULIN ASPART 100 UNITS/ML 3 ML PEN SC SCH ×4 (06:00→20:48)
[2017-11-28] MEDS: DOCUSATE SODIUM 100 MG CAP PO SCH ×2 (08:04→20:47)
[2017-11-28] MEDS: SENNA 8.6 MG TAB PO SCH (08:05)
[2017-11-28] MEDS: POLYETHYLENE (MIRALAX) 17 GM PACK PO SCH (08:05)
[2017-11-28] MEDS: ENOXAPARIN 40 MG/0.4 ML SYR SQ SCH (08:56)
[2017-11-28] MEDS: INSULIN GLARGINE SOLOSTAR 100 UNITS/ML 3 ML PEN SC SCH ×2 (09:00→20:49)
--- NOTE | 2017-11-28 11:14 | Progress Note ---
Subjective Date of Service: November 28, 2017. Subjective pt in OR. for diagnostic lap today. low grade fever, isolated. remains on abx. repeat blood cultures negative, initial blood cultures negative and final. no am labs. Day #6 abx. Problem List Medical Problems: (1) Abdominal pain Status: Acute (2) Anemia Status: Acute (3) Fever Status: Acute (4) Fever Status: Acute (5) Sepsis Status: Acute (6) UTI (urinary tract infection) Status: Acute Objective Vital Signs Date Time Temp Pulse Resp B/P (MAP) Pulse Ox O2 Delivery O2 Flow Rate FiO2 11/28/17 07:11 37.7 106 16 113/74 (87) 96 Room Air 11/28/17 07:00 Room Air 11/27/17 23:30 97 Room Air 11/27/17 22:53 36.9 84 16 107/70 (82) 97 Room Air 11/27/17 15:30 Room Air 11/27/17 15:12 37.3 106 16 119/72 (88) 93 Room Air Laboratory Results Item Value Date Time Blood Culture - Preliminary Resulted 11/26/17 0857 Blood NO GROWTH TO DATE. Blood Culture - Preliminary Resulted 11/26/17 0850 Blood NO GROWTH TO DATE. Blood Culture - Final Complete 11/21/17 1417 Blood NO GROWTH Blood Culture - Preliminary Resulted 11/21/17 1355 Blood NO GROWTH TO DATE. Last 24 Hours Test 11/27/17 12:16 11/27/17 16:55 11/27/17 21:10 11/28/17 05:59 Bedside Glucose 177 mg/dl 247 mg/dl 330 mg/dl 99 mg/dl Assessment and Plan (1) Fever Assessment & Plan: continue abx but suspect noninfectious source, some concern for torsion of ovary. for OR today, await findings. will maintain IV abx for now as she is to undergo procedure. If repeat culture negative, would stop abx after 7 days
[2017-11-28] MEDS ORDERED: ATROPINE SULFATE 0.1 MG/ML 5ML SYR IV PRN (12:00)
[2017-11-28] MEDS ORDERED: ONDANSETRON INJ 2 MG/ML 2 ML VIAL IV PRN (12:00)
[2017-11-28] MEDS ORDERED: KETOROLAC TROMETHAMINE 30 MG/ML VIAL IV. PRN (12:00)
[2017-11-28] MEDS ORDERED: FENTANYL CITRATE INJ 50 MCG/1 ML 2 ML VIAL IV PRN (12:00)
[2017-11-28] MEDS ORDERED: FLOSEAL HEMOSTATIC MATRIX 10ML TOP ONE (13:55)
[2017-11-28] MEDS ORDERED: BUPIVACAINE 0.5 % 5 MG/1 ML MPF 30ML VIAL INJ ONE (14:03)
--- NOTE | 2017-11-28 14:09 | [facility] Post Operative Brief Note ---
Immediate Operative Summary Operative Date November 28, 2017. Pre-Operative Diagnosis Pelvic Pain Post-Operative Diagnosis Same as Preop, plus tuboovarian abscess, possible ovarian torsion Procedure(s) Performed Diagnostic Laparoscopy,Lysis of Adhesions, Left Salpingo-oopherectomy Surgeon Dr. Brown [employer] Surgeon(s) Anai Fung PA-C Estimated Blood Loss 100 ml Findings Consistent with Post-Op Diagnosis Fluids (cc crystalloids) 1200 Specimens Cytology 1. Pelvic Washings Permanent A. Left adnexa and tube Drains None Anesthesia Type General Complication(s) none Disposition Disposition: Recovery Room / PACU
--- NOTE | 2017-11-28 14:44 | Pharmacy Progress Note ---
Pharmacy Glycemic Short Note 2 Date of Service November 28, 2017. OUTPATIENT ANTIDIABETIC REGIMEN: * Lantus 64 units SQ qHS * Apidra (CR 1:10 and CF 4-60 if BSG greater than 200 mg/dL) * Metformin 500mg PO qAM * HbA1c: 12.4% (11/22/17) ASSESSMENT: 11/28/17: * Patient's glycemic control remains poor. Patient is still intermittently compliant with ordered regimen. * Pt to OR for exploratory laparotomy today. * No changes at this time. 11/25/17 * Patient's BSGs remain poorly controlled. Patient has been unhappy and non- compliant with her carb-controlled diet while admitted. * She often refuses insulin doses (especially correction for hyperglycemia at bedtime). * Patient has been compliant with Lantus doses thus far, which appear to be appropriate, based on fasting BSGs. May be able to go up on the doses slightly. * For now, will continue to control BSGs as tightly as possible, limited by patient's unwillingness to comply with regimen. PLAN FOR INPATIENT GLYCEMIC CONTROL: * Basal insulin * Lantus 30 units SQ BID ----> incr to 32 units SQ BID per provider * Bolus insulin * NovoLog per scale ACHS or Q6hrs while NPO * Goal Range: Low 120 mg/dL - High 150 mg/dL * Correction Factor: 20 mg/dL/unit * Nutritional / Prandial insulin per carb ratio of 1 unit per 7 grams CHO consumed -tighten PLANS FOR DISCHARGE: * Outpatient glycemic control is extremely poor, as evidenced by A1c 12.4%. * Largest contributing factor seems to be patient non-compliance. * Patient should work toward adapting diet after discharge, however, despite counseling from CDE and hospitalist, she does not appear to be interested in doing so. * It seems patient does not tolerate high dose of Lantus once daily, so she likely needs to be dosing this twice daily at home. * Patient will need f/u with outpatient provider QI after discharge to develop a good strategy to optimize A1c.
--- NOTE | 2017-11-28 15:00 | Anesthesiology Progress Note ---
Anesthesia Post Op Note Date & Time November 28, 2017 at 14:59 Vital Signs Pain Intensity: 2 Vital Signs Past 12 Hours Date Time Temp Pulse Resp B/P (MAP) Pulse Ox O2 Delivery O2 Flow Rate FiO2 11/28/17 14:50 83 20 127/84 98 Nasal Cannula 2 11/28/17 14:40 78 26 125/82 100 Oxymask 10 11/28/17 14:30 87 28 131/83 100 Oxymask 10 11/28/17 14:22 36.9 96 16 130/82 100 Oxymask 10 11/28/17 07:11 37.7 106 16 113/74 (87) 96 Room Air 11/28/17 07:00 Room Air Notes Mental Status: alert / awake / arousable, participated in evaluation Pt Amnestic to Procedure: Yes Nausea / Vomiting: adequately controlled Pain: adequately controlled Airway Patency, RR, SpO2: stable & adequate BP & HR: stable & adequate Hydration State: stable & adequate Anesthetic Complications: no major complications apparent
[2017-11-28] MEDS: MoRPHine SULFATE 4 MG/ML 1 ML CARP\\VIAL IV PRN (15:41)
[2017-11-28] MEDS: DAPTOmycin IV 225 MG in SYRINGE 0 ML IV SCH (16:31)
--- NOTE | 2017-11-28 17:06 | Progress Note ---
Internal Med Progress Note Date of Service: November 28, 2017. Provider Documentation: SUBJECTIVE: Patient is s/p Diagnostic Laparoscopy,Lysis of Adhesions, Left Salpingo- oopherectomy. Patient returns from OR. Denies acute complaints. Has some abdominal tenderness postop on exam OBJECTIVE: Exam: General- no distress Eyes- EOMI Neck- no JVD Lungs- CTABL, no wheezing Heart- regular rate Abdomen- soft, + bowel sounds, some abdominal tenderness postop on exam, incision sites dry and without drainage Extremities- no edema Neuro- awake and alert ASSESSMENT & PLAN: This is a 27 year old female with a past medical history of insulin dependent, uncontrolled type 2 diabetes, hx of asthma, allergic rhinitis, nasal polyps, recent myomectomy secondary to uterine fibroids on October 2017 presented on this admission with abdominal pain; +fevers. Patient has been treated for SEPSIS -Initially on broad spectrum Vancomycin and Zosyn with regimen changed to daptomycin and Zosyn on 11/23/17 -Blood cultures from 11/21/17 with no growth to date -WBC downtrended from 21,000 on 11/22/17 to around 14,000 by 11/25/17 -Patient declined repeat blood culture -Patient has been evaluated by OBGYN on this admission because of recent myomectomy secondary to uterine fibroids on October 17, 2017 -Initial concern for ovarian pathology such as ovarian torsion on pelvic/ transvaginal ultrasound on 11/24/17 and repeat pelvic/transvaginal ultrasound with no significant change and vascular flow present so less likely ovarian torsion. -Blood cultures repeated on 11/26/17 because of low grade fevers but no growth to date, the repeated UA was negative. -WBC increased from 14,000 pn 11/26/17 to 15,800 on 11/27/17 -s/p Diagnostic Laparoscopy,Lysis of Adhesions, Left Salpingo-oopherectomy -will continue daptomycin and Zosyn for now Insulin Dependent, Uncontrolled DM2 - Hba1c 12.4 - subcutaneous Insulin being restarted after operation and pharmacy glycemic control consult is following the patient Microcytic Anemia - peripheral smear suggestive of iron deficiency - continue to holding iron supplements for now because of constipation Constipation -bowel regimen Asthma - no acute exacerbations - use home regimen DVT ppx: lovenox to be resumed after the surgery (s/p Diagnostic Laparoscopy, Lysis of Adhesions, Left Salpingo-oopherectomy) FULL CODE Vital Signs: Date Time Temp Pulse Resp B/P (MAP) Pulse Ox O2 Delivery O2 Flow Rate FiO2 11/28/17 16:29 37.0 100 18 129/82 (98) 100 Nasal Cannula 2.0 11/28/17 16:09 37.0 95 18 127/79 (95) 100 Nasal Cannula 2.0 11/28/17 15:31 99 Nasal Cannula 2.0 11/28/17 15:28 37.1 86 16 115/76 (89) 99 Nasal Cannula 2.0 11/28/17 15:15 88 22 134/78 99 Nasal Cannula 2 11/28/17 15:00 36.7 84 24 131/78 99 Nasal Cannula 2 11/28/17 14:50 83 20 127/84 98 Nasal Cannula 2 11/28/17 14:40 78 26 125/82 100 Oxymask 10 11/28/17 14:30 87 28 131/83 100 Oxymask 10 11/28/17 14:22 36.9 96 16 130/82 100 Oxymask 10 11/28/17 07:11 37.7 106 16 113/74 (87) 96 Room Air 11/28/17 07:00 Room Air 11/27/17 23:30 97 Room Air 11/27/17 22:53 36.9 84 16 107/70 (82) 97 Room Air Lab Results: Results Past 24 Hours Test 11/27/17 21:10 11/28/17 05:59 11/28/17 14:27 Range/Units Bedside Glucose 330 99 171 70-90 mg/dl
[2017-11-28] MEDS: OXYCODONE/ACETAMINOPHEN 5-325 TAB PO PRN ×2 (19:23→23:22)
--- NOTE | 2017-11-28 19:51 | [facility] Operative Report ---
Operative Report Operative Date November 28, 2017. Pre-Operative Diagnosis Pelvic Pain Post-Operative Diagnosis Same as Preop, plus tuboovarian abscess, possible ovarian torsion Procedure(s) Performed Diagnostic Laparoscopy,Lysis of Adhesions, Left Salpingo-oopherectomy Surgeon Dr. Brown Superintendent Stevedoring Surgeon(s) Anai Fung PA-C Estimated Blood Loss 100 ml Findings 1. Normal size anteverted uterus 2. Normal appearing right fallopian tube and ovary 3. Enlarged left adnexa adhered to the pelvic sidewall. Upon dissection of left adnexal mass, copious amount of pus and blood protruding during dissection. 4. Omental adhesions to the umbilicus 5. Posterior cul-de-sac with yellow murky fluid 6. Anterior cul-de-sac free of disease Fluids 1200 Specimens Cytology 1. Pelvic Washings Permanent A. Left adnexa and tube Drains None Anesthesia Type General Complication(s) none Disposition Recovery Room / PACU Indications 27 yo G0 presented to [facility] ER on 11/21/2017 with abdominal pain. In the ER, Patient febrile, elevated WBC, and uncontrolled blood glucose levels. CT abdomen and pelvis in the ER did not reveal any abnormal findings. Patient was subsequently admitted for IV antibiotics, glucose control and pain management. Patient continued with left lower quadrant pain although on medication. TVUS on 11/24/2017 was suspicious for an enlarged left ovary with possible ovarian torsion. Repeat pelvic ultrasound on 11/25/2017 revealed vascular flow to the left ovary and less suspicion for ovarian torsion. Patient continued with daily low grade temperatures, LLQ pain, and elevated but downtrending WBC since admission with negative blood and urine cultures. Decision was made to proceed with diagnostic laparoscopy for further evaluation due to symptoms. Informed consent was made prior to surgery for Diagnostic Laparoscopy, Possible Left Ovarian Cystectomy, Possible Right Ovarian Cystectomy, or Possible Left Salpingo -Opherectomy. Description of Procedure The patient was taken to the operating room where she was identified as herself , placed in the dorsal lithotomy position. After general anesthesia was administered without difficulty, she was prepped and draped in the usual sterile fashion. A hulka uterine manipulator and velasquez catheter was placed without difficulty. Attention was then turned to the Patient's abdomen in which the umbilicus was infiltrated with .5% marcaine plain. A 5-mm incision made in the umbilical fold. The 5 mm trocar and sleeve with the 5-mm, 0- degree laparoscope was introduced into the intraabdominal cavity where intraabdominal placement was confirmed by appropriate pressure reading. The abdomen was insufflated with CO2 gas. The findings noted above. At this time, 3 further incisions were made in the left lower quadrant, left upper quadrant and the right lower quadrant respectively to accommodate a 10-mm trocar, a two 5-mm trocar, respectively under direct visualization. The lower quadrant incisions were lateral to the inferior epigastric vessels. The fluid in the posterior cul- de-sac was collected for cytology. The patient was placed in steep Trendelenburg positioning with the bowel displaced superiorly. At this time, attention was turned to the umbilicus where filmy omental adhesions were grasped, coagulated and cut with DORA Harmonic. Hemostasis noted. Judicious adhesiolysis of and around the left fallopian tube and ovarian abscess was performed with the harmonic scalpel. During dissection of the adnexal mass from the left pelvic sidewall, large amount of pus and blood was expelled from the adnexal mass. The infundibular pelvic (IP) ligament was able to be isolated and noted to be edematous and firm. The ovarian mass was then again judiciously dissected free of its adhesions to the pelvic side wall until it was completely freed from its moorings in the left pelvic sidewall. The left cornua was then grasped and the fallopian tube was grasped, coagulated and transected towards the adnexal mass in order to restore normal anatomy. The left ureter was then noted to be perstalsising lateral the the infundibular pelvic ligament. The IP ligament was then grasped, coagulated and cut in a serial fashion using the DORA Harmonic allowing the adnexal mass to free from its lateral attachment. The left adnexal mass encompassing the left fallopian tube and ovary were placed into a Endopouch and removed through the left lower quadrant port site. At this time, the abdomen was copiously irrigated with a liter of normal saline , cleared of all clots and debris with again the right ovary appearing completely normal and the abdomen completely hemostatic. Floseal was then applied to the left pelvic side wall and remaining portion of the IP ligament. The 10-mm fascial defect in the left lower quadrant incision was closed using the Jaxson Miguel. The remaining laparoscopic trocars were subsequently removed from the patients abdomen. The CO2 gas was expelled. The patients 4 skin incisions were closed in a subcuticular fashion with 4-0 Monocryl and dermabond. All vaginal instrumentation and velasquez catheter were removed at the end of the procedure. The patient was taken to recovery room in stable awake condition. I attest to the content of the Intraoperative Record and any orders documented therein. Any exceptions are noted below.
--- NOTE | 2017-11-28 19:54 | OB/GYN Progress Note ---
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 Subjective conversation w/ patient Voiding: no voiding problems Diet Tolerance: Regular Diet (Diabetic Diet) Review of Systems Constitutional: No fever, No chills, No sweats, No weight loss, No weakness, No fatigue, No problem reported Respiratory: No cough, No shortness of breath Cardiac: No chest pain Abdomen: + pain (Pain at the laparoscopic incision sites) Female : No see HPI, No dysuria, No urinary frequency, No hematuria, No incontinence, No abnormal vaginal bleeding, No vaginal discharge, No problem reported Objective Vital Signs Date Time Temp Pulse Resp B/P (MAP) Pulse Ox O2 Delivery O2 Flow Rate FiO2 11/28/17 17:27 36.5 93 18 130/81 (97) 100 Nasal Cannula 2.0 11/28/17 16:29 37.0 100 18 129/82 (98) 100 Nasal Cannula 2.0 11/28/17 16:09 37.0 95 18 127/79 (95) 100 Nasal Cannula 2.0 11/28/17 15:31 99 Nasal Cannula 2.0 11/28/17 15:28 37.1 86 16 115/76 (89) 99 Nasal Cannula 2.0 11/28/17 15:15 88 22 134/78 99 Nasal Cannula 2 11/28/17 15:00 36.7 84 24 131/78 99 Nasal Cannula 2 11/28/17 14:50 83 20 127/84 98 Nasal Cannula 2 11/28/17 14:40 78 26 125/82 100 Oxymask 10 11/28/17 14:30 87 28 131/83 100 Oxymask 10 11/28/17 14:22 36.9 96 16 130/82 100 Oxymask 10 11/28/17 07:11 37.7 106 16 113/74 (87) 96 Room Air 11/28/17 07:00 Room Air 11/27/17 23:30 97 Room Air 11/27/17 22:53 36.9 84 16 107/70 (82) 97 Room Air Physical Exam General Appearance: NO APPARENT DISTRESS Respiratory/Chest: chest non-tender, lungs clear Cardiovascular: regular rate, rhythm Abdomen: soft, + tenderness (Appropriately tender around the incision sites) Incision Description: Clean, Dry & Intact Extremities: normal range of motion Laboratory Results Last 24 Hours Test 11/27/17 21:10 11/28/17 05:59 11/28/17 14:27 11/28/17 17:04 Bedside Glucose 330 mg/dl 99 mg/dl 171 mg/dl 173 mg/dl Assessment and Plan Post-Op (Day 0) (1) Fever Status: Acute Assessment & Plan: 27 yo G0 s/p Dx. Laparoscopy, Lysis of adhesions, and Left Salpingo-opherectomy. Pt with a left tubo-ovarian abscess (with possible left ovarian torsion). -Pt resting comfortably with no complaints. Surgical procedure and OR photos reviewed with Patient. All questions answered. -Continue IV antibiotics with conversion to oral antibiotics when afebrile. Recommend ceftriaxone (250 mg x 1 dose), doxycycline and flagyl on discharge for 14 days. -Continue motrin and tylenol for pain management. -Continue diabetic diet -DVT prophylaxis: Lovenox, SCDs, and early ambulation.
[2017-11-28] MEDS: MONTELUKAST SOD 10 MG TAB PO SCH (20:47)
[2017-11-28] MEDS: MAGNESIUM HYDROXIDE SUSP 30 ML UDC PO PRN (21:37)
[2017-11-29 04:04] VITALS: BP 124/71; PULSE 123; TEMP 38.4; O2SAT 95
[2017-11-29] MEDS ORDERED: NSS + 20MEQ KCL 1000ML 1,000 ML IV ONE (04:15)
[2017-11-29] MEDS ORDERED: ACETAMINOPHEN 325 MG TAB PO STA (04:15)
[2017-11-29] MEDS: OXYCODONE/ACETAMINOPHEN 5-325 TAB PO PRN ×3 (04:24→21:10)
[2017-11-29] MEDS: SIMETHICONE 80 MG CHEW PO PRN ×2 (04:24→21:10)
[2017-11-29 05:17] LABS: HEMATOCRIT 24.2 % (37-47); HEMOGLOBIN 7.5 g/dL (12.0-16.0); MEAN CELL VOLUME 65.1 fL (80-100); MEAN CORPUSCULAR HEMOGLOBIN 20.2 pg (25-34); MEAN PLATELET VOLUME 8.2 fL (7.4-10.4); PLATELET COUNT 558 K/uL (130-400); RED CELL DISTRIBUTION WIDTH CV 18.5 % (11.5-14.5); RED CELL DISTRIBUTION WIDTH SD 44.2 fL (36.4-46.3); WHITE BLOOD COUNT 16.35 K/uL (4.8-10.8)
[2017-11-29 05:23] LABS: CREATININE 0.77 mg/dl (0.60-1.20)
[2017-11-29 05:25] LABS: ALBUMIN 2.7 gm/dl (3.4-5.0); CALCIUM 8.7 mg/dl (8.5-10.1); CREATININE 0.77 mg/dl (0.60-1.20); POTASSIUM 3.6 mmol/L (3.5-5.1); TOTAL PROTEIN 8.2 gm/dl (6.4-8.2)
[2017-11-29 06:08] LABS: BASO % 0.1 %; BASO ABS # 0.02 K/uL (0-0.2); EOS % 0.2 %; EOS ABS # 0.03 K/uL (0-0.5); IG# 0.09 K/uL (0.00-0.02); LYMPH % 11.7 %; LYMPH ABS # 1.91 K/uL (1.2-3.4); MONO % 4.6 %; MONO ABS # 0.75 K/uL (0.11-0.59); NEUT % 82.8 %; NEUT ABS # 13.55 K/uL (1.4-6.5)
[2017-11-29 07:07] VITALS: BP 108/67; PULSE 116; TEMP 37.5; O2SAT 93
[2017-11-29] MEDS: IBUPROFEN 600 MG TAB PO PRN ×3 (07:12→21:10)
[2017-11-29] MEDS: DOCUSATE SODIUM 100 MG CAP PO SCH ×2 (08:46→21:10)
[2017-11-29] MEDS: ENOXAPARIN 40 MG/0.4 ML SYR SQ SCH ×2 (08:46→09:00)
[2017-11-29] MEDS: POLYETHYLENE (MIRALAX) 17 GM PACK PO SCH (08:46)
[2017-11-29] MEDS: INSULIN ASPART 100 UNITS/ML 3 ML PEN SC SCH ×4 (09:00→21:16)
[2017-11-29] MEDS: PIPERACILL/TAZOBAC IV 3.375 GM in DEXTROSE 5% 100ML 100 ML IV SCH ×2 (09:01→15:56)
[2017-11-29] MEDS: INSULIN GLARGINE SOLOSTAR 100 UNITS/ML 3 ML PEN SC SCH ×2 (09:01→21:15)
[2017-11-29] MEDS: SENNA 8.6 MG TAB PO SCH (09:19)
--- NOTE | 2017-11-29 09:55 | Pharmacy Progress Note ---
Pharmacy Glycemic Short Note 2 Date of Service November 29, 2017. OUTPATIENT ANTIDIABETIC REGIMEN: * Lantus 64 units SQ qHS * Apidra (CR 1:10 and CF 4-60 if BSG greater than 200 mg/dL) * Metformin 500mg PO qAM * HbA1c: 12.4% (11/22/17) Test 11/28/17 14:27 11/28/17 17:04 11/28/17 20:37 11/29/17 04:54 Bedside Glucose 171 mg/dl (70-90) 173 mg/dl (70-90) 204 mg/dl (70-90) Random Glucose 176 mg/dl (70-99) Test 11/29/17 08:11 11/29/17 ~12:00 Bedside Glucose 153 mg/dl (70-90) 121 mg/dL ASSESSMENT: 11/29/17 * The patient received 67 units of insulin yesterday * Intermittently refusing doses but at least still receiving her basal insulin * BSGs were trending upwards last evening and fasting was slightly elevated but pre-lunch BSG down to goal range * RN reports minimal po intake * Will not make any changes today 11/28/17: * Patient's glycemic control remains poor. Patient is still intermittently compliant with ordered regimen. * Pt to OR for exploratory laparotomy today. * No changes at this time. 11/25/17 * Patient's BSGs remain poorly controlled. Patient has been unhappy and non- compliant with her carb-controlled diet while admitted. * She often refuses insulin doses (especially correction for hyperglycemia at bedtime). * Patient has been compliant with Lantus doses thus far, which appear to be appropriate, based on fasting BSGs. May be able to go up on the doses slightly. * For now, will continue to control BSGs as tightly as possible, limited by patient's unwillingness to comply with regimen. PLAN FOR INPATIENT GLYCEMIC CONTROL: * Basal insulin - no change * Lantus 32 units BID * Bolus insulin - no change * NovoLog per scale ACHS or Q6hrs while NPO * Goal Range: Low 120 mg/dL - High 150 mg/dL * Correction Factor: 20 mg/dL/unit * Nutritional / Prandial insulin per carb ratio of 1 unit per 7 grams CHO consumed PLANS FOR DISCHARGE: * Outpatient glycemic control is extremely poor, as evidenced by A1c 12.4%. * Largest contributing factor seems to be patient non-compliance. * Patient should work toward adapting diet after discharge, however, despite counseling from CDE and hospitalist, she does not appear to be interested in doing so. * It seems patient does not tolerate high dose of Lantus once daily, so she likely needs to be dosing this twice daily at home. * Patient will need f/u with outpatient provider QI after discharge to develop a good strategy to optimize A1c.
[2017-11-29] MEDS ORDERED: NURSING VERBAL MED ORDER ONE (14:00)
[2017-11-29 15:37] VITALS: BP 121/69; PULSE 97; TEMP 36.7; O2SAT 91
[2017-11-29] MEDS: DAPTOmycin IV 225 MG in SYRINGE 0 ML IV SCH (15:55)
--- NOTE | 2017-11-29 20:23 | Progress Note ---
Internal Med Progress Note Date of Service: November 29, 2017. Provider Documentation: SUBJECTIVE: Patient has overnight fevers and tachycardia with increase WBC Patient has abdominal tenderness on exam today. Patient does not appear acutely toxic. Patient examined earlier today and physical exam reflects previous exam findings. Patient now seen eating dinner. Defers exam. Reports bloating but no incisional draining from abdomen OBJECTIVE: Exam: General- no distress Eyes- EOMI Neck- no JVD Lungs- CTABL, no wheezing Heart- regular rate Abdomen- soft, + bowel sounds, incision sites dry and without drainage, abdomen tender, somewhat distended Extremities- no edema Neuro- awake and alert ASSESSMENT & PLAN: This is a 27 year old female with a past medical history of insulin dependent, uncontrolled type 2 diabetes, hx of asthma, allergic rhinitis, nasal polyps, recent myomectomy secondary to uterine fibroids on October 2017 presented on this admission with abdominal pain; +fevers. Patient has been treated for SEPSIS -Initially on broad spectrum Vancomycin and Zosyn with regimen changed to daptomycin and Zosyn on 11/23/17 -Blood cultures from 11/21/17 with no growth to date -WBC downtrended from 21,000 on 11/22/17 to around 14,000 by 11/25/17 -Patient declined repeat blood culture -Patient has been evaluated by OBGYN on this admission because of recent myomectomy secondary to uterine fibroids on October 17, 2017 -Initial concern for ovarian pathology such as ovarian torsion on pelvic/ transvaginal ultrasound on 11/24/17 and repeat pelvic/transvaginal ultrasound with no significant change and vascular flow present so less likely ovarian torsion. -Blood cultures repeated on 11/26/17 because of low grade fevers but no growth to date, the repeated UA was negative. -WBC increased from 14,000 pn 11/26/17 to 15,800 on 11/27/17 -s/p Diagnostic Laparoscopy,Lysis of Adhesions, Left Salpingo-oopherectomy: Pt with a left tubo-ovarian abscess (with possible left ovarian torsion). 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 "Recommend ceftriaxone (250 mg x 1 dose), doxycycline and flagyl on discharge for 14 days" Insulin Dependent, Uncontrolled DM2 - Hba1c 12.4 - subcutaneous Insulin, pharmacy glycemic control consult is following the patient Microcytic Anemia - peripheral smear suggestive of iron deficiency - continue to holding iron supplements for now because of constipation Constipation -bowel regimen Asthma - no acute exacerbations - use home regimen DVT ppx: lovenox / ambulation FULL CODE Vital Signs: Date Time Temp Pulse Resp B/P (MAP) Pulse Ox O2 Delivery O2 Flow Rate FiO2 11/29/17 16:25 Room Air 11/29/17 15:37 36.7 97 18 121/69 (86) 91 Room Air 11/29/17 07:45 Nasal Cannula 11/29/17 07:07 37.5 116 16 108/67 (81) 93 Room Air 11/29/17 04:04 38.4 123 16 124/71 (88) 95 Room Air 11/28/17 23:00 38.0 118 16 119/73 (88) 98 Room Air 11/28/17 20:24 37.5 112 18 116/74 (88) 97 Room Air Lab Results: Results Past 24 Hours Test 11/28/17 20:37 11/29/17 04:54 11/29/17 08:11 11/29/17 12:09 Range/Units Bedside Glucose 204 153 121 70-90 mg/dl White Blood Count 16.35 4.8-10.8 K/uL Red Blood Count 3.72 4.2-5.4 M/uL Hemoglobin 7.5 12.0-16.0 g/dL Hematocrit 24.2 37-47 % Mean Corpuscular Volume 65.1 80-100 fL Mean Corpuscular Hemoglobin 20.2 25-34 pg Mean Corpuscular Hemoglobin Concent 31.0 32-36 g/dl Platelet Count 558 130-400 K/uL Mean Platelet Volume 8.2 7.4-10.4 fL Neutrophils (%) (Auto) 82.8 % Lymphocytes (%) (Auto) 11.7 % Monocytes (%) (Auto) 4.6 % Eosinophils (%) (Auto) 0.2 % Basophils (%) (Auto) 0.1 % Neutrophils # (Auto) 13.55 1.4-6.5 K/uL Lymphocytes # (Auto) 1.91 1.2-3.4 K/uL Monocytes # (Auto) 0.75 0.11-0.59 K/uL Eosinophils # (Auto) 0.03 0-0.5 K/uL Basophils # (Auto) 0.02 0-0.2 K/uL RDW Standard Deviation 44.2 36.4-46.3 fL RDW Coefficient of Variation 18.5 11.5-14.5 % Immature Granulocyte % (Auto) 0.6 % Immature Granulocyte # (Auto) 0.09 0.00-0.02 K/uL Hypochromasia PRESENT Microcytosis PRESENT Sodium Level 136 136-145 mmol/L Potassium Level 3.6 3.5-5.1 mmol/L Chloride Level 102 98-107 mmol/L Carbon Dioxide Level 27 21-32 mmol/L Anion Gap 7.0 3-11 mmol/L Blood Urea Nitrogen 5 7-18 mg/dl Creatinine 0.77 0.60-1.20 mg/dl Est Creatinine Clear Calc Drug Dose 111.3 ml/min Estimated GFR () 121.8 Estimated GFR (Non- 105.1 BUN/Creatinine Ratio 6.5 10-20 Random Glucose 176 70-99 mg/dl Lactic Acid Level 1.0 0.4-2.0 mmol/L Calcium Level 8.7 8.5-10.1 mg/dl Magnesium Level 2.2 1.8-2.4 mg/dl Total Bilirubin 0.4 0.2-1 mg/dl Aspartate Amino Transf (AST/SGOT) 7 15-37 U/L Alanine Aminotransferase (ALT/SGPT) 13 12-78 U/L Alkaline Phosphatase 95 45-117 U/L Total Creatine Kinase 111 26-192 U/L Total Protein 8.2 6.4-8.2 gm/dl Albumin 2.7 3.4-5.0 gm/dl Globulin 5.5 2.5-4.0 gm/dl Albumin/Globulin Ratio 0.5 0.9-2 Procalcitonin 0.55 0-0.5 ng/ml Test 11/29/17 16:58 Range/Units Bedside Glucose 274 70-90 mg/dl Microbiology Results 11/29/17 Blood Culture, Received Pending 11/29/17 Blood Culture, Received Pending
[2017-11-29] MEDS: MONTELUKAST SOD 10 MG TAB PO SCH (21:10)
[2017-11-29 22:51] VITALS: BP 117/71; PULSE 112; TEMP 37.2; O2SAT 97
[2017-11-30] MEDS: PIPERACILL/TAZOBAC IV 3.375 GM in DEXTROSE 5% 100ML 100 ML IV SCH ×2 (00:19→08:05)
[2017-11-30] MEDS: SIMETHICONE 80 MG CHEW PO PRN (03:54)
[2017-11-30] MEDS: IBUPROFEN 600 MG TAB PO PRN ×2 (03:54→17:56)
[2017-11-30] MEDS: OXYCODONE/ACETAMINOPHEN 5-325 TAB PO PRN (03:54)
[2017-11-30 06:58] VITALS: BP 114/71; PULSE 116; TEMP 38.4; O2SAT 96
[2017-11-30 07:09] LABS: BASO ABS # 0.01 K/uL (0-0.2); EOS % 2.1 %; EOS ABS # 0.46 K/uL (0-0.5); HEMATOCRIT 23.3 % (37-47); HEMOGLOBIN 7.2 g/dL (12.0-16.0); IG# 0.14 K/uL (0.00-0.02); LYMPH % 10.3 %; LYMPH ABS # 2.24 K/uL (1.2-3.4); MEAN CELL VOLUME 65.3 fL (80-100); MEAN CORPUSCULAR HEMOGLOBIN 20.2 pg (25-34); MEAN CORPUSCULAR HGB CONC 30.9 g/dl (32-36); MEAN PLATELET VOLUME 8.3 fL (7.4-10.4); MONO % 5.4 %; MONO ABS # 1.18 K/uL (0.11-0.59); NEUT % 81.6 %; NEUT ABS # 17.73 K/uL (1.4-6.5); PLATELET COUNT 513 K/uL (130-400); RED CELL DISTRIBUTION WIDTH CV 18.6 % (11.5-14.5); RED CELL DISTRIBUTION WIDTH SD 44.7 fL (36.4-46.3); WHITE BLOOD COUNT 21.76 K/uL (4.8-10.8)
[2017-11-30 07:33] VITALS: TEMP 38
[2017-11-30] MEDS ORDERED: SODIUM CHLORIDE 0.9% 1000ML 1,000 ML IV ONE (07:45)
[2017-11-30 07:49] LABS: ALBUMIN 2.7 gm/dl (3.4-5.0); CALCIUM 8.3 mg/dl (8.5-10.1); CREATININE 0.61 mg/dl (0.60-1.20); POTASSIUM 3.6 mmol/L (3.5-5.1); TOTAL PROTEIN 8.1 gm/dl (6.4-8.2)
[2017-11-30] MEDS: ACETAMINOPHEN 325 MG TAB PO PRN ×2 (08:04→17:57)
--- NOTE | 2017-11-30 08:15 | Progress Note ---
Internal Med Progress Note Date of Service: November 30, 2017. Provider Documentation: SUBJECTIVE: Patient has again fever this AM as 101F and tachycardia with increase WBC Patient has abdominal tenderness on exam today. Somewhat less distension today. Patient reports making 2 episodes of diarrhea yesterday but none today. Patient reports she has been ambulating. Patient does not appear acutely toxic. She is thinking whether perocet may be raising body temperature. She prefers acetaminophen and ibuprofen. Have discussed with patient about doing CT abdomen/pelvis with contrast to follow up with post-surgical changes in context of fever and leukocytosis - Patient thinking this over before making decision. OBJECTIVE: Exam: General- no distress Eyes- EOMI Neck- no JVD Lungs- CTABL, no wheezing Heart- regular rate Abdomen- soft, + bowel sounds, incision sites dry and without drainage, abdomen tender, somewhat distended Extremities- no edema Neuro- awake and alert ASSESSMENT & PLAN: This is a 27 year old female with a past medical history of insulin dependent, uncontrolled type 2 diabetes, hx of asthma, allergic rhinitis, nasal polyps, recent myomectomy secondary to uterine fibroids on October 2017 presented on this admission with abdominal pain; +fevers. Patient has been treated for SEPSIS -Initially on broad spectrum Vancomycin and Zosyn with regimen changed to daptomycin and Zosyn on 11/23/17 -Blood cultures from 11/21/17 with no growth to date -WBC downtrended from 21,000 on 11/22/17 to around 14,000 by 11/25/17 -Patient declined repeat blood culture -Patient has been evaluated by OBGYN on this admission because of recent myomectomy secondary to uterine fibroids on October 17, 2017 -Initial concern for ovarian pathology such as ovarian torsion on pelvic/ transvaginal ultrasound on 11/24/17 and repeat pelvic/transvaginal ultrasound with no significant change and vascular flow present so less likely ovarian torsion. -Blood cultures repeated on 11/26/17 because of low grade fevers but no growth to date, the repeated UA was negative. -WBC increased from 14,000 pn 11/26/17 to 15,800 on 11/27/17 -s/p Diagnostic Laparoscopy,Lysis of Adhesions, Left Salpingo-oopherectomy: Pt with a left tubo-ovarian abscess (with possible left ovarian torsion). 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 "Recommend ceftriaxone (250 mg x 1 dose), doxycycline and flagyl on discharge for 14 days" -Patient has been febrile to 101 F on AM of 11/29/17 and 11/30/17 and WBC rising from 16,000 to 21,000. Follow up blood cultures from 11/29/17. At this time it is unclear whether antibiotic conversion as above should be be done. Patient has had more than a week of IV antibiotics and switching to ceftriaxone today unlikely to provide any additional bacterial coverage. C. difficile sent because of 2 episodes of diarrhea on 11/29/17. Will send C. difficile testing and stop bowel regimen for constipation. Have discussed with patient about doing CT abdomen/pelvis with contrast to follow up with post-surgical changes in context of fever and leukocytosis - Patient thinking this over before making decision. -continue daptomycin and Zosyn for now Pain Control -Patient has thoughts that the percocet may be raising body temperature. She prefers acetaminophen and ibuprofen regimen only for now and agreeable to have percocet discontinued Insulin Dependent, Uncontrolled DM2 - Hba1c 12.4 - subcutaneous Insulin, pharmacy glycemic control consult is following the patient Microcytic Anemia - peripheral smear suggestive of iron deficiency - continue to holding iron supplements for now because of constipation Constipation resolved -Diarrhea on 11/29/17, send C.difficile. stop bowel regimen Asthma - no acute exacerbations - use home regimen DVT ppx: lovenox / ambulation FULL CODE Vital Signs: Date Time Temp Pulse Resp B/P (MAP) Pulse Ox O2 Delivery O2 Flow Rate FiO2 11/30/17 07:33 38.0 11/30/17 06:58 38.4 116 17 114/71 (85) 96 Room Air 11/30/17 00:28 Room Air 11/29/17 22:51 37.2 112 17 117/71 (86) 97 Room Air 11/29/17 16:25 Room Air 11/29/17 15:37 36.7 97 18 121/69 (86) 91 Room Air Lab Results: Results Past 24 Hours Test 11/29/17 12:09 11/29/17 16:58 11/29/17 20:34 11/30/17 06:50 Range/Units Bedside Glucose 121 274 195 70-90 mg/dl White Blood Count 21.76 4.8-10.8 K/uL Red Blood Count 3.57 4.2-5.4 M/uL Hemoglobin 7.2 12.0-16.0 g/dL Hematocrit 23.3 37-47 % Mean Corpuscular Volume 65.3 80-100 fL Mean Corpuscular Hemoglobin 20.2 25-34 pg Mean Corpuscular Hemoglobin Concent 30.9 32-36 g/dl Platelet Count 513 130-400 K/uL Mean Platelet Volume 8.3 7.4-10.4 fL Neutrophils (%) (Auto) 81.6 % Lymphocytes (%) (Auto) 10.3 % Monocytes (%) (Auto) 5.4 % Eosinophils (%) (Auto) 2.1 % Basophils (%) (Auto) 0.0 % Neutrophils # (Auto) 17.73 1.4-6.5 K/uL Lymphocytes # (Auto) 2.24 1.2-3.4 K/uL Monocytes # (Auto) 1.18 0.11-0.59 K/uL Eosinophils # (Auto) 0.46 0-0.5 K/uL Basophils # (Auto) 0.01 0-0.2 K/uL RDW Standard Deviation 44.7 36.4-46.3 fL RDW Coefficient of Variation 18.6 11.5-14.5 % Immature Granulocyte % (Auto) 0.6 % Immature Granulocyte # (Auto) 0.14 0.00-0.02 K/uL Polychromasia 1+ Hypochromasia PRESENT Microcytosis PRESENT Sodium Level 136 136-145 mmol/L Potassium Level 3.6 3.5-5.1 mmol/L Chloride Level 102 98-107 mmol/L Carbon Dioxide Level 26 21-32 mmol/L Anion Gap 8.0 3-11 mmol/L Blood Urea Nitrogen 4 7-18 mg/dl Creatinine 0.61 0.60-1.20 mg/dl Est Creatinine Clear Calc Drug Dose 140.5 ml/min Estimated GFR () 143.0 Estimated GFR (Non- 123.4 BUN/Creatinine Ratio 6.9 10-20 Random Glucose 165 70-99 mg/dl Calcium Level 8.3 8.5-10.1 mg/dl Total Bilirubin 0.3 0.2-1 mg/dl Aspartate Amino Transf (AST/SGOT) 7 15-37 U/L Alanine Aminotransferase (ALT/SGPT) 10 12-78 U/L Alkaline Phosphatase 95 45-117 U/L Total Protein 8.1 6.4-8.2 gm/dl Albumin 2.7 3.4-5.0 gm/dl Globulin 5.4 2.5-4.0 gm/dl Albumin/Globulin Ratio 0.5 0.9-2
[2017-11-30] MEDS: ENOXAPARIN 40 MG/0.4 ML SYR SQ SCH (08:54)
[2017-11-30] MEDS: DOCUSATE SODIUM 100 MG CAP PO SCH ×2 (08:54→20:45)
[2017-11-30] MEDS: INSULIN ASPART 100 UNITS/ML 3 ML PEN SC SCH ×4 (08:56→20:41)
[2017-11-30] MEDS: INSULIN GLARGINE SOLOSTAR 100 UNITS/ML 3 ML PEN SC SCH ×2 (08:57→20:43)
[2017-11-30 09:08] VITALS: TEMP 37.5
--- NOTE | 2017-11-30 09:18 | Pharmacy Progress Note ---
Pharmacy Glycemic Sign Off Nt Date of Service November 30, 2017. Assessment & Plan OUTPATIENT REGIMEN: * Lantus 64 units SQ qHS * Apidra (CR 1:10 and CF 4-60 if BSG greater than 200 mg/dL) * Metformin 500mg PO qAM * HbA1c: 12.4% (11/22/17) ASSESSMENT: * Pharmacy was consulted by Dr Degroot on 11/21 for glycemic control and to write orders per [facility] inpatient glycemic control protocol. * Major changes made by pharmacy to antidiabetic regimen include: * transitioned to basal/bolus Lantus + Novolog * Patient has been receiving/requiring 60-100 units of insulin per day for adequate glycemic control * BSGs ranging 121- 274 mg/dl * Patient continues to intermittently refuse insulin doses * Regimen has only required minor adjustments over the past 48hrs to achieve this level of control * Do not anticipate further changes in patient status that would quickly deteriorate glycemic control (i.e. patient to be NPO for upcoming procedure, steroids tapering, starting tube feedings, etc). * Please see recommendations for outpatient antidiabetic regimen below. PLAN FOR INPATIENT GLYCEMIC CONTROL: No changes needed to current regimen. * Continue basal insulin with Lantus 32 units SQ BID * Continue NovoLog per scale ACHS/Q6hrs while NPO * Goal range = 120-150 mg/dl * CF = 20 mg/dl/unit * CR = 1 unit for ever 7 g CHO consumed * A1c added to discharge instructions to be communicated to PCP. * Pharmacy is signing off of glycemic consult (Dr. Palomino aware) and will no longer be making adjustments to inpatient regimen. Please feel free to re- consult if needed. Thank you. DISCHARGE RECOMMENDATIONS: * Outpatient glycemic control is extremely poor, as evidenced by A1c 12.4% on 06/30. * Largest contributing factor seems to be patient non-compliance. * Patient should work toward adapting diet after discharge, however, despite counseling from CDE and hospitalist, she does not appear to be interested in doing so. * It seems patient does not tolerate high dose of Lantus once daily, so she likely needs to be dosing this twice daily at home. * Patient will need f/u with outpatient provider QI after discharge to develop a good strategy to optimize A1c.
--- NOTE | 2017-11-30 13:09 | OB/GYN Progress Note ---
INSIDE SALES DIRECTOR Progress Note Date of Service November 30, 2017. Subjective conversation w/ patient Ambulation: ambulating normally Voiding: no voiding problems Passing Gas: Yes (Two loose foul smelling stools) Diet Tolerance: Regular Diet (Diabetic Diet) Review of Systems Constitutional: + fatigue, No fever, No chills, No sweats Respiratory: No cough, No shortness of breath Cardiac: No chest pain, No palpitations Abdomen: + pain (Around the incision sites), + diarrhea Female : No see HPI, No dysuria, No urinary frequency, No hematuria, No incontinence, No abnormal vaginal bleeding, No vaginal discharge, No problem reported Objective Vital Signs Date Time Temp Pulse Resp B/P (MAP) Pulse Ox O2 Delivery O2 Flow Rate FiO2 11/30/17 09:08 37.5 11/30/17 07:59 Room Air 11/30/17 07:33 38.0 11/30/17 06:58 38.4 116 17 114/71 (85) 96 Room Air 11/30/17 00:28 Room Air 11/29/17 22:51 37.2 112 17 117/71 (86) 97 Room Air 11/29/17 16:25 Room Air 11/29/17 15:37 36.7 97 18 121/69 (86) 91 Room Air Physical Exam General Appearance: NO APPARENT DISTRESS Respiratory/Chest: chest non-tender, lungs clear Cardiovascular: regular rate, rhythm Abdomen: normal bowel sounds, non tender, + tenderness (Appropriately tender around the laparoscopic incision sites.) Incision Description: Clean, Dry & Intact Extremities: normal range of motion Laboratory Results Last 24 Hours Test 11/29/17 16:58 11/29/17 20:34 11/30/17 06:50 11/30/17 08:18 Bedside Glucose 274 mg/dl 195 mg/dl 169 mg/dl White Blood Count 21.76 K/uL Red Blood Count 3.57 M/uL Hemoglobin 7.2 g/dL Hematocrit 23.3 % Mean Corpuscular Volume 65.3 fL Mean Corpuscular Hemoglobin 20.2 pg Mean Corpuscular Hemoglobin Concent 30.9 g/dl Platelet Count 513 K/uL Mean Platelet Volume 8.3 fL Neutrophils (%) (Auto) 81.6 % Lymphocytes (%) (Auto) 10.3 % Monocytes (%) (Auto) 5.4 % Eosinophils (%) (Auto) 2.1 % Basophils (%) (Auto) 0.0 % Neutrophils # (Auto) 17.73 K/uL Lymphocytes # (Auto) 2.24 K/uL Monocytes # (Auto) 1.18 K/uL Eosinophils # (Auto) 0.46 K/uL Basophils # (Auto) 0.01 K/uL RDW Standard Deviation 44.7 fL RDW Coefficient of Variation 18.6 % Immature Granulocyte % (Auto) 0.6 % Immature Granulocyte # (Auto) 0.14 K/uL Polychromasia 1+ Hypochromasia PRESENT Microcytosis PRESENT Sodium Level 136 mmol/L Potassium Level 3.6 mmol/L Chloride Level 102 mmol/L Carbon Dioxide Level 26 mmol/L Anion Gap 8.0 mmol/L Blood Urea Nitrogen 4 mg/dl Creatinine 0.61 mg/dl Est Creatinine Clear Calc Drug Dose 140.5 ml/min Estimated GFR () 143.0 Estimated GFR (Non- 123.4 BUN/Creatinine Ratio 6.9 Random Glucose 165 mg/dl Calcium Level 8.3 mg/dl Total Bilirubin 0.3 mg/dl Aspartate Amino Transf (AST/SGOT) 7 U/L Alanine Aminotransferase (ALT/SGPT) 10 U/L Alkaline Phosphatase 95 U/L Total Protein 8.1 gm/dl Albumin 2.7 gm/dl Globulin 5.4 gm/dl Albumin/Globulin Ratio 0.5 Assessment and Plan Post-Op Day Number: 2 (s/p Dx. Laparoscopy, FAISAL, and LSO) (1) Fever Status: Acute Assessment & Plan: 27 yo G0 s/p Abdominal myomectomy on 10/17/17 admitted for sepsis and abdominal pain. CT abdomen and pelvis in the ER did not reveal any etiology for abdominal pain. Patient followed by Medicine for sepsis and glucose control. Treated with IV antibiotics (orginally Vanocomycin and Zosyn) then changed to daptomycin and Zosyn on 11/23/17. Initial blood cultures negative. Repeat blood cultures NGTD. [place] [address] [place] [address] [address], [place] [address] on 11/27/17. Patient continued with LLQ pain unrelieved with narcotic medication. TVUS on 11/24/17 was concerning for an enlarged left ovary with possible ovarian torsion. Repeat TVUS on 11/25/2017 revealed no significant change and vascular flow present so less likely ovarian torsion. Pt started on Lovenox 40 mg daily for DVT prophylaxis on 11/26/17, but not taking every day due to Pt decline (Discussed with Pt the importance not to refuse anticoagulation). S/p diagnostic laparoscopy, lysis of adhesions, and left salpingo-opherectomy on 11/28/2017. Pt with a left tubo-ovarian abscess (with possible left ovarian torsion) due to surgical findings. Previously recommended conversion to oral antibiotics when afebrile x 48 hrs. However, Pt febrile to 101 F on AM of 11/29/17 and 11/30/17[place] [address]. Plan is to repeat CT Abd/Pelvis since Pt continues with fever and leukocytosis although on IV antibiotics and TOA removed at time of surgery. C. difficile sent because of reports of two loose bowel movements.
[2017-11-30 15:30] VITALS: BP 122/77; PULSE 112; TEMP 37.3; O2SAT 98
[2017-11-30] MEDS ORDERED: ALBUTEROL 0.083% NEBU SOLN 3 ML VIAL INH STA (16:50)
[2017-11-30 17:10] VITALS: PULSE 120; O2SAT 90
[2017-11-30] MEDS ORDERED: MoRPHine SULFATE 4 MG/ML 1 ML CARP\\VIAL IV STA (17:34)
[2017-11-30] MEDS ORDERED: OPTIRAY 320 IV PRN (18:30)
--- NOTE | 2017-11-30 18:36 | DIAGNOSTIC IMAGING REPORT ---
ABDOMEN AND PELVIS CT WITH IV CONTRAST CT DOSE: 547.19 mGy.cm HISTORY: post surgery abdominal pain, fever TECHNIQUE: Multiaxial CT images of the abdomen and pelvis were performed following the use of intravenous contrast. A dose lowering technique was utilized adhering to the principles of ALARA. COMPARISON STUDY: Abdomen and pelvis CT 11/21/2017. FINDINGS: Stable 3 mm subpleural nodule within the left lower lobe on image 10. No fractures within the visualized osseous structures. Mildly enlarged right anterior diaphragmatic lymph nodes which have increased in size. Dominant lymph node measures 14 x 7 mm. The liver, gallbladder, pancreas, spleen, and adrenal glands are unremarkable. The kidneys enhance normally. No hydronephrosis. Moderate bladder wall thickening. Subcentimeter retroperitoneal lymph nodes do not meet CT criteria for pathologic involvement. Subcutaneous and intramuscular small foci of gas within the left lower quadrant. This may be due to the prior laparoscopic port site. Interval development of fat stranding and fluid within the deep pelvis surrounding the uterus and adnexa. Small collection of gas within the left deep pelvis adjacent to the bladder. This is not completely loculated at this time. This measures approximately 4.8 x 2.5 cm. Therefore, this could be due to the recent postoperative change, postoperative seroma, or developing abscess. No change in the cystic/hypodense foci within the uterus. These measure up to 4.5 cm. Small peripheral enhancing fluid collection within the left pelvic cul-de-sac measuring 2.3 cm. Mild thickening of the distal sigmoid colon and proximal sigmoid colon. There is also mild thickening within the distal descending colon with adjacent fat stranding. No dilated loops of bowel to suggest an obstruction. Normal caliber abdominal aorta. The cystic focus within the left adnexa seen on the prior study is no longer visualized and has likely been resected. IMPRESSION: 1. The left adnexal cystic focus seen on the prior study is no longer present and has likely been surgically resected. At the location of this cystic area there is a 4.8 x 2.5 cm gas and fluid collection. This does not represent complete peripheral enhancement at this time. Therefore, this could be due to postoperative change or represent a developing abscess/phlegmon. Consider follow-up to ensure resolution. 2. Small peripheral enhancing fluid collection within the pelvic cul-de-sac measuring 2.3 cm. This could also represent a postoperative fluid collection or developing abscess. 3. Inflammatory change and a small amount fluid within the deep pelvis which is nonspecific. This could be due to the postoperative change or inflammatory process. 4. Thickening within the distal descending colon, proximal sigmoid colon, and distal sigmoid colon with surrounding inflammatory change. This may be reactive from the postoperative changes. A nonspecific colitis would also have a similar appearance. 5. No evidence for bowel obstruction. 6. Moderate bladder wall thickening. Urinalysis recommended to evaluate for a cystitis. 7. Cystic lesions within the uterus, unchanged. This has been described as a fibroids on the prior studies. Electronically signed by: Zana Frias M.D. 11/30/2017 6:35 PM Dictated Date/Time: 11/30/2017 6:24 PM
--- NOTE | 2017-11-30 19:12 | Progress Note ---
Progress Note Date of Service November 30, 2017. Progress Note Update note: Patient have more abdominal discomfort, of the upper abdomen towards the breast. have notified both exhibition designer OBGYN Dr. Bateman [phone] and in regards to patient's discomfort in context of clinical situation of continued abdominal distension and tenderness recent fevers and elevations in WBC C difficile test was negative Patient was sent to CT abdomen scan: possible postsurgical changes rather than acute findings but have notified radiologist [phone] Andrade to discuss the imaging studies , the discussion outcome appears that there is no surgical or interventional radiology interventions that should be done at this time Will increase patient's pain medications to morphine if she agrees
[2017-11-30] MEDS: DAPTOmycin IV 225 MG in SYRINGE 0 ML IV SCH (20:08)
[2017-11-30] MEDS: LACTOBACILLUS ACIDOPHILUS 1 GM PACK PO SCH (20:08)
[2017-11-30] MEDS ORDERED: NURSING DECISION MEDICATION ORDER SCH (20:30)
[2017-11-30] MEDS: MONTELUKAST SOD 10 MG TAB PO SCH (20:44)
[2017-11-30] MEDS: GUAIFENESIN 600 MG TABCR PO SCH (20:44)
[2017-11-30] MEDS ORDERED: NSS + 20MEQ KCL 1000ML 1,000 ML IV ONE (22:15)
[2017-11-30 22:56] VITALS: BP 117/76; PULSE 107; TEMP 37.4; O2SAT 94
[2017-12-01] VITALS (10 sets, daily range): BP systolic 109–126; BP diastolic 73–77; PULSE 91–111; TEMP 36.7–37.2; O2SAT 88–100
[2017-12-01] MEDS: IBUPROFEN 600 MG TAB PO PRN ×3 (00:45→18:40)
[2017-12-01] MEDS: MoRPHine SULFATE 4 MG/ML 1 ML CARP\\VIAL IV PRN ×3 (00:46→18:41)
[2017-12-01] MEDS: ACETAMINOPHEN 325 MG TAB PO PRN ×3 (00:46→18:40)
[2017-12-01] MEDS: ALBUTEROL 0.083% NEBU SOLN 3 ML VIAL INH PRN ×3 (00:58→20:51)
[2017-12-01] MEDS ORDERED: CONSULT PHARMACY STA (01:52)
--- NOTE | 2017-12-01 01:52 | Progress Note ---
Internal Med Progress Note Date of Service: December 01, 2017. Provider Documentation: Made aware by RN of intermittent tachycardia, fever spikes. CT abdomen and pelvis showed fluid collections in the pelvis Abnormal procalcitonin (11/29) AP Worsening sepsis Possible pelvic abscess Poorly controlled DM 2 IVF Continue Daptomycin Reinitiate IV Zosyn. Addendum : Made aware by RN of patient refusal of IV fluids, IV Zosyn, and blood sugar coverage at night for patient's personal reasons. Patient seen at bedside in AM. Rationale for therapeutic interventions for ongoing sepsis provided to patient. Will relay developments to AM provider. Vital Signs: Date Time Temp Pulse Resp B/P (MAP) Pulse Ox O2 Delivery O2 Flow Rate FiO2 12/01/17 07:11 37.2 93 26 112/75 (87) 100 Nasal Cannula 1.0 12/01/17 01:00 110 22 88 Room Air 11/30/17 23:35 Room Air 11/30/17 22:56 37.4 107 18 117/76 (90) 94 Room Air 11/30/17 17:10 120 26 90 Room Air 11/30/17 15:30 37.3 112 20 122/77 (92) 98 Room Air 11/30/17 15:06 Room Air 11/30/17 09:08 37.5 Lab Results: Results Past 24 Hours Test 11/30/17 11:56 11/30/17 20:02 11/30/17 21:20 12/01/17 06:38 Range/Units Bedside Glucose 249 210 70-90 mg/dl Urine Color YELLOW Urine Appearance CLEAR CLEAR Urine pH 6.5 4.5-7.5 Urine Specific [place] > 1.045 1.000-1.030 Urine Protein TRACE NEG Urine Glucose (UA) TRACE NEG Urine Ketones 1+ NEG Urine Occult Blood TRACE NEG Urine Nitrite NEG NEG Urine Bilirubin NEG NEG Urine Urobilinogen NEG NEG Urine Leukocyte Esterase NEG NEG Urine WBC (Auto) 1-5 0-5 /hpf Urine RBC (Auto) 0-4 0-4 /hpf Urine Hyaline Casts (Auto) 0 0-5 /lpf Urine Epithelial Cells (Auto) 10-20 0-5 /lpf Urine Bacteria (Auto) NEG NEG Creatinine 0.44 0.60-1.20 mg/dl Est Creatinine Clear Calc Drug Dose 194.8 ml/min Estimated GFR () > 150.0 Estimated GFR (Non- 137.4 Microbiology Results 11/30/17 C.difficile Toxin B Gene (PCR) - Final, Complete No C. difficile toxin B gene detected 11/30/17 Urine Culture, Received Pending
[2017-12-01] MEDS ORDERED: PIPERACILL/TAZOBAC IV 3.375 GM in D5W 100 ML IV ONE (02:15)
[2017-12-01] MEDS ORDERED: NSS + 20MEQ KCL 1000ML 1,000 ML IV ONE (03:00)
[2017-12-01 07:26] LABS: CREATININE 0.44 mg/dl (0.60-1.20)
--- NOTE | 2017-12-01 07:40 | DIAGNOSTIC IMAGING REPORT ---
SINGLE VIEW CHEST CLINICAL HISTORY: Hypoxia. FINDINGS: An AP, portable, upright chest radiograph is compared to study dated 11/21/2017. The examination is degraded by portable technique and patient rotation. The cardiomediastinal silhouette is unremarkable. There is mild bibasilar atelectasis. No airspace consolidation is seen typical for pneumonia and there is no large pleural effusion. No pneumothorax is seen. The bony thorax is grossly intact. IMPRESSION: No acute cardiopulmonary abnormality. Electronically signed by: Osmin Squires M.D. 12/01/2017 7:38 AM Dictated Date/Time: 12/01/2017 7:38 AM
[2017-12-01] MEDS ORDERED: PIPERACILL/TAZOBAC IV 3.375 GM in D5W 100ML IV SCH (08:00)
[2017-12-01] MEDS: LACTOBACILLUS ACIDOPHILUS 1 GM PACK PO SCH ×3 (08:54→18:40)
[2017-12-01] MEDS: GUAIFENESIN 600 MG TABCR PO SCH ×2 (08:55→21:14)
[2017-12-01] MEDS: DOCUSATE SODIUM 100 MG CAP PO SCH ×2 (08:55→20:39)
[2017-12-01] MEDS: ENOXAPARIN 40 MG/0.4 ML SYR SQ SCH (09:00)
[2017-12-01] MEDS: INSULIN ASPART 100 UNITS/ML 3 ML PEN SC SCH ×4 (09:03→21:18)
[2017-12-01] MEDS: INSULIN GLARGINE SOLOSTAR 100 UNITS/ML 3 ML PEN SC SCH ×2 (09:03→21:35)
[2017-12-01] MEDS: SIMETHICONE 80 MG CHEW PO PRN ×2 (09:05→18:40)
[2017-12-01 10:10] LABS: HEMATOCRIT 20.4 % (37-47); HEMOGLOBIN 6.5 g/dL (12.0-16.0); MEAN CELL VOLUME 65.4 fL (80-100); MEAN CORPUSCULAR HEMOGLOBIN 20.8 pg (25-34); MEAN CORPUSCULAR HGB CONC 31.9 g/dl (32-36); MEAN PLATELET VOLUME 8.4 fL (7.4-10.4); PLATELET COUNT 529 K/uL (130-400); RED CELL DISTRIBUTION WIDTH CV 18.6 % (11.5-14.5); RED CELL DISTRIBUTION WIDTH SD 44.9 fL (36.4-46.3); WHITE BLOOD COUNT 17.22 K/uL (4.8-10.8)
[2017-12-01 10:17] LABS: ALBUMIN 2.5 gm/dl (3.4-5.0); ALT/SGPT 10 U/L (12-78); AST/SGOT 7 U/L (15-37); BLOOD UREA NITROGEN 3 mg/dl (7-18); CALCIUM 8.3 mg/dl (8.5-10.1); CARBON DIOXIDE 25 mmol/L (21-32); CREATININE 0.47 mg/dl (0.60-1.20); GLUCOSE 108 mg/dl (70-99); POTASSIUM 3.2 mmol/L (3.5-5.1); SODIUM 139 mmol/L (136-145)
[2017-12-01 10:20] LABS: ALKALINE PHOSPHATASE 87 U/L (45-117); TOTAL PROTEIN 7.8 gm/dl (6.4-8.2)
[2017-12-01 10:21] LABS: BASO % 0.1 %; BASO ABS # 0.01 K/uL (0-0.2); EOS % 2.3 %; IG# 0.08 K/uL (0.00-0.02); LYMPH % 14.6 %; LYMPH ABS # 2.52 K/uL (1.2-3.4); MONO % 4.4 %; MONO ABS # 0.76 K/uL (0.11-0.59); NEUT % 78.1 %; NEUT ABS # 13.45 K/uL (1.4-6.5)
--- NOTE | 2017-12-01 10:23 | Progress Note ---
Subjective Date of Service: December 01, 2017. Subjective Pt evaluation today including: conversation w/ patient, physical exam, chart review, lab review pt seen in followup. no diarrhea currently, zosyn on hold. no f/c overnight. slept well. pain controlled, only pain at incision site. OR findings noted, TOA , purulent fluid - no culture sent. all blood cultures remain negative. repeat ct yesterday with several fluid collections, ? early abscess. wbc increased, 21. c diff sent secondary to diarrhea, negative. repeat ua negative. no gu symptoms. tolerating clears. all remaining ros reviewed and are negative. Problem List Medical Problems: (1) Abdominal pain Status: Acute (2) Anemia Status: Acute (3) Fever Status: Acute (4) Fever Status: Acute (5) Sepsis Status: Acute (6) UTI (urinary tract infection) Status: Acute Objective Vital Signs Date Time Temp Pulse Resp B/P (MAP) Pulse Ox O2 Delivery O2 Flow Rate FiO2 12/01/17 09:46 Room Air 12/01/17 09:29 99 20 91 Room Air 12/01/17 07:11 37.2 93 26 112/75 (87) 100 Nasal Cannula 1.0 12/01/17 01:00 110 22 88 Room Air 11/30/17 23:35 Room Air 11/30/17 22:56 37.4 107 18 117/76 (90) 94 Room Air 11/30/17 17:10 120 26 90 Room Air 11/30/17 15:30 37.3 112 20 122/77 (92) 98 Room Air 11/30/17 15:06 Room Air Physical Exam General Appearance: WD/WN, no apparent distress Eyes: normal inspection, EOMI Neck: supple Respiratory/Chest: lungs clear, normal breath sounds, no respiratory distress Cardiovascular: regular rate, rhythm, no edema Abdomen: non tender, soft Extremities: non-tender, no pedal edema Neurologic/Psychiatric: alert, oriented x 3 Skin: normal color, warm/dry Laboratory Results Item Value Date Time C.difficile Toxin B Gene (PCR) - Final Complete 11/30/17 1640 Stool No C. difficile toxin B gene detected Blood Culture - Preliminary Resulted 11/29/17 0758 Blood NO GROWTH TO DATE. Blood Culture - Preliminary Resulted 11/29/17 0749 Blood NO GROWTH TO DATE. Blood Culture - Preliminary Resulted 11/26/17 0857 Blood NO GROWTH TO DATE. Blood Culture - Preliminary Resulted 11/26/17 0850 Blood NO GROWTH TO DATE. Blood Culture - Final Complete 11/21/17 1417 Blood NO GROWTH Blood Culture - Preliminary Resulted 11/21/17 1355 Blood NO GROWTH TO DATE. Last 24 Hours Test 11/30/17 11:56 11/30/17 20:02 11/30/17 21:20 12/01/17 06:38 Bedside Glucose 249 mg/dl 210 mg/dl Urine Color YELLOW Urine Appearance CLEAR Urine pH 6.5 Urine Specific [place] > 1.045 Urine Protein TRACE Urine Glucose (UA) TRACE Urine Ketones 1+ Urine Occult Blood TRACE Urine Nitrite NEG Urine Bilirubin NEG Urine Urobilinogen NEG Urine Leukocyte Esterase NEG Urine WBC (Auto) 1-5 /hpf Urine RBC (Auto) 0-4 /hpf Urine Hyaline Casts (Auto) 0 /lpf Urine Epithelial Cells (Auto) 10-20 /lpf Urine Bacteria (Auto) NEG Creatinine 0.44 mg/dl Est Creatinine Clear Calc Drug Dose 194.8 ml/min Estimated GFR () > 150.0 Estimated GFR (Non- 137.4 Test 12/01/17 09:37 White Blood Count 17.22 K/uL Red Blood Count 3.12 M/uL Hemoglobin 6.5 g/dL Hematocrit 20.4 % Mean Corpuscular Volume 65.4 fL Mean Corpuscular Hemoglobin 20.8 pg Mean Corpuscular Hemoglobin Concent 31.9 g/dl Platelet Count 529 K/uL Mean Platelet Volume 8.4 fL RDW Standard Deviation 44.9 fL RDW Coefficient of Variation 18.6 % Erythrocyte Sedimentation Rate 72 mm/hr Sodium Level 139 mmol/L Potassium Level 3.2 mmol/L Chloride Level 107 mmol/L Carbon Dioxide Level 25 mmol/L Anion Gap 7.0 mmol/L Blood Urea Nitrogen 3 mg/dl Creatinine 0.47 mg/dl Est Creatinine Clear Calc Drug Dose 182.4 ml/min Estimated GFR () > 150.0 Estimated GFR (Non- 134.4 BUN/Creatinine Ratio 6.4 Random Glucose 108 mg/dl Calcium Level 8.3 mg/dl Total Bilirubin 0.3 mg/dl Aspartate Amino Transf (AST/SGOT) 7 U/L Alanine Aminotransferase (ALT/SGPT) 10 U/L Alkaline Phosphatase 87 U/L C-Reactive Protein 26.90 mg/dl Total Protein 7.8 gm/dl Albumin 2.5 gm/dl Globulin 5.3 gm/dl Albumin/Globulin Ratio 0.5 Assessment and Plan (1) Tubo-ovarian abscess Assessment & Plan: continue dapto, change to ctx. will check std panel as well for completeness. (2) Fever
[2017-12-01] MEDS ORDERED: CEFTRIAXONE SOD INJ 1 GM in DEXTROSE 5% ADD-VANTAGE 50ML 50 ML IV ONE (10:30)
[2017-12-01 16:29] LABS: BASO % 0.1 %; BASO ABS # 0.02 K/uL (0-0.2); EOS % 2.5 %; EOS ABS # 0.36 K/uL (0-0.5); HEMATOCRIT 22.5 % (37-47); HEMOGLOBIN 7.1 g/dL (12.0-16.0); IG# 0.05 K/uL (0.00-0.02); LYMPH % 16.3 %; LYMPH ABS # 2.32 K/uL (1.2-3.4); MEAN CELL VOLUME 67.6 fL (80-100); MEAN CORPUSCULAR HEMOGLOBIN 21.3 pg (25-34); MEAN PLATELET VOLUME 8.5 fL (7.4-10.4); MONO ABS # 0.86 K/uL (0.11-0.59); NEUT % 74.7 %; NEUT ABS # 10.64 K/uL (1.4-6.5); PLATELET COUNT 453 K/uL (130-400); RED CELL DISTRIBUTION WIDTH CV 19.5 % (11.5-14.5); RED CELL DISTRIBUTION WIDTH SD 48.5 fL (36.4-46.3); WHITE BLOOD COUNT 14.25 K/uL (4.8-10.8)
[2017-12-01 16:33] LABS: MEAN CORPUSCULAR HGB CONC 31.6 g/dl (32-36)
--- NOTE | 2017-12-01 19:13 | OB/GYN Progress Note ---
ONLINE SERVICES MANAGER Progress Note Date of Service December 01, 2017. Subjective conversation w/ patient Ambulation: ambulating normally Voiding: no voiding problems Passing Gas: Yes (Pt reports loose stools) Diet Tolerance: Clear Liquids Review of Systems Constitutional: No fever, No chills, No sweats, No weight loss, No weakness, No fatigue, No problem reported Respiratory: No cough, No shortness of breath Cardiac: No chest pain, No palpitations Abdomen: + pain (Diffuse abdominal pain, mostly on the left near the incision sites), + diarrhea Female : No see HPI, No dysuria, No urinary frequency, No hematuria, No incontinence, No abnormal vaginal bleeding, No vaginal discharge, No problem reported Objective Vital Signs Date Time Temp Pulse Resp B/P (MAP) Pulse Ox O2 Delivery O2 Flow Rate FiO2 12/01/17 15:50 36.7 91 18 109/73 (85) 98 Room Air 12/01/17 15:50 36.7 91 18 109/73 98 12/01/17 14:50 37.0 98 20 113/74 97 12/01/17 13:50 37.0 96 18 109/76 98 12/01/17 13:06 36.7 103 18 122/77 97 12/01/17 12:47 36.9 109 18 113/73 12/01/17 09:46 Room Air 12/01/17 09:29 99 20 91 Room Air 12/01/17 07:11 37.2 93 26 112/75 (87) 100 Nasal Cannula 1.0 12/01/17 01:00 110 22 88 Room Air 11/30/17 23:35 Room Air 11/30/17 22:56 37.4 107 18 117/76 (90) 94 Room Air Physical Exam General Appearance: NO APPARENT DISTRESS Respiratory/Chest: chest non-tender Cardiovascular: regular rate, rhythm Abdomen: normal bowel sounds, + tenderness (Mostly on the left side) Incision Description: Clean, Dry & Intact Extremities: normal range of motion Laboratory Results Last 24 Hours Test 11/30/17 20:02 11/30/17 21:20 12/01/17 06:38 12/01/17 09:37 Bedside Glucose 210 mg/dl Urine Color YELLOW Urine Appearance CLEAR Urine pH 6.5 Urine Specific [place] > 1.045 Urine Protein TRACE Urine Glucose (UA) TRACE Urine Ketones 1+ Urine Occult Blood TRACE Urine Nitrite NEG Urine Bilirubin NEG Urine Urobilinogen NEG Urine Leukocyte Esterase NEG Urine WBC (Auto) 1-5 /hpf Urine RBC (Auto) 0-4 /hpf Urine Hyaline Casts (Auto) 0 /lpf Urine Epithelial Cells (Auto) 10-20 /lpf Urine Bacteria (Auto) NEG Creatinine 0.44 mg/dl 0.47 mg/dl Est Creatinine Clear Calc Drug Dose 194.8 ml/min 182.4 ml/min Estimated GFR () > 150.0 > 150.0 Estimated GFR (Non- 137.4 134.4 White Blood Count 17.22 K/uL Red Blood Count 3.12 M/uL Hemoglobin 6.5 g/dL Hematocrit 20.4 % Mean Corpuscular Volume 65.4 fL Mean Corpuscular Hemoglobin 20.8 pg Mean Corpuscular Hemoglobin Concent 31.9 g/dl Platelet Count 529 K/uL Mean Platelet Volume 8.4 fL Neutrophils (%) (Auto) 78.1 % Lymphocytes (%) (Auto) 14.6 % Monocytes (%) (Auto) 4.4 % Eosinophils (%) (Auto) 2.3 % Basophils (%) (Auto) 0.1 % Neutrophils # (Auto) 13.45 K/uL Lymphocytes # (Auto) 2.52 K/uL Monocytes # (Auto) 0.76 K/uL Eosinophils # (Auto) 0.40 K/uL Basophils # (Auto) 0.01 K/uL RDW Standard Deviation 44.9 fL RDW Coefficient of Variation 18.6 % Immature Granulocyte % (Auto) 0.5 % Immature Granulocyte # (Auto) 0.08 K/uL Hypochromasia PRESENT Microcytosis PRESENT Erythrocyte Sedimentation Rate 72 mm/hr Sodium Level 139 mmol/L Potassium Level 3.2 mmol/L Chloride Level 107 mmol/L Carbon Dioxide Level 25 mmol/L Anion Gap 7.0 mmol/L Blood Urea Nitrogen 3 mg/dl BUN/Creatinine Ratio 6.4 Random Glucose 108 mg/dl Calcium Level 8.3 mg/dl Total Bilirubin 0.3 mg/dl Aspartate Amino Transf (AST/SGOT) 7 U/L Alanine Aminotransferase (ALT/SGPT) 10 U/L Alkaline Phosphatase 87 U/L C-Reactive Protein 26.90 mg/dl Total Protein 7.8 gm/dl Albumin 2.5 gm/dl Globulin 5.3 gm/dl Albumin/Globulin Ratio 0.5 Procalcitonin 0.21 ng/ml Test 12/01/17 12:00 12/01/17 12:24 12/01/17 16:09 Bedside Glucose 153 mg/dl White Blood Count 14.25 K/uL Red Blood Count 3.33 M/uL Hemoglobin 7.1 g/dL Hematocrit 22.5 % Mean Corpuscular Volume 67.6 fL Mean Corpuscular Hemoglobin 21.3 pg Mean Corpuscular Hemoglobin Concent 31.6 g/dl Platelet Count 453 K/uL Mean Platelet Volume 8.5 fL Neutrophils (%) (Auto) 74.7 % Lymphocytes (%) (Auto) 16.3 % Monocytes (%) (Auto) 6.0 % Eosinophils (%) (Auto) 2.5 % Basophils (%) (Auto) 0.1 % Neutrophils # (Auto) 10.64 K/uL Lymphocytes # (Auto) 2.32 K/uL Monocytes # (Auto) 0.86 K/uL Eosinophils # (Auto) 0.36 K/uL Basophils # (Auto) 0.02 K/uL RDW Standard Deviation 48.5 fL RDW Coefficient of Variation 19.5 % Immature Granulocyte % (Auto) 0.4 % Immature Granulocyte # (Auto) 0.05 K/uL Hypochromasia PRESENT Anisocytosis PRESENT Microcytosis PRESENT Assessment and Plan Post-Op Day Number: 3 (1) Tubo-ovarian abscess (2) Fever Status: Acute Assessment & Plan: 27 yo G0 s/p Abdominal myomectomy on 10/17/17 admitted for sepsis and abdominal pain. CT abdomen and pelvis in the ER did not reveal any etiology for abdominal pain. Patient followed by Medicine for sepsis and glucose control. Treated with IV antibiotics (orginally Vanocomycin and Zosyn) then changed to daptomycin and Zosyn on 11/23/17. Initial blood cultures negative. Repeat blood cultures NGTD[place] [address] [place] [address] [address], [place] [address] on 11/27/17. Patient continued with LLQ pain unrelieved with narcotic medication. TVUS on 11/24/17 was concerning for an enlarged left ovary with possible ovarian torsion. Repeat TVUS on 11/25/2017 revealed no significant change and vascular flow present so less likely ovarian torsion. Pt started on Lovenox 40 mg daily for DVT prophylaxis on 11/26/17, but not taking every day due to Pt initially declining, Pt hemoglobin decreased to 6.5 and lovenox held. Pt did get transfuse 1 unit today. S/p diagnostic laparoscopy, lysis of adhesions, and left salpingo- opherectomy on 11/28/2017. Pt with a left tubo-ovarian abscess (with possible left ovarian torsion) due to surgical findings. Previously recommended conversion to oral antibiotics when afebrile x 48 hrs. However, Pt febrile to 101 F on AM of 11/29/17 and 11/30/17[place] [address], [place] [address] Abd/Pelvis on 12/01/2017 revealed post-surgical changes vs new abscess (mostly likely a secondary peritonitis from spillage of pus/blood during surgical procedure). Afebrile today. Per ID, Pt to continue on dantomycin. Pt did receive one dose of ceftriaxone. STI panel pending. C. difficile sent due to reports of two loose bowel movements but negative.
--- NOTE | 2017-12-01 19:48 | Progress Note ---
Internal Med Progress Note Date of Service: December 01, 2017. Provider Documentation: SUBJECTIVE: Patient had decreased hemoglobin today. Denies bleeding from orifices. Patient is s/p 1 unit or PRBC. Hgb increased from to 6.5 to 7.1 which has been patient' s recent comparable CBC on these recent hospitalization days. Patient agrees to have CBC rechecked later tonight OBJECTIVE: Exam: General- no distress Eyes- EOMI Neck- no JVD Lungs- CTABL, no wheezing Heart- regular rate Abdomen- soft, + bowel sounds, incision sites dry and without drainage, abdomen tender, somewhat distended Extremities- no edema Neuro- awake and alert ASSESSMENT & PLAN: This is a 27 year old female with a past medical history of insulin dependent, uncontrolled type 2 diabetes, hx of asthma, allergic rhinitis, nasal polyps, recent myomectomy secondary to uterine fibroids on October 2017 presented on this admission with abdominal pain; +fevers. Patient has been treated for SEPSIS -Initially on broad spectrum Vancomycin and Zosyn with regimen changed to daptomycin and Zosyn on 11/23/17 -Blood cultures from 11/21/17 with no growth to date -WBC downtrended from 21,000 on 11/22/17 to around 14,000 by 11/25/17 -Patient declined repeat blood culture -Patient has been evaluated by OBGYN on this admission because of recent myomectomy secondary to uterine fibroids on October 17, 2017 -Initial concern for ovarian pathology such as ovarian torsion on pelvic/ transvaginal ultrasound on 11/24/17 and repeat pelvic/transvaginal ultrasound with no significant change and vascular flow present so less likely ovarian torsion. -Blood cultures repeated on 11/26/17 because of low grade fevers but no growth to date, the repeated UA was negative. -WBC increased from 14,000 pn 11/26/17 to 15,800 on 11/27/17 -s/p Diagnostic Laparoscopy,Lysis of Adhesions, Left Salpingo-oopherectomy on : Pt with a left tubo-ovarian abscess (with possible left ovarian torsion) . -However, Pt febrile to 101 F on AM of 11/29/17 and 11/30/17 with increased leukocytosis despite being still on Daptomycin and Zosyn -C.difficile negative -Repeat CT Abd/Pelvis on 12/01/2017 revealed post-surgical changes vs new abscess (mostly likely a secondary peritonitis from spillage of pus/blood during surgical procedure) -Infectious Disease re-evaluated patient and has given ceftriaxone in place of Zosyn x 1, and continuing active order for Daptomycin Microcytic Anemia - peripheral smear suggestive of iron deficiency - was on iron supplements during this admission -Hgb dropped from 7.1 to 6.5 with no overt bleeding from orifices. Patient is s /p 1 unit of PRBC on 12/01/17and Hgb increased from to 6.5 to 7.1 which has been patient's recent comparable CBC on these recent hospitalization days. repeat CBC at 1030 AM on 12/01/17. consider transfusing second unit of PRBC if Hgb is lower, consider fluid collection in abdomen vs hematoma if Hgb continues to decline Diarrhea - recent -may be from antibiotics, C.difficile recently is negative -off of bowel regimen to prevent worsening diarrhea Pain Control -Ibuprofen prn, Acetaminophen prn, Morphine prn; monitor if develops ileus from narcotics Insulin Dependent, Uncontrolled DM2 - Hba1c 12.4 - subcutaneous Insulin Asthma - no acute exacerbations - use home regimen DVT ppx: lovenox / ambulation FULL CODE Vital Signs: Date Time Temp Pulse Resp B/P (MAP) Pulse Ox O2 Delivery O2 Flow Rate FiO2 12/01/17 15:50 36.7 91 18 109/73 (85) 98 Room Air 12/01/17 15:50 36.7 91 18 109/73 98 12/01/17 15:30 Room Air 12/01/17 14:50 37.0 98 20 113/74 97 12/01/17 13:50 37.0 96 18 109/76 98 12/01/17 13:06 36.7 103 18 122/77 97 12/01/17 12:47 36.9 109 18 113/73 12/01/17 09:46 Room Air 12/01/17 09:29 99 20 91 Room Air 12/01/17 07:11 37.2 93 26 112/75 (87) 100 Nasal Cannula 1.0 12/01/17 01:00 110 22 88 Room Air 11/30/17 23:35 Room Air 11/30/17 22:56 37.4 107 18 117/76 (90) 94 Room Air Lab Results: Results Past 24 Hours Test 11/30/17 20:02 11/30/17 21:20 12/01/17 06:38 12/01/17 09:37 Range/Units Bedside Glucose 210 70-90 mg/dl Urine Color YELLOW Urine Appearance CLEAR CLEAR Urine pH 6.5 4.5-7.5 Urine Specific [place] > 1.045 1.000-1.030 Urine Protein TRACE NEG Urine Glucose (UA) TRACE NEG Urine Ketones 1+ NEG Urine Occult Blood TRACE NEG Urine Nitrite NEG NEG Urine Bilirubin NEG NEG Urine Urobilinogen NEG NEG Urine Leukocyte Esterase NEG NEG Urine WBC (Auto) 1-5 0-5 /hpf Urine RBC (Auto) 0-4 0-4 /hpf Urine Hyaline Casts (Auto) 0 0-5 /lpf Urine Epithelial Cells (Auto) 10-20 0-5 /lpf Urine Bacteria (Auto) NEG NEG Creatinine 0.44 0.47 0.60-1.20 mg/dl Est Creatinine Clear Calc Drug Dose 194.8 182.4 ml/min Estimated GFR () > 150.0 > 150.0 Estimated GFR (Non- 137.4 134.4 White Blood Count 17.22 4.8-10.8 K/uL Red Blood Count 3.12 4.2-5.4 M/uL Hemoglobin 6.5 12.0-16.0 g/dL Hematocrit 20.4 37-47 % Mean Corpuscular Volume 65.4 80-100 fL Mean Corpuscular Hemoglobin 20.8 25-34 pg Mean Corpuscular Hemoglobin Concent 31.9 32-36 g/dl Platelet Count 529 130-400 K/uL Mean Platelet Volume 8.4 7.4-10.4 fL Neutrophils (%) (Auto) 78.1 % Lymphocytes (%) (Auto) 14.6 % Monocytes (%) (Auto) 4.4 % Eosinophils (%) (Auto) 2.3 % Basophils (%) (Auto) 0.1 % Neutrophils # (Auto) 13.45 1.4-6.5 K/uL Lymphocytes # (Auto) 2.52 1.2-3.4 K/uL Monocytes # (Auto) 0.76 0.11-0.59 K/uL Eosinophils # (Auto) 0.40 0-0.5 K/uL Basophils # (Auto) 0.01 0-0.2 K/uL RDW Standard Deviation 44.9 36.4-46.3 fL RDW Coefficient of Variation 18.6 11.5-14.5 % Immature Granulocyte % (Auto) 0.5 % Immature Granulocyte # (Auto) 0.08 0.00-0.02 K/uL Hypochromasia PRESENT Microcytosis PRESENT Erythrocyte Sedimentation Rate 72 0-21 mm/hr Sodium Level 139 136-145 mmol/L Potassium Level 3.2 3.5-5.1 mmol/L Chloride Level 107 98-107 mmol/L Carbon Dioxide Level 25 21-32 mmol/L Anion Gap 7.0 3-11 mmol/L Blood Urea Nitrogen 3 7-18 mg/dl BUN/Creatinine Ratio 6.4 10-20 Random Glucose 108 70-99 mg/dl Calcium Level 8.3 8.5-10.1 mg/dl Total Bilirubin 0.3 0.2-1 mg/dl Aspartate Amino Transf (AST/SGOT) 7 15-37 U/L Alanine Aminotransferase (ALT/SGPT) 10 12-78 U/L Alkaline Phosphatase 87 45-117 U/L C-Reactive Protein 26.90 0-0.29 mg/dl Total Protein 7.8 6.4-8.2 gm/dl Albumin 2.5 3.4-5.0 gm/dl Globulin 5.3 2.5-4.0 gm/dl Albumin/Globulin Ratio 0.5 0.9-2 Procalcitonin 0.21 0-0.5 ng/ml Test 12/01/17 12:00 12/01/17 12:24 12/01/17 16:09 12/01/17 18:45 Range/Units Bedside Glucose 153 102 70-90 mg/dl White Blood Count 14.25 4.8-10.8 K/uL Red Blood Count 3.33 4.2-5.4 M/uL Hemoglobin 7.1 12.0-16.0 g/dL Hematocrit 22.5 37-47 % Mean Corpuscular Volume 67.6 80-100 fL Mean Corpuscular Hemoglobin 21.3 25-34 pg Mean Corpuscular Hemoglobin Concent 31.6 32-36 g/dl Platelet Count 453 130-400 K/uL Mean Platelet Volume 8.5 7.4-10.4 fL Neutrophils (%) (Auto) 74.7 % Lymphocytes (%) (Auto) 16.3 % Monocytes (%) (Auto) 6.0 % Eosinophils (%) (Auto) 2.5 % Basophils (%) (Auto) 0.1 % Neutrophils # (Auto) 10.64 1.4-6.5 K/uL Lymphocytes # (Auto) 2.32 1.2-3.4 K/uL Monocytes # (Auto) 0.86 0.11-0.59 K/uL Eosinophils # (Auto) 0.36 0-0.5 K/uL Basophils # (Auto) 0.02 0-0.2 K/uL RDW Standard Deviation 48.5 36.4-46.3 fL RDW Coefficient of Variation 19.5 11.5-14.5 % Immature Granulocyte % (Auto) 0.4 % Immature Granulocyte # (Auto) 0.05 0.00-0.02 K/uL Hypochromasia PRESENT Anisocytosis PRESENT Microcytosis PRESENT Microbiology Results 11/30/17 Urine Culture, Received Pending
[2017-12-01] MEDS ORDERED: DAPTOmycin IV 225 MG in SYRINGE 0 ML IV SCH (20:00)
[2017-12-01] MEDS: DAPTOmycin IV 325 MG in SYRINGE 0 ML IV SCH (20:20)
[2017-12-01] MEDS: MONTELUKAST SOD 10 MG TAB PO SCH (21:14)
[2017-12-01 22:22] LABS: BASO % 0.1 %; BASO ABS # 0.01 K/uL (0-0.2); EOS % 2.1 %; EOS ABS # 0.31 K/uL (0-0.5); HEMATOCRIT 22.6 % (37-47); HEMOGLOBIN 7.2 g/dL (12.0-16.0); IG# 0.08 K/uL (0.00-0.02); LYMPH % 14.3 %; LYMPH ABS # 2.11 K/uL (1.2-3.4); MEAN CELL VOLUME 66.9 fL (80-100); MEAN CORPUSCULAR HEMOGLOBIN 21.3 pg (25-34); MEAN CORPUSCULAR HGB CONC 31.9 g/dl (32-36); MEAN PLATELET VOLUME 8.4 fL (7.4-10.4); MONO % 4.3 %; MONO ABS # 0.64 K/uL (0.11-0.59); NEUT % 78.7 %; NEUT ABS # 11.63 K/uL (1.4-6.5); PLATELET COUNT 484 K/uL (130-400); RED CELL DISTRIBUTION WIDTH CV 19.2 % (11.5-14.5); RED CELL DISTRIBUTION WIDTH SD 47.1 fL (36.4-46.3); WHITE BLOOD COUNT 14.78 K/uL (4.8-10.8)
[2017-12-02 00:15] VITALS: O2SAT 95
[2017-12-02] MEDS: MoRPHine SULFATE 4 MG/ML 1 ML CARP\\VIAL IV PRN ×3 (00:50→18:30)
[2017-12-02] MEDS: IBUPROFEN 600 MG TAB PO PRN ×3 (00:51→18:29)
[2017-12-02] MEDS: ACETAMINOPHEN 325 MG TAB PO PRN ×3 (00:51→18:29)
[2017-12-02 05:05] LABS: BASO % 0.1 %; BASO ABS # 0.01 K/uL (0-0.2); EOS % 3.1 %; EOS ABS # 0.41 K/uL (0-0.5); HEMATOCRIT 24.2 % (37-47); HEMOGLOBIN 7.5 g/dL (12.0-16.0); IG# 0.07 K/uL (0.00-0.02); LYMPH % 22.5 %; LYMPH ABS # 2.96 K/uL (1.2-3.4); MEAN CELL VOLUME 66.1 fL (80-100); MEAN CORPUSCULAR HEMOGLOBIN 20.5 pg (25-34); MEAN PLATELET VOLUME 8.5 fL (7.4-10.4); MONO % 6.3 %; MONO ABS # 0.83 K/uL (0.11-0.59); NEUT % 67.5 %; NEUT ABS # 8.87 K/uL (1.4-6.5); PLATELET COUNT 553 K/uL (130-400); RED CELL DISTRIBUTION WIDTH CV 19.3 % (11.5-14.5); RED CELL DISTRIBUTION WIDTH SD 47.1 fL (36.4-46.3); WHITE BLOOD COUNT 13.15 K/uL (4.8-10.8)
[2017-12-02 05:34] LABS: ALBUMIN 2.5 gm/dl (3.4-5.0); ALKALINE PHOSPHATASE 98 U/L (45-117); ALT/SGPT 13 U/L (12-78); AST/SGOT 9 U/L (15-37); BLOOD UREA NITROGEN 3 mg/dl (7-18); CALCIUM 8.8 mg/dl (8.5-10.1); CARBON DIOXIDE 24 mmol/L (21-32); GLUCOSE 74 mg/dl (70-99); POTASSIUM 3.1 mmol/L (3.5-5.1); SODIUM 140 mmol/L (136-145); TOTAL PROTEIN 8.3 gm/dl (6.4-8.2)
[2017-12-02] MEDS ORDERED: NURSING DECISION MEDICATION ORDER SCH (07:15)
[2017-12-02] MEDS: ALBUTEROL 0.083% NEBU SOLN 3 ML VIAL INH PRN ×2 (07:22→23:17)
[2017-12-02 07:23] VITALS: PULSE 94; O2SAT 97
[2017-12-02 07:42] VITALS: BP 124/83; PULSE 98; TEMP 37.1; O2SAT 97
[2017-12-02] MEDS: ENOXAPARIN 40 MG/0.4 ML SYR SQ SCH (09:00)
[2017-12-02] MEDS: DOCUSATE SODIUM 100 MG CAP PO SCH ×2 (09:00→20:14)
[2017-12-02] MEDS: SIMETHICONE 80 MG CHEW PO PRN (09:07)
[2017-12-02] MEDS: LACTOBACILLUS ACIDOPHILUS 1 GM PACK PO SCH ×3 (09:07→18:35)
[2017-12-02] MEDS: GUAIFENESIN 600 MG TABCR PO SCH ×2 (09:07→21:12)
[2017-12-02] MEDS: INSULIN GLARGINE SOLOSTAR 100 UNITS/ML 3 ML PEN SC SCH ×2 (09:22→21:16)
[2017-12-02] MEDS: INSULIN ASPART 100 UNITS/ML 3 ML PEN SC SCH ×4 (09:41→21:00)
--- NOTE | 2017-12-02 10:22 | Surgery Progress Note ---
Surgery Progress Note Date of Service December 02, 2017. Subjective Post OP Day: 4 + feeling well, + ambulating, + bowel movement, + flatus, + pain controlled, + diet (Tolerating PO food and Meds), No complaints, No chest pain, No SOB, No using HYDRAULIC TESTER, No nausea, No vomiting Objective Vital Signs: Date Time Temp Pulse Resp B/P (MAP) Pulse Ox O2 Delivery O2 Flow Rate FiO2 12/02/17 07:42 37.1 98 20 124/83 (97) 97 Room Air 12/02/17 07:30 Room Air 12/02/17 07:23 94 24 97 Room Air 12/02/17 00:15 95 Room Air 1.0 12/01/17 23:09 37.1 96 17 126/76 (93) 95 Room Air 12/01/17 20:51 111 22 90 Room Air 12/01/17 15:50 36.7 91 18 109/73 (85) 98 Room Air 12/01/17 15:50 36.7 91 18 109/73 98 12/01/17 15:30 Room Air 12/01/17 14:50 37.0 98 20 113/74 97 12/01/17 13:50 37.0 96 18 109/76 98 12/01/17 13:06 36.7 103 18 122/77 97 12/01/17 12:47 36.9 109 18 113/73 General Appearance: WD/WN Neck: supple, no adenopathy, thyroid normal, no JVD, no carotid bruits, trachea midline Respiratory/Chest: chest non-tender, lungs clear, normal breath sounds, no respiratory distress, no accessory muscle use Cardiovascular: regular rate, rhythm, no edema, no gallop, no JVD, no murmur Abdomen: normal bowel sounds, non tender, non distended, soft, no organomegaly , no pulsatile mass Incision(s): clean, dry, intact, no erythema, no drainage Extremities: normal range of motion, non-tender, normal inspection, no pedal edema, no calf tenderness, normal capillary refill, pelvis stable Laboratory Results: Results Past 24 Hours Test 12/01/17 12:00 12/01/17 12:24 12/01/17 16:09 12/01/17 18:45 Range/Units Bedside Glucose 153 102 70-90 mg/dl White Blood Count 14.25 4.8-10.8 K/uL Red Blood Count 3.33 4.2-5.4 M/uL Hemoglobin 7.1 12.0-16.0 g/dL Hematocrit 22.5 37-47 % Mean Corpuscular Volume 67.6 80-100 fL Mean Corpuscular Hemoglobin 21.3 25-34 pg Mean Corpuscular Hemoglobin Concent 31.6 32-36 g/dl Platelet Count 453 130-400 K/uL Mean Platelet Volume 8.5 7.4-10.4 fL Neutrophils (%) (Auto) 74.7 % Lymphocytes (%) (Auto) 16.3 % Monocytes (%) (Auto) 6.0 % Eosinophils (%) (Auto) 2.5 % Basophils (%) (Auto) 0.1 % Neutrophils # (Auto) 10.64 1.4-6.5 K/uL Lymphocytes # (Auto) 2.32 1.2-3.4 K/uL Monocytes # (Auto) 0.86 0.11-0.59 K/uL Eosinophils # (Auto) 0.36 0-0.5 K/uL Basophils # (Auto) 0.02 0-0.2 K/uL RDW Standard Deviation 48.5 36.4-46.3 fL RDW Coefficient of Variation 19.5 11.5-14.5 % Immature Granulocyte % (Auto) 0.4 % Immature Granulocyte # (Auto) 0.05 0.00-0.02 K/uL Hypochromasia PRESENT Anisocytosis PRESENT Microcytosis PRESENT Test 12/01/17 20:51 12/01/17 22:13 12/02/17 04:30 12/02/17 09:18 Range/Units Bedside Glucose 171 103 70-90 mg/dl White Blood Count 14.78 13.15 4.8-10.8 K/uL Red Blood Count 3.38 3.66 4.2-5.4 M/uL Hemoglobin 7.2 7.5 12.0-16.0 g/dL Hematocrit 22.6 24.2 37-47 % Mean Corpuscular Volume 66.9 66.1 80-100 fL Mean Corpuscular Hemoglobin 21.3 20.5 25-34 pg Mean Corpuscular Hemoglobin Concent 31.9 31.0 32-36 g/dl Platelet Count 484 553 130-400 K/uL Mean Platelet Volume 8.4 8.5 7.4-10.4 fL Neutrophils (%) (Auto) 78.7 67.5 % Lymphocytes (%) (Auto) 14.3 22.5 % Monocytes (%) (Auto) 4.3 6.3 % Eosinophils (%) (Auto) 2.1 3.1 % Basophils (%) (Auto) 0.1 0.1 % Neutrophils # (Auto) 11.63 8.87 1.4-6.5 K/uL Lymphocytes # (Auto) 2.11 2.96 1.2-3.4 K/uL Monocytes # (Auto) 0.64 0.83 0.11-0.59 K/uL Eosinophils # (Auto) 0.31 0.41 0-0.5 K/uL Basophils # (Auto) 0.01 0.01 0-0.2 K/uL RDW Standard Deviation 47.1 47.1 36.4-46.3 fL RDW Coefficient of Variation 19.2 19.3 11.5-14.5 % Immature Granulocyte % (Auto) 0.5 0.5 % Immature Granulocyte # (Auto) 0.08 0.07 0.00-0.02 K/uL Polychromasia 1+ Anisocytosis PRESENT Microcytosis PRESENT PRESENT Hypochromasia PRESENT Sodium Level 140 136-145 mmol/L Potassium Level 3.1 3.5-5.1 mmol/L Chloride Level 107 98-107 mmol/L Carbon Dioxide Level 24 21-32 mmol/L Anion Gap 9.0 3-11 mmol/L Blood Urea Nitrogen 3 7-18 mg/dl Creatinine 0.50 0.60-1.20 mg/dl Est Creatinine Clear Calc Drug Dose 171.5 ml/min Estimated GFR () > 150.0 Estimated GFR (Non- 131.7 BUN/Creatinine Ratio 5.9 10-20 Random Glucose 74 70-99 mg/dl Calcium Level 8.8 8.5-10.1 mg/dl Total Bilirubin 0.3 0.2-1 mg/dl Aspartate Amino Transf (AST/SGOT) 9 15-37 U/L Alanine Aminotransferase (ALT/SGPT) 13 12-78 U/L Alkaline Phosphatase 98 45-117 U/L Total Protein 8.3 6.4-8.2 gm/dl Albumin 2.5 3.4-5.0 gm/dl Globulin 5.8 2.5-4.0 gm/dl Albumin/Globulin Ratio 0.4 0.9-2 Assessment & Plan 1)laparoscopy for TOA on 11/28/2017 Pt doing well Last fever was 07;33HRS 11/28/17 2) Anemia; Transfused 1 unit PRBC- stable H/H 3) Diarrhea; From prolonged Antibiotics use. Improving 4) IDDM 2: Receiving Insulin 5) Asthma; No acute exacerbation 6) DVT prophylaxis : Lovenox and SCD 7) Blood clx; negative and still pending Pt is improving and is 48hrs afebrile and tolerating PO food and Meds. PO antibx may be considered so pt can be discharged home
--- NOTE | 2017-12-02 12:36 | Progress Note ---
Subjective Date of Service: December 02, 2017. Subjective pt sleeping, afebrle overnight. remains on iv abx. rpr negative, urine sti screen ordered, not done. urine and blood cultures negative. received one dose ctx. no plans for additional or, fluid collections thought to be secondary to spillage of pus in OR. no OR culture obtained, remains on emperic abx. wbc slightly improved today. Problem List Medical Problems: (1) Abdominal pain Status: Acute (2) Anemia Status: Acute (3) Fever Status: Acute (4) Fever Status: Acute (5) Sepsis Status: Acute (6) UTI (urinary tract infection) Status: Acute Objective Vital Signs Date Time Temp Pulse Resp B/P (MAP) Pulse Ox O2 Delivery O2 Flow Rate FiO2 12/02/17 07:42 37.1 98 20 124/83 (97) 97 Room Air 12/02/17 07:30 Room Air 12/02/17 07:23 94 24 97 Room Air 12/02/17 00:15 95 Room Air 1.0 12/01/17 23:09 37.1 96 17 126/76 (93) 95 Room Air 12/01/17 20:51 111 22 90 Room Air 12/01/17 15:50 36.7 91 18 109/73 (85) 98 Room Air 12/01/17 15:50 36.7 91 18 109/73 98 12/01/17 15:30 Room Air 12/01/17 14:50 37.0 98 20 113/74 97 12/01/17 13:50 37.0 96 18 109/76 98 12/01/17 13:06 36.7 103 18 122/77 97 12/01/17 12:47 36.9 109 18 113/73 Laboratory Results Item Value Date Time Urine Culture - Preliminary Resulted 11/30/17 2120 Urine , Clean Catch NO GROWTH - LESS THAN 1,000 COLONIES/... Blood Culture - Preliminary Resulted 11/29/17 0758 Blood NO GROWTH TO DATE. Blood Culture - Preliminary Resulted 11/29/17 0749 Blood NO GROWTH TO DATE. Last 24 Hours Test 12/01/17 16:09 12/01/17 18:45 12/01/17 20:51 12/01/17 22:13 White Blood Count 14.25 K/uL 14.78 K/uL Red Blood Count 3.33 M/uL 3.38 M/uL Hemoglobin 7.1 g/dL 7.2 g/dL Hematocrit 22.5 % 22.6 % Mean Corpuscular Volume 67.6 fL 66.9 fL Mean Corpuscular Hemoglobin 21.3 pg 21.3 pg Mean Corpuscular Hemoglobin Concent 31.6 g/dl 31.9 g/dl Platelet Count 453 K/uL 484 K/uL Mean Platelet Volume 8.5 fL 8.4 fL Neutrophils (%) (Auto) 74.7 % 78.7 % Lymphocytes (%) (Auto) 16.3 % 14.3 % Monocytes (%) (Auto) 6.0 % 4.3 % Eosinophils (%) (Auto) 2.5 % 2.1 % Basophils (%) (Auto) 0.1 % 0.1 % Neutrophils # (Auto) 10.64 K/uL 11.63 K/uL Lymphocytes # (Auto) 2.32 K/uL 2.11 K/uL Monocytes # (Auto) 0.86 K/uL 0.64 K/uL Eosinophils # (Auto) 0.36 K/uL 0.31 K/uL Basophils # (Auto) 0.02 K/uL 0.01 K/uL RDW Standard Deviation 48.5 fL 47.1 fL RDW Coefficient of Variation 19.5 % 19.2 % Immature Granulocyte % (Auto) 0.4 % 0.5 % Immature Granulocyte # (Auto) 0.05 K/uL 0.08 K/uL Hypochromasia PRESENT Anisocytosis PRESENT PRESENT Microcytosis PRESENT PRESENT Bedside Glucose 102 mg/dl 171 mg/dl Polychromasia 1+ Test 12/02/17 04:30 12/02/17 09:18 White Blood Count 13.15 K/uL Red Blood Count 3.66 M/uL Hemoglobin 7.5 g/dL Hematocrit 24.2 % Mean Corpuscular Volume 66.1 fL Mean Corpuscular Hemoglobin 20.5 pg Mean Corpuscular Hemoglobin Concent 31.0 g/dl Platelet Count 553 K/uL Mean Platelet Volume 8.5 fL Neutrophils (%) (Auto) 67.5 % Lymphocytes (%) (Auto) 22.5 % Monocytes (%) (Auto) 6.3 % Eosinophils (%) (Auto) 3.1 % Basophils (%) (Auto) 0.1 % Neutrophils # (Auto) 8.87 K/uL Lymphocytes # (Auto) 2.96 K/uL Monocytes # (Auto) 0.83 K/uL Eosinophils # (Auto) 0.41 K/uL Basophils # (Auto) 0.01 K/uL RDW Standard Deviation 47.1 fL RDW Coefficient of Variation 19.3 % Immature Granulocyte % (Auto) 0.5 % Immature Granulocyte # (Auto) 0.07 K/uL Hypochromasia PRESENT Microcytosis PRESENT Sodium Level 140 mmol/L Potassium Level 3.1 mmol/L Chloride Level 107 mmol/L Carbon Dioxide Level 24 mmol/L Anion Gap 9.0 mmol/L Blood Urea Nitrogen 3 mg/dl Creatinine 0.50 mg/dl Est Creatinine Clear Calc Drug Dose 171.5 ml/min Estimated GFR () > 150.0 Estimated GFR (Non- 131.7 BUN/Creatinine Ratio 5.9 Random Glucose 74 mg/dl Calcium Level 8.8 mg/dl Total Bilirubin 0.3 mg/dl Aspartate Amino Transf (AST/SGOT) 9 U/L Alanine Aminotransferase (ALT/SGPT) 13 U/L Alkaline Phosphatase 98 U/L Total Protein 8.3 gm/dl Albumin 2.5 gm/dl Globulin 5.8 gm/dl Albumin/Globulin Ratio 0.4 Bedside Glucose 103 mg/dl Assessment and Plan (1) Tubo-ovarian abscess Assessment & Plan: continue dapto, change to ctx - received one dose, will re order. will check std panel as well for completeness, not completed, will re order. 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 will follow. (2) Fever
[2017-12-02] MEDS ORDERED: CEFTRIAXONE SOD INJ 1 GM in DEXTROSE 5% ADD-VANTAGE 50ML 50 ML IV SCH (13:00)
--- NOTE | 2017-12-02 13:28 | Progress Note ---
Internal Med Progress Note Date of Service: December 02, 2017. Provider Documentation: SUBJECTIVE: Patient is seen at bedside Abdominal pain is better Denies chest pain, SOB, dizziness Has been afebrile Leucocytosis better Requesting IV pain meds consistently per staff OBJECTIVE: Vital Signs-as noted below Physical Exam: General Appearance:Moderately built and nourished, no apparent distress Head: normocephalic, Atraumatic Eyes: normal inspection, EOMI, PERRL Neck: supple, Trachea midline Respiratory/Chest: Normal breath sounds, CTA Cardiovascular: S1, S2, No murmur Abdomen/GI:Soft, Mils tender at surgical site, Bowel sounds present Extremities/Musculoskelatal:normal inspection, no edema Neurologic/Psych:AAOX3, grossly no focal neurological deficits Skin: normal color, warm Lab data as noted below. ASSESSMENT & PLAN: Patient is a 27 yr female with PMH of DM II, asthma, allergic rhinitis, nasal polyps, recent myomectomy secondary to uterine fibroids on October 2017 presented with abdominal pain and fever. Sepsis Left tubo-Ovarian abscess with possible Left ovarian torsion H/O recent myomectomy for Uterine Fibroid on 2017 S/P Laparoscopic lysis of Adhesions, Left Salpingo-oophorectomy on 11/28/17 Continue IV antibiotics per ID STD screen pending Cultures negative Leukocytosis trending down Appreciate ID and OBGYN help C.difficile negative Repeat CT Abd/Pelvis on 12/01/2017 revealed post-surgical changes vs new abscess (mostly likely a secondary peritonitis from spillage of pus/blood during surgical procedure) continue current management Hypokalemia: Replace and monitor Microcytic Anemia peripheral smear suggestive of iron deficiency S/P 1 unit PRBC Iron supplements Diarrhea Likely secondary to antibiotics C.difficile is negative DM II: Hba1c 12.4 continue ISS, basal Insulin Monitor BGs Asthma no acute exacerbations use home inhalers DVT Px: Lovenox SQ Disposition: Expect to discharge home when stable Vital Signs: Date Time Temp Pulse Resp B/P (MAP) Pulse Ox O2 Delivery O2 Flow Rate FiO2 12/02/17 07:42 37.1 98 20 124/83 (97) 97 Room Air 12/02/17 07:30 Room Air 12/02/17 07:23 94 24 97 Room Air 12/02/17 00:15 95 Room Air 1.0 12/01/17 23:09 37.1 96 17 126/76 (93) 95 Room Air 12/01/17 20:51 111 22 90 Room Air 12/01/17 15:50 36.7 91 18 109/73 (85) 98 Room Air 12/01/17 15:50 36.7 91 18 109/73 98 12/01/17 15:30 Room Air 12/01/17 14:50 37.0 98 20 113/74 97 Lab Results: Results Past 24 Hours Test 12/01/17 16:09 12/01/17 18:45 12/01/17 20:51 12/01/17 22:13 Range/Units White Blood Count 14.25 14.78 4.8-10.8 K/uL Red Blood Count 3.33 3.38 4.2-5.4 M/uL Hemoglobin 7.1 7.2 12.0-16.0 g/dL Hematocrit 22.5 22.6 37-47 % Mean Corpuscular Volume 67.6 66.9 80-100 fL Mean Corpuscular Hemoglobin 21.3 21.3 25-34 pg Mean Corpuscular Hemoglobin Concent 31.6 31.9 32-36 g/dl Platelet Count 453 484 130-400 K/uL Mean Platelet Volume 8.5 8.4 7.4-10.4 fL Neutrophils (%) (Auto) 74.7 78.7 % Lymphocytes (%) (Auto) 16.3 14.3 % Monocytes (%) (Auto) 6.0 4.3 % Eosinophils (%) (Auto) 2.5 2.1 % Basophils (%) (Auto) 0.1 0.1 % Neutrophils # (Auto) 10.64 11.63 1.4-6.5 K/uL Lymphocytes # (Auto) 2.32 2.11 1.2-3.4 K/uL Monocytes # (Auto) 0.86 0.64 0.11-0.59 K/uL Eosinophils # (Auto) 0.36 0.31 0-0.5 K/uL Basophils # (Auto) 0.02 0.01 0-0.2 K/uL RDW Standard Deviation 48.5 47.1 36.4-46.3 fL RDW Coefficient of Variation 19.5 19.2 11.5-14.5 % Immature Granulocyte % (Auto) 0.4 0.5 % Immature Granulocyte # (Auto) 0.05 0.08 0.00-0.02 K/uL Hypochromasia PRESENT Anisocytosis PRESENT PRESENT Microcytosis PRESENT PRESENT Bedside Glucose 102 171 70-90 mg/dl Polychromasia 1+ Test 12/02/17 04:30 12/02/17 09:18 12/02/17 13:24 Range/Units White Blood Count 13.15 4.8-10.8 K/uL Red Blood Count 3.66 4.2-5.4 M/uL Hemoglobin 7.5 12.0-16.0 g/dL Hematocrit 24.2 37-47 % Mean Corpuscular Volume 66.1 80-100 fL Mean Corpuscular Hemoglobin 20.5 25-34 pg Mean Corpuscular Hemoglobin Concent 31.0 32-36 g/dl Platelet Count 553 130-400 K/uL Mean Platelet Volume 8.5 7.4-10.4 fL Neutrophils (%) (Auto) 67.5 % Lymphocytes (%) (Auto) 22.5 % Monocytes (%) (Auto) 6.3 % Eosinophils (%) (Auto) 3.1 % Basophils (%) (Auto) 0.1 % Neutrophils # (Auto) 8.87 1.4-6.5 K/uL Lymphocytes # (Auto) 2.96 1.2-3.4 K/uL Monocytes # (Auto) 0.83 0.11-0.59 K/uL Eosinophils # (Auto) 0.41 0-0.5 K/uL Basophils # (Auto) 0.01 0-0.2 K/uL RDW Standard Deviation 47.1 36.4-46.3 fL RDW Coefficient of Variation 19.3 11.5-14.5 % Immature Granulocyte % (Auto) 0.5 % Immature Granulocyte # (Auto) 0.07 0.00-0.02 K/uL Hypochromasia PRESENT Microcytosis PRESENT Sodium Level 140 136-145 mmol/L Potassium Level 3.1 3.5-5.1 mmol/L Chloride Level 107 98-107 mmol/L Carbon Dioxide Level 24 21-32 mmol/L Anion Gap 9.0 3-11 mmol/L Blood Urea Nitrogen 3 7-18 mg/dl Creatinine 0.50 0.60-1.20 mg/dl Est Creatinine Clear Calc Drug Dose 171.5 ml/min Estimated GFR () > 150.0 Estimated GFR (Non- 131.7 BUN/Creatinine Ratio 5.9 10-20 Random Glucose 74 70-99 mg/dl Calcium Level 8.8 8.5-10.1 mg/dl Total Bilirubin 0.3 0.2-1 mg/dl Aspartate Amino Transf (AST/SGOT) 9 15-37 U/L Alanine Aminotransferase (ALT/SGPT) 13 12-78 U/L Alkaline Phosphatase 98 45-117 U/L Total Protein 8.3 6.4-8.2 gm/dl Albumin 2.5 3.4-5.0 gm/dl Globulin 5.8 2.5-4.0 gm/dl Albumin/Globulin Ratio 0.4 0.9-2 Bedside Glucose 103 137 70-90 mg/dl
[2017-12-02] MEDS ORDERED: POTASSIUM CHLORIDE 10 MEQ TABCR PO ONE (13:30)
[2017-12-02 15:01] VITALS: BP 117/77; PULSE 95; TEMP 37.2; O2SAT 95
[2017-12-02] MEDS ORDERED: FERROUS SULFATE 325 MG TAB PO PRN (17:45)
[2017-12-02] MEDS: DAPTOmycin IV 325 MG in SYRINGE 0 ML IV SCH (20:13)
[2017-12-02] MEDS: MONTELUKAST SOD 10 MG TAB PO SCH (21:12)
[2017-12-02 22:50] VITALS: BP 123/76; PULSE 93; TEMP 36.9; O2SAT 97
[2017-12-02 23:19] VITALS: PULSE 89; O2SAT 96
[2017-12-03] MEDS: ACETAMINOPHEN 325 MG TAB PO PRN ×2 (00:33→07:45)
[2017-12-03] MEDS: IBUPROFEN 600 MG TAB PO PRN ×2 (00:33→07:45)
[2017-12-03 07:29] LABS: HEMATOCRIT 24.6 % (37-47); HEMOGLOBIN 7.7 g/dL (12.0-16.0); MEAN CELL VOLUME 66.8 fL (80-100); MEAN CORPUSCULAR HEMOGLOBIN 20.9 pg (25-34); MEAN CORPUSCULAR HGB CONC 31.3 g/dl (32-36); MEAN PLATELET VOLUME 8.5 fL (7.4-10.4); NUCLEATED RED BLOOD CELL ABS 0.03 K/uL (0-0); PLATELET COUNT 619 K/uL (130-400); RED CELL DISTRIBUTION WIDTH CV 19.5 % (11.5-14.5); RED CELL DISTRIBUTION WIDTH SD 48.4 fL (36.4-46.3); WHITE BLOOD COUNT 11.26 K/uL (4.8-10.8)
[2017-12-03] MEDS ORDERED: POLYETHYLENE (MIRALAX) 17 GM PACK PO PRN (07:30)
[2017-12-03 07:40] VITALS: PULSE 97; O2SAT 98
[2017-12-03] MEDS: ALBUTEROL 0.083% NEBU SOLN 3 ML VIAL INH PRN (07:40)
[2017-12-03 07:45] VITALS: BP 122/78; PULSE 94; TEMP 37.2; O2SAT 96
[2017-12-03 07:57] LABS: CALCIUM 9.1 mg/dl (8.5-10.1); CREATININE 0.55 mg/dl (0.60-1.20); POTASSIUM 3.5 mmol/L (3.5-5.1)
[2017-12-03 08:05] VITALS: O2SAT 96
[2017-12-03] MEDS: DOCUSATE SODIUM 100 MG CAP PO SCH (08:38)
[2017-12-03] MEDS: LACTOBACILLUS ACIDOPHILUS 1 GM PACK PO SCH ×2 (08:38→12:30)
[2017-12-03] MEDS: GUAIFENESIN 600 MG TABCR PO SCH (08:39)
[2017-12-03] MEDS: ENOXAPARIN 40 MG/0.4 ML SYR SQ SCH (08:39)
[2017-12-03] MEDS: INSULIN ASPART 100 UNITS/ML 3 ML PEN SC SCH ×2 (09:23→12:47)
[2017-12-03] MEDS: INSULIN GLARGINE SOLOSTAR 100 UNITS/ML 3 ML PEN SC SCH (09:24)
--- NOTE | 2017-12-03 09:59 | Progress Note ---
Subjective Date of Service: December 03, 2017. Subjective Pt evaluation today including: conversation w/ patient, physical exam, chart review, lab review pt seen in followup, asking to go home pain much improved. only complaint is constipation. tolerating abx. std workup negative. blood and urine cultures negative. wbc improving. continues to improve post OR. all remaining ros reviewed and are negative. Problem List Medical Problems: (1) Abdominal pain Status: Acute (2) Anemia Status: Acute (3) Fever Status: Acute (4) Fever Status: Acute (5) Sepsis Status: Acute (6) UTI (urinary tract infection) Status: Acute Objective Vital Signs Date Time Temp Pulse Resp B/P (MAP) Pulse Ox O2 Delivery O2 Flow Rate FiO2 12/03/17 08:10 Room Air 12/03/17 08:05 96 Room Air 12/03/17 07:45 37.2 94 20 122/78 (93) 96 Room Air 12/03/17 07:40 97 18 98 Room Air 12/03/17 00:30 Room Air 12/02/17 23:19 89 22 96 Room Air 12/02/17 22:50 36.9 93 16 123/76 (92) 97 Room Air 12/02/17 15:20 Room Air 12/02/17 15:01 37.2 95 18 117/77 (90) 95 Physical Exam General Appearance: WD/WN, no apparent distress Eyes: normal inspection, EOMI Neck: supple Respiratory/Chest: lungs clear, normal breath sounds, no respiratory distress Cardiovascular: regular rate, rhythm, no edema Abdomen: non tender, soft Extremities: non-tender, no pedal edema Neurologic/Psychiatric: alert, oriented x 3 Skin: normal color Laboratory Results Item Value Date Time Urine Culture - Preliminary Resulted 11/30/17 2120 Urine , Clean Catch NO GROWTH - LESS THAN 1,000 COLONIES/... Blood Culture - Preliminary Resulted 11/29/17 0758 Blood NO GROWTH TO DATE. Blood Culture - Preliminary Resulted 11/29/17 0749 Blood NO GROWTH TO DATE. Blood Culture - Final Complete 11/26/17 0857 Blood NO GROWTH Blood Culture - Final Complete 11/26/17 0850 Blood NO GROWTH Blood Culture - Final Complete 11/21/17 1417 Blood NO GROWTH Blood Culture - Preliminary Resulted 11/21/17 1355 Blood NO GROWTH TO DATE. Rapid Plasma Reagin NONREACTIVE 12/01/17 0937 Chlamydia trachomatis RNA NOT DETECTED 12/01/17 1200 Neisseria gonorrhoeae RNA NOT DETECTED 12/01/17 1200 Last 24 Hours Test 12/02/17 13:24 12/02/17 20:39 12/03/17 07:12 Bedside Glucose 137 mg/dl 154 mg/dl White Blood Count 11.26 K/uL Red Blood Count 3.68 M/uL Hemoglobin 7.7 g/dL Hematocrit 24.6 % Mean Corpuscular Volume 66.8 fL Mean Corpuscular Hemoglobin 20.9 pg Mean Corpuscular Hemoglobin Concent 31.3 g/dl RDW Standard Deviation 48.4 fL RDW Coefficient of Variation 19.5 % Platelet Count 619 K/uL Mean Platelet Volume 8.5 fL Nucleated RBC Absolute Count (auto) 0.03 K/uL Nucleated Red Blood Cells % 0.3 % Sodium Level 139 mmol/L Potassium Level 3.5 mmol/L Chloride Level 106 mmol/L Carbon Dioxide Level 26 mmol/L Anion Gap 7.0 mmol/L Blood Urea Nitrogen 8 mg/dl Creatinine 0.55 mg/dl Est Creatinine Clear Calc Drug Dose 155.9 ml/min Estimated GFR () 147.9 Estimated GFR (Non- 127.6 BUN/Creatinine Ratio 14.0 Random Glucose 112 mg/dl Calcium Level 9.1 mg/dl Magnesium Level 2.1 mg/dl Assessment and Plan (1) Tubo-ovarian abscess Assessment & Plan: std workup negative.. cutlures remain negative, will transition to po abx but with no OR culture, abx will be emperic wilcox to augmentin to cover for nml head housekeeper christina. ok for d/c from ID standpoint. (2) Fever
--- NOTE | 2017-12-03 12:11 | Progress Note ---
Internal Med Progress Note Date of Service: December 03, 2017. Provider Documentation: SUBJECTIVE: Patient is seen at bedside Doing well today Eager to get discharged Denies chest pain, SOB, dizziness, abd pain Leucocytosis trending towards normal OBJECTIVE: Vital Signs-as noted below Physical Exam: General Appearance:Moderately built and nourished, no apparent distress Head: normocephalic, Atraumatic Eyes: normal inspection, EOMI, PERRL Neck: supple, Trachea midline Respiratory/Chest: Normal breath sounds, CTA Cardiovascular: S1, S2, No murmur Abdomen/GI:Soft, Mils tender at surgical site, Bowel sounds present Extremities/Musculoskelatal:normal inspection, no edema Neurologic/Psych:AAOX3, grossly no focal neurological deficits Skin: normal color, warm Lab data as noted below. ASSESSMENT & PLAN: Patient is a 27 yr female with PMH of DM II, asthma, allergic rhinitis, nasal polyps, recent myomectomy secondary to uterine fibroids on October 2017 presented with abdominal pain and fever. Sepsis Left tubo-Ovarian abscess with possible Left ovarian torsion H/O recent myomectomy for Uterine Fibroid on 2017 S/P Laparoscopic lysis of Adhesions, Left Salpingo-oophorectomy on 11/28/17 Continue IV antibiotics per ID>>> Transitioned to PO Augmentin STD screen:negative Cultures negative Leukocytosis trending down towards normal Appreciate ID and OBGYN help C.difficile negative Repeat CT Abd/Pelvis on 12/01/2017 revealed post-surgical changes vs new abscess (mostly likely a secondary peritonitis from spillage of pus/blood during surgical procedure) Discussed with ID, plan to DC on 10 day course of PO antibiotics Hypokalemia: Resolved monitor Microcytic Anemia peripheral smear suggestive of iron deficiency S/P 1 unit PRBC continue Iron supplements Diarrhea Likely secondary to antibiotics C.difficile is negative DM II: Hba1c 12.4 continue ISS, basal Insulin Monitor BGs Asthma no acute exacerbations use home inhalers DVT Px: Lovenox SQ Disposition: Plan to discharge home today Follow up with your PCP on December 09, 2017 at 10:45AM Follow up with your OBGYN in 1 week Follow up with your infectious disease Dr. Rosa John in 1-2 weeks Complete the antibiotic course as prescribed Seek immediate medical attention if your symptoms reoccur or worsen Vital Signs: Date Time Temp Pulse Resp B/P (MAP) Pulse Ox O2 Delivery O2 Flow Rate FiO2 12/03/17 08:10 Room Air 12/03/17 08:05 96 Room Air 12/03/17 07:45 37.2 94 20 122/78 (93) 96 Room Air 12/03/17 07:40 97 18 98 Room Air 12/03/17 00:30 Room Air 12/02/17 23:19 89 22 96 Room Air 12/02/17 22:50 36.9 93 16 123/76 (92) 97 Room Air 12/02/17 15:20 Room Air 12/02/17 15:01 37.2 95 18 117/77 (90) 95 Lab Results: Results Past 24 Hours Test 12/02/17 13:24 12/02/17 20:39 12/03/17 07:12 Range/Units Bedside Glucose 137 154 70-90 mg/dl White Blood Count 11.26 4.8-10.8 K/uL Red Blood Count 3.68 4.2-5.4 M/uL Hemoglobin 7.7 12.0-16.0 g/dL Hematocrit 24.6 37-47 % Mean Corpuscular Volume 66.8 80-100 fL Mean Corpuscular Hemoglobin 20.9 25-34 pg Mean Corpuscular Hemoglobin Concent 31.3 32-36 g/dl RDW Standard Deviation 48.4 36.4-46.3 fL RDW Coefficient of Variation 19.5 11.5-14.5 % Platelet Count 619 130-400 K/uL Mean Platelet Volume 8.5 7.4-10.4 fL Nucleated RBC Absolute Count (auto) 0.03 0-0 K/uL Nucleated Red Blood Cells % 0.3 % Sodium Level 139 136-145 mmol/L Potassium Level 3.5 3.5-5.1 mmol/L Chloride Level 106 98-107 mmol/L Carbon Dioxide Level 26 21-32 mmol/L Anion Gap 7.0 3-11 mmol/L Blood Urea Nitrogen 8 7-18 mg/dl Creatinine 0.55 0.60-1.20 mg/dl Est Creatinine Clear Calc Drug Dose 155.9 ml/min Estimated GFR () 147.9 Estimated GFR (Non- 127.6 BUN/Creatinine Ratio 14.0 10-20 Random Glucose 112 70-99 mg/dl Calcium Level 9.1 8.5-10.1 mg/dl Magnesium Level 2.1 1.8-2.4 mg/dl
[2017-12-03] MEDS ORDERED: AMOX1TAB43 PO (12:13)
--- NOTE | 2017-12-03 12:16 | Discharge Summary ---
Discharge Summary Date of Service December 03, 2017. Discharge Summary Admission Date: November 21, 2017 at 16:44 Discharge Date: December 03, 2017 Discharge Disposition: Home Principal Diagnosis: Sepsis, TOA Procedures: Diagnostic Laparoscopy,Lysis of Adhesions, Left Salpingo-oophorectomy Repeat CT ABD: 1. The left adnexal cystic focus seen on the prior study is no longer present and has likely been surgically resected. At the location of this cystic area there is a 4.8 x 2.5 cm gas and fluid collection. This does not represent complete peripheral enhancement at this time. Therefore, this could be due to postoperative change or represent a developing abscess/phlegmon. Consider follow-up to ensure resolution. 2. Small peripheral enhancing fluid collection within the pelvic cul-de-sac measuring 2.3 cm. This could also represent a postoperative fluid collection or developing abscess. 3. Inflammatory change and a small amount fluid within the deep pelvis which is nonspecific. This could be due to the postoperative change or inflammatory process. 4. Thickening within the distal descending colon, proximal sigmoid colon, and distal sigmoid colon with surrounding inflammatory change. This may be reactive from the postoperative changes. A nonspecific colitis would also have a similar appearance. 5. No evidence for bowel obstruction. 6. Moderate bladder wall thickening. Urinalysis recommended to evaluate for a cystitis. 7. Cystic lesions within the uterus, unchanged. This has been described as a fibroids on the prior studies. Repeat Transvaginal USD: 1. No significant change compared to the prior study. 2. Mildly enlarged left ovary. This demonstrates vascular flow but may be slightly edematous. Therefore, ovarian torsion is considered less likely but not entirely excluded. It should be noted that ovarian torsion is considered a clinical diagnosis. 3. No change in the heterogeneous appearance to the uterus suggestive of fibroids. 4. Trace pelvic free fluid. Transvaginal USD 1. Enlarged left ovary without arterial waveforms. This is highly concerning for ovarian torsion. Alternatively, this could represent an exophytic fibroid rather than ovarian parenchyma although this is considered less likely. Correlate with surgical history. Gynecologic consultation recommended. 2. Enlarged uterus with multiple fibroids. 3. Nonvisualization of the right ovary. The report will be called/faxed according to standard departmental protocol. Venous Doppler; No DVT within the right or left lower extremity. Initial CT ABD: 1. Enlarged fibroid uterus redemonstrated. 2. Cystic changes about the left adnexum again noted with mild to moderate amount of free fluid within the pelvis, possibly on a physiologic basis. 3. Scar formation along the lower anterior abdominal wall without evidence of drainable fluid collection. 4. No bowel obstruction or focal bowel wall thickening. Normal appendix. Consultations: OBGYN, ID Pending Studies/Follow-Up: Follow up with your PCP on December 09, 2017 at 10:45AM Follow up with your OBGYN in 1 week Follow up with your infectious disease Dr. Rosa John in 1-2 weeks Complete the antibiotic course as prescribed Seek immediate medical attention if your symptoms reoccur or worsen Medication Reconciliation New Medications: Amoxicillin & Pot Clavulanate (Amoxicillin/Clavulanate P) 1 Tab Tab 875 MG PO BIDM for 10 Days, #20 TAB Continued Medications: Acetaminophen (Mapap) 325 Mg Tab 325 MG PO Q4H PRN for Pain, #60 TAB 1 Refill Albuterol Hfa (Ventolin Hfa) 200 Puffs/73000 Mcg Aers 2 PUFFS INH Q6H PRN for PRN, #1 INHALER Albuterol Sulf (Proventil 0.083% 2.5MG/3ML) 2.5 Mg/3 Ml Nebu 2.5 MG INH DAILY PRN for SOB/Wheezing, EA Budesonide (Pulmicort Respules 0.5MG/2ML) 0.5 Mg/2 Ml Nebu 2 ML INH BID, EA Dextromethorphan-Guaifenesin (Mucinex Dm Maximum Streng) 1 Tab Tab 1 TAB PO HS PRN for RN for 10 Days, TAB 1 Refill Docusate Sodium (Docusate Sodium) 100 Mg Cap 100 MG PO BID, #60 CAP 2 Refills Ferrous Sulfate (Kp Ferrous Sulfate) 325 Mg Tab 1 TAB PO PRN for 30 Days, TAB 3 Refills Ferrous Sulfate (Kp Ferrous Sulfate) 325 Mg Tab 325 MG PO DAILY PRN for anemia for 30 Days, #30 TAB 3 Refills Insulin Glargine (Basaglar Kwikpen) 100 Unit/Ml Inj 64 UNITS INJ HS Insulin Glulisine (Apidra) 100 Unit/Ml Inj INJ SLIDING SCALE 1 UNITS PER 10 CARBS Metformin Hcl (Glucophage) 500 Mg Tab 500 MG PO QAM, TAB Montelukast Sodium (Singulair) 10 Mg Tab 10 MG PO HS for 90 Days, TAB 1 Refill Oxycodone/Acetaminophen 5MG/325MG (Percocet 5MG/325MG) Tab 1-2 TAB PO Q4H PRN for DONNELLY, Cramping, edema, #20 TAB PAIN Simethicone (Mi-Acid Gas Relief) 80 Mg Chew 80 MG PO Q6H, #90 TABS 2 Refills Admission Information HPI (per Admitting provider): This is a 27 year old female with a past medical history of insulin dependent, uncontrolled type 2 diabetes, hx of asthma, allergic rhinitis, nasal polyps, recent myomectomy secondary to uterine fibroids on October 17 - presents with abdominal pain; +fevers. States that she had fevers for a few days and abdominal pain worsened over the past few days. She was seen by [facility] on 11/20 as an outpatient; and had some blood work, urine tests done with no findings. Due to fevers, she presented to the ER. Had a myomectomy done on October 17 and had been doing well post-operatively. Has some burning with urination. No nausea/ vomiting/diarrhea. Physical Exam (per Admitting): General Appearance: no apparent distress Head: normocephalic, atraumatic Eyes: normal inspection ENT: hearing grossly normal Neck: supple Respiratory/Chest: chest non-tender, lungs clear, normal breath sounds, no respiratory distress, no accessory muscle use Cardiovascular: regular rate, rhythm, no edema, no gallop, no JVD, no murmur , normal peripheral pulses Abdomen/GI: normal bowel sounds, soft, no organomegaly, + tenderness Back: normal inspection, no CVA tenderness, no muscle spasm, normal range of motion Extremities/Musculoskelatal: normal inspection, no calf tenderness, normal capillary refill, no pedal edema, normal range of motion Neurologic/Psych: director account management II-XII nml as tested, no motor/sensory deficits, alert , normal mood/affect, oriented x 3 Skin: normal color, warm/dry, no rash Lymphatic: no adenopathy Hospital Course Patient is a 27 yr female with PMH of DM II, asthma, allergic rhinitis, nasal polyps, recent myomectomy secondary to uterine fibroids on October 2017 presented with abdominal pain and fever. Sepsis Left tubo-Ovarian abscess with possible Left ovarian torsion H/O recent myomectomy for Uterine Fibroid on 2017 S/P Laparoscopic lysis of Adhesions, Left Salpingo-oophorectomy on 11/28/17 Continue IV antibiotics per ID>>> Transitioned to PO Augmentin STD screen:negative Cultures negative Leukocytosis trending down towards normal Appreciate ID and OBGYN help C.difficile negative Repeat CT Abd/Pelvis on 12/01/2017 revealed post-surgical changes vs new abscess (mostly likely a secondary peritonitis from spillage of pus/blood during surgical procedure) Discussed with ID, plan to DC on 10 day course of PO antibiotics Hypokalemia: Resolved monitor Microcytic Anemia peripheral smear suggestive of iron deficiency S/P 1 unit PRBC continue Iron supplements Diarrhea Likely secondary to antibiotics C.difficile is negative DM II: Hba1c 12.4 continue ISS, basal Insulin Monitor BGs Asthma no acute exacerbations use home inhalers DVT Px: Lovenox SQ Disposition: Plan to discharge home today Follow up with your PCP on December 09, 2017 at 10:45AM Follow up with your OBGYN in 1 week Follow up with your infectious disease Dr. Rosa John in 1-2 weeks Complete the antibiotic course as prescribed Seek immediate medical attention if your symptoms reoccur or worsen Total time spent on discharge = 38 minutes This includes examination of the patient, discharge planning, medication reconciliation, and communication with other providers. Discharge Instructions Discharge Instructions Date of Service December 03, 2017. Admission Reason for Admission: Abdominal Pain; Fever Discharge Discharge Diagnosis / Problem: Sepsis, TOA Discharge Goals Goal(s): Decrease discomfort, Improve function Activity Recommendations Activity Limitations: per Instructions/Follow-up section Lifting Limitations: gradually increase as tolerated Exercise/Sports Limitations: gradually increase as tolerated . Instructions / Follow-Up Instructions / Follow-Up Follow up with your PCP on December 09, 2017 at 10:45AM Follow up with your OBGYN in 1 week Follow up with your infectious disease Dr. Rosa John in 1-2 weeks Complete the antibiotic course as prescribed Seek immediate medical attention if your symptoms reoccur or worsen Current Hospital Diet Patient's current hospital diet: Diabetes Type 2 Diet Discharge Diet Recommended Diet: Diabetes Type 2 Diet Procedures Procedures Performed: Diagnostic Laparoscopy,Lysis of Adhesions, Left Salpingo-oopherectomy Pending Studies Studies pending at discharge: no Laboratory Results Hemoglobin A1c Test 11/22/17 06:34 Range/Units Estimated Average Glucose 309 mg/dl Hemoglobin A1c 12.4 H 4.5-5.6 % Lipid Panel Test 11/22/17 06:34 Range/Units Triglycerides Level 63 0-150 mg/dl Cholesterol Level 97 0-200 mg/dl HDL Cholesterol 44 mg/dl Cholesterol/HDL Ratio 2.2 LDL Cholesterol, Calculated 40 mg/dl Medical Emergencies . Who to Call and When: Medical Emergencies: If at any time you feel your situation is an emergency, please call 911 immediately. . Non-Emergent Contact Non-Emergency issues call your: Primary Care Provider, Surgeon (OBGYN), Specialist (Infectious disease) Call Non-Emergent contact if: you have a fever, your pain is not controlled, your pain is worsening, your pain is unusual for you, your pain is concerning you, wound has increased drainage, wound has increased redness, wound has increased pain, you have any medication questions . . "Provider Documentation" section prepared by Sergio Kennedy. . <Electronically signed by Sergio Kennedy MD> Signed: 12/03/17 1218 Signed: The status of this report is Signed * If report status is Draft, the document has not been finalized by the responsible provider.
[2017-12-03 12:18] VITALS: BP 122/78; PULSE 94; TEMP 37.2; O2SAT 96
[2017-12-03] MEDS ORDERED: AMOXICILLIN/CLAVULANATE TAB 875 MG TAB PO SCH (17:45)
--- NOTE | 2017-12-04 10:20 | EDITING REQUIRED CODING QUERY ---
CODING QUERY To promote full compliance with coding requirements relating to patient care, provider participation is requested in all cases of side puller uncertainty. Please assist us with the question(s) below: Coding Question(s): 1. Please clarify below, in your clinical opinion, regarding the Left Tubo-Ovarian Abscess documented in patient with recent history of myomectomy procedure. ( ) This is Acute Left Tubo-Ovarian Abscess. Please specify further below: ( ) this is likely a postoperative infection - complication from recent procedure (myomectomy) ( ) this is Not likely a postoperative infection from recent procedure (myomectomy) ( ) This is Unspecified, not Acute, Left Tubo-Ovarian Abscess. Please specify further below: ( ) this is likely a postoperative infection - complication from recent procedure (myomectomy) ( ) this is Not likely a postoperative infection from recent procedure (myomectomy) Unsure if it is acute or post-operative complication 2. Please clarify below, in your clinical opinion, regarding the possible new abscess (most likely a secondary peritonitis from spillage of pus/blood during surgical procedure) that occurred during the admission. ( )This is likely a postoperative complication of the procedure during this admission ( ) This is Not a postoperative complication of the procedure during this admission Unsure if it is post-operative complication Physician's Response(s): Thank you Payal Auguste Principal Diagnosis: "_that condition established after study, to be chiefly responsible for occasioning the admission of the patient to the hospital for care." Co-Existing Principal Diagnosis: "_when two or more diagnoses equally meet the criteria for principal diagnosis as determined by the circumstances of admission, diagnostic work up, and/or therapy provided, and the Alphabetic Index, Tabular List, or another coding guideline does not provide sequencing direction, any one of the diagnoses may be sequenced first." "When the physician has documented what appears to be a current diagnosis in the body of the record, but has not included the diagnosis in the final diagnostic statement, the physician should be asked whether the diagnosis should be added." (Source Coding [facility] 2 QTR90. p3-4)
== END 2017-12-03 13:54 | disposition home or self-care (01) | DRG 853 ==
LOC: EDBD 13:25 → C.EDA 13:26 → C.MS4N 16:44 → ENRESERV 17:21 → C.MSN 11-22 21:58
PROVIDERS: ADMIT Family Medicine; ATTEND Internal Medicine
PROC: 0UT14ZZ Resection of Left Ovary, Percutaneous Endoscopic Approach (ICD-10-PCS; principal; 2017-11-28 11:15)
PROC: 0UT64ZZ Resection of Left Fallopian Tube, Percutaneous Endoscopic Approach (ICD-10-PCS; principal; 2017-11-28 11:15)
PROC: 0UN14ZZ Release Left Ovary, Percutaneous Endoscopic Approach (ICD-10-PCS; principal; 2017-11-28 11:15)
DX: A41.9 Sepsis, unspecified organism (principal); N70.93 Salpingitis and oophoritis, unspecified; K65.1 Peritoneal abscess; N83.512 Torsion of left ovary and ovarian pedicle; K52.1 Toxic gastroenteritis and colitis; T36.95XA Adverse effect of unspecified systemic antibiotic, initial encounter; D50.9 Iron deficiency anemia, unspecified; E11.65 Type 2 diabetes mellitus with hyperglycemia; K59.00 Constipation, unspecified; N73.6 Female pelvic peritoneal adhesions (postinfective); E87.6 Hypokalemia; J45.40 Moderate persistent asthma, uncomplicated; Z51.81 Encounter for therapeutic drug level monitoring; Z79.899 Other long term (current) drug therapy; Z79.4 Long term (current) use of insulin; Z91.11 Patient's noncompliance with dietary regimen; Z91.14 Patient's other noncompliance with medication regimen; Z98.890 Other specified postprocedural states; Z87.42 Personal history of other diseases of the female genital tract; Z91.018 Allergy to other foods; Z91.048 Other nonmedicinal substance allergy status; Z82.5 Family history of asthma and other chronic lower respiratory diseases

== ENCOUNTER 2018-01-21 07:37 | Day surgery (SDC) | payer OTHER ==
[~2018-01-21] VITALS: Ht 162.6 cm; Wt 81.7 kg
[2018-01-21] VITALS (11 sets, daily range): BP systolic 103–120; BP diastolic 71–84; PULSE 64–80; TEMP 36.5–37.1; O2SAT 96–99; Ht 162.6 cm; Wt 81.7 kg
[~2018-01-21 07:37] MED LIST changes: +ALBINS/ INH; -ALBUTEROL NEBULIZER INH; +AMOX1TAB43 PO; -MTR600X PO; -[UNRECOGNIZED DRUG - CODE] PO
[2018-01-21] MEDS ORDERED: ACET500C12 PO (08:07)
[2018-01-21] MEDS ORDERED: ACETAMINOPHEN 500 MG TAB PO PRN (09:45)
--- NOTE | 2018-01-21 09:49 | Discharge Instructions ---
Discharge Instructions Procedure Procedure Date: Jan 21, 2018. Reason for visit: Pseudo Tumor Cerebri W/Opening Pressure. Discharge Discharge Date: Jan 21, 2018. Discharge Diagnosis: headaches.visual change Instructions Activity Recommendations: 1 Day-May resume regular activity, 48 Hours of decreased exertion, 1 Day with no exercise/sex/sports, 1 Day with no driving/ machine use Return to School/Work: no limitations Recommended Home Diet: Resume Previous Diet Provider Instructions: Lumbar Puncture performed with Fluoroscopic guidance [ L45] level with [22 ] needle. No complications.Opening pressure 14 mmhg Allergies Coded Allergies: No Known Allergies (Verified , 01/21/18) Kike Garcia Recommendations: Call your doctor if: * Temperature above 101 degrees * Pain not relieved by pain medicine ordered * There is increased drainage or redness from any incision * You have any unanswered questions or concerns. Your Doctors Instructions noted above were prepared by provider Steven Be. Patient Signature Section: Patient Instructions Signature Page Randi Melendez Patient (or Guardian) Signature/Date: I have read and understand the instructions given to me by my caregivers. Caregiver/RN/Doctor Signature/Date: The above-named patient and/or guardian has received patient instructions on this date. + Original Patient Signature Page (only) stays with chart. Please make copy for patient.
--- NOTE | 2018-01-21 10:07 | DIAGNOSTIC IMAGING REPORT ---
LUMBAR PUNCTURE DIAGNOSTIC CLINICAL HISTORY: r/o pseudotumor cerebri visual change. Headache. FLUOROSCOPY TIME: 15 seconds PROCEDURE: The procedure, risks and benefits were discussed with the patient including the risk of spinal headache, bleeding and infection. The patient agreed to the procedure and informed written consent was obtained. The procedure was performed by Dr. Be following a timeout. The left L4-L5 interlaminar space was targeted. Skin overlying the space was prepped and draped in the usual sterile fashion and local anesthesia was achieved with 1% lidocaine. Under intermittent fluoroscopic guidance, a 20-gauge x 3 1/2 in. Sprotte needle was inserted into the thecal sac. A total of 10 cc of clear, colorless cerebral spinal fluid was obtained and spread amongst 4 vials. The patient tolerated the procedure well. There were no immediate complications. The specimens were sent to the laboratory at the request of the referring physician. Opening pressure 14 mmHg IMPRESSION: Successful fluoroscopic guided lumbar puncture with removal of 10 cc of clear, colorless cerebral spinal fluid. No immediate complications. Opening pressure 14 mmHg. Patient was transferred to observation status. The above report was generated using voice recognition software. It may contain grammatical, syntax or spelling errors. Electronically signed by: Steven Be M.D. 01/21/2018 10:05 AM Dictated Date/Time: 01/21/2018 10:04 AM
== END 2018-01-21 14:00 | disposition home or self-care (01) ==
LOC: C.ACU 07:37
PROVIDERS: ATTEND Psychiatry & Neurology Neurology
DX: G93.2 Benign intracranial hypertension (principal)